=== PATIENT | male | born 1950 | race Caucasian/White ===

== ENCOUNTER 2020-05-10 06:31 | Outpatient (REF) | payer MEDICARE, SELFPAY ==
[2020-05-10 07:51] LABS: MANUAL DIFF FLAG NO
[2020-05-10 07:56] LABS: Basophils Percent Auto 0.6 % (0-2); Eosinophils Absolute Auto 0.1 X10*3/uL (0.0-0.4); Eosinophils Percent Auto 1.4 % (0-4); Hematocrit 43.8 % (42-52); Hemoglobin 15.4 g/dl (14.0-18.0); Imm Gran Abs Auto 0.02 X10*3/uL (0.00-0.03); Imm Gran Pct Auto 0.3 % (0.0-0.4); Lymphocytes Absolute Auto 1.8 X10*3/uL (1.2-4.9); Lymphocytes Percent Auto 24.9 % (20-40); Mean Corpuscular HGB Conc 35.2 g/dl (31.0-36.0); Mean Corpuscular Volume 90.9 fL (80-98); Mean Platelet Volume 10.4 fL (9.4-12.4); Monocytes Absolute Auto 0.6 X10*3/uL (0.1-1.2); Monocytes Percent Auto 8.1 % (2-11); Neutrophils Absolute Auto 4.6 X10*3/uL (2.0-8.3); Neutrophils Percent Auto 64.7 % (45-73); Platelet Count 228 X10*3/uL (160-400); Red Blood Count 4.82 X10*6/uL (4.60-5.80); Red Cell Distribution Width 12.1 % (11.0-16.0)
[2020-05-10 08:14] LABS: Alanine Aminotransferase 18 U/L (0-40); Albumin Level 4.9 g/dL (3.5-5.0); Alkaline Phosphatase 107 U/L (39-117); Anion Gap 14 (12-20); Aspartate Amino Transferase 23 U/L (5-37); Bilirubin Total 0.7 mg/dL (0.0-1.0); Blood Urea Nitrogen 16 mg/dL (9-16); Calcium 9.9 mg/dL (8.4-10.2); Carbon Dioxide 28 mmol/L (22-29); Chloride 101 mmol/L (96-108); Cholesterol 168 mg/dL; Estimated Glomerular Filt Rate > 60; Glucose Fasting 103 mg/dL (60-99); HDL Cholesterol 51 mg/dL; LDL Cholesterol Calculated 90 mg/dl; Potassium 4.8 mmol/l (3.3-5.1); Sodium 138 mmol/L (135-145); Total Protein 7.9 g/dL (6.5-8.0); Triglycerides 137 mg/dL
[2020-05-10 08:20] LABS: Glucose Urine UA NEG (NEG); Leukocyte Esterase Urine NEG (NEG); Nitrite Urine NEG (NEG); Urine Blood NEG (NEG); Urine Ketones NEG (NEG); Urine Protein NEG (NEG-TRACE)
[2020-05-10 08:29] LABS: Appearance Urine CLEAR; Color Urine YELLOW
[2020-05-10 08:36] LABS: Prostate Specific Antigen Scr 0.42 ng/mL (<0.05-4.0)
== END 2020-05-10 06:32 | disposition home or self-care (01) ==
LOC: HO.LAB 06:31
PROVIDERS: PCP Internal Medicine; Visit Provider Internal Medicine
DX: M19.90 Unspecified osteoarthritis, unspecified site (principal); R35.1 Nocturia; I10 Essential (primary) hypertension
CPT/HCPCS: 36415; 80053; 80061; 81003; 84153; 85025

== ENCOUNTER → 2020-08-08 13:32 | Outpatient (REF) | payer MEDICARE, OTHER, SELFPAY ==
--- NOTE | 2020-08-08 14:37 | ECG_ITS ---
Hook-up date: 2020-08-08 13:50:00 Duration: 25:36:00 Test Indications: heart block atrioventricular Medications: 78379 QRS complexes 2378 Ventricular ectopics which represent 2 % of total QRS comp. 16 Supraventricular ectopics which represent <1 % of total QRS comp. * Paced QRS complexs which represent % of total QRS comp. VENTRICULAR ECTOPY 2214 Isolated 331 Bigeminal Cycles 75 Couplets 4 Runs 14 Beats in Runs 5 Beats LONGEST at 88 BPM at 07:18:24 2020-08-09 5 Beats FASTEST at 88 BPM at 07:18:24 2020-08-09 SUPRAVENTRICULAR ECTOPY 16 Isolated 0 Couplets 0 Runs 0 Beats in Runs * Beats LONGEST at * BPM at :: -- * Beats FASTEST at * BPM at :: -- HEART RATES 33 MIN at 08:27:31 2020-08-09 58 AVG 103 MAX at 06:22:28 2020-08-09 LONGEST RR 2.4960 secs at 03:22:10 2020-08-09 S-T LEVELS Channel 1 - 128 mm at 13:50:00 2020-08-08 - 128 mm at 13:50:00 2020-08-08 Channel 2 - 128 mm at 13:50:00 2020-08-08 - 128 mm at 13:50:00 2020-08-08 Channel 3 - 128 mm at 03:30:91 -- - 128 mm at 03:30:91 Underlying rhythm is sinus; Average ventricular rate 58/min; 33-103/min; Mobitz 1 wenckebach heart block noted; No high grade AV blocks; PVCs noted (3%); mostly isolated; few couplets; no sustained runs; Patient did not report any symptoms in the diary Referred By: Pamela Taylor Overread By: PAMELA TAYLOR
== END ==
LOC: HO.CARD 13:32
PROVIDERS: PCP Internal Medicine; Visit Provider Internal Medicine
DX: I44.30 Unspecified atrioventricular block (principal); I44.1 Atrioventricular block, second degree; I10 Essential (primary) hypertension
CPT/HCPCS: 93226

== ENCOUNTER → 2020-08-23 12:28 | Outpatient (BNVA) | payer MEDICARE, OTHER, SELFPAY | PROVIDERS: PCP Internal Medicine; Visit Provider Internal Medicine | DX: I44.1 Atrioventricular block, second degree (principal); I49.3 Ventricular premature depolarization; I10 Essential (primary) hypertension | CPT/HCPCS: 99212 ==

== ENCOUNTER 2020-11-24 06:09 | Outpatient (REF) | payer MEDICARE, SELFPAY ==
--- NOTE | ~2020-11-24 | XR_ITS ---
EXAMINATION: XR FEMUR, RIGHT CLINICAL INFORMATION: Right thigh pain COMPARISON: Standing AP knees and right knee 05/10/2017 TECHNIQUE: The right femur is imaged in AP x2, lateral, and frog-lateral x2 projections for a total of 5 views. FINDINGS: There is no fracture or dislocation or destructive process. There are mild degenerative changes right hip with borderline narrowing superior medial hip joint. There is no erosive change or chondrocalcinosis. Soft tissue planes around the hips are unremarkable. There is a prior hinged prosthesis right knee again demonstrated. The hardware is intact. The AP view shows increased lucency adjacent to the medial side proximal stem of the prosthesis measuring 5.5 mm in thickness, since prior AP view 2017. There is also mild cortical thickening adjacent to proximal prosthesis stem on the lateral and anterior side. Finding may be associated with loosening. No other sites of increased periprosthetic lucency. XR/XR femur RT 2V IMPRESSION: 1. Prior hinged prosthesis right knee. Hardware intact. No fracture or dislocation. 2. Increased lucency between proximal prosthesis stem and bone, 5.5 mm in thickness, since prior imaging 2017. Also mild cortical thickening adjacent to anterior lateral aspect of the proximal prosthesis stem. Findings may suggest loosening.
[2020-11-24 07:17] LABS: MANUAL DIFF FLAG NO
[2020-11-24 07:30] LABS: Basophils Percent Auto 0.6 % (0-2); Eosinophils Absolute Auto 0.2 X10*3/uL (0.0-0.4); Eosinophils Percent Auto 2.1 % (0-4); Hematocrit 44.7 % (42-52); Hemoglobin 15.8 g/dl (14.0-18.0); Imm Gran Abs Auto 0.02 X10*3/uL (0.00-0.03); Imm Gran Pct Auto 0.3 % (0.0-0.4); Lymphocytes Absolute Auto 1.8 X10*3/uL (1.2-4.9); Mean Corpuscular HGB Conc 35.3 g/dl (31.0-36.0); Mean Corpuscular Hemoglobin 31.7 pg (27.0-33.0); Mean Corpuscular Volume 89.8 fL (80-98); Mean Platelet Volume 10.5 fL (9.4-12.4); Monocytes Absolute Auto 0.6 X10*3/uL (0.1-1.2); Monocytes Percent Auto 8.9 % (2-11); Neutrophils Absolute Auto 4.6 X10*3/uL (2.0-8.3); Neutrophils Percent Auto 63.1 % (45-73); Platelet Count 229 X10*3/uL (160-400); Red Blood Count 4.98 X10*6/uL (4.60-5.80); Red Cell Distribution Width 11.9 % (11.0-16.0); White Blood Count 7.2 X10*3/uL (4.8-10.8)
[2020-11-24 07:44] LABS: Alanine Aminotransferase 14 U/L (0-40); Albumin Level 4.7 g/dL (3.5-5.0); Alkaline Phosphatase 101 U/L (39-117); Anion Gap 15 (12-20); Aspartate Amino Transferase 18 U/L (5-37); Bilirubin Total 1.1 mg/dL (0.0-1.0); Blood Urea Nitrogen 19 mg/dL (9-16); Calcium 9.8 mg/dL (8.4-10.2); Carbon Dioxide 25 mmol/L (22-29); Chloride 102 mmol/L (96-108); Cholesterol 180 mg/dL; Estimated Glomerular Filt Rate > 60; Glucose Fasting 108 mg/dL (60-99); HDL Cholesterol 47 mg/dL; LDL Cholesterol Calculated 98 mg/dl; Potassium 4.4 mmol/L (3.3-5.1); Sodium 138 mmol/L (135-145); Total Protein 7.5 g/dL (6.5-8.0); Triglycerides 177 mg/dL
[2020-11-24 08:05] LABS: Prostate Specific Antigen 0.52 ng/mL (<0.05-4.0)
== END 2020-11-24 06:10 | disposition home or self-care (01) ==
LOC: HO.LAB 06:09
PROVIDERS: Visit Provider Internal Medicine
DX: I10 Essential (primary) hypertension (principal); M19.90 Unspecified osteoarthritis, unspecified site; G47.00 Insomnia, unspecified; M79.651 Pain in right thigh; Z12.5 Encounter for screening for malignant neoplasm of prostate
CPT/HCPCS: 36415; 73552; 80053; 80061; 84153; 85025

== ENCOUNTER 2020-12-01 08:03 | Outpatient (REF) | payer MEDICARE, SELFPAY ==
--- NOTE | ~2020-12-01 | XR_ITS ---
EXAMINATION: KNEE X-RAY CLINICAL INFORMATION: Knee replacement COMPARISON: Previous x-ray most recent May 2017 and right femur x-ray 11/24/2020 TECHNIQUE: Standing AP view of both knees and lateral and sunrise view of the right knee FINDINGS: There is a 3 component hinged right knee replacement. No fracture, dislocation or x-ray evidence of loosening is seen. There is a joint effusion. There is evidence of atherosclerotic disease. AP view of the left knee demonstrates mild medial degenerative meniscal calcification. XR/XR knee RT 2V IMPRESSION: Stable appearance of the right knee replacement. Joint effusion.
--- NOTE | ~2020-12-01 | XR_ITS ---
EXAMINATION: KNEE X-RAY CLINICAL INFORMATION: Knee replacement COMPARISON: Previous x-ray most recent May 2017 and right femur x-ray 11/24/2020 TECHNIQUE: Standing AP view of both knees and lateral and sunrise view of the right knee FINDINGS: There is a 3 component hinged right knee replacement. No fracture, dislocation or x-ray evidence of loosening is seen. There is a joint effusion. There is evidence of atherosclerotic disease. AP view of the left knee demonstrates mild medial degenerative meniscal calcification. XR/XR knee standing BI IMPRESSION: Stable appearance of the right knee replacement. Joint effusion.
== END 2020-12-01 08:04 | disposition home or self-care (01) ==
LOC: HO.HOSX 08:03
PROVIDERS: Visit Provider Orthopaedic Surgery
DX: T84.84XA Pain due to internal orthopedic prosthetic devices, implants and grafts, initial encounter (principal); Z96.651 Presence of right artificial knee joint
CPT/HCPCS: 73560; 73565; 99212

== ENCOUNTER → 2021-02-14 13:35 | Outpatient (BNVA) | payer MEDICARE, SELFPAY | PROVIDERS: PCP Internal Medicine; Referring Provider Internal Medicine; Visit Provider Internal Medicine | DX: I44.1 Atrioventricular block, second degree (principal); I49.3 Ventricular premature depolarization; I10 Essential (primary) hypertension; G47.33 Obstructive sleep apnea (adult) (pediatric); Z99.89 Dependence on other enabling machines and devices; Z79.899 Other long term (current) drug therapy | CPT/HCPCS: 93005; 99212 ==

== ENCOUNTER 2021-05-02 12:06 | Outpatient (REF) | payer MEDICARE, OTHER, SELFPAY ==
[2021-05-02 13:46] LABS: MANUAL DIFF FLAG NO
[2021-05-02 13:58] LABS: Basophils Percent Auto 0.5 % (0-2); Eosinophils Absolute Auto 0.1 X10*3/uL (0.0-0.4); Eosinophils Percent Auto 1.2 % (0-4); Hemoglobin 14.9 g/dl (14.0-18.0); Imm Gran Abs Auto 0.03 X10*3/uL (0.00-0.03); Imm Gran Pct Auto 0.4 % (0.0-0.4); Lymphocytes Absolute Auto 1.3 X10*3/uL (1.2-4.9); Lymphocytes Percent Auto 16.5 % (20-40); Mean Corpuscular HGB Conc 34.7 g/dl (31.0-36.0); Mean Corpuscular Hemoglobin 31.3 pg (27.0-33.0); Mean Corpuscular Volume 90.3 fL (80-98); Mean Platelet Volume 10.8 fL (9.4-12.4); Monocytes Absolute Auto 0.7 X10*3/uL (0.1-1.2); Monocytes Percent Auto 8.5 % (2-11); Neutrophils Absolute Auto 5.9 X10*3/uL (2.0-8.3); Neutrophils Percent Auto 72.9 % (45-73); Platelet Count 221 X10*3/uL (160-400); Red Blood Count 4.76 X10*6/uL (4.60-5.80); Red Cell Distribution Width 11.9 % (11.0-16.0); White Blood Count 8.1 X10*3/uL (4.8-10.8)
[2021-05-02 14:03] LABS: Alanine Aminotransferase 13 U/L (0-40); Albumin Level 4.6 g/dL (3.5-5.0); Alkaline Phosphatase 93 U/L (39-117); Anion Gap 15 (12-20); Aspartate Amino Transferase 20 U/L (5-37); Bilirubin Total 0.9 mg/dL (0.0-1.0); Blood Urea Nitrogen 18 mg/dL (9-16); Calcium 9.9 mg/dL (8.4-10.2); Carbon Dioxide 23 mmol/L (22-29); Chloride 101 mmol/L (96-108); Estimated Glomerular Filt Rate > 60; Glucose Random 103 mg/dL (60-115); Potassium 4.7 mmol/L (3.3-5.1); Sodium 134 mmol/L (135-145); Total Protein 7.5 g/dL (6.5-8.0)
== END 2021-05-02 12:07 | disposition home or self-care (01) ==
LOC: HO.10HDL 12:06
PROVIDERS: Visit Provider Internal Medicine
DX: I10 Essential (primary) hypertension (principal); K21.9 Gastro-esophageal reflux disease without esophagitis; G47.33 Obstructive sleep apnea (adult) (pediatric); M19.90 Unspecified osteoarthritis, unspecified site
CPT/HCPCS: 36415; 80053; 85025

== ENCOUNTER → 2021-08-08 08:59 | Outpatient (REF) | payer MEDICARE, SELFPAY ==
--- NOTE | 2021-08-08 10:31 | ECG_ITS ---
Hook-up date: 2021-08-08 10:11:00 Duration: 47:59:00 Test Indications: ATRIOVENTRIC. BLOCK, 2ND DEGREE Medications: 51991 QRS complexes 1443 Ventricular ectopics which represent 1 % of total QRS comp. 12 Supraventricular ectopics which represent <1 % of total QRS comp. * Paced QRS complexs which represent % of total QRS comp. VENTRICULAR ECTOPY 1382 Isolated 211 Bigeminal Cycles 29 Couplets 1 Runs 3 Beats in Runs 3 Beats LONGEST at 137 BPM at 22:38:11 2021-08-08 3 Beats FASTEST at 137 BPM at 22:38:11 2021-08-08 SUPRAVENTRICULAR ECTOPY 12 Isolated 0 Couplets 0 Runs 0 Beats in Runs * Beats LONGEST at * BPM at :: -- * Beats FASTEST at * BPM at :: -- HEART RATES 28 MIN at 06:13:44 2021-08-09 55 AVG 97 MAX at 07:03:54 2021-08-09 LONGEST RR 2.5040 secs at 05:00:38 2021-08-09 S-T LEVELS Channel 1 - 128 mm at 10:11:00 2021-08-08 - 128 mm at 10:11:00 2021-08-08 Channel 2 - 128 mm at 10:11:00 2021-08-08 - 128 mm at 10:11:00 2021-08-08 Channel 3 - 128 mm at 02:93:01 -- - 128 mm at 02:93:01 Underlying rhythm is sinus; Average rate 55/min; range 28-97/min; About 57% of the time, rate <60/min; Longest pause 2.5sec at 05:00; Mobitz 1 second degree heart block noted, including during awake hours; Patient did not report any symptoms in the diary Referred By: Pamela Taylor Overread By: PAMELA TAYLOR
== END ==
LOC: HO.CARD 08:59
PROVIDERS: PCP Internal Medicine; Referring Provider Internal Medicine; Visit Provider Internal Medicine
DX: I44.1 Atrioventricular block, second degree (principal)
CPT/HCPCS: 93226

== ENCOUNTER → 2021-09-05 12:30 | Outpatient (BNVA) | payer MEDICARE, SELFPAY | PROVIDERS: PCP Internal Medicine; Referring Provider Internal Medicine; Visit Provider Internal Medicine | DX: I44.1 Atrioventricular block, second degree (principal); I49.3 Ventricular premature depolarization; I10 Essential (primary) hypertension; G47.33 Obstructive sleep apnea (adult) (pediatric); Z99.89 Dependence on other enabling machines and devices | CPT/HCPCS: 99212 ==

== ENCOUNTER 2021-11-09 07:31 | Outpatient (REF) | payer MEDICARE, SELFPAY ==
[2021-11-09 07:53] LABS: MANUAL DIFF FLAG NO
[2021-11-09 08:11] LABS: Basophils Percent Auto 0.3 % (0-2); Eosinophils Absolute Auto 0.1 X10*3/uL (0.0-0.4); Hematocrit 43.4 % (42.0-52.0); Hemoglobin 15.2 g/dl (14.0-18.0); Imm Gran Abs Auto 0.06 X10*3/uL (0.00-0.03); Imm Gran Pct Auto 0.7 % (0.0-0.4); Lymphocytes Absolute Auto 1.5 X10*3/uL (1.2-4.9); Lymphocytes Percent Auto 15.8 % (20-40); Mean Corpuscular Hemoglobin 31.5 pg (27.0-33.0); Mean Corpuscular Volume 89.9 fL (80.0-98.0); Mean Platelet Volume 9.4 fL (9.4-12.4); Monocytes Absolute Auto 0.7 X10*3/uL (0.1-1.2); Monocytes Percent Auto 7.5 % (2-11); Neutrophils Absolute Auto 6.8 x10*3/uL (2.0-8.3); Neutrophils Percent Auto 74.7 % (45-73); Platelet Count 288 X10*3/uL (160-400); Red Blood Count 4.83 X10*6/uL (4.60-5.80); Red Cell Distribution Width 12.1 % (11.0-16.0); White Blood Count 9.2 X10*3/uL (4.8-10.8)
[2021-11-09 08:36] LABS: Alanine Aminotransferase 22 U/L (0-40); Albumin Level 4.6 g/dL (3.5-5.0); Alkaline Phosphatase 91 U/L (39-117); Anion Gap 15 (12-20); Aspartate Amino Transferase 23 U/L (5-37); Bilirubin Total 0.8 mg/dL (0.0-1.0); Blood Urea Nitrogen 16 mg/dL (9-16); Calcium 9.9 mg/dL (8.4-10.2); Carbon Dioxide 24 mmol/L (22-29); Chloride 103 mmol/L (96-108); Cholesterol 153 mg/dL; Estimated Glomerular Filt Rate > 60; Glucose Fasting 106 mg/dL (60-99); HDL Cholesterol 39 mg/dL; LDL Cholesterol Calculated 87 mg/dl; Potassium 4.7 mmol/L (3.3-5.1); Sodium 137 mmol/L (135-145); Total Protein 7.6 g/dL (6.5-8.0); Triglycerides 139 mg/dL
[2021-11-09 08:56] LABS: Prostate Specific Antigen 0.63 ng/mL (<0.05-4.0)
== END 2021-11-09 07:32 | disposition home or self-care (01) ==
LOC: HO.LAB 07:31
PROVIDERS: PCP Internal Medicine; Visit Provider Internal Medicine
DX: Z12.5 Encounter for screening for malignant neoplasm of prostate (principal); N40.0 Benign prostatic hyperplasia without lower urinary tract symptoms; G47.33 Obstructive sleep apnea (adult) (pediatric); K21.9 Gastro-esophageal reflux disease without esophagitis; I10 Essential (primary) hypertension; M19.90 Unspecified osteoarthritis, unspecified site; R35.1 Nocturia
CPT/HCPCS: 36415; 80053; 80061; 84153; 85025

== ENCOUNTER → 2022-03-08 15:11 | Outpatient (BNVA) | payer MEDICARE, OTHER, SELFPAY | PROVIDERS: PCP Internal Medicine; Referring Provider Internal Medicine; Visit Provider Internal Medicine | DX: I44.1 Atrioventricular block, second degree (principal); I49.3 Ventricular premature depolarization; I10 Essential (primary) hypertension; G47.33 Obstructive sleep apnea (adult) (pediatric); Z99.89 Dependence on other enabling machines and devices | CPT/HCPCS: 93005; 99212 ==

== ENCOUNTER 2022-03-22 08:02 | Outpatient (REF) | payer MEDICARE, OTHER, SELFPAY ==
[2022-03-22 11:18] LABS: Anion Gap 15 (12-20); Blood Urea Nitrogen 19 mg/dL (9-16); Calcium 9.6 mg/dL (8.4-10.2); Carbon Dioxide 27 mmol/L (22-29); Chloride 101 mmol/L (96-108); Estimated Glomerular Filt Rate 52; Glucose Random 116 mg/dL (60-115); Potassium 4.5 mmol/L (3.3-5.1); Sodium 138 mmol/L (135-145)
== END 2022-03-22 08:03 | disposition home or self-care (01) ==
LOC: HO.10HDL 08:02
PROVIDERS: Visit Provider Internal Medicine
DX: I10 Essential (primary) hypertension (principal); K21.9 Gastro-esophageal reflux disease without esophagitis
CPT/HCPCS: 36415; 80048

== ENCOUNTER → 2022-05-29 08:59 | Outpatient (REF) | payer MEDICARE, OTHER, SELFPAY | LOC: HO.SL 08:59 | PROVIDERS: PCP Internal Medicine; Visit Provider Internal Medicine | DX: G47.33 Obstructive sleep apnea (adult) (pediatric) (principal) | CPT/HCPCS: 95806 ==

== ENCOUNTER → 2022-07-05 10:56 | Outpatient (REF) | payer MEDICARE, OTHER, SELFPAY ==
--- NOTE | 2022-07-05 11:00 | HM_ITS ---
Conclusion: 1. Patient was monitored for total period of 3 days 2. Baseline was normal sinus rhythm with average heart rate of 53 beats per minute with lowest heart rate of 35 beats per minute 3. Frequent sinus bradycardia with 55% of time heart rate below 60 beats per minute 4. Frequent pauses greater than 2.5 seconds with longest pause of 3.02nd happening at 06:00 5. Occasional episodes of Mobitz type 1 second-degree AV block noted 6. Total of 4448 PVCs accounting for 1.9% total beats account for frequent PVCs 7. There were 6 episodes of nonsustained VT from 3-7 beats, fastest at 163 beats per minute 8. Patient use marker 1 time without reported symptom correlating with sinus rhythm MTDD
== END ==
LOC: HO.CARD 10:56
PROVIDERS: PCP Internal Medicine; Visit Provider Internal Medicine
DX: I44.1 Atrioventricular block, second degree (principal)
CPT/HCPCS: 93242

== ENCOUNTER 2022-07-24 12:26 | Outpatient (REF) | payer MEDICARE, OTHER, SELFPAY ==
[2022-07-24 13:55] LABS: MANUAL DIFF FLAG NO
[2022-07-24 13:58] LABS: Basophils Percent Auto 0.5 % (0-2); Eosinophils Absolute Auto 0.1 X10*3/uL (0.0-0.4); Eosinophils Percent Auto 0.9 % (0-4); Hemoglobin 15.4 g/dl (14.0-18.0); Imm Gran Abs Auto 0.03 X10*3/uL (0.00-0.03); Imm Gran Pct Auto 0.3 % (0.0-0.4); Lymphocytes Absolute Auto 1.6 X10*3/uL (1.2-4.9); Lymphocytes Percent Auto 18.4 % (20-40); Mean Corpuscular Hemoglobin 31.6 pg (27.0-33.0); Mean Corpuscular Volume 90.3 fL (80.0-98.0); Mean Platelet Volume 10.6 fL (9.4-12.4); Monocytes Absolute Auto 0.8 X10*3/uL (0.1-1.2); Monocytes Percent Auto 8.7 % (2-11); Neutrophils Absolute Auto 6.2 x10*3/uL (2.0-8.3); Neutrophils Percent Auto 71.2 % (45-73); Platelet Count 228 X10*3/uL (160-400); Red Blood Count 4.87 X10*6/uL (4.60-5.80); White Blood Count 8.8 X10*3/uL (4.8-10.8)
[2022-07-24 15:55] LABS: Alanine Aminotransferase 16 U/L (0-40); Albumin Level 4.7 g/dL (3.5-5.0); Alkaline Phosphatase 91 U/L (39-117); Anion Gap 12 (12-20); Aspartate Amino Transferase 21 U/L (5-37); Bilirubin Total 1.1 mg/dL (0.0-1.0); Blood Urea Nitrogen 21 mg/dL (9-16); Calcium 10.1 mg/dL (8.4-10.2); Carbon Dioxide 28 mmol/L (22-29); Chloride 101 mmol/L (96-108); Estimated Glomerular Filt Rate 56; Free T4 (Free Thyroxine) 0.92 ng/dL (0.71-1.85); Glucose Random 99 mg/dL (60-115); Magnesium 1.9 mg/dL (1.6-2.6); Potassium 5.2 mmol/L (3.3-5.1); Sodium 136 mmol/L (135-145); Total Protein 7.5 g/dL (6.5-8.0)
== END 2022-07-24 12:27 | disposition home or self-care (01) ==
LOC: HO.10HDL 12:26
PROVIDERS: Visit Provider Internal Medicine
DX: R00.2 Palpitations (principal); I12.9 Hypertensive chronic kidney disease with stage 1 through stage 4 chronic kidney disease, or unspecified chronic kidney disease; N18.9 Chronic kidney disease, unspecified; M19.90 Unspecified osteoarthritis, unspecified site
CPT/HCPCS: 36415; 80053; 83735; 84439; 85025

== ENCOUNTER → 2022-08-02 08:27 | Outpatient (REF) | payer MEDICARE, SELFPAY ==
--- NOTE | 2022-08-02 08:31 | CA_ITS ---
Transthoracic Echocardiogram Patient (Last, First, Middle): Mason Sethi R Gender: Male Date of : 1950 Age: 72 Procedure Date: 08/02/2022 Procedure Type: Transthoracic Echocardiogram Location: OP Height: 182.88 cm Weight: 92.99 kg BSA: 2.15 m2 Heart Rate: bpm BP: 140 / 70 mmHg Stable Hand: TO Referring MD: Antoine Kendrick MD Fur Machine Operator: David Mejia MD Symptoms: R00.2 PALPITATIONS 144.0 ATRIOVENTRICULAR BLOCK 1st degree htn Study Quality: Fair ECG Rhythm: Sinus with extra beats Conclusions: - 1. Normal LV systolic function 2. Mild mitral regurgitation 3. Mild biatrial enlargement 4. Normal RV systolic pressure 5. No pericardial effusion Findings Left Ventricle Normal left ventricular size, thickness, and systolic function. The visually estimated ejection fraction is between 55-60%. Spectral Doppler is indicative of a normal filling pattern. Right Ventricle Normal right ventricular cavity size and systolic function. Atria Mild biatrial enlargement. Interatrial shunt cannot be excluded. Aortic Valve Normal aortic valve structure and function. There is no aortic valve stenosis. There is no aortic valve regurgitation. Mitral Valve There is mild anterior and posterior mitral leaflet thickening. There is trace mitral valve regurgitation. There is no mitral valve stenosis. Pulmonic Valve The pulmonic valve was not well visualized. Tricuspid Valve Normal tricuspid valve structure. There is trace tricuspid valve regurgitation. The right ventricular systolic pressure is normal. The right ventricular systolic pressure is 30 mmHg. Normal right atrial pressure. There is no evidence of pulmonary hypertension. Great Vessels All visible segments of the aorta are normal in size. The pulmonary artery was not well visualized. Venous The inferior vena cava is normal in size and collapses greater than 50% with inspiration. Pericardium/Pleural There is no evidence of pericardial effusion. Prior Study Comparison No significant change compared to prior study dated: 07/13/2019. Measurements 2D Linear Measurements IVSd: 1.02 0.6-0.9/0.6-1.0 cm LVIDd: 4.91 3.9-5.3/4.2-5.9 cm LVIDd Index: 2.28 2.4-3.2/2.2-3.1 cm/m2 LVIDs: 3.84 2.0-3.6 cm LVPWd: 1.06 0.7-1.1 cm LA Diam: 4.00 2.7-3.8/3.0-4.0 cm LAIDs Index: 1.86 1.5-2.3 cm/m2 LV Mass: 232.09 67-162/88-224 g LV Mass Index: 107.95 43-95/49-115 g/m2 LVOT Diam: 2.20 3.0+(-)1.3 cm 2D Systolic Function EF 4C: 52.60 >55% EF 2C: 51.20 >55% Mitral Valve MV Pk E: 0.84 MV PK A: 0.50 MV Decel Time: 224.00 E/A: 1.70 E'Lateral: 8.59 E'Medial: 5.87 E/E' Med: 14.30 E/E' Lat: 9.80 PHT: 66.00 MVA PHT: 3.33 Decel [place]: 3.75 Aortic Valve AoV Pk Syed: 1.08 AoV Mn Syed: 0.77 AoV VTI: 0.27 AoV Pk Grad: 5.00 Aov Mn Grad: 3.00 JADIEL Cont.VTI: 2.25 LVOT LVOT Pk Syed: 0.67 LVOT Mn Syed: 0.50 LVOT VTI: 0.16 LVOT Pk Grad: 2.00 LVOT Mn Grad: 1.00 LVOT Diam: 2.20 LVOT Area: 3.80 Diastolic Function MV Pk E: 0.84 MV Pk A: 0.50 E/A: 1.70 E'Medial: 5.87 E/E' Med: 14.30 E' Laterial: 8.59 E/E' Lat: 9.80 Right Ventricle TAPSE (mm): 19.80 TVS' Syed: 11.00 Tricuspid Valve TR Pk Syed: 2.58 TR Pk Grad: 27.00 RA Press: 3.00 RVSP: 30.00 Great Vessels Aorta Sinus of Valsalva: 3.32 2.0-3.5 cm Ao Asc: 2.90 2.1-3.4 cm Updated in Other Vendor System with Status of Final David Mejia MD electronically signed on 08/03/2022 3:07:55 PM with status of Final
== END ==
LOC: HO.CARD 08:27
PROVIDERS: Visit Provider Internal Medicine
DX: R00.2 Palpitations (principal); I44.0 Atrioventricular block, first degree; I10 Essential (primary) hypertension
CPT/HCPCS: 93306

== ENCOUNTER 2022-08-20 16:06 | Outpatient (REF) | payer MEDICARE, SELFPAY ==
--- NOTE | ~2022-08-20 | XR_ITS ---
EXAMINATION: XR ribs RT min 3V w CXR1V CLINICAL INFORMATION: Reason for Exam s/p fall, right rib pain COMPARISON: Chest radiograph 10/23/2015 TECHNIQUE: 3 views of the right ribs and chest x-ray view FINDINGS: Clear lungs. No pneumothorax or pleural effusion. Unchanged cardiomediastinal silhouette. There are minimally displaced fractures, which appear chronic of the posterior right seventh eighth and ninth ribs. No definite acute displaced fracture. XR/XR ribs RT min 3V w CXR1V Impression: There are minimally displaced fractures, which appear chronic of the posterior right seventh eighth and ninth ribs. No definite acute displaced fracture.
== END 2022-08-20 16:07 | disposition home or self-care (01) ==
LOC: HO.XRAY 16:06
PROVIDERS: PCP Internal Medicine; Visit Provider Internal Medicine
DX: R07.81 Pleurodynia (principal); Z91.81 History of falling
CPT/HCPCS: 71101

== ENCOUNTER → 2022-09-13 09:59 | Outpatient (BNVA) | payer MEDICARE, SELFPAY | PROVIDERS: PCP Internal Medicine; Referring Provider Internal Medicine; Visit Provider Internal Medicine | DX: I44.1 Atrioventricular block, second degree (principal); I49.3 Ventricular premature depolarization; I10 Essential (primary) hypertension; G47.33 Obstructive sleep apnea (adult) (pediatric); Z99.89 Dependence on other enabling machines and devices | CPT/HCPCS: 93005; 99212 ==

== ENCOUNTER 2022-11-13 08:04 | Outpatient (REF) | payer MEDICARE, SELFPAY ==
[2022-11-13 11:19] LABS: Alanine Aminotransferase 14 U/L (0-40); Albumin Level 4.5 g/dL (3.5-5.0); Alkaline Phosphatase 104 U/L (39-117); Anion Gap 13 (12-20); Aspartate Amino Transferase 19 U/L (5-37); Bilirubin Total 0.5 mg/dL (0.0-1.0); Blood Urea Nitrogen 22 mg/dL (9-16); Calcium 9.7 mg/dL (8.4-10.2); Carbon Dioxide 27 mmol/L (22-29); Chloride 102 mmol/L (96-108); Estimated Glomerular Filt Rate 53; Glucose Random 108 mg/dL (60-115); Potassium 4.7 mmol/L (3.3-5.1); Sodium 137 mmol/L (135-145); Total Protein 7.1 g/dL (6.5-8.0)
== END 2022-11-13 08:05 | disposition home or self-care (01) ==
LOC: HO.10HDL 08:04
PROVIDERS: Visit Provider Internal Medicine
DX: Z13.89 Encounter for screening for other disorder (principal)
CPT/HCPCS: 36415; 80053

== ENCOUNTER → 2022-11-13 13:09 | Outpatient (REF) | payer MEDICARE, SELFPAY ==
--- NOTE | 2022-11-13 13:11 | HM_ITS ---
Conclusion: 1. Patient was monitored for total period of 3 days 2. Baseline was normal sinus rhythm with average heart of 53 beats per minute with lowest heart rate of 36 beats per minute 3. Frequent sinus bradycardia with 60% of time heart rate below 60 beats per minute. One pause of 2.5 seconds noted at 04:00 4. Frequent PVCs with total burden of 2.75%. Fourteen total episodes of nonsustained VT with longest lasting 5 beats and the fastest at 135 beats per minute 5. No patient reported events MTDD
== END ==
LOC: HO.CARD 13:09
PROVIDERS: PCP Internal Medicine; Visit Provider Internal Medicine
DX: I44.1 Atrioventricular block, second degree (principal)
CPT/HCPCS: 36415; 80053; 93242

== ENCOUNTER → 2023-01-22 13:55 | Outpatient (BNVA) | payer MEDICARE, SELFPAY | PROVIDERS: PCP Internal Medicine; Referring Provider Internal Medicine; Visit Provider Internal Medicine | DX: I44.1 Atrioventricular block, second degree (principal); I49.3 Ventricular premature depolarization; I10 Essential (primary) hypertension; G47.33 Obstructive sleep apnea (adult) (pediatric); Z99.89 Dependence on other enabling machines and devices | CPT/HCPCS: 99212 ==

== ENCOUNTER 2023-04-16 12:11 | Outpatient (REF) | payer MEDICARE, SELFPAY ==
[2023-04-16 13:19] LABS: MANUAL DIFF FLAG NO
[2023-04-16 13:31] LABS: Basophils Absolute Auto 0.1 X10*3/uL (0.0-0.2); Basophils Percent Auto 0.7 % (0-2); Eosinophils Absolute Auto 0.1 X10*3/uL (0.0-0.4); Eosinophils Percent Auto 0.9 % (0-4); Hematocrit 43.2 % (42.0-52.0); Hemoglobin 15.2 g/dl (14.0-18.0); Imm Gran Abs Auto 0.03 X10*3/uL (0.00-0.03); Imm Gran Pct Auto 0.3 % (0.0-0.4); Lymphocytes Absolute Auto 1.6 X10*3/uL (1.2-4.9); Lymphocytes Percent Auto 18.5 % (20-40); Mean Corpuscular HGB Conc 35.2 g/dl (31.0-36.0); Mean Corpuscular Hemoglobin 32.1 pg (27.0-33.0); Mean Corpuscular Volume 91.3 fL (80.0-98.0); Mean Platelet Volume 10.4 fL (9.4-12.4); Monocytes Absolute Auto 0.6 X10*3/uL (0.1-1.2); Monocytes Percent Auto 7.3 % (2-11); Neutrophils Absolute Auto 6.3 x10*3/uL (2.0-8.3); Neutrophils Percent Auto 72.3 % (45-73); Platelet Count 242 X10*3/uL (160-400); Red Blood Count 4.73 X10*6/uL (4.60-5.80); White Blood Count 8.7 X10*3/uL (4.8-10.8)
[2023-04-16 14:08] LABS: Alanine Aminotransferase 16 U/L (0-40); Albumin Level 4.8 g/dL (3.5-5.0); Alkaline Phosphatase 96 U/L (39-117); Anion Gap 14 (12-20); Aspartate Amino Transferase 22 U/L (5-37); Bilirubin Total 0.7 mg/dL (0.0-1.0); Blood Urea Nitrogen 18 mg/dL (9-16); C Reactive Protein 0.23 mg/dL (< or = 0.50); Calcium 10.6 mg/dL (8.4-10.2); Carbon Dioxide 27 mmol/L (22-29); Chloride 100 mmol/L (96-108); Estimated Glomerular Filt Rate > 60; Glucose Random 107 mg/dL (60-115); Potassium 4.6 mmol/L (3.3-5.1); Sodium 136 mmol/L (135-145); Total Protein 8.1 g/dL (6.5-8.0)
[2023-04-16 14:10] LABS: Erythrocyte Sedimentation Rate 7 MM/HR (0-15)
== END 2023-04-16 12:12 | disposition home or self-care (01) ==
LOC: HO.10HDL 12:11
PROVIDERS: Visit Provider Internal Medicine
DX: I12.9 Hypertensive chronic kidney disease with stage 1 through stage 4 chronic kidney disease, or unspecified chronic kidney disease (principal); R51.9 Headache, unspecified; K21.9 Gastro-esophageal reflux disease without esophagitis; G47.33 Obstructive sleep apnea (adult) (pediatric); N18.9 Chronic kidney disease, unspecified
CPT/HCPCS: 36415; 80053; 82550; 85025; 85652; 86140

== ENCOUNTER 2023-04-19 10:59 | Outpatient (REF) | payer MEDICARE, SELFPAY ==
--- NOTE | ~2023-04-19 | CT_ITS ---
EXAMINATION: CT HEAD WITHOUT CONTRAST CLINICAL INFORMATION: 72 year old with new onset right-sided headaches. COMPARISON: None available. TECHNIQUE: Contiguous axial imaging was performed from the skull base to vertex without intravenous administration of contrast. This CT examination was performed using dose optimization techniques as appropriate, variously including the following: *Automated exposure control *Adjustment of mA and/or kV according to patient size (this includes techniques or standardized protocols for targeted exams where dose is matched to indication/reason for exam; i.e. extremities or head) *Use of iterative reconstruction technique DLP: 740 mGy-cm. FINDINGS: Brain Volume: Within normal limits within the limitations of qualitative assessment. Structural: No malformations. Brain and Meninges: The brain is normal in morphology and attenuation. Ocampo-white matter differentiation is well maintained. No acute territorial infarct, hemorrhage, extra-axial fluid collection, space-occupying process or mass effect is identified. There are bilateral carotid siphon mural calcifications. Ventricles and Subarachnoid Spaces: The ventricular system and subarachnoid spaces are within normal range; there is no hydrocephalus. Orbital Structures: Bilateral lens replacements are noted. Otherwise, grossly unremarkable within the limitations of the study. Osseous Structures, Sinuses/Mastoids, Extracranial Soft Tissues: The calvarium and the bony skull base appear grossly intact and the visualized airspaces are unopacified. There is sinusoidal nasal septal deviation. There is a 4 mm nonspecific subcutaneous calcification along the right parietal scalp, likely a benign finding. CT/CT head/brain wo IV con IMPRESSION: No acute intracranial process. No evidence for acute territorial infarct, hemorrhage, extra-axial fluid collection, space-occupying process, mass effect or hydrocephalus.
== END 2023-04-19 11:00 | disposition home or self-care (01) ==
LOC: HO.CT 10:59
PROVIDERS: PCP Internal Medicine; Visit Provider Internal Medicine
DX: R51.9 Headache, unspecified (principal)
CPT/HCPCS: 70450

== ENCOUNTER 2023-07-20 08:06 | Outpatient (REF) | payer MEDICARE, SELFPAY ==
[2023-07-20 09:01] LABS: MANUAL DIFF FLAG NO
[2023-07-20 10:20] LABS: Basophils Absolute Auto 0.1 X10*3/uL (0.0-0.2); Basophils Percent Auto 0.6 % (0-2); Eosinophils Absolute Auto 0.4 X10*3/uL (0.0-0.4); Eosinophils Percent Auto 3.6 % (0-4); Hematocrit 40.4 % (42.0-52.0); Imm Gran Abs Auto 0.05 X10*3/uL (0.00-0.03); Imm Gran Pct Auto 0.4 % (0.0-0.4); Lymphocytes Absolute Auto 1.1 X10*3/uL (1.2-4.9); Lymphocytes Percent Auto 9.4 % (20-40); Mean Corpuscular HGB Conc 34.7 g/dl (31.0-36.0); Mean Corpuscular Hemoglobin 30.4 pg (27.0-33.0); Mean Corpuscular Volume 87.6 fL (80.0-98.0); Monocytes Absolute Auto 0.9 X10*3/uL (0.1-1.2); Monocytes Percent Auto 8.3 % (2-11); Neutrophils Absolute Auto 8.6 x10*3/uL (2.0-8.3); Neutrophils Percent Auto 77.7 % (45-73); Platelet Count 385 X10*3/uL (160-400); Red Blood Count 4.61 X10*6/uL (4.60-5.80); Red Cell Distribution Width 12.1 % (11.0-16.0); White Blood Count 11.1 X10*3/uL (4.8-10.8)
[2023-07-20 10:40] LABS: Parathyroid Hormone Intact 48.8 pg/mL (8.7-77.1)
[2023-07-20 10:44] LABS: Alanine Aminotransferase 12 U/L (0-40); Albumin Level 4.2 g/dL (3.5-5.0); Alkaline Phosphatase 94 U/L (39-117); Anion Gap 16 (12-20); Aspartate Amino Transferase 18 U/L (5-37); Bilirubin Total 0.5 mg/dL (0.0-1.0); Blood Urea Nitrogen 15 mg/dL (9-16); Calcium 10.2 mg/dL (8.4-10.2); Carbon Dioxide 25 mmol/L (22-29); Chloride 103 mmol/L (96-108); Cholesterol 136 mg/dL (<200); Estimated Glomerular Filt Rate > 60; Glucose Fasting 104 mg/dL (60-99); HDL Cholesterol 44 mg/dL (>40); LDL Cholesterol Calculated 78 mg/dL (<100); Potassium 4.3 mmol/L (3.3-5.1); Sodium 140 mmol/L (135-145); Total Protein 8.2 g/dL (6.5-8.0); Triglycerides 72 mg/dL (<150)
[2023-07-20 10:58] LABS: Prostate Specific Antigen 0.69 ng/mL (<0.05-4.0)
== END 2023-07-20 08:07 | disposition home or self-care (01) ==
LOC: HO.LAB 08:06
PROVIDERS: PCP Internal Medicine; Visit Provider Internal Medicine
DX: I12.9 Hypertensive chronic kidney disease with stage 1 through stage 4 chronic kidney disease, or unspecified chronic kidney disease (principal); N18.9 Chronic kidney disease, unspecified; N40.0 Benign prostatic hyperplasia without lower urinary tract symptoms; K21.9 Gastro-esophageal reflux disease without esophagitis; G47.33 Obstructive sleep apnea (adult) (pediatric); E83.52 Hypercalcemia; Z12.5 Encounter for screening for malignant neoplasm of prostate
CPT/HCPCS: 36415; 80053; 80061; 83970; 84153; 85025

== ENCOUNTER 2023-08-20 12:53 | Outpatient (AMB) | payer MEDICARE, OTHER, SELFPAY ==
--- NOTE | 2023-08-20 12:55 | A.OFFVIS_ITS ---
Intake Vital Signs 08/20/23 12:56 Height 6 ft Weight 208 lb 1.862 oz BMI 28.2 BP 152/60 H Blood Pressure Location Lt brachial Position Sitting Pulse 72 Intake Visit Reasons: 6 mth f/up Intake Note: 6 month follow up Dance Hall Hostess Required: No Accompanied by: Self / Same As Patient Allergies No Known Allergies [No Known Allergies*] Allergy (Verified 08/20/23 12:57) Medication List - Last Reconciled 08/20/23 by Ganga Womack MD ferrous sulfate (Feosol) 325 mg PO BID folic acid 1 mg PO DAILY losartan 50 mg PO DAILY multivitamin 1 tab PO DAILY nifedipine ER 60 mg PO DAILY omeprazole 20 mg PO DAILY potassium chloride ER 10 mEq PO DAILY zolpidem 5 mg PO BEDTIME PRN HPI HPI Comments History of Present Illness Details Mason returns for follow-up regarding bradycardia. In the past, he came for routine endoscopy and at that time, found to be bradycardic into his 30s and 40s. He has prolonged VA as well as evidence of Mobitz type 1 second- degree heart block. Overall, he is doing fine. No specific complaints like angina or shortness of breath or in fact anything cardiac sounding. It seems to be getting along fine. He states when he is walking up inclines, exercises, he feels okay without any cardiac symptoms. His heart rates go into the 140s/150s. [facility] Medical History (Updated 02/14/21 @ 14:10 by Gagna Womack MD) ILYA on CPAP PVCs (premature ventricular contractions) Essential hypertension Heart block AV second degree Surgical History History of inguinal hernia repair History of appendectomy Family History Father No problems noted. Mother No problems noted. 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 Review of Systems Const Denies weakness ENT Denies dizziness Card Denies chest pain, Denies chest pain with activity, Denies syncope, Denies rapid heart rate, Denies pedal edema, Denies edema, Denies leg edema, Denies lightheadedness, Denies palpitations, Denies dyspnea and Denies orthopnea Resp Denies cough and Denies dyspnea GI Denies hematochezia and Denies change in stool character Musc Denies abnormal gait, Denies muscle cramps, Denies muscle weakness, Denies numbness, Denies radiating pain into limb and Denies tingling Neuro Denies abnormal gait, Denies dizziness, Denies syncope, Denies numbness, Denies tingling and Denies weakness Endo Denies palpitations Physical Exam Vital Signs: Last Vital Signs Pulse 72 08/20/23 12:56 BP 152/60 H 08/20/23 12:56 BMI result Body Mass Index 28.2 Const General: comfortable and no acute distress Orientation/consciousness: patient oriented x3 HEENT Other: Unremarkable Head: Yes normal to inspection Neck Neck: Yes normal visual inspection Chest Chest palpation & inspection: normal inspection of the chest Resp Auscultation: clear to auscultation bilaterally Cardio Palpation: normal PMI Heart sounds: S1 normal heart sound present, S2 normal heart sound present, no gallops, no murmurs and no rubs GI Palpation (GI): Soft to palpation Back/Spine/Pelvis Other: unremarkable Skin General skin exam: no rashes or lesions noted Neuro General: patient oriented x3 Extrem General: Yes normal to inspection Psych Mental Status: mental status grossly normal Office Procedures EKG Details: EKG with underlying sinus rhythm with Mobitz type 1 second-degree heart block with a ventricular rate of 59/Min. 21953-[id number], Complete Assessment & Plan Assessment & Plan (1) Heart block AV second degree: Code(s): I44.1 - Atrioventricular block, second degree Plan: No evidence of any high-grade heart blocks on prior Holter monitoring. No limitation in activity either. No indication for pacemaker at this time. (2) PVCs (premature ventricular contractions): Code(s): I49.3 - Ventricular premature depolarization Plan: Nothing sustained. Monitoring only. Not suitable for beta-blockers or anything else due to bradycardia. (3) Essential hypertension: Code(s): I10 - Essential (primary) hypertension Plan: Blood pressure seems to be on the higher side. Even at home, evening blood pressures are apparently in similar range. Hence we can increase the losartan to 100 mg daily and we can recheck BMP in a few days after that. (4) ILYA on CPAP: Code(s): G47.33 - Obstructive sleep apnea (adult) (pediatric); Z99.89 - Dependence on other enabling machines and devices Plan: Continue CPAP. Orders: Orders Basic Metabolic Panel 1 Week I10 - Essential (primary) hypertension Medications: New losartan 100 mg PO DAILY 90 tabs 3RF losartan 100 mg PO DAILY 90 tabs 3RF Coding Level of Care Code Est Pt Level 4 (18511) Diagnoses Heart block AV second degree I44.1 PVCs (premature ventricular contractions) I49.3 Essential hypertension I10 ILYA on CPAP G47.33; Z99.89 CPT Codes EKG - CPT: 50621-Akqtswxhzyfkiwkze, Complete ([id number])
[2023-08-20 12:56] VITALS: BP 152/60; PULSE 72; BMI 28.2
== END 2023-08-20 13:39 | disposition home or self-care (01) ==
PROVIDERS: PCP Internal Medicine; Visit Provider Internal Medicine
DX: I44.1 Atrioventricular block, second degree (principal); I49.3 Ventricular premature depolarization; I10 Essential (primary) hypertension; G47.33 Obstructive sleep apnea (adult) (pediatric); Z99.89 Dependence on other enabling machines and devices
CPT/HCPCS: 93010; 99214

== ENCOUNTER → 2023-08-20 12:53 | Outpatient (BNVA) | payer MEDICARE, OTHER, SELFPAY | PROVIDERS: PCP Internal Medicine; Visit Provider Internal Medicine | DX: I44.1 Atrioventricular block, second degree (principal); I49.3 Ventricular premature depolarization; I10 Essential (primary) hypertension; G47.33 Obstructive sleep apnea (adult) (pediatric); Z99.89 Dependence on other enabling machines and devices | CPT/HCPCS: 93005; 99212 ==

== ENCOUNTER 2023-08-29 08:38 | Outpatient (REF) | payer MEDICARE, OTHER, SELFPAY ==
[2023-08-29 11:29] LABS: Anion Gap 15 (12-20); Blood Urea Nitrogen 19 mg/dL (9-16); Calcium 10.1 mg/dL (8.4-10.2); Carbon Dioxide 23 mmol/L (22-29); Chloride 101 mmol/L (96-108); Estimated Glomerular Filt Rate > 60; Glucose Random 114 mg/dL (60-115); Potassium 4.2 mmol/L (3.3-5.1); Sodium 135 mmol/L (135-145)
== END 2023-08-29 08:39 | disposition home or self-care (01) ==
LOC: HO.10HDL 08:38
PROVIDERS: Visit Provider Internal Medicine
DX: I10 Essential (primary) hypertension (principal)
CPT/HCPCS: 36415; 80048

== ENCOUNTER 2023-09-25 13:38 | Outpatient (REF) | payer MEDICARE, OTHER, SELFPAY ==
[2023-09-25 14:04] LABS: IDNOW Serial# 08D9AD1C; Strep A Nucleic Acid Negative (Negative)
[2023-09-25 14:46] LABS: Influenza A PCR NEGATIVE (Negative); Influenza B PCR NEGATIVE (Negative); Resp Syncy Virus RNA Qual PCR NEGATIVE (Negative); SARS COV2 PCR INHOUSE NEGATIVE (Negative)
== END 2023-09-25 13:39 | disposition home or self-care (01) ==
LOC: HO.LNP 13:38
PROVIDERS: Visit Provider Internal Medicine
DX: J02.9 Acute pharyngitis, unspecified (principal); Z11.52 Encounter for screening for COVID-19; Z20.828 Contact with and (suspected) exposure to other viral communicable diseases
CPT/HCPCS: 0241U; 87070; 87651

== ENCOUNTER 2024-02-04 13:03 | Outpatient (AMB) | payer MEDICARE, OTHER, SELFPAY ==
--- NOTE | 2024-02-04 13:06 | MHC.OFFVIS ---
Vital Signs 02/04/24 13:08 Height 6 ft Weight 207 lb 10.807 oz BMI 28.2 BP 140/60 H Blood Pressure Location Lt brachial Position Sitting Pulse 82 Pulse Source Pulse Oximeter Intake Visit Reasons: f/up Chemical Manager Required: No Accompanied by: Self / Same As Patient Allergies No Known Allergies [No Known Allergies*] Allergy (Verified 08/20/23 12:57) Medication List - Last Reconciled 02/04/24 by Ganga Womack MD doxazosin 2 mg PO BEDTIME ferrous sulfate (Feosol) 325 mg PO BID folic acid 1 mg PO DAILY losartan 100 mg PO DAILY multivitamin 1 tab PO DAILY nifedipine ER 60 mg PO DAILY omeprazole 20 mg PO DAILY potassium chloride ER 10 mEq PO DAILY zolpidem 5 mg PO BEDTIME PRN HPI Comments Details: Mason returns for follow-up regarding bradycardia. In the past, he came for routine endoscopy and at that time, found to be bradycardic into his 30s and 40s. He has prolonged IL as well as evidence of Mobitz type 1 second-degree heart block. Overall, he is doing good. No cardiac symptoms. He is walking almost 25-30 miles per week with no issues. Every day he is walking thousands of steps. Swims. Very active physically with no symptoms. [facility] Medical History (Updated 02/14/21 @ 14:10 by Ganga Womack MD) ILYA on CPAP PVCs (premature ventricular contractions) Essential hypertension Heart block AV second degree Surgical History History of inguinal hernia repair History of appendectomy Family History Father No problems noted. Mother No problems noted. 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 Review of Systems Const Denies chills, Denies fatigue, Denies fever(s), Denies frequent falls, Denies weakness, Denies weight gain and Denies weight loss ENT Denies dizziness Card Denies chest pain, Denies leg edema, Denies lightheadedness, Denies palpitations, Denies dyspnea and Denies dyspnea on exertion Resp Denies cough, Denies dyspnea and Denies dyspnea on exertion GI Denies hematochezia Musc Denies abnormal gait, Denies muscle weakness, Denies numbness, Denies radiating pain into limb and Denies tingling Neuro Denies abnormal gait, Denies dizziness, Denies frequent falls, Denies numbness, Denies tingling and Denies weakness Endo Denies fatigue and Denies palpitations Physical Exam Vital Signs: Last Vital Signs Pulse 82 02/04/24 13:08 BP 140/60 H 02/04/24 13:08 BMI result Body Mass Index 28.2 Const General: comfortable and no acute distress Orientation/consciousness: patient oriented x3 HEENT Other: Unremarkable Head: Yes normal to inspection Neck Neck: Yes normal visual inspection Chest Chest palpation & inspection: normal inspection of the chest Resp Auscultation: clear to auscultation bilaterally Cardio Palpation: normal PMI Heart sounds: S1 normal heart sound present, S2 normal heart sound present, no gallops, no murmurs and no rubs GI Palpation (GI): Soft to palpation Back/Spine/Pelvis Other: unremarkable Skin General skin exam: no rashes or lesions noted Neuro General: patient oriented x3 Extrem General: Yes normal to inspection Psych Mental Status: mental status grossly normal Assessment & Plan Assessment & Plan (1) Heart block AV second degree: Code(s): I44.1 - Atrioventricular block, second degree Category: Medical Plan: No evidence of any high-grade heart blocks on prior Holter monitoring. Normal physical activity. We will continue to monitor. No indication for pacemaker at this time. (2) PVCs (premature ventricular contractions): Code(s): I49.3 - Ventricular premature depolarization Category: Medical Plan: In the last Holter, PVCs with a burden of 2.75%. Very short runs of NSVT. Nothing sustained. Monitoring only. Not suitable for beta-blockers or anything else due to bradycardia. (3) Essential hypertension: Code(s): I10 - Essential (primary) hypertension Category: Medical Plan: In the past, losartan dose has been increased. He is also on nifedipine. Per patient, PCP just started him on Doxazosin, as he also has some urinary symptoms. (4) ILYA on CPAP: Code(s): G47.33 - Obstructive sleep apnea (adult) (pediatric); Z99.89 - Dependence on other enabling machines and devices Category: Medical Plan: Continue CPAP. Coding Level of Care Code Est Pt Level 4 (59416) Diagnoses Heart block AV second degree I44.1 PVCs (premature ventricular contractions) I49.3 Essential hypertension I10 ILYA on CPAP G47.33; Z99.89
[2024-02-04 13:08] VITALS: BP 140/60; PULSE 82; BMI 28.2
== END 2024-02-04 13:23 | disposition home or self-care (01) ==
PROVIDERS: PCP Internal Medicine; Visit Provider Internal Medicine
DX: I44.1 Atrioventricular block, second degree (principal); I49.3 Ventricular premature depolarization; I10 Essential (primary) hypertension; G47.33 Obstructive sleep apnea (adult) (pediatric); Z99.89 Dependence on other enabling machines and devices
CPT/HCPCS: 99214

== ENCOUNTER → 2024-02-04 13:03 | Outpatient (BNVA) | payer MEDICARE, SELFPAY | PROVIDERS: PCP Internal Medicine; Visit Provider Internal Medicine | DX: I44.1 Atrioventricular block, second degree (principal); I49.3 Ventricular premature depolarization; I10 Essential (primary) hypertension; G47.33 Obstructive sleep apnea (adult) (pediatric); Z99.89 Dependence on other enabling machines and devices | CPT/HCPCS: 99212 ==

== ENCOUNTER 2024-02-28 09:58 | Day surgery (SDC) | payer MEDICARE, SELFPAY ==
[2024-02-26 15:58] VITALS: BMI 28.1
--- NOTE | 2024-02-28 10:20 | P.CONAN_ITS ---
Documented by User: Emani Martinez NP 02/27/24 09:34 HPI - Anesthesia Eval Consult details Narrative: 73yo M for Upper Endoscopy and Colonoscopy Follows [facility] cardiology for prolonged MO as well as evidence of Mobitz type 1 second-degree heart block. Stable at 02/2024 office visit. Asymptomatic with high level of activity. [facility] Active Problems Active Problems: All Active Problems ILYA on CPAP (Acute) PVCs (premature ventricular contractions) (Acute) Essential hypertension (Acute) Heart block AV second degree (Acute) Past Medical History Medical History (Updated 02/26/24 @ 16:08 by Yecenia Barfield RN) History of Clay's esophagus Hiatal hernia GERD (gastroesophageal reflux disease) ILYA on CPAP PVCs (premature ventricular contractions) Essential hypertension Heart block AV second degree Family History Family History Father No problems noted. Mother No problems noted. Surgical History Surgical History (Updated 02/26/24 @ 16:09 by Yecenia Barfield RN) History of total right knee replacement (TKR) Hx of blepharoplasty Hx of cataract extraction History of surgery on arm History of esophagogastroduodenoscopy (EGD) Hx of colonoscopy History of inguinal hernia repair History of appendectomy Social History Social History Alcohol intake: current Alcohol intake frequency: a few times a week Alcohol type: beer Patient Tobacco Use Status: Former Tobacco user Years Smoked: 20 +/- Advance Directives: No Advance Directives Information Provided: Yes Current occupational status: 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 Meds Allergies Allergy/AdvReac Type Severity Reaction Status Date / Time No Known Allergies Allergy Verified 08/20/23 12:57 [No Known Allergies*] Home Medications ?Medication ?Instructions ?Recorded ?Confirmed ?Last Taken ?Type folic acid 1 mg tablet 1 mg PO DAILY 08/23/20 02/26/24 Unknown History multivitamin 1 tab PO DAILY 08/23/20 02/26/24 Unknown History potassium chloride 10 mEq 10 meq PO DAILY 08/23/20 02/26/24 Unknown History tablet,extended release zolpidem 5 mg tablet 5 mg PO BEDTIME PRN Insomnia 08/23/20 02/26/24 Unknown History ferrous sulfate 325 mg (65 mg 325 mg PO BID 03/08/22 02/26/24 Unknown History iron) tablet (Feosol) omeprazole 20 mg capsule,delayed 20 mg PO DAILY 03/08/22 02/26/24 Unknown History release doxazosin 2 mg tablet 2 mg PO BEDTIME 02/04/24 02/26/24 Unknown History Exam Height,Weight and Vital Signs: Height 6 ft Weight 94.064 kg Narrative Narrative: Holter 2022 1. Patient was monitored for total period of 3 days 2. Baseline was normal sinus rhythm with average heart of 53 beats per minute with lowest heart rate of 36 beats per minute 3. Frequent sinus bradycardia with 60% of time heart rate below 60 beats per minute. One pause of 2.5 seconds noted at 04:00 4. Frequent PVCs with total burden of 2.75%. Fourteen total episodes of nonsustained VT with longest lasting 5 beats and the fastest at 135 beats per minute 5. No patient reported events Assessment and Plan Assessment Anesthesia Assessment: Chart Reviewed Documented by User: Marie Shabazz DO 02/28/24 10:25 [facility] Past Medical History Medical History (Updated 02/26/24 @ 16:08 by Yecenia Barfield RN) History of Clay's esophagus Hiatal hernia GERD (gastroesophageal reflux disease) ILYA on CPAP PVCs (premature ventricular contractions) Essential hypertension Heart block AV second degree Family History Family History Father No problems noted. Mother No problems noted. Family history of problems with anesthesia: No Surgical History Surgical History (Updated 02/26/24 @ 16:09 by Yecenia Barfield RN) History of total right knee replacement (TKR) Hx of blepharoplasty Hx of cataract extraction History of surgery on arm History of esophagogastroduodenoscopy (EGD) Hx of colonoscopy History of inguinal hernia repair History of appendectomy History of Problems with Anesthesia: No Social History Social History Alcohol intake: current Alcohol intake frequency: a few times a week Alcohol type: beer Patient Tobacco Use Status: Former Tobacco user Years Smoked: 20 +/- Advance Directives: No Advance Directives Information Provided: Yes Current occupational status: 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 Meds Allergies Allergy/AdvReac Type Severity Reaction Status Date / Time No Known Allergies Allergy Verified 08/20/23 12:57 [No Known Allergies*] Home Medications ?Medication ?Instructions ?Recorded ?Confirmed ?Last Taken ?Type folic acid 1 mg tablet 1 mg PO DAILY 08/23/20 02/26/24 Unknown History multivitamin 1 tab PO DAILY 08/23/20 02/26/24 Unknown History potassium chloride 10 mEq 10 meq PO DAILY 08/23/20 02/26/24 Unknown History tablet,extended release zolpidem 5 mg tablet 5 mg PO BEDTIME PRN Insomnia 08/23/20 02/26/24 Unknown History ferrous sulfate 325 mg (65 mg 325 mg PO BID 03/08/22 02/26/24 Unknown History iron) tablet (Feosol) omeprazole 20 mg capsule,delayed 20 mg PO DAILY 03/08/22 02/26/24 Unknown History release doxazosin 2 mg tablet 2 mg PO BEDTIME 02/04/24 02/26/24 Unknown History Exam Exam Date and Time: February 28, 2024 1020 Airway Mallampati Class: II TM Dist: >3cm Neck ROM: Full Partial: Upper Loose/Missing/Broken Teeth: Yes (poor dentition) Heart: S1S2 Lungs: CTAB Assessment and Plan Assessment Anesthesia Assessment: Anesthesia Plan Discussed and Chart Reviewed Final Anesthetic Review Family History of Problems with Anesthesia: No History of Problems with Anesthesia: No NPO: Yes ASA Class: III Final Preanesthetic Review: No Changes in Pt Med Stat, Meds/Allgs Chart Reviewed, Consent Obtained/Reviewed and Anes Risks/Benef Reviewed Patient Risk: Intermediate Procedure Risk: Low Anesthetic Plan Anesthetic Plan: MAC: and Agree w/ Assess. and Plan Disposition: Standard PACU
[2024-02-28 10:23] VITALS: BMI 28.1
[2024-02-28] MEDS: Lactated Ringers 1,000 ML 100 ML IVCONT (10:29)
[2024-02-28 10:37] VITALS: BP 181/56; PULSE 54; RESP 18; TEMP 36.8; O2SAT 99
[2024-02-28 10:43] VITALS: BP 171/67
--- NOTE | 2024-02-28 10:43 | PC.NURSE ---
Dr. Shabazz updated and assessed patient regarding his low pulse and bp results. Patient states that his pulse at home at night can be as low as 30 but he is always asymptomatic. Patient is under care of cardiology and states he has been monitored x 5 years regarding this and second degree heart block. Okay to proceed.
--- NOTE | 2024-02-28 11:07 | PC.NURSE ---
24hr update documented on paper
[2024-02-28 11:57] VITALS: BP 124/47; PULSE 60; RESP 16; TEMP 36.1; O2SAT 97
--- NOTE | 2024-02-28 12:00 | P.BOP_ITS ---
Brief Operative Note Date of Service: 02/28/24 Pre-op diagnosis: Clay's, Screening Post-op diagnosis: other (Same, Hiatal hernia, Colon polyp) Procedure: EGD with biopsies, Colonoscopy to the anastomosis with hot snare polypectomy Surgeon: Lan Melvin MD Anesthesia: MAC Was an Customer Professional used for this Procedure?: No Estimated blood loss (mL): 2.0 Pathology: other (A. EG Junction at 40cm B. Polyp at 40cm) Condition: stable Disposition: PACU
[2024-02-28 12:12] VITALS: BP 130/47; PULSE 64; RESP 16; O2SAT 96
--- NOTE | 2024-02-28 12:44 | OP_ITS ---
DATE OF SERVICE: 02/28/2024 SURGEON: Lan Melvin MD INDICATIONS: The patient presents for evaluation of gastroesophageal reflux with associated Clay esophagus, personal history of tubular adenoma of the colon, and colorectal cancer screening. Full consent has been obtained from him for both procedures, including risks of bleeding and perforation. PREOPERATIVE DIAGNOSIS: POSTOPERATIVE DIAGNOSIS: Gastroesophageal reflux, Clay esophagus, history of tubular adenoma of the colon, colorectal cancer screening, hiatal hernia, colon polyp, diverticulosis, and internal hemorrhoids. PROCEDURE PERFORMED: Esophagogastroduodenoscopy with biopsies, and colonoscopy to the cecum with hot snare polypectomy. ESTIMATED BLOOD LOSS: COMPLICATIONS: ANESTHESIA: Monitored anesthesia care. ASSISTANTS: SPECIMENS: PREOPERATIVE DIAGNOSES: Gastroesophageal reflux, Clay esophagus, history of tubular adenoma of the colon, colorectal cancer screening. DESCRIPTION OF PROCEDURE: The Olympus videogastroscope was passed in the posterior oropharynx and upper esophagus under direct vision. The scope was passed slowly into the distal esophagus. The gastroesophageal junction appeared at 40 cm. There was some slight irregularity with probable small, less than 1 cm, areas of Clay mucosa. There was no esophagitis nor any lesions. The scope entered the stomach. There was a small hiatal hernia. The scope was advanced to the pylorus. The duodenum was cannulated to the descending portion. The duodenum including the bulb appeared normal without mass or ulceration. The scope withdrawn back in the stomach. The gastric antrum and body appeared normal with good peristalsis. The scope was retroflexed, visualizing the proximal stomach carefully, which appeared normal, without any sign of mass or ulceration. The scope was retroflexed, visualizing the proximal stomach carefully, which appeared normal, without any sign of mass or ulceration. The scope was straightened and withdrawn back into the esophagus. Multiple biopsies were obtained at the EG junction at 40 cm. Proximal to that the esophageal mucosa appeared normal. The scope was withdrawn from the patient. He was turned around for colonoscopy. The digital rectal exam revealed no abnormalities. The Olympus videopediatric colonoscope was entered into the rectum advanced easily to the level of the anastomosis. Once to the anastomosis, I did visualize both small bowel mucosa and normal colonic mucosa. The anastomosis appeared normal. The scope was then slowly withdrawn assessing all mucosal surfaces carefully. For the most part, preparation was very good, but did require some areas of irrigation and suctioning. At 40 cm, there was an approximately 10 mm polyp, which was removed by hot snare polypectomy and recovered by suction. The polypectomy site appeared clean, without any sign of residual polyp nor bleeding. There was a moderate amount of sigmoid diverticulosis. In the rectum, scope was retroflexed visualizing internal hemorrhoids, but no other pathology. The rectal mucosa appeared normal. Scope was straightened and withdrawn from the patient. He tolerated the procedures well and was returned to the recovery area in stable condition. IMPRESSION: 1. 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 2. Hiatal hernia. 3. Colon polyps. 4. Diverticulosis. 5. Internal hemorrhoids. PLAN: The results of the pathology will be checked. Assuming there is no dysplasia within the Clay esophagus. I would recommend a repeat upper endoscopy and colonoscopy in 5 years. He was advised not to use any aspirin and NSAIDs for 1 week. MD PONCE Joiner/LANA / [phone]
== END 2024-02-28 13:26 | disposition home or self-care (01) ==
PROVIDERS: PCP Internal Medicine; Visit Provider Internal Medicine
PROC: (CPT 45385; principal; 2024-02-28 11:20)
DX: Z12.11 Encounter for screening for malignant neoplasm of colon (principal); Z86.010 Personal history of colon polyps; D12.5 Benign neoplasm of sigmoid colon; K57.30 Diverticulosis of large intestine without perforation or abscess without bleeding; K64.8 Other hemorrhoids; Z98.0 Intestinal bypass and anastomosis status; K22.70 Barrett's esophagus without dysplasia; K21.9 Gastro-esophageal reflux disease without esophagitis; K44.9 Diaphragmatic hernia without obstruction or gangrene; I10 Essential (primary) hypertension; G47.33 Obstructive sleep apnea (adult) (pediatric); Z79.899 Other long term (current) drug therapy; Z99.89 Dependence on other enabling machines and devices; Z98.890 Other specified postprocedural states; Z87.891 Personal history of nicotine dependence
CPT/HCPCS: 45385; 43239; 88305; 88313; J1596; J2704

== ENCOUNTER 2024-05-14 12:45 | Outpatient (REF) | payer MEDICARE, OTHER, SELFPAY ==
[2024-05-14 13:08] LABS: MANUAL DIFF FLAG NO
[2024-05-14 13:13] LABS: Basophils Absolute Auto 0.1 X10*3/uL (0.0-0.2); Basophils Percent Auto 0.7 % (0-2); Eosinophils Absolute Auto 0.1 X10*3/uL (0.0-0.4); Eosinophils Percent Auto 0.9 % (0-4); Hematocrit 39.1 % (42.0-52.0); Hemoglobin 13.9 g/dl (14.0-18.0); Imm Gran Abs Auto 0.02 X10*3/uL (0.00-0.03); Imm Gran Pct Auto 0.3 % (0.0-0.4); Lymphocytes Absolute Auto 1.4 X10*3/uL (1.2-4.9); Lymphocytes Percent Auto 18.4 % (20-40); Mean Corpuscular HGB Conc 35.5 g/dl (31.0-36.0); Mean Corpuscular Hemoglobin 32.4 pg (27.0-33.0); Mean Corpuscular Volume 91.1 fL (80.0-98.0); Mean Platelet Volume 9.9 fL (9.4-12.4); Monocytes Absolute Auto 0.6 X10*3/uL (0.1-1.2); Monocytes Percent Auto 8.1 % (2-11); Neutrophils Absolute Auto 5.5 x10*3/uL (2.0-8.3); Neutrophils Percent Auto 71.6 % (45-73); Platelet Count 206 X10*3/uL (160-400); Red Blood Count 4.29 X10*6/uL (4.60-5.80); Red Cell Distribution Width 13.2 % (11.0-16.0); White Blood Count 7.6 X10*3/uL (4.8-10.8)
[2024-05-14 13:31] LABS: Alanine Aminotransferase 13 U/L (0-40); Albumin Level 4.6 g/dL (3.5-5.0); Alkaline Phosphatase 103 U/L (39-117); Anion Gap 13 (12-20); Aspartate Amino Transferase 20 U/L (5-37); Bilirubin Total 0.6 mg/dL (0.0-1.0); Blood Urea Nitrogen 21 mg/dL (9-16); Calcium 10.3 mg/dL (8.4-10.2); Carbon Dioxide 28 mmol/L (22-29); Chloride 100 mmol/L (96-108); Estimated Glomerular Filt Rate 52; Glucose Random 90 mg/dL (60-115); Magnesium 1.9 mg/dL (1.6-2.6); Potassium 4.8 mmol/L (3.3-5.1); Sodium 136 mmol/L (135-145); Total Protein 7.6 g/dL (6.5-8.0)
== END 2024-05-14 12:46 | disposition home or self-care (01) ==
LOC: HO.10HDL 12:45
PROVIDERS: Visit Provider Internal Medicine
DX: I10 Essential (primary) hypertension (principal); R00.1 Bradycardia, unspecified
CPT/HCPCS: 36415; 80053; 83735; 85025

== ENCOUNTER → 2024-05-15 12:56 | Outpatient (BNVA) | payer MEDICARE, SELFPAY | PROVIDERS: PCP Internal Medicine; Visit Provider Nurse Practitioner Family ==

== ENCOUNTER 2024-08-11 13:35 | Outpatient (AMB) | payer MEDICARE, SELFPAY ==
--- NOTE | 2024-08-11 13:38 | MHC.OFFVIS ---
Vital Signs 08/11/24 13:39 Height 6 ft Weight 202 lb 6.15 oz BMI 27.4 BP 154/52 H Blood Pressure Location Lt brachial Position Sitting Pulse 35 L Pulse Source Pulse Oximeter Intake Visit Reasons: 6 mth f/up Proc Tech Required: No Accompanied by: Self / Same As Patient Allergies No Known Allergies [No Known Allergies*] Allergy (Verified 02/28/24 10:38) Medication List - Last Reconciled 08/11/24 by Ganga Womack MD doxazosin 2 mg PO BEDTIME ferrous sulfate (Feosol) 325 mg PO BID folic acid 1 mg PO DAILY losartan 100 mg PO DAILY multivitamin 1 tab PO DAILY nifedipine ER 60 mg PO DAILY omeprazole 20 mg PO DAILY potassium chloride ER 10 mEq PO DAILY zolpidem 5 mg PO BEDTIME PRN HPI Comments Details: Mason returns for follow-up regarding bradycardia. In the past, he came for routine endoscopy and at that time, found to be bradycardic into his 30s and 40s. He has prolonged CA as well as evidence of Mobitz type 1 second-degree heart block. Overall, from cardiac he has got no symptoms whatsoever. He is walking 30 -40 miles regularly with no issues. No physical limitations whatsoever. [facility] Medical History History of Clay's esophagus Hiatal hernia GERD (gastroesophageal reflux disease) ILYA on CPAP PVCs (premature ventricular contractions) Essential hypertension Heart block AV second degree Surgical History History of total right knee replacement (TKR) Hx of blepharoplasty Hx of cataract extraction History of surgery on arm History of esophagogastroduodenoscopy (EGD) Hx of colonoscopy History of inguinal hernia repair History of appendectomy Family History Father No problems noted. Mother No problems noted. 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 Review of Systems Const Denies chills, Denies fatigue, Denies fever(s), Denies weight gain and Denies weight loss ENT Denies dizziness Card Denies chest pain, Denies leg edema, Denies lightheadedness, Denies palpitations, Denies dyspnea on exertion, Denies orthopnea and Denies other Resp Denies cough and Denies dyspnea on exertion GI Denies hematochezia and Denies change in stool character Musc Denies abnormal gait, Denies muscle weakness, Denies numbness, Denies radiating pain into limb and Denies tingling Neuro Denies abnormal gait, Denies dizziness, Denies numbness and Denies tingling Endo Denies fatigue and Denies palpitations Physical Exam Vital Signs: Last Vital Signs Pulse 35 L 08/11/24 13:39 BP 154/52 H 08/11/24 13:39 BMI result Body Mass Index 27.4 Const General: comfortable and no acute distress Orientation/consciousness: patient oriented x3 HEENT Other: Unremarkable Head: Yes normal to inspection Neck Neck: Yes normal visual inspection Chest Chest palpation & inspection: normal inspection of the chest Resp Auscultation: clear to auscultation bilaterally Cardio Palpation: normal PMI Heart sounds: S1 normal heart sound present, S2 normal heart sound present, no gallops, no murmurs and no rubs GI Palpation (GI): Soft to palpation Back/Spine/Pelvis Other: unremarkable Skin General skin exam: no rashes or lesions noted Neuro General: patient oriented x3 Extrem General: Yes normal to inspection Psych Mental Status: mental status grossly normal Office Procedures EKG Details: EKG with underlying sinus rhythm, 48/min, with Mobitz type 1 second-degree AV block. [id number], Complete Assessment & Plan Assessment & Plan (1) Heart block AV second degree: Code(s): I44.1 - Atrioventricular block, second degree Category: Medical Plan: We can recheck his Holter for any high-grade heart blocks. Obtain stress test to assess for chronotropic competence. With his physical activity being quite good, most likely should come out well. (2) PVCs (premature ventricular contractions): Code(s): I49.3 - Ventricular premature depolarization Category: Medical Plan: In the last Holter, PVCs with a burden of 2.75%. Very short runs of NSVT. Nothing sustained. Monitoring only. Not suitable for beta-blockers or anything else due to bradycardia. (3) Essential hypertension: Code(s): I10 - Essential (primary) hypertension Category: Medical Plan: He is currently on a combination of losartan, nifedipine ER. Possibly diuretics/spironolactone in the future. Blood pressures have been up and down. (4) ILYA on CPAP: Code(s): G47.33 - Obstructive sleep apnea (adult) (pediatric); Z99.89 - Dependence on other enabling machines and devices Category: Medical Plan: Continue CPAP. Orders: Orders ECG 3 day holter monitor Today I44.1 - Atrioventricular block, second degree CA stress test Today I44.1 - Atrioventricular block, second degree Coding Level of Care Code Est Pt Level 4 (04189) Diagnoses Heart block AV second degree I44.1 PVCs (premature ventricular contractions) I49.3 Essential hypertension I10 ILYA on CPAP G47.33; Z99.89 CPT Codes EKG - CPT: 37228-[id number], Complete ([id number])
[2024-08-11 13:39] VITALS: BP 154/52; PULSE 35; BMI 27.4
--- OUTSIDE RECORDS SUMMARY | 2024-08-11 16:17 | XMS_ITS ---
[facility] Address [address] [place] [address] Care Team Providers Care [employer] Technician Name Role Phone Antoine Kendrick MD Primary Care Provider Shahla Blake Unavailable [phone] Allergies No Known Allergies REASON FOR VISIT Painful nail(s) aggrevated by shoes causing difficulty standing/walking Medications Medication SIG (Take, Route, Frequency, Duration) Notes Start Date End Date Status Ciclopirox Olamine 0.77 % 1 application to affected area Externally to feet Twice a day for 30 days Active Ammonium Lactate 12 % 1 application to affected area Externally to feet Twice a day for 30 days Active Ciclopirox Olamine 0.77 % 1 application to affected area Externally to feet Twice a day for 30 days Not-Taki ng Multivitamin Active Zolpidem Tartrate 5 MG Orally prn Active Iron bid Active Potassium 10 meq Active Folic Acid 1 MG Orally Acti ve Omeprazole 20 MG Orally Act christian NIFEdipine ER 30 MG Orally Active Losartan Potassium 100 MG as directed Orally Active Social History Tobacco Use: Social History Observation Description Date Details (start date - stop date) Former Smoker NA - NA Tobacco Use/Smoking Question Answer Notes Are you a: former smoker Additional Findings: Tobacco User Heavy cigarett e smoker (20-39 cigs/day) Additional Findings: Tobacco Non-User Cu rrent non-smoker,Ex-heavy cigarette smoker (20-30/day) Alcohol Screen Question Answer Notes Did you have a drink contain ing alcohol in the past year? Yes How often did you have a dri nk containing alcohol in the past year? 4 or more times a week (4 points) How often did you have 6 or more drinks on one occasion in the past year? Daily or almost daily (4 points) Points 8 Interpretation Positive Tobacco use other than smoking: Question Answer Notes Are you an other tobacco user? No Vital Signs Height 6ft in 01/14/2024 Weight 200 lbs 01/14/2024 BMI 27.12 kg/m2 01/14/2024 Blood pressure systolic 120 mm Hg 01/14/20 24 Blood pressure diastolic 50 mm Hg 024 Encounters Encounter Location Date Provider Diagnosis [facility] [address] [address] 01/14/2024 Shahla Rosas Pain in right toe(s) M79.674 ; Tinea unguium B35.1 and Pain in left toe(s) M79.675 Assessments Encounter Date Diagnosis (ICD Code) Assessment Notes Treatment Notes Treatment Clinical Notes Section Notes 01/14/2024 Pain in right toe(s) (ICD-10 - M79.674) 01/14/2024 Tinea unguium (ICD-10 - B35.1) 01/14/2024 Pain in left toe(s) (ICD-10 - M79.675) Plan Of Treatment Next Appt Details Follow Up: 2 Months, Reason: Provider Name:Shahla persaud, 10/27/2024 10:00:00 AM, [address] [place] [address], [id number], Procedure Notes * Category Sub-Category Detail Notes Debride Nail 6-10 Nail debridement Nail debridem ent performed extensively to reduce/remove overall nail length and girth, subungual debris, and necrotic tissue, by manual and electrical means with use of a nail nipper and/or dremel, to more viable healthy nail plate or bed tissue 6-10. Silver nitrate used for any petechial bleeding as necessary. Patient chooses, no pharmaceutical tx ([id number]) Progress Notes * Mason SETHIDOB:[birth year] (73 yo M)Acc No.[id number]:01/14/2024 Progress Note Patient:?Edmond Sethi Provider:?Shahla Rosas DPM :1950???Age:73 Y???Sex:Male Sam e:01/14/2024 [facility] [id number] Pcp:Antoine Kendrick MD Subjective: * Chief Complaints: * ???Painful nail(s) aggrevate d by shoes causing difficulty standing/walking * HPI: ???Painful Nails:?Pt States Last PCP Visit:?Date:?01/14/2024 * ROS:?General/Constitutional:?Nausea?denies, denies, denies, denies, denies, denies, denies, denies, denies, denies.?Vomiting?denies, denies, denies, denies, denies, denies, denies, denies, denies, denies.?Hunger Thirst?denies, denies, denies, denies, denies, denies, denies, denies, denies, denies.?Loss appetite?denies, denies, denies, denies, denies, denies, denies, denies, denies, denies.?Chills?denies, denies, denies, denies, denies, denies, denies, denies, denies, denies.?Fatigue?denies, denies, denies, denies, denies, denies, denies, denies, denies, denies.?Fever?denies, denies, denies, denies, denies, denies, denies, denies, denies, denies.?Night Sweats?denies, denies, denies, denies, denies, denies, denies, denies, denies, denies.?Unexplained weight loss?denies, denies, denies, denies, denies, denies, denies, denies, denies, denies.?Unexplained weight gain?denies, denies, denies, denies, denies, denies, denies, denies, denies, denies.?HEENTM:?Dentures?admits, admits, admits, admits, denies, admits, denies, denies, admits, admits.?Dizziness?denies, denies, denies, denies, denies, denies, denies, denies, denies, denies.?Glasses/contacts?admits, admits, admits, admits, denies, admits, denies, denies, admits, admits.?Retinopathy?denies, denies, denies, denies, denies, denies, denies, denies, denies, denies.?Blurred/double vision?denies, denies, denies, denies, denies, denies, denies, denies, denies, denies.?TMJ?denies, denies, denies, denies, denies, denies, denies, denies, denies, denies.?Discharge/drainage?denies, denies, denies, denies, denies, denies, denies, denies, denies, denies.?Implants?denies, denies, denies, denies, denies, denies, denies, denies, denies, denies.?Sore throat?denies, denies, denies, denies, denies, denies, denies, denies, denies, denies.?Dental implants?denies, denies, denies, denies, denies, denies, denies, denies, denies, denies.?Hard of hearing ?denies, denies, denies, denies, denies, denies, denies, denies, denies, denies.?Difficulty chewing/swallowing/speaking?denies, denies, denies, denies, denies, denies, denies, denies, denies, denies. Nose bleeds?denies, denies, denies, denies, denies, denies, denies, denies, denies, denies.?Sore mouth?denies, denies, denies, denies, denies, denies, denies, denies, denies, denies.?Respiratory:?On Oxygen?denies, denies, denies, denies, denies, denies, denies, denies, denies, denies.?Pneumonia/pleurisy?denies, denies, denies, denies, denies, denies, denies, denies, denies, denies.?Bronchitis?denies, denies, denies, denies, denies, denies, denies, denies, denies, denies.?Emphysema?denies, denies, denies, denies, denies, denies, denies, denies, denies, denies.?Coughing?denies, denies, denies, denies, denies, denies, denies, denies, denies, denies.?Cough blood?denies, denies, denies, denies, denies, denies, denies, denies, denies, denies.?Shortness of breath?denies, denies, denies, denies, denies, denies, denies, denies, denies, denies.?Wheezing?denies, denies, denies, denies, denies, denies, denies, denies, denies, denies.?Cardiovascular:?Pacemaker?denies, denies, denies, denies, denies, denies, denies, denies, denies, denies.?MVP?denies, denies, denies, denies, denies, denies, denies, denies, denies, denies.?WPW?denies, denies, denies, denies, denies, denies, denies, denies, denies, denies.?CHF?denies, denies, denies, denies, denies, denies, denies, denies, denies, denies.?Heart attack?denies, denies, denies, denies, denies, denies, denies, denies, denies, denies.?Septal defect?denies, denies, denies, denies, denies, denies, denies, denies, denies, denies.?Rapid beat?denies, denies, denies, denies, denies, denies, denies, denies, denies, denies.?Chest pain ?denies, denies, denies, denies, denies, denies, denies, denies, denies, denies.?Atrial Fib.?denies, denies, denies, denies, denies, denies, denies, denies, denies, denies.?Murmur/Palpitations?denies, denies, denies, denies, denies, denies, denies, denies, denies, denies.?Gastrointestinal:?Hemorrhoids?denies, denies, denies, denies, denies, denies, denies, denies, denies, denies.?Stomach/Abdominal pain?denies, denies, denies, denies, denies, denies, denies, denies, denies, denies.?Dark blood stool?denies, denies, denies, denies, denies, denies, denies, denies, denies, denies.?Irritable bowel ?denies, denies, denies, denies, denies, denies, denies, denies, denies, denies.?Constipation?denies, denies, denies, denies, denies, denies, denies, denies, denies, denies.?Diarrhea?denies, denies, denies, denies, denies, denies, denies, denies, denies, denies.?Hematology:?Swelling?denies, denies, denies, denies, denies, denies, denies, denies, denies, denies.?Clots?denies, denies, denies, denies, denies, denies, denies, denies, denies, denies.?Varicose Veins?denies, denies, denies, denies, denies, denies, denies, denies, denies, denies.?Bruising?denies, denies, denies, denies, denies, denies, denies, denies, denies, denies.?Bleeding problem?denies, denies, denies, denies, denies, denies, denies, denies, denies, denies.?Genitourinary:?Blood urine?denies, denies, denies, denies, denies, denies, denies, denies, denies, denies.?Frequent/Painfu/urination/bladder control?denies, denies, denies, denies, denies, denies, denies, denies, denies, denies.?Kidney stones?denies, denies, denies, denies, denies, denies, denies, denies, denies, denies.?Infection (UTI)?denies, denies, denies, denies, denies, denies, denies, denies, denies, denies.?Nephropathy?denies, denies, denies, denies, denies, denies, denies, denies, denies, denies.?sex trans dis (STD)?denies, denies, denies, denies, denies, denies, denies, denies, denies, denies.?Prostate?denies, denies, denies, denies, denies, denies, denies, denies, denies, denies.?Musculoskeletal:?Hammertoes?admits, admits, admits, admits, denies, admits, denies, denies, admits, admits.?Bunions?admits, admits, admits, admits, denies, admits, denies, denies, admits, admits.?Back Pain?denies, denies, denies, denies, denies, denies, denies, denies, denies, denies.?Muscle Cramps/ Resting?denies, denies, denies, denies, denies, denies, denies, denies, denies, denies.?Muscle cramps / walking?denies, denies, denies, denies, denies, denies, denies, denies, denies, denies.?Generalized aches and pains?denies, denies, denies, denies, denies, denies, denies, denies, denies, denies.?Weakness?denies, denies, denies, denies, denies, denies, denies, denies, denies, denies.?Integ.:?Cesar?denies, denies, denies, denies, denies, denies, denies, denies, denies, denies.?Scars?denies, denies, denies, denies, denies, denies, denies, denies, denies, denies.?Corns/calluses?admits, admits, admits, admits, denies, admits, denies, denies, admits, admits.?Ingrown nails?denies, denies, denies, denies, denies, denies, denies, denies, denies, denies.?Painful nails?denies, denies, denies, denies, denies, denies, denies, denies, denies, denies.?Open Sores?denies, denies, denies, denies, denies, denies, denies, denies, denies, denies.?Rashes?denies, denies, denies, denies, denies, denies, denies, denies, denies, denies.?Neurologic:?Difficulty sleeping?denies, denies, denies, denies, denies, denies, denies, denies, denies, denies.?Brain disorder?denies, denies, denies, denies, denies, denies, denies, denies, denies, denies.?Numbness?denies, denies, denies, denies, denies, denies, denies, denies, denies, denies.?Balance trouble?denies, denies, denies, denies, denies, denies, denies, denies, denies, denies.?Confusion?denies, denies, denies, denies, denies, denies, denies, denies, denies, denies.?Fainting/blackouts?denies, denies, denies, denies, denies, denies, denies, denies, denies, denies.?Tingling?denies, denies, denies, denies, denies, denies, denies, denies, denies, denies.?Tremors?denies, denies, denies, denies, denies, denies, denies, denies, denies, denies.? * Medical History:? * Surgical History:?knee repla cement 10/2013, 2016hernia 01/2018appendix 10/2014colonoscopy/endoscopy 07/2020 * Hospitalization/Major Diagno stic Procedure:?Denies Past Hospitalization * Family History:?Mother: dece ased, diagnosed with Unspecified essential hypertension.?Father: , diagnosed with Unspecified essential hypertension.?Spouse: alive, Type 2, diagnosed with Diabetic - NIDDM.? * Social History:?Tobacco Use:?Tobacco Use/Smoking?Are you a:?former smoker ?Additional Findings: Tobacco User?Heavy cigarette smoker (20-39 cigs/day) ?Additional Findings: Tobacco Non-User?Current non-smoker,Ex-heavy cigarette smoker (20-30/day) ?Tobacco use other than smoking?Are you an other tobacco user??No ???Drugs/Alcohol:?Drugs?Have you used drugs other than those for medical reasons in the past 12 months??No ?Alcohol Screen?Did you have a drink containing alcohol in the past year??Yes ?How often did you have a drink containing alcohol in the past year??4 or more times a week (4 points) ?How often did you have 6 or more drinks on one occasion in the past year??Daily or almost daily (4 points) ?Points?8 ?Interpretation?Positive ???Miscellaneous:?no Caffeine, frequency:, 2-3 cups decaff coffee per day. ?Children: yes. ?Exercise: yes, walking, stationary bike. ?Marital status: . 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 * Medications:?TakingLosartan Potassium 100 MG Tablet as directed Orally Potassium 10 meq Folic Acid 1 MG Tablet Orally Omeprazole 20 MG Capsule Delayed Release Orally NIFEdipine ER 30 MG Tablet Extended Release 24 Hour Orally Iron bidMultivitamin Zolpidem Tartrate 5 MG Tablet Orally prnCiclopirox Olamine 0.77 % Cream 1 application to affected area Externally to feet Twice a dayAmmonium Lactate 12 % Cream 1 application to affected area Externally to feet Twice a dayTaking Losartan Potassium 100 MG Tablet as directed Orally Taking Potassium 10 meq Taking Folic Acid 1 MG Tablet Orally Taking Omeprazole 20 MG Capsule Delayed Release Orally Taking NIFEdipine ER 30 MG Tablet Extended Release 24 Hour Orally Taking Iron bidTaking Multivitamin Taking Zolpidem Tartrate 5 MG Tablet Orally prnTaking Ciclopirox Olamine 0.77 % Cream 1 application to affected area Externally to feet Twice a dayTaking Ammonium Lactate 12 % Cream 1 application to affected area Externally to feet Twice a dayNot-Taking/PRNCiclopirox Olamine 0.77 % Cream 1 application to affected area Externally to feet Twice a dayMedication List reviewed and reconciled with the patientNot-Taking/PRN Ciclopirox Olamine 0.77 % Cream 1 application to affected area Externally to feet Twice a dayMedication List reviewed and reconciled with the patient * Allergies:?N.K.D.A.yes[Aller gies Verified] Objective: * Vitals:?Ht: 6ft, Wt:200, BMI :27.12, Shoe size: 11, BP:120/50 mm Hg, Ht-cm: 182.88 cm, Wt-k.72 kg. * Examination: ???Nails: ?NAILS are:?Elongated, overgrown, dystrophic, lytic, greater than 3mm thick, discolored and friable with crumbly malodorous subungual debris, with pain on palpation, 1-5 B/L.?General Examination: ?GENERAL APPEARANCE:?Reveals a pleasant, alert, well nourished, well- developed, well hydrated individual, who demonstrates proper attention to hygiene/body habitus, and is in no acute distress, Pt serves as own historian for office visit today.?ORIENTED:?person, place, and time.?Vascular: ?DP PULSES:?3/4, B/L.?PT PULSES:?3/4, B/L.?CAPILLARY FILL TIME:?immediate, all digits, B/L.?SKIN TEMPERTURE GRADIENT OF THE LOWER EXTERMITIES:?normal, warm to cool, proximal to distal, B/L, B/L.?HAIR GROWTH/TEXTURE/ELASTICITY/TURGOR:?normal, B/L.?Neurological: ?SENSORY:?Neurological exam reveals intact sensorium, pain sensation normal, vibration sensation intact, pinprick sensation is normal in the lower extremities, Pt denies, anesthesia, burning, paresthesia, tingling, B/L.? Assessment: * Assessment: 1.?Tinea unguium - B35.1 (Pr imary)?2.?Pain in right toe(s) - M79.674?3.?Pain in left toe(s) - M79.675? Plan: * Treatment: * Procedures:?Debride Nail 6-10:?Nail debridement?Nail debridement performed extensively to reduce/remove overall nail length and girth, subungual debris, and necrotic tissue, by manual and electrical means with use of a nail nipper and/or dremel, to more viable healthy nail plate or bed tissue 6-10. Silver nitrate used for any petechial bleeding as necessary. Patient chooses, no pharmaceutical tx ([id number]).? * Procedure Codes:?84140 GILMA DE JAIMIE, 6 OR MORE * Follow Up:?2 Months * Images: * Sign off status: Completed true * Provider:Kori Rosas DPM Date:?06/2024 Generated for Heidi haley/Avery/Ken on:?08/11/2024 04:17 PM EST History and Physical Notes * HPI (History of Present Illness) Category Sub-Category Detail Notes Category Not es Painful Nails Pt States Last PCP Visit: Date:: 01/14/2024 Examination Category Sub-Category Detail Notes Category Not es Neurological SENSORY: Neurological exa m reveals intact sensorium, pain sensation normal, vibration sensation intact, pinprick sensation is normal in the lower extremities, Pt denies, anesthesia, burning, paresthesia, tingling, B/L General Examination GENERAL APPEARANCE: Reveals a pleasant, alert, well nourished, well-developed, well hydrated individual, who demonstrates proper attention to hygiene/body habitus, and is in no acute distress, Pt serves as own historian for office visit today ORIENTED: person, place, and t carlos Vascular DP PULSES (B): 3/4, B/L PT PULSES (B): 3/4, B/L CAPILLARY FILL TIME: immediate, all digi ts, B/L TEMPERTURE GRADIENT (C): normal, warm to cool, proximal to distal, B/L, B/L TROPHIC CONDITION-TEXTURE/ELASTICITY/TURGOR/HAIR GROWTH (B): normal, B/L Nails NAILS are: Elongated, overg rown, dystrophic, lytic, greater than 3mm thick, discolored and friable with crumbly malodorous subungual debris, with pain on palpation, 1-5 B/L
--- OUTSIDE RECORDS SUMMARY | 2024-08-11 16:17 | XMS_ITS ---
Author Organization [facility] Address [address] [place] [address] Care Team Providers Care Manager Creative Name Role Phone Antoine Kendrick MD Primary Care Provider Shahla Blake Unavailable [phone] Allergies No Known Allergies REASON FOR VISIT Painful nail(s) aggrevated by shoes causing difficulty standing/walking, Skin problem(s) Medications Medication SIG (Take, Route, Frequency, Duration) Notes Start Date End Date Status Iron bid Active Multivitamin Active Ammonium Lactate 12 % APPLY TO AFFECTED AREA(S) OF FEET TWO TIMES A DAY for 70 Active Ciclopirox Olamine 0.77 % 1 application to affected area Externally to feet Twice a day for 30 days Not-Taki ng Zolpidem Tartrate 5 MG Orally prn Active Losartan Potassium 100 MG as directed Orally Active Potassium 10 meq Active Folic Acid 1 MG Orally Acti ve Omeprazole 20 MG Orally Act christian NIFEdipine ER 30 MG Orally Active Ciclopirox Olamine 0.77 % 1 application to affected area Externally to feet Twice a day for 30 days Active Social History Tobacco Use: Social History [...] user? No Vital Signs Height 6ft in 05/05/2024 Weight 200 lbs 05/05/2024 BMI 27.12 kg/m2 05/05/2024 Blood pressure systolic 140 mm Hg 05/05/20 24 Blood pressure diastolic 78 mm Hg 024 Encounters Encounter Location Date Provider Diagnosis [facility] [address] [place] [address] 05/05/2024 Shahla Rosas Tinea pedis B35.3 ; Pain in right toe(s) M79.674 ; Pain in left toe(s) M79.675 and Tinea unguium B35.1 Assessments Encounter Date Diagnosis (ICD Code) Assessment Notes Treatment Notes Treatment Clinical Notes Section Notes 05/05/2024 Tinea pedis (ICD-10 - B35.3) 05/05/2024 Pain in right toe(s) (ICD-10 - M79.674) 05/05/2024 Pain in left toe(s) (ICD-10 - M79.675) 05/05/2024 Tinea unguium (ICD-10 - B35.1) Plan Of Treatment Medication Medication Name Sig Start Date Stop Date Notes Ciclopirox Olamine 0.77 % 1 application to affected area Externally to feet Twice a day for 30 days Next Appt Details Follow Up: 2 Months, Reason: Provider Name:Shahla persaud, 10/27/2024 10:00:00 AM, [address] [place], [address], Procedure Notes * Category Sub-Category Detail Notes [...] as necessary. Patient chooses, no pharmaceutical tx (39305) Progress Notes * Tristian SETHI:[birth year] (73 yo M)Acc No.[id number]:05/05/2024 Progress Note Patient:?Edmond Sethi Provider:?Shahla Rosas DPM :1950???Age:73 Y???Sex:Male Sam e:05/05/2024 Phone: Address: [facility] [id number] Pcp:Antoine Kendrick MD Subjective: * Chief Complaints: * ???Painful nail(s) aggrevate d by shoes causing difficulty standing/walkingSkin problem(s) * HPI: ???Painful Nails:?Pt States Last PCP Visit:?Date:?01/14/2024 ???Skin problems:?Location:?B/L .?Course:?improved.?Treatments:?Medication (Ciclopirox Olamine 0.77 Cream)?.? * ROS:?General/Constitutional:?Nausea?denies.?Vomiting?denies.?Hunger Thirst?denies.?Loss appetite?denies.?Chills?denies.?Fatigue?denies.?Fever?denies.?Night Sweats?denies.?Unexplained weight loss?denies.?Unexplained weight gain?denies.?HEENTM:?Dentures?admits.?Dizziness?denies.?Glasses/contacts?admits.?Retinopathy?de nies.?Blurred/double vision?denies.?TMJ?denies.?Discharge/drainage?denies.?Implants?denies.?Sore throat?denies.?Dental implants?denies.?Hard of hearing ?denies.?Difficulty chewing/swallowing/speaking?denies.?Nose bleeds?denies.?Sore mouth?denies.?Respiratory:?On Oxygen?denies.?Pneumonia/pleurisy?denies.?Bronchitis?denies.?Emphysema?denies.?C oughing?denies.?Cough blood?denies.?Shortness of breath?denies.?Wheezing?denies.?Cardiovascular:?Pacemaker?denies.?MVP?denies.?WPW?denies.?CHF?denies.?Heart attack?denies.?Septal defect?denies.?Rapid beat?denies.?Chest pain ?denies.?Atrial Fib.?denies.?Murmur/Palpitations?denies.?Gastrointestinal:?Hemorrhoids?denies.?Stomach/Abdominal pain?denies.?Dark blood stool?denies.?Irritable bowel ?denies.?Constipation?denies.?Diarrhea?denies.?Hematology:?Swelling?denies.?Clots?denies.?Varicose Veins?denies.?Bruising?denies.?Bleeding problem?denies.?Genitourinary:?Blood urine?denies.?Frequent/Painfu/urination/bladder control?denies.?Kidney stones?denies.?Infection (UTI)?denies.?Nephropathy?denies.?sex trans dis (STD)?denies.?Prostate?denies.?Musculoskeletal:?Hammertoes?admits.?Bunions?admits.?Back Pain?denies.?Muscle Cramps/ Resting?denies.?Muscle cramps / walking?denies.?Generalized aches and pains?denies.?Weakness?denies.?Integ.:?Cesar?denies.?Scars?denies.?Corns/calluses?admits.?Ingrown nails?denies.?Painful nails?admits.?Open Sores?denies.?Rashes?denies.?Neurologic:?Difficulty sleeping?denies.?Brain disorder?denies.?Numbness?admits.?Balance trouble?denies.?Confusion?denies.?Fainting/blackouts?denies.?Tingling?denies.?Tr emors?denies.? * Medical History:? * Surgical History:?knee repla cement 10/2013, 2016hernia 01/2018appendix 10/2014colonoscopy/endoscopy 07/2020colonoscopy 02/2024 * Hospitalization/Major Diagno stic Procedure:?Denies Past Hospitalization [...] or almost daily (4 points) ?Points?8 ?Interpretation?Positive ???Miscellaneous:?Caffeine: yes, frequency:, 1-2 cups per day decafe coffe or tea. ?Children: yes, 2. ?Exercise: yes, walking, bike riding. ?Marital status: . ?Occupation: Retired- college. * Medications:?TakingLosartan Potassium 100 MG Tablet as directed Orally Potassium 10 meq Folic Acid 1 MG Tablet Orally Omeprazole 20 MG Capsule Delayed Release Orally NIFEdipine ER 30 MG Tablet Extended Release 24 Hour Orally Iron bidMultivitamin Zolpidem Tartrate 5 MG Tablet Orally prnCiclopirox Olamine 0.77 % Cream 1 application to affected area Externally to feet Twice a dayAmmonium Lactate 12 % Cream APPLY TO AFFECTED AREA(S) OF FEET TWO TIMES A DAY Taking Losartan Potassium 100 MG Tablet as directed [...] a dayTaking Ammonium Lactate 12 % Cream APPLY TO AFFECTED AREA(S) OF FEET TWO TIMES A DAY Not-Taking/PRNCiclopirox Olamine 0.77 % Cream 1 application to affected area Externally to feet Twice a dayMedication List reviewed and reconciled with the patientNot-Taking/PRN Ciclopirox Olamine 0.77 % Cream 1 application to affected area Externally to feet Twice a dayMedication List reviewed and reconciled with the patient * Allergies:?N.K.D.A.yes[Aller gies Verified] Objective: * Vitals:?Ht: 6ft, Wt:200, BMI :27.12, Shoe size: 11, BP:140/78 mm Hg, Ht-cm: 182.88 cm, Wt-k.72 kg. * Examination: ???Nails: ?NAILS are:?Elongated, overgrown, dystrophic, lytic, greater than 3mm thick, discolored and friable with crumbly malodorous subungual debris, with pain on palpation, 1-5 B/L.?Dermatologic: ?SKIN FINDINGS:?Skin shows approximately 60% LESS sign(s) of, erythema, scaling, in a moccasin fashion, no fissure(s) present, B/L.?General Examination: ?GENERAL APPEARANCE:?Reveals a pleasant, alert, well nourished, well- developed, well hydrated individual, who demonstrates proper attention to hygiene/body habitus, and is in no acute distress, Pt serves as own historian for office visit today.?ORIENTED:?person, place, and time.?Vascular: ?DP PULSES(B):?3/4, B/L.?PT PULSES(B):?3/4, B/L.?CAPILLARY FILL TIME:?immediate, all digits, B/L.?TROPHIC CONDITION-TEXTURE/ELASTICITY/TURGOR/HAIR GROWTH(B):?normal, B/L.?TEMPERTURE GRADIENT(C):?normal, warm to cool, proximal to distal, B/L, B/L.?Neurological: ?SENSORY:?Neurological exam reveals intact sensorium, pain sensation normal, vibration sensation intact, pinprick sensation is normal in the lower extremities, Pt denies, anesthesia, burning, paresthesia, tingling, B/L.? Assessment: * Assessment: 1.?Tinea pedis - B35.3, Acut e problem, Stable (1=3)?2.?Pain in right toe(s) - M79.674?3.?Pain in left toe(s) - M79.675?4.?Tinea unguium - B35.1? Plan: * Treatment: * Procedures:?Debride Nail 6-10:?Nail debridement?Nail debridement performed extensively to reduce/remove overall nail length and girth, subungual debris, and necrotic tissue, by manual and electrical means with use of a nail nipper and/or dremel, to more viable healthy nail plate or bed tissue 6-10. Silver nitrate used for any petechial bleeding as necessary. Patient chooses, no pharmaceutical tx (09953).? * Procedure Codes:?01080 DEBRI DE NAIL, 6 OR MORE * Preventive Medicine:? ??Counseling:?Discussion:?-13: Office or other outpatient visit for the evaluation and management of an established patient, which required a medically appropriate history and/or examination and LOW level of DECISION MAKING for: 1 STABLE ACUTE UNCOMPLICATED PROBLEM, 2 OR MORE MINOR PROBLEMS, OR 1 STABLE CHRONIC PROBLEM, THAT POSE(S) A LOW RISK FOR MORBIDITY/MORTALITY. When using time for code selection, 20-29 min of total time was spent on the day of the encounter interpreting the data and educating the patient as to the nature of their condition, treatment options available according to their individual PMH, meds, allergies, and overall health/living conditions, as well as any potential risks or complications that may occur from a failure to adhere to, and participate in, the recommended course of therapy. The discussion included a complete verbal, and/or written explanation of the examination results, any x- rays taken, the proposed diagnosis, and outline of the treatment plan. A schedule for future care needs was also explained. The patient verbalized an understanding of the instructions at this time and agreed to be an active participant in their treatment. If the patient should think of any questions or concerns after the visit, I have encouraged the patient to call the office.?Tinea Pedis:?FU-The patient was again counseled on the diagnosis, potential etiologies, and treatment options for their skin condition. We again discussed the risks and benefits of each option from performing no treatment, to utilizing OTC topical skin creams, prescription topical creams, customized compounded topical medications, and, if necessary, to utilize oral antifungal therapy. We reviewed the advantages and disadvantages of each possible treatment and importance for adherence to all the recommended therapies for optimum success and avoid potential complications such as open sore/infection/possible hospitalization. We again discussed the potential effectiveness of each topical preparation as well as each ones possible side effects and/or patient medication interactions if oral therapy is selected. Patient questions re: the advantages and disadvantages of each treatment choice, medication use/dosage, successful outcomes, and application consistency were again reviewed and the patient verbalized that all answers were clearly understood. The patient was again told they can help alleviate symptoms by utilizing moisture absorbant innersoles with activated charcoal and baking soda, applying antifungal sprays daily, aerating toe web spaces at night by putting cotton or lambs wool between the toes, alternating shoes daily if possible so shoes can dry out, changing socks at least once during the day, wearing well-ventilated shoes or sandals. The patient has decided to continue to apply Rx skin creams to their feet as directed.? * Follow Up:?2 Months * Images: * Sign off status: Completed true * Provider:?Shahla Rosas DPM Date:?08/2023 Generated for Heidi haley/Avery/Ken on:?08/11/2024 04:17 PM EST History and Physical Notes * HPI (History of Present Illness) Category Sub-Category Detail Notes Category Not es Painful Nails Pt States Last PCP Visit: Date:: 01/14/2024 Skin problems Location: B/L Course: improved Treatments: Medication (Ciclopir ox Olamine 0.77 Cream) Examination Category Sub-Category Detail Notes Category Not es Neurological SENSORY: Neurological exa m reveals intact sensorium, pain sensation normal, vibration sensation intact, pinprick sensation is normal in the lower extremities, Pt denies, anesthesia, burning, paresthesia, tingling, B/L Dermatologic SKIN FINDINGS: Skin shows appro ximately 60% LESS sign(s) of, erythema, scaling, in a moccasin fashion, no fissure(s) present, B/L General Examination GENERAL APPEARANCE: Reveals a [...]
--- OUTSIDE RECORDS SUMMARY | 2024-08-11 16:18 | XMS_ITS | Patient Health Record ---
Author Organization [facility] Address [address] [place] [address] Care Team Providers Care Linen Room Custodian Name Role Phone Antoine Kendrick MD Primary Care Provider Lan Adkins [phone] ALLERGIES No Known Allergies RESULTS Component Value Reference Range Notes Pathology (Not yet reviewed by provider) Interpretation: Performing Lab:[facility], [address] [place] [id number] Notes/Report: REASON FOR REFERRAL No Information MEDICATIONS Medication SIG (Take, Route, Frequency, Duration) Notes Start Date End Date Status Losartan Potassium 25 MG 1 tablet Orally Once a day Active Zolpidem Tartrate 5 MG 1 tablet at bedti me as needed Orally at HS NEEDED Active Folic Acid 1 MG 1 tablet Orally Once a day Active Iron 325 (65 Fe) MG 1 tablet Orally twice a day Active potassium 10 mg 1 tablet Oral once a day Active Vitamin D 2000 UNIT 1 capsule Orally Onc e a day for 30 day(s) Active Multi Vitamin/Minerals - as directed Ora lly once a day Active NIFEdipine ER 30 MG 1 tablet Orally Once a day Active Omeprazole 20 MG 1 capsule Orally Once a day Active IMMUNIZATIONS Vaccine Route Administration Date Status Comme nts Influenza Unknown 05/05/2017 Administered Influenza Unknown 05/13/2018 Administered Influenza Unknown 05/28/2023 Administered SOCIAL HISTORY Tobacco Use: Social History Observation Description Date Details (start date - stop date) Former Smoker NA - NA Sex Assigned At : Social History Observation Description Sex Assigned At Unknown Tobacco Use/Smoking Question Answer Notes Patient is a former smoker How long has it been since you last smoked? > 10 years Alcohol Screen Question Answer Notes Did you have a drink contain ing alcohol in the past year? Yes How often did you have a dri nk containing alcohol in the past year? 2 to 3 times a week (3 points) How many drinks did you have on a typical day when you were drinking in the past year? 1 or 2 drinks (0 point) How often did you have 6 or more drinks on one occasion in the past year? Never (0 point) Points 3 Interpretation Negative PROBLEMS Problem Type ICD Code Onset Dates Problem Status W/U Status Risk SNOMED Code Notes Problem Encounter for screening for malignant neoplasm of colon (Z12.11) Active confirmed 990445423 Problem History of adenomatous polyp of colon (Z86.010) Active confirmed 659550179 Problem Diverticulosis of large intestine without perforation or abscess without bleeding (K57.30) Active confirmed Diverticul ar disease of colon (724546657) Problem Gastroesophageal reflux disease without esophagitis (K21.9) Active confirmed 609731772 Problem Barretts esophagus without dysplasia (K22.70) Active confirmed 104417030 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 (054260307) Problem Hypertension, unspecified type (I10) Active confirmed 08802073 VITAL SIGNS Temperature 97.7 degrees Fahrenheit 12/04/2023 Blood pressure diastolic 00 mm Hg 12/04/2023 Height 72 in 12/04/2023 Blood pressure systolic 000 mm Hg 12/04/2023 Weight 207 lb 6 oz lbs 12/04/2023 BMI 28.12 kg/m2 12/04/2023 Encounters Encounter Location Date Provider Diagnosis [facility] [address] [place], [place] [id number] 01/17/2024 Lan Melvin [facility] [address] [place], [place] [id number] 02/28/2024 Lan Melvin Colon cancer screeni ng Z12.11 ; Colon polyps K63.5 ; Diverticulosis of large intestine without perforation or abscess without bleeding K57.30 ; Other hemorrhoids K64.8 ; Gastroesophageal reflux disease without esophagitis K21.9 ; Clay esophagus K22.70 and Hiatal hernia K44.9 [facility] [address] [place] [address] 12/04/2023 Lan Melvin Barretts esophagus without dysplasia K22.70 ; History of adenomatous polyp of colon Z86.010 ; Gastroesophageal reflux disease without esophagitis K21.9 and Encounter for screening for malignant neoplasm of colon Z12.11 [facility] [address] [place] [address] 11/06/2023 Lan Melvin [facility] [address] [place] [address] 12/04/2023 Lan Melvin [facility] [address] [place] [address] 12/13/2023 Lan Melvin ASSESSMENTS Encounter Date Diagnosis Assessment Notes Treatment Notes Treatment Clinical Notes 02/28/2024 Colon cancer screeni ng (ICD-10 - Z12.11) 02/28/2024 Colon polyps (ICD-10 - K63.5) 12/04/2023 History of adenomato us polyp of colon (ICD-10 - Z86.010) 12/04/2023 Barretts esophagus without dysplasia (ICD-10 - K22.70) 02/28/2024 Diverticulosis of la rge intestine without perforation or abscess without bleeding (ICD-10 - K57.30) 12/04/2023 Gastroesophageal ref lux disease without esophagitis (ICD-10 - K21.9) 02/28/2024 Other hemorrhoids (ICD-10 - K64.8) 12/04/2023 Encounter for screen ing for malignant neoplasm of colon (ICD-10 - Z12.11) Stop Iron for 1 week before the procedures 02/28/2024 Gastroesophageal ref lux disease without esophagitis (ICD-10 - K21.9) 02/28/2024 Clay esophagus (ICD-10 - K22.70) 02/28/2024 Hiatal hernia (ICD-1 0 - K44.9) PLAN OF TREATMENT Pending Test Test Name Order Date Pathology 02/28/2024 Future Test Test Name Order Date UPPER GI ENDOSCOPY 12/17/2013 COLONOSCOPY 12/17/2013 UPPER GI ENDOSCOPY 04/17/2019 COLONOSCOPY 04/17/2019 UPPER GI ENDOSCOPY 12/04/2023 COLONOSCOPY 12/04/2023 Insurance Providers Payer Name Payer Address Payer Phone Subscriber Number Group Number Insured Name Patient Relationship to Insured Coverage Start Date Coverage End Date MEDICARE OF [place] [address] [id number] [phone] [id number] DEMI CORRALES Self - patient is the insured Disability Care Givers ATTN CLAIMS [address] [place] [address] [phone] [id number] DEMI CORRALES Self - patient is the insured MEDICAL (GENERAL) HISTORY Medical History History ICD Code HTN Screening colonoscopy 08/2004 neg except for hyperplastic polyps GERD--small to moderate-sized HH Clay's esophagus--EGD's i n 2004, 2007, 2010, 02/2014--no dysplasia, small area of Clay's, small hiatal hernia Denies MT,DM,CVA,Lung disease,renal dise ase Sleep apnea--uses CPAP Hx of pneumonia due to complications aft er an appy Colonoscopy in February of 2014- -hyperplastic polyps and one tubular adenoma, diverticulosis and internal hemorrhoids Negative screening colonoscopy in [facility] er 2019 Upper endoscopy in July 2019 with his known small area of Clay's esophagus with biopsies negative for dysplasia; small hiatal hernia noted; there was no esophagitis Surgical History Surgery Date(Month/Year) Hernia repair-bilateral inguinal Left arm surgery--broken arm Cataract-lens implants Eyes lift Right Knee replacement-- com plications- Staph---had multiple surgeries with the final new knee placed in the Fall of 2015---Dr. Colunga Appendectomy---rupture/gangr enous appendix complicated with pneumonia--had an ileocolectomy with Dr. Krishnamurthy in 10/2015 hernia repair 02/2018
--- OUTSIDE RECORDS SUMMARY | 2024-08-11 16:18 | XMS_ITS ---
Author Organization [facility] Address [address] [place] [address] Care Team Providers Care Donor Processor Name Role Phone Antoine Kendrick MD Primary Care Provider Lan Adkins Unavailable [phone] REASON FOR VISIT screening,hx polyps,gerd,oakes's PROBLEMS Problem Type ICD Code Onset Dates Problem Status W/U Status Risk SNOMED Code Notes Problem Diverticulosis of large intestine without perforation or abscess without bleeding (K57.30) Active confirmed Diverticul ar disease of colon (150633751) Problem 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 Oakes esophagus (349427884) Encounters Encounter Location Date Provider Diagnosis [facility] [address] [place] [phone] 02/28/2024 Lan Melvin Colon cancer screeni ng Z12.11 ; Colon polyps K63.5 ; Diverticulosis of large intestine without perforation or abscess without bleeding K57.30 ; Other hemorrhoids K64.8 ; Gastroesophageal reflux disease without esophagitis K21.9 ; Oakes esophagus K22.70 and Hiatal hernia K44.9 ASSESSMENTS Encounter Date Diagnosis Assessment Notes Treatment Notes Treatment Clinical Notes 02/28/2024 Colon cancer screeni ng (ICD-10 - Z12.11) 02/28/2024 Colon polyps (ICD-10 - K63.5) 02/28/2024 Diverticulosis of la rge intestine without perforation or abscess without bleeding (ICD-10 - K57.30) 02/28/2024 Other hemorrhoids (ICD-10 - K64.8) 02/28/2024 Gastroesophageal ref lux disease without esophagitis (ICD-10 - K21.9) 02/28/2024 Oakes esophagus (ICD-10 - K22.70) 02/28/2024 Hiatal hernia (ICD-1 0 - K44.9) PLAN OF TREATMENT No Information
--- OUTSIDE RECORDS SUMMARY | 2024-08-11 16:18 | XMS_ITS | Patient Health Record ---
Author Organization [facility] Address [address] [place] [address] Care Team Providers Care Brush Clearer Surveying Name Role Phone Antoine Kendrick MD Primary Care Provider Shahla Blake Unavailable [phone] Allergies No Known Allergies Reason For Referral No Information Medications Medication SIG (Take, Route, Frequency, Duration) Notes Start Date End Date Status Zolpidem Tartrate 5 MG Orally prn Active Multivitamin Active Iron bid Active Ciclopirox Olamine 0.77 % 1 application to affected area Externally to feet Twice a day for 30 days Active NIFEdipine ER 30 MG Orally Active Omeprazole 20 MG Orally Act christian Folic Acid 1 MG Orally Acti ve Potassium 10 meq Active Losartan Potassium 100 MG as directed Orally Active Ciclopirox Olamine 0.77 % 1 application to affected area Externally to feet Twice a day for 30 days Not-Taki ng Ammonium Lactate 12 % APPLY TO AFFECTED AREA(S) OF FEET TWO TIMES A DAY for 70 Active Immunizations Vaccine Route Administration Date Status Comme nts COVID-19 Pfizer BioNTech Vaccine Unknown 07/26/2020 Administered Second DOse:06/25 COVID-19 Pfizer BioNTech Vaccine Unknown 05/01/2021 Administered Firs Dose: 07/26/2020 Second Dose: 08/15/20 Social History Tobacco Use: Social History Observation [...] Are you an other tobacco user? 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) Active confirmed Problem 970107371 Hammer toe of right foot (M20.41) Active confirmed Problem 942187994 Hammer toe of left foot (M20.42) Active confirmed Vital Signs Blood pressure diastolic 50 mm Hg 07/21/2024 Height 6ft in 07/21/2024 Blood pressure systolic 128 mm Hg 07/21/2024 Weight 190 lbs 07/21/2024 BMI 25.77 kg/m2 07/21/2024 Encounters Encounter Location Date Provider Diagnosis [address] [address] 09/17/2023 Shahla Perica Tinea pedis B35.3 ; Pain in right toe(s) M79.674 ; Pain in left toe(s) M79.675 and Tinea unguium B35.[address] [address] 01/14/2024 Shahla Perica Pain in right toe(s) M79.674 ; Tinea unguium B35.1 and Pain in left toe(s) M79.[address] [address] 05/05/2024 Shahla Perica Tinea pedis B35.3 ; Pain in right toe(s) M79.674 ; Pain in left toe(s) M79.675 and Tinea unguium B35.[address] [address] 07/21/2024 Shahla Perica Tinea pedis B35.3 ; Pain in right toe(s) M79.674 ; Pain in left toe(s) M79.675 ; Tinea unguium B35.1 and Xerosis cutis L85.[address] [address] 10/10/2023 Shahla Rosas Xerosis cutis L85.[address] [address] 12/03/2023 Shahla Rosas Assessments Encounter Date Diagnosis (ICD Code) Assessment Notes Treatment Notes Treatment Clinical Notes Section Notes 09/17/2023 Pain in right toe(s) (ICD-10 - M79.674) 09/17/2023 Tinea pedis (ICD-10 - B35.3) 10/10/2023 Xerosis cutis (ICD-10 - L85.3) 01/14/2024 Tinea unguium (ICD-10 - B35.1) 01/14/2024 Pain in right toe(s) (ICD-10 - M79.674) 05/05/2024 Tinea pedis (ICD-10 - B35.3) 07/21/2024 Pain in right toe(s) (ICD-10 - M79.674) 07/21/2024 Tinea pedis (ICD-10 - B35.3) 07/21/2024 Pain in left toe(s) (ICD-10 - M79.675) 05/05/2024 Pain in right toe(s) (ICD-10 - M79.674) 01/14/2024 Pain in left toe(s) (ICD-10 - M79.675) 09/17/2023 Pain in left toe(s) (ICD-10 - M79.675) 09/17/2023 Tinea unguium (ICD-10 - B35.1) 05/05/2024 Pain in left toe(s) (ICD-10 - M79.675) 07/21/2024 Tinea unguium (ICD-10 - B35.1) 07/21/2024 Xerosis cutis (ICD-10 - L85.3) 05/05/2024 Tinea unguium (ICD-10 - B35.1) Plan Of Treatment Pending Test Test Name Order Date X ray : Foot, left 3V 12/06/2020 Next Appt Details Provider Name:Shahla persaud, 10/27/2024 10:00:00 AM, [address] [place], [address], Insurance Providers Payer Name Payer Address Payer Phone Subscriber Number Group Number Insured Name Patient Relationship to Insured Coverage Start Date Coverage End Date Medicare National [facility] [address] [place] [address] [id number] Mason Blum Self - patient is the insured [employer] [address] [place] [address] [phone] [id number] Mason Blum Self - patient is the insured Medical (General) History Medical History History ICD Code Knee Pain Hypertension Surgical History Surgery Date(Month/Year) knee replacement 10/2013, 2016 hernia 01/2018 appendix 10/2014 colonoscopy/endoscopy 07/2020 colonoscopy 02/2024
--- OUTSIDE RECORDS SUMMARY | 2024-08-11 16:18 | XMS_ITS ---
Author Organization [facility] Address [address] [place] [address] Care Team Providers Care Hooker Up Name Role Phone Antoine Kendrick MD Primary Care Provider UnavailLan Haines [phone] REASON FOR VISIT R/S PROCEDURES Encounters Encounter Location Date Provider Diagnosis [facility] [address] [place] [address] 12/13/2023 Lan Melvin PLAN OF TREATMENT No Information
--- OUTSIDE RECORDS SUMMARY | 2024-08-11 16:18 | XMS_ITS ---
Author Organization [facility] Address [address] [place] [address] Care Team Providers Care Inventory Control Manager Name Role Phone Aroldo SOARES, Antoine Primary Care Provider UnavailLan Haines [phone] REASON FOR VISIT screening,hx polyps,gerd,oakes's Encounters Encounter Location Date Provider Diagnosis [facility] [address] [place], [place] [address] [id number] 01/17/2024 Lan Melvin PLAN OF TREATMENT No Information
== END 2024-08-11 14:06 | disposition home or self-care (01) ==
PROVIDERS: PCP Internal Medicine; Visit Provider Internal Medicine
DX: I44.1 Atrioventricular block, second degree (principal); I49.3 Ventricular premature depolarization; I10 Essential (primary) hypertension; G47.33 Obstructive sleep apnea (adult) (pediatric); Z99.89 Dependence on other enabling machines and devices
CPT/HCPCS: 93010; 99214

== ENCOUNTER → 2024-08-11 13:35 | Outpatient (BNVA) | payer MEDICARE, SELFPAY | PROVIDERS: PCP Internal Medicine; Visit Provider Internal Medicine | DX: I44.1 Atrioventricular block, second degree (principal); I49.3 Ventricular premature depolarization; I10 Essential (primary) hypertension; G47.33 Obstructive sleep apnea (adult) (pediatric); Z99.89 Dependence on other enabling machines and devices | CPT/HCPCS: 93005; 99212 ==

== ENCOUNTER → 2024-08-17 08:20 | Outpatient (REF) | payer MEDICARE, SELFPAY ==
--- NOTE | 2024-08-17 08:24 | CA_ITS ---
Acquisition Time: 2024-08-17 08:50:59 Total Exercise Time: 00:07:02 Test Indications: BRADYCARDIA, MOBITZ2, AV BLOCK Medications: SEE H&P Protocol: ANY Max HR: 127 BPM 85% of Pred: 148 BPM Max BP: 190/40 mmHG Max Work Load: 8.6 METS Exercise Stress Test with exercise 7 mins 2 sec of Any Protocol, achieving 85% MPHR, without any anginal symptoms, with frequent isolated PVCs, ventricular couplets and one triplet, then ventricular bigeminy, at times cannot exclude ectopy beats. With baseline hypertension- normal response with exercise. With borderline ST segment changesnoted in recovery. Test reviewed with Dr. Bryant. Referred By: Ganga Womack Electronically Signed By: Chance Sun
--- OUTSIDE RECORDS SUMMARY | 2024-08-17 08:27 | XMS_ITS ---
Author Organization [facility] Address [address] [facility] [place] [address] Care Team Providers Care Platinum And Palladium Kettle Tender Name Role Phone Antoine Kendrick MD Primary Care Provider Shahla Blake Unavailable [phone] Allergies No Known Allergies REASON FOR VISIT Painful nail(s) aggrevated by shoes causing difficulty standing/walking, Skin problem(s) Medications Medication SIG (Take, Route, Frequency, Duration) Notes Start Date End Date Status Zolpidem Tartrate 5 MG Orally prn Active Ciclopirox Olamine 0.77 % 1 application to affected area Externally to feet Twice a day for 30 days Active Losartan Potassium 100 MG as directed Orally Active Ciclopirox Olamine 0.77 % 1 application to affected area Externally to feet Twice a day for 30 days Not-Taki ng Ammonium Lactate 12 % APPLY TO AFFECTED AREA(S) OF FEET TWO TIMES A DAY for 70 Active Multivitamin Active Iron bid Active NIFEdipine ER 30 MG Orally Active Omeprazole 20 MG Orally Act christian Folic Acid 1 MG Orally Acti ve Potassium 10 meq Active Social History Tobacco Use: Social History Observation Description Date Details (start date - stop date) Former Smoker NA - NA Tobacco Use/Smoking Question Answer Notes Are you a: former smoker Additional Findings: Tobacco User Heavy cigarett e smoker (20-39 cigs/day) Additional Findings: Tobacco Non-User Cu rrent non-smoker,Ex-heavy cigarette smoker (20-30/day) Tobacco use other than smoking: Question Answer Notes Are you an other tobacco user? No Vital Signs Height 6ft in 07/21/2024 Weight 190 lbs 07/21/2024 BMI 25.77 kg/m2 07/21/2024 Blood pressure systolic 128 mm Hg 07/21/20 24 Blood pressure diastolic 50 mm Hg 024 Encounters Encounter Location Date Provider Diagnosis [facility] [address] [address] 07/21/2024 Shahla Rosas Tinea pedis B35.3 ; Pain in right toe(s) M79.674 ; Pain in left toe(s) M79.675 ; Tinea unguium B35.1 and Xerosis cutis L85.3 Assessments Encounter Date Diagnosis (ICD Code) Assessment Notes Treatment Notes Treatment Clinical Notes Section Notes 07/21/2024 Tinea pedis (ICD-10 - B35.3) 07/21/2024 Pain in right toe(s) (ICD-10 - M79.674) 07/21/2024 Pain in left toe(s) (ICD-10 - M79.675) 07/21/2024 Tinea unguium (ICD-10 - B35.1) 07/21/2024 Xerosis cutis (ICD-10 - L85.3) Plan Of Treatment Medication Medication Name Sig Start Date Stop Date Notes Ciclopirox Olamine 0.77 % 1 application to affected area Externally to feet Twice a day for 30 days Next Appt Details Follow Up: 2 Months, Reason: Provider Name:Shahla Villareal Tonya hung, 10/27/2024 10:00:00 AM, [address] [place] [address], [address], Procedure Notes * Category Sub-Category Detail Notes Debride Nail 6-10 Nail debridement Due to the cl inical pathology outlined in the exam findings, performance of this nail treatment is medically necessary as its management by an unskilled/untrained nonprofessional would put this patients foot and overall health at risk. Therefore, debridement to affected nail(s), as described in exam ( TA, T1, T2, T3, T4, T5, T6, T7, T8, T9), was performed exclusively by the physician of record to reduce/remove overall nail length, girth, thickness, subungual debris, and necrotic tissue, by manual and/or electrical means through the use of a nail nipper and/or dremel-type bearing grinder, to a more viable healthy nail plate or bed tissue 6-10 nails in total. Silver nitrate was used for any petechial bleeding as necessary. Definitive antifungal treatment options, both pharmaceutical and surgical, have been reviewed and discussed with the patient. The patient solely prefers the use of intermittent/as needed professional debridement services for their nail condition and understands the need for additional periodic treatments to maintain effectiveness in symptomatic relief - 36132 Progress Notes * AMANDO, MichaelDOB:[birth year] (74 yo M)Acc No.[id number]:07/21/2024 Progress Note Patient:?Edmond SETHI Provider:?Shahla Rosas DPM :1950???Age:73 Y???Sex:Male Sam e:07/21/2024 Address:[address] [place], [place] [id number] Pcp:Antoine Kendrick MD Subjective: * Chief Complaints: * ???Painful nail(s) aggrevate d by shoes causing difficulty standing/walkingSkin problem(s) * HPI: ???Painful Nails:?Pt States Last PCP Visit:?Date:?05/05/2024 ???Skin problems:?Location:?B/L .?Course:?improved.?Treatments:?Medication (Ciclopirox Olamine 0.77 Cream) , medication ( AM Lactin ).? * ROS:?General/Constitutional:?Nausea?denies.?Vomiting?denies.?Hunger Thirst?denies.?Loss appetite?denies.?Chills?denies.?Fatigue?denies.?Fever?denies.?Night Sweats?denies.?Unexplained weight loss?denies.?Unexplained weight gain?denies.?HEENTM:?Dentures?admits.?Dizziness?denies.?Glasses/contacts?admits.?Retinopathy?den ies.?Blurred/double vision?denies.?TMJ?denies.?Discharge/drainage?denies.?Implants?denies.?Sore throat?denies.?Dental implants?denies.?Hard of hearing ?denies.?Difficulty chewing/swallowing/speaking?denies.?Nose bleeds?denies.?Sore mouth?denies.?Respiratory:?On O xygen?denies.?Pneumonia/pleurisy?denies.?Bronchitis?denies.?Emphysema?denies.?Co ughing?denies.?Cough blood?denies.?Shortness of breath?denies.?Wheezing?denies.?Cardiovascular:?Pacemaker?denies.?MVP?denies.?WPW?denies.?CHF?denies.?Heart attack?denies.?Septal defect?denies.?Rapid beat?denies.?Chest pain ?denies.?Atrial Fib.?denies.?Murmur/Palpitations?denies.?Gastrointestinal:?Hemorrhoids?denies.?Stomach/Abdominal pain?denies.?Dark blood stool?denies.?Irritable bowel ?denies.?Constipation?denies.?Diarrhea?denies.?Hematology:?Swelling?denies.?Clots?denies.?Varicose Veins?denies.?Bruising?denies.?Bleeding problem?denies.?Genitourinary:?Blood urine?denies.?Frequent/Painfu/urination/bladder control?denies.?Kidney stones?denies.?Infection (UTI)?denies.?Nephropathy?denies.?sex trans dis (STD)?denies.?Prostate?denies.?Musculoskeletal:?Hammertoes?admits.?Bunions?admits.?Back Pain?denies.?Muscle Cramps/ Resting?denies.?Muscle cramps / walking?denies.?Generalized aches and pains?denies.?Weakness?denies.?Integ.:?Cesar?denies.?Scars?denies.?Corns/calluses?admits.?Ingrown nails?denies.?Painful nails?admits.?Open Sores?denies.?Rashes?denies.?Neurologic:?Difficulty sleeping?denies.?Brain disorder?denies.?Numbness?admits.?Balance t rouble?denies.?Confusion?denies.?Fainting/blackouts?denies.?Tingling?denies.?Zbigniew mors?denies.? * Medical History:? * Surgical History:?knee repla [...] than smoking?Are you an other tobacco user??No * Medications:?TakingLosartan Potassium 100 MG Tablet as directed Orally Potassium 10 meq Folic Acid 1 MG Tablet Orally Omeprazole 20 MG Capsule Delayed Release Orally NIFEdipine ER 30 MG Tablet Extended Release 24 Hour Orally Iron bid Multivitamin Zolpidem Tartrate 5 MG Tablet Orally prn Ammonium Lactate 12 % Cream APPLY TO AFFECTED AREA(S) OF FEET TWO TIMES A DAY Ciclopirox Olamine 0.77 % Cream 1 application to affected area Externally to feet Twice a day Taking Losartan Potassium 100 MG Tablet as directed Orally Taking Potassium 10 meq Taking Folic Acid 1 MG Tablet Orally Taking Omeprazole 20 MG Capsule Delayed Release Orally Taking NIFEdipine ER 30 MG Tablet Extended Release 24 Hour Orally Taking Iron bid Taking Multivitamin Taking Zolpidem Tartrate 5 MG Tablet Orally prn Taking Ammonium Lactate 12 % Cream APPLY TO AFFECTED AREA(S) OF FEET TWO TIMES A DAY Taking Ciclopirox Olamine 0.77 % Cream 1 application to affected area Externally to feet Twice a day Not-Taking/PRNCiclopirox Olamine 0.77 % Cream 1 application to affected area Externally to feet Twice a day Medication List reviewed and reconciled with the patientNot-Taking/PRN Ciclopirox Olamine 0.77 % Cream 1 application to affected area Externally to feet Twice a day Medication List reviewed and reconciled with the patient * Allergies:?N.K.D.A.yes[Aller gies Verified] Objective: * Vitals:?Ht: 6ft, Wt:190, BMI :25.77, Shoe size: 11, BP:128/50mm Hg, Ht-cm: 182.88 cm, Wt-k.18 kg. * Examination: ???Nails: ?NAILS are:?Elongated, overgrown, dystrophic, lytic, greater than 3mm thick, discolored and friable with crumbly malodorous subungual debris, with pain on palpation, TA, T1, T2, T3, T4, T5, T6, T7, T8, T9.?Dermatologic: ?SKIN FINDINGS:?Skin shows approximately 75% LESS sign(s) of, erythema, scaling, in a moccasin fashion, no fissure(s) present, B/L.?General Examination: ?GENERAL APPEARANCE:?Reveals a pleasant, alert, well nourished, well- developed, well hydrated individual, who demonstrates proper attention to hygiene/body habitus, and is in no acute distress, Pt serves as own historian for office visit today.?ORIENTED:?person, place, and time.?FOOT EXAM:?Vascular: ?DP PULSES (B):?3/4, B/L.?PT PULSES (B):?3/4, B/L.?CAPILLARY FILL TIME:?immediate, all digits, B/L.?TROPHIC CONDITION-TEXTURE/ELASTICITY/TURGOR/HAIR GROWTH (B):?normal, B/L.?TEMPERTURE GRADIENT (C):?normal, warm to cool, proximal to distal, B/L, B/L.?Neurological: ?SENSORY:?Neurological exam reveals intact sensorium, pain sensation normal, vibration sensation intact, pinprick sensation is normal in the lower extremities, Pt denies, anesthesia, burning, paresthesia, tingling, B/L.?Ophthalmology Referral: ?DIABETES EYE EXAM? Assessment: * Assessment: 1.?Pain in right toe(s) - M7 9.674???2.?Tinea pedis - B35.3 (Primary)???Specify :Acute problem, Stable (1=3)???3.?Pain in left toe(s) - M79.675???4.?Tinea unguium - B35.1???5.?Xerosis cutis - L85.3???Specify :Minor problem, Self-limited (1=2,2=3)??? Plan: * Treatment: * Procedures:?Debride Nail 6-10:?Nail debridement?Due to the clinical pathology outlined in the exam findings, performance of this nail treatment is medically necessary as its management by an unskilled/untrained nonprofessional would put this patients foot and overall health at risk. Therefore, debridement to affected nail(s), as described in exam (?TA, T1, T2, T3, T4, T5, T6, T7, T8, T9), was performed exclusively by the physician of record to reduce/remove overall nail length, girth, thickness, subungual debris, and necrotic tissue, by manual and/or electrical means through the use of a nail nipper and/or dremel-type bearing grinder, to a more viable healthy nail plate or bed tissue 6- 10 nails in total. Silver nitrate was used for any petechial bleeding as necessary. Definitive antifungal treatment options, both pharmaceutical and surgical, have been reviewed and discussed with the patient. The patient solely prefers the use of intermittent/as needed professional debridement services for their nail condition and understands the need for additional periodic treatments to maintain effectiveness in symptomatic relief - 62868.? * Procedure Codes:?76383 DEBRI DE NAIL, 6 OR MORE * Preventive Medicine:? ??Counseling:?Tobacco use:?Type of Tobacco Use Cessation Counseling provided?Smoking effects education ?Patient counseled on the dangers of smoking and urged to quit:?07/21/2024 ?Discussion:?-12: Office or other outpatient visit for the evaluation and management of an established patient, which required a medically appropriate history and/or examination and STRAIGHTFORWARD level of MEDICAL DECISION MAKING, 1 SELF-LIMITED OR MINOR PROBLEM, MINIMAL- NO AMOUNT/COMPLEXITY OF DATA TO BE REVIEWED/ANALYZED, AND MINIMAL RISK OF COMPLICATION/MORBIDITY. The visit on the day of the encounter encompassed interpreting the data and educating the patient [...] written explanation of the examination results, any x-rays taken, the proposed diagnosis, and outline of [...] Rx skin creams to their feet as directed.?Xerosis:?Given recent successful results to treatment, The patient is to cont the rx cream as directed.? ??Screening/Special Tests:?Fall Risk?Assessment:?Performed ?Screening:?No falls in the past year ?FALLS: Screening for Future Fall Risk?Have you had two or more falls in the past year??No * Follow Up:?2 Months * Images: * Sign off status: Completed true * Provider:?Shahla Rosas DPM Date:? Generated for Heidi haley/Avery/Ken on:?08/17/2024 08:27 AM EST History and Physical Notes * HPI (History of Present Illness) Category Sub-Category Detail Notes Category Not es Painful Nails Pt States Last PCP Visit: Date:: 05/05/2024 Skin problems Location: B/L Course: improved Treatments: Medication (Ciclopir ox Olamine 0.77 Cream) , medication ( AM Lactin ) Examination Category Sub-Category Detail Notes Category Not es Neurological SENSORY: Neurological exa m reveals intact sensorium, pain sensation normal, vibration sensation intact, pinprick sensation is normal in the lower extremities, Pt denies, anesthesia, burning, paresthesia, tingling, B/L Dermatologic SKIN FINDINGS: Skin shows appro ximately 75% LESS sign(s) of, erythema, scaling, in a moccasin fashion, no fissure(s) present, B/L General Examination GENERAL APPEARANCE: Reveals a pleasant, alert, well nourished, well-developed, well hydrated individual, who demonstrates proper attention to hygiene/body habitus, and is in no acute distress, Pt serves as own historian for office visit today FOOT EXAM: Lower Extremity Neurological Exa m performed:: Yes Visual exam of foot performed:: Yes Date: 07/21/2024 ORIENTED: person, place, and t carlos Ophthalmology Referral DIABETES EYE EXAM Procedure Perform ed:: Yes ?Date of Exam Performed: 01/21/2024 Findings of Diabetic Eye Exam:: no retin opathy Vascular DP PULSES (B): 3/4, B/L PT PULSES (B): 3/4, B/L CAPILLARY FILL TIME: immediate, all digi ts, B/L TEMPERTURE GRADIENT (C): normal, warm to cool, proximal to distal, B/L, B/L TROPHIC CONDITION-TEXTURE/ELASTICITY/TURGOR/HAIR GROWTH (B): normal, B/L Nails NAILS are: Elongated, overg rown, dystrophic, lytic, greater than 3mm thick, discolored and friable with crumbly malodorous subungual debris, with pain on palpation, TA, T1, T2, T3, T4, T5, T6, T7, T8, T9
--- OUTSIDE RECORDS SUMMARY | 2024-08-17 08:27 | XMS_ITS ---
Author Organization [facility] Address [address] [place] [address] Care Team Providers Care Photovoltaic Power Systems Engineer Name Role Phone Antoine Kendrick MD Primary Care Provider Shahla Blake Unavailable [phone] Allergies No Known Allergies REASON FOR VISIT [...] 024 Encounters Encounter Location Date Provider Diagnosis [facility] [address] [place] [address] 05/05/2024 Shahla Rosas Tinea pedis B35.3 ; [...] Provider Name:Shahla persaud, 10/27/2024 10:00:00 AM, [address] [place], [address], Procedure Notes * Category Sub-Category Detail Notes [...] as necessary. Patient chooses, no pharmaceutical tx (48591) Progress Notes * Tristian SETHI:[birth year] (73 yo M)Acc No.[id number]:05/05/2024 Progress Note Patient:?Edmond Sethi Provider:?Shahla Rosas DPM :1950???Age:73 Y???Sex:Male Sam e:05/05/2024 Phone: Address: [facility] [id number] Pcp:Antoine Kendrick MD Subjective: * Chief Complaints: [...] as necessary. Patient chooses, no pharmaceutical tx (10255).? * Procedure Codes:?95674 DEBRI DE NAIL, 6 OR MORE * [...] Rosas DPM Date:?08/2023 Generated for Heidi haley/Avery/Ken on:?08/17/2024 08:27 AM [...]
--- OUTSIDE RECORDS SUMMARY | 2024-08-17 08:28 | XMS_ITS ---
Author Organization [facility] Address [address] [place] [address] Care Team Providers Care Player Manager Name Role Phone Aroldo SOARES, Antoine Primary Care Provider UnavailLan Haines [phone] REASON FOR VISIT screening,hx polyps,gerd,oakes's Encounters Encounter Location Date Provider Diagnosis [facility] [address] [place], [place] [address] [id number] 01/17/2024 Lan Melvin PLAN OF TREATMENT No Information
--- OUTSIDE RECORDS SUMMARY | 2024-08-17 08:28 | XMS_ITS ---
Author Organization [facility] Address [address] [place] [address] Care Team Providers Care Food Management Aide Name Role Phone Antoine Kendrick MD Primary Care Provider Shahla Blake Unavailable [phone] Allergies No Known Allergies REASON FOR VISIT [...] 024 Encounters Encounter Location Date Provider Diagnosis [facility] [address] [address] 01/14/2024 Shahla Rosas Pain in right toe(s) [...] Reason: Provider Name:Shahla persaud, 10/27/2024 10:00:00 AM, [address] [place] [address], [address], Procedure Notes * Category Sub-Category Detail Notes [...] as necessary. Patient chooses, no pharmaceutical tx (50929) Progress Notes * Mason SETHIDOB:[birth year] (73 yo M)Acc No.[id number]:01/14/2024 Progress Note Patient:?Edmond Sethi Provider:?Shahla Rosas DPM :1950???Age:73 Y???Sex:Male Sam e:01/14/2024 Address:[place] [facility] Pcp:Antoine Kendrick MD Subjective: * Chief Complaints: [...] as necessary. Patient chooses, no pharmaceutical tx (09167).? * Procedure Codes:?81000 GILMA DE JAIMIE, 6 OR MORE * Follow Up:?2 Months * Images: * Sign off status: Completed true * Provider:Kori Rosas DPM Date:?06/2024 Generated for Heidi haley/Avery/Grahamitting on:?08/17/2024 08:27 AM EST History and Physical [...]
--- OUTSIDE RECORDS SUMMARY | 2024-08-17 08:28 | XMS_ITS ---
Author Organization [facility] Address [address] [place] [address] Care Team Providers Care Dry House Wheeler Name Role Phone Antoine Kendrick MD Primary Care Provider UnavailLan Haines [phone] REASON FOR VISIT R/S PROCEDURES Encounters Encounter Location Date Provider Diagnosis [facility] [address] [place] [address] 12/13/2023 Lan Melvin PLAN OF TREATMENT No Information
--- OUTSIDE RECORDS SUMMARY | 2024-08-17 08:28 | XMS_ITS | Patient Health Record ---
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) Active confirmed Problem 667091688 Hammer toe of right foot (M20.41) Active confirmed Problem 989696171 Hammer toe of left foot (M20.42) Active confirmed Vital Signs Blood pressure diastolic 50 mm Hg 07/21/2024 Height 6ft in 07/21/2024 Blood pressure systolic 128 mm Hg 07/21/2024 Weight 190 lbs 07/21/2024 BMI 25.77 kg/m2 07/21/2024 Encounters Encounter Location Date Provider Diagnosis [address] [address] 09/17/2023 Shahla Perica Tinea pedis B35.3 ; Pain in right toe(s) M79.674 ; Pain in left toe(s) M79.675 and Tinea unguium B35.[address] [address] 01/14/2024 Shahla Perica Pain in right toe(s) M79.674 ; Tinea unguium B35.1 and Pain in left toe(s) M79.[address] [address] 05/05/2024 Shahla Perica Tinea pedis B35.3 ; Pain in right toe(s) M79.674 ; Pain in left toe(s) M79.675 and Tinea unguium B35.[address] [address] 07/21/2024 Shahla Perica Tinea pedis B35.3 ; Pain in right toe(s) M79.674 ; Pain in left toe(s) M79.675 ; Tinea unguium B35.1 and Xerosis cutis L85.[address] [address] 10/10/2023 Shahla Rosas Xerosis cutis L85.[address] [address] 12/03/2023 Shahla Rosas Assessments Encounter Date Diagnosis [...] Provider Name:Shahla persaud, 10/27/2024 10:00:00 AM, [address] [place], [address], Insurance Providers Payer Name Payer Address Payer Phone Subscriber Number Group Number Insured Name Patient Relationship to Insured Coverage Start Date Coverage End Date Medicare National [facility] [address] [place] [address] [id number] Mason Blum Self - patient is the insured [employer] [address] [place] [address] [id number] Mason Blum Self - patient is the insured Medical (General) History Medical History History ICD Code Knee Pain Hypertension Surgical History Surgery Date(Month/Year) knee replacement 10/2013, 2016 hernia 01/2018 appendix 10/2014 colonoscopy/endoscopy 07/2020 colonoscopy 02/2024
--- OUTSIDE RECORDS SUMMARY | 2024-08-17 08:28 | XMS_ITS ---
Author Organization [facility] Address [address] [place] [address] Care Team Providers Care Color Printer Operator Name Role Phone Antoine Kendrick MD Primary Care Provider Lan Adkins Unavailable [phone] REASON FOR VISIT screening,hx polyps,gerd,oakes's PROBLEMS Problem Type ICD Code Onset Dates Problem Status W/U Status Risk SNOMED Code Notes Problem Diverticulosis of large intestine without perforation or abscess without bleeding (K57.30) Active confirmed Diverticul ar disease of colon (310551828) Problem 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 Oakes esophagus (063761608) Encounters Encounter Location Date Provider Diagnosis [facility] Outpatient [address] [place] [phone] 02/28/2024 Lan Melvin Colon cancer screeni ng [...]
--- OUTSIDE RECORDS SUMMARY | 2024-08-17 08:29 | XMS_ITS | Patient Health Record ---
Author Organization [facility] Address [address] [place] [address] Care Team Providers Care Indoor Plant Technician Name Role Phone Antoine Kendrick MD Primary Care Provider Lan Adkins [phone] ALLERGIES No Known Allergies RESULTS Component Value Reference Range Notes Pathology (Not yet reviewed by provider) Interpretation: Performing Lab:[facility], [address] [place] [phone] Notes/Report: REASON FOR REFERRAL No Information MEDICATIONS [...] malignant neoplasm of colon (Z12.11) Active confirmed 943262763 Problem History of adenomatous polyp of colon (Z86.010) Active confirmed 908332168 Problem Diverticulosis of large intestine without perforation or abscess without bleeding (K57.30) Active confirmed Diverticul ar disease of colon (858898272) Problem Gastroesophageal reflux disease without esophagitis (K21.9) Active confirmed 175106433 Problem Barretts esophagus without dysplasia (K22.70) Active confirmed 807615513 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 (968892525) Problem Hypertension, unspecified type (I10) Active confirmed 00537847 VITAL SIGNS Temperature 97.7 degrees Fahrenheit 12/04/2023 Blood pressure diastolic 00 mm Hg 12/04/2023 Height 72 in 12/04/2023 Blood pressure systolic 000 mm Hg 12/04/2023 Weight 207 lb 6 oz lbs 12/04/2023 BMI 28.12 kg/m2 12/04/2023 Encounters Encounter Location Date Provider Diagnosis [facility] [place] [address] [place], [place] [phone] 01/17/2024 Lan Melvin [facility] [place] [address] [place], [place] [phone] 02/28/2024 Lan Melvin Colon cancer screeni ng Z12.11 ; Colon polyps K63.5 ; Diverticulosis of large intestine without perforation or abscess without bleeding K57.30 ; Other hemorrhoids K64.8 ; Gastroesophageal reflux disease without esophagitis K21.9 ; Clay esophagus K22.70 and Hiatal hernia K44.9 [facility] [address] [place] [address] 12/04/2023 Lan Melvin Barretts esophagus without dysplasia K22.70 ; History of adenomatous polyp of colon Z86.010 ; Gastroesophageal reflux disease without esophagitis K21.9 and Encounter for screening for malignant neoplasm of colon Z12.11 [facility] [address] [place] [address] 11/06/2023 Lan Melvin [facility] [address] [place] [address] 12/04/2023 Lan Melvin [facility] [address] [place] [address] 12/13/2023 Lan Melvin ASSESSMENTS Encounter Date Diagnosis [...] OF [place] [address] [id number] [phone] [id number] DEMI CORRALES Self - patient is the insured [employer] ATT[employer] CLAIMS [address] [place] [address] [phone] [id number] DEMI CORRALES Self - patient is the insured MEDICAL (GENERAL) HISTORY Medical History History ICD Code HTN Screening colonoscopy 08/2004 neg except for hyperplastic polyps GERD--small to moderate-sized HH Clay's esophagus--EGD's i n 2004, 2007, 2010, 02/2014--no dysplasia, small area of Clay's, small hiatal hernia Denies DE,DM,CVA,Lung disease,renal dise ase Sleep apnea--uses CPAP Hx of pneumonia due to complications aft er an appy Colonoscopy in February of 2014- -hyperplastic polyps and one tubular adenoma, diverticulosis and internal hemorrhoids Negative screening colonoscopy in [facility] er 2019 Upper endoscopy in July 2019 [...]
== END ==
LOC: HO.CARD 08:20
PROVIDERS: PCP Internal Medicine; Visit Provider Internal Medicine
DX: I44.1 Atrioventricular block, second degree (principal)
CPT/HCPCS: 93017; 93242

== ENCOUNTER → 2024-08-17 08:24 | Outpatient (BNV) | payer MEDICARE, SELFPAY | PROVIDERS: PCP Internal Medicine | DX: I49.3 Ventricular premature depolarization (principal) | CPT/HCPCS: 93016; 93018 ==

== ENCOUNTER 2024-09-01 07:56 | Outpatient (REF) | payer MEDICARE, SELFPAY ==
--- OUTSIDE RECORDS SUMMARY | 2024-09-01 08:00 | XMS_ITS | Clinical Summary ---
Author Organization [address] [facility] Address [address] [place] [address] Phone Care Team Providers Care Air Traffic Controller Name Role Phone Antoine Kendrick MD Primary Care Provider [phone] Allergies No known active allergies Medications Medication Sig Dispensed Refills Start Date End Date Status losartan (COZAAR) 100 mg tablet Take 1 tablet (100 mg total) by mouth 1 (one) time each day. 05/31/2024 Active zolpidem (AMBIEN) 5 mg tablet Take 1 tablet (5 mg total) by mouth. at bedtime 07/01/2024 Active NIFEdipine XL (PROCARDIA XL) 60 mg 24 hr tablet 03/20/2024 Active omeprazole (PriLOSEC) [address] capsule Take 1 capsule (20 mg total) by mouth 1 (one) time each day. 05/31/2024 Active doxazosin (CARDURA) 2 mg tablet Take 1 tablet (2 mg total) by mouth. at bedtime 04/14/2024 Active folic acid (FOLVITE) 1 mg tablet Take by mouth 1 (one) time each day. Active potassium chloride (KLOR-CON M10) 10 mEq CR tablet Take 1 tablet (10 mEq total) by mouth 1 (one) time each day. Tablet may be swallowed whole (do not crush/chew/suck on) OR broken in half and each half swallowed separately OR dissolved (whole tablet) in ~4 ounces of water (allow ~2 minutes to dissolve, stir well and administer immediately). Active ferrous sulfate 325 mg (65 mg elemental iron) tablet Take 1 tablet (325 mg total) by mouth 2 (two) times a day. Active Encounters Date Type Department Care Team Description 07/09/2024 10:30 AM EST Consult Orthopedic Surgery [facility] [address] [facility] [address] [place] [address] Trever Dorado MD Pain of right thumb (Primary Dx) from Last 3 Months Surgical History Surgery Date Site/Laterality Comments FINGER SURGERY Right thumb FRACTURE SURGERY Left arm; assuming radial and ulnar fractures Social History Tobacco Use Types Packs/Day Years Used Date Smoking Tobacco: Never Assessed Sex and Gender Information Value Date Recorded Sex Assigned at Not on file Gender Identity Not on file Sexual Orientation Not on file Job Start Date Occupation Industry Not on file Not on file Not on file Obstetrics History Last Filed Vital Signs Vital Sign Reading Time Taken Comments Blood Pressure - - Pulse - - Temperature - - Respiratory Rate - - Oxygen Saturation - - Inhaled Oxygen Concentration - - Weight 88.5 kg (195 lb) 07/09/2024 10:31 AM EST Height 182.9 cm (6') 07/09/2024 10:31 AM EST Body Mass Index 26.45 07/09/2024 10:31 AM EST Plan of Treatment Health Maintenance Due Date Last Done Comments DTaP,Tdap,and Td Vaccines (1 - Tdap) 1969 Pneumococcal Vaccine: 65+ Years (2 of 2 - PPSV23 or PCV20) 2017 05/29/2016 Influenza Vaccine (#1) 2024 Cholesterol Screening (Lipid Panel) 06/19/2024 Colorectal Cancer Screening: Colonoscopy 06/19/2024 Depression Screening 06/19/2024 Falls Risk Assessment 06/19/2024 Hepatitis C Screening 06/19/2024 Medicare Annual Wellness Visit 06/19/2024 Social Influencers of Health Screening 06/19/2024 Hypertension/CHF/CAD Annual BMP Blood Test 07/09/2024 Zoster Vaccines Completed 02/18/2019, 11/06/2018 RSV Immunization Patients 60+ Years Old Completed 05/23/2023 COVID-19 Vaccine Completed 04/30/2024, , 04/30/2023, Additional history exists HIB Vaccines Aged Out No longer eligi ble based on patient's age to complete this topic HPV Vaccines Aged Out No longer eligi ble based on patient's age to complete this topic Hepatitis A Vaccines Aged Out No long er eligible based on patient's age to complete this topic Hepatitis B Vaccines Aged Out No long er eligible based on patient's age to complete this topic IPV Vaccines Aged Out No longer eligi ble based on patient's age to complete this topic MMR Vaccines Aged Out No longer eligi ble based on patient's age to complete this topic Meningococcal ACWY Vaccine Aged Out N o longer eligible based on patient's age to complete this topic RSV Immunization Patients Under 20 months Aged Out No longer eligible based on patient's age to complete this topic Varicella Vaccines Aged Out No longer eligible based on patient's age to complete this topic Procedures Procedure Name Priority Date/Time Associated Diagnosis Comments XR FINGERS 2+ VIEWS RIGHT Routine 07/09/2024 10:48 AM EST Pain of right thumb from Last 3 Months Results * XR Fingers 2+ Views Right (07/09/2024 10:48 AM EST) Anatomical Region Laterality Modality Upper Extremities, Fingers Right Compu eloisa Radiography Narrative 07/09/2024 11:10 AM EST 3 view x-rays of the right thumb show no fracture or dislocation, there are significant degenerative changes at the thumb MP joint with subchondral sclerosis and loss of the joint space, on the ulnar aspect of the thumb MP joint is a large radiopaque ??density consistent with a likely posttraumatic heterotopic ossification or calcification of the ulnar collateral ligament versus an osteophyte. 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
--- OUTSIDE RECORDS SUMMARY | 2024-09-01 08:00 | XMS_ITS ---
Author Organization [facility] Address [address] [place] [address] Care Team Providers Care Locator Name Role Phone Antoine Kendrick MD Primary Care Provider UnavailLan Haines [phone] REASON FOR VISIT R/S PROCEDURES Encounters Encounter Location Date Provider Diagnosis [facility] [address] [place] [address] 12/13/2023 Lan Melvin PLAN OF TREATMENT No Information
--- OUTSIDE RECORDS SUMMARY | 2024-09-01 08:00 | XMS_ITS | Patient Health Record ---
Author Organization [facility] Address [address] [place] [address] Care Team Providers Care Senior Sas Programmer Name Role Phone Antoine Kendrick MD Primary Care Provider Lan Adkins [phone] ALLERGIES No Known Allergies RESULTS Component Value Reference Range Notes Pathology (Not yet reviewed by provider) Interpretation: Performing Lab:[facility], [address] [place] [phone] Notes/Report: REASON FOR REFERRAL No Information MEDICATIONS [...] malignant neoplasm of colon (Z12.11) Active confirmed 686459340 Problem History of adenomatous polyp of colon (Z86.010) Active confirmed 306396657 Problem Diverticulosis of large intestine without perforation or abscess without bleeding (K57.30) Active confirmed Diverticul ar disease of colon (184224045) Problem Gastroesophageal reflux disease without esophagitis (K21.9) Active confirmed 666756098 Problem Barretts esophagus without dysplasia (K22.70) Active confirmed 172640209 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 (434838307) Problem Hypertension, unspecified type (I10) Active confirmed 69093258 VITAL SIGNS Temperature 97.7 degrees Fahrenheit 12/04/2023 Blood pressure diastolic 00 mm Hg 12/04/2023 Height 72 in 12/04/2023 Blood pressure systolic 000 mm Hg 12/04/2023 Weight 207 lb 6 oz lbs 12/04/2023 BMI 28.12 kg/m2 12/04/2023 Encounters Encounter Location Date Provider Diagnosis [facility] [place] [address], [place] [id number] 01/17/2024 Lan Melvin [facility] [place] [address], [place] [id number] 02/28/2024 Lan Melvin Colon cancer screeni ng Z12.11 ; Colon polyps K63.5 ; Diverticulosis of large intestine without perforation or abscess without bleeding K57.30 ; Other hemorrhoids K64.8 ; Gastroesophageal reflux disease without esophagitis K21.9 ; Clay esophagus K22.70 and Hiatal hernia K44.9 [facility] [address] [place] [address] 12/04/2023 Lan Melvin Barretts esophagus without dysplasia K22.70 ; History of adenomatous polyp of colon Z86.010 ; Gastroesophageal reflux disease without esophagitis K21.9 and Encounter for screening for malignant neoplasm of colon Z12.11 [facility] [address] [place] [address] 11/06/2023 Lan Melvin [facility] [address] [place] [address] 12/04/2023 Lan Melvin [facility] [address] [place] [address] 12/13/2023 Lan Melvin ASSESSMENTS Encounter Date Diagnosis [...] OF [place] [address] [id number] DEMI CORRALES Self - patient is the insured [employer] ATT[employer] CLAIMS [address] [place] [address] [phone] [id number] DEMI CORRALES Self - patient is the insured MEDICAL (GENERAL) HISTORY Medical History History ICD Code HTN Screening colonoscopy 08/2004 neg except for hyperplastic polyps GERD--small to moderate-sized HH Clay's esophagus--EGD's i n 2004, 2007, 2010, 02/2014--no dysplasia, small area of Clay's, small hiatal hernia Denies [place],DM,CVA,Lung disease,renal dise ase Sleep apnea--uses CPAP Hx of pneumonia due to complications aft er an appy Colonoscopy in February of 2014- -hyperplastic polyps and one tubular adenoma, diverticulosis and internal hemorrhoids Negative screening colonoscopy in [facility] er 2019 Upper endoscopy in July 2019 [...]
--- OUTSIDE RECORDS SUMMARY | 2024-09-01 08:00 | XMS_ITS ---
Author Organization [facility] Address [address] [facility] [place] [address] Care Team Providers Care Flight Attendant/Inflight Supervisor Name Role Phone Antoine Kendrick MD Primary Care Provider Shahla Blake Unavailable [phone] Allergies No Known Allergies REASON FOR VISIT [...] an other tobacco user? No Vital Signs Blood pressure systolic 140 mm Hg 05/05/20 24 Blood pressure diastolic 78 mm Hg 024 Height 6ft in 05/05/2024 Weight 200 lbs 05/05/2024 BMI 27.12 kg/m2 05/05/2024 Encounters Encounter Location Date Provider Diagnosis [facility] [place] [address] [place] [address] 05/05/2024 Shahla Rosas Tinea pedis B35.3 ; [...] Provider Name:Shahla persaud, 10/27/2024 10:00:00 AM, [address] [place], [address], Procedure Notes * Category Sub-Category Detail Notes [...] as necessary. Patient chooses, no pharmaceutical tx (69628) Progress Notes * Tristian SETHI:[birth year] (73 yo M)Acc No.[id number]:05/05/2024 Progress Note Patient:?Edmond Sethi Provider:?Shahla Rosas DPM :1950???Age:73 Y???Sex:Male Sam e:05/05/2024 Phone: Address: [address] [id number] Pcp:Antoine Kendrick MD Subjective: * Chief Complaints: [...] as necessary. Patient chooses, no pharmaceutical tx (46216).? * Procedure Codes:?73870 DEBRI DE NAIL, 6 OR MORE * [...] Rosas DPM Date:?08/2023 Generated for Heidi haley/Avery/Ken on:?09/01/2024 08:00 AM EST History and Physical Notes * [...]
--- OUTSIDE RECORDS SUMMARY | 2024-09-01 08:00 | XMS_ITS | Patient Health Record ---
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) Active confirmed Problem 348901255 Hammer toe of right foot (M20.41) Active confirmed Problem 421534300 Hammer toe of left foot (M20.42) Active confirmed Vital Signs Blood pressure diastolic 50 mm Hg 07/21/2024 Height 6ft in 07/21/2024 Blood pressure systolic 128 mm Hg 07/21/2024 Weight 190 lbs 07/21/2024 BMI 25.77 kg/m2 07/21/2024 Encounters Encounter Location Date Provider Diagnosis [address] [address] 09/17/2023 Shahla Perica Tinea pedis B35.3 ; Pain in right toe(s) M79.674 ; Pain in left toe(s) M79.675 and Tinea unguium B35.[address] [address] 01/14/2024 Shahla Perica Pain in right toe(s) M79.674 ; Tinea unguium B35.1 and Pain in left toe(s) M79.[address] [address] 05/05/2024 Shahla Perica Tinea pedis B35.3 ; Pain in right toe(s) M79.674 ; Pain in left toe(s) M79.675 and Tinea unguium B35.[address] [address] 07/21/2024 Shahla Perica Tinea pedis B35.3 ; Pain in right toe(s) M79.674 ; Pain in left toe(s) M79.675 ; Tinea unguium B35.1 and Xerosis cutis L85.[address] [address] 10/10/2023 Shahla Rosas Xerosis cutis L85.[address] [address] 12/03/2023 Shahla Rosas Assessments Encounter Date Diagnosis [...] Provider Name:Shahla persaud, 10/27/2024 10:00:00 AM, [address] [place], [address], Insurance Providers Payer Name Payer Address Payer Phone Subscriber Number Group Number Insured Name Patient Relationship to Insured Coverage Start Date Coverage End Date Medicare National [facility] [address] [place] [address] [id number] Mason Blum Self - patient is the insured [employer] [address] [place] [address] [phone] [id number] Mason Blum Self - patient is the insured Medical (General) History Medical History History ICD Code Knee Pain Hypertension Surgical History Surgery Date(Month/Year) knee replacement 10/2013, 2016 hernia 01/2018 appendix 10/2014 colonoscopy/endoscopy 07/2020 colonoscopy 02/2024
--- OUTSIDE RECORDS SUMMARY | 2024-09-01 08:00 | XMS_ITS ---
Author Organization [facility] Address [address] [place] [address] Care Team Providers Care Auto Radiator Specialist Name Role Phone Antoine Kendrick MD Primary Care Provider Lan Adkins Unavailable [phone] REASON FOR VISIT screening,hx polyps,gerd,oakes's PROBLEMS Problem Type ICD Code Onset Dates Problem Status W/U Status Risk SNOMED Code Notes Problem Diverticulosis of large intestine without perforation or abscess without bleeding (K57.30) Active confirmed Diverticul ar disease of colon (214547551) Problem 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 Oakes esophagus (257624215) Encounters Encounter Location Date Provider Diagnosis [facility] Out[place] [address] [place] [phone] 02/28/2024 Lan Melvin Colon cancer screeni ng [...]
--- OUTSIDE RECORDS SUMMARY | 2024-09-01 08:01 | XMS_ITS ---
Author Organization [facility] Address [address] [facility] [place] [address] Care Team Providers Care District Court Bailiff Name Role Phone Antoine Kendrick MD Primary Care Provider Shahla Blake Unavailable [phone] Allergies No Known Allergies REASON FOR VISIT [...] user? No Vital Signs Blood pressure systolic 128 mm Hg 07/21/20 24 Blood pressure diastolic 50 mm Hg 024 Height 6ft in 07/21/2024 Weight 190 lbs 07/21/2024 BMI 25.77 kg/m2 07/21/2024 Encounters Encounter Location Date Provider Diagnosis [facility] [address] [address] 07/21/2024 Shahla Rosas Tinea pedis B35.3 ; [...] Name:Shahla Villareal Tonya hung, 10/27/2024 10:00:00 AM, [address] [place] [address], [address], Procedure Notes * Category Sub-Category Detail Notes [...] use of a nail nipper and/or dremel-type lens grinder and polisher, to a more viable healthy nail plate [...] to maintain effectiveness in symptomatic relief - 464[address] Progress Notes * AMANDO, MichaelDOB:[birth year] (74 yo M)Acc No.[id number]:07/21/2024 Progress Note Patient:?Edmond SETHI Provider:?Shahla Rosas DPM :1950???Age:73 Y???Sex:Male Sam e:07/21/2024 Address:[address] [place], [place] [address] Pcp:Antoine Kendrick MD Subjective: * Chief Complaints: [...] use of a nail nipper and/or dremel-type lens grinder and polisher, to a more viable healthy nail plate [...] to maintain effectiveness in symptomatic relief - [address].? * Procedure Codes:?22119 DEBRI DE NAIL, 6 OR MORE * [...] Provider:?Shahla Rosas DPM Date:? Generated for Heidi haley/Avery/Grahamitting on:?09/01/2024 08:00 AM EST History and Physical [...]
--- OUTSIDE RECORDS SUMMARY | 2024-09-01 08:01 | XMS_ITS ---
Author Organization [facility] Address [address] [place] [address] Care Team Providers Care Professor Of Environmental Studies Name Role Phone Aroldo SOARES, Antoine Primary Care Provider UnavailLan Haines [phone] REASON FOR VISIT screening,hx polyps,gerd,oakes's Encounters Encounter Location Date Provider Diagnosis [facility] Out[place] [address] [place], [place] [address] [place] [phone] 01/17/2024 Lan Melvin PLAN OF TREATMENT No Information
--- OUTSIDE RECORDS SUMMARY | 2024-09-01 08:01 | XMS_ITS ---
Author Organization [facility] Address [address] [place] [address] Care Team Providers Care Inside Channel Account Manager Name Role Phone Antoine Kendrick MD Primary Care Provider Shahla Blake Unavailable [phone] Allergies No Known Allergies REASON FOR VISIT [...] user? No Vital Signs Blood pressure systolic 120 mm Hg 01/14/20 24 Blood pressure diastolic 50 mm Hg 024 Height 6ft in 01/14/2024 Weight 200 lbs 01/14/2024 BMI 27.12 kg/m2 01/14/2024 Encounters Encounter Location Date Provider Diagnosis [facility] [address] [address] 01/14/2024 Shahla Rosas Pain in right toe(s) [...] Reason: Provider Name:Shahla persaud, 10/27/2024 10:00:00 AM, [address] [place] [address], [address], Procedure Notes * Category Sub-Category Detail Notes [...] as necessary. Patient chooses, no pharmaceutical tx (13763) Progress Notes * Mason SETHIDOB:07[birth year]06 (73 yo M)Acc No.[id number]:01/14/2024 Progress Note Patient:?Edmond Sethi Provider:?Shahla Rosas DPM :1950???Age:73 Y???Sex:Male Sam e:01/14/2024 Address:[place] [facility] Pcp:Antoine Kendrick MD Subjective: * Chief Complaints: [...] as necessary. Patient chooses, no pharmaceutical tx ([id number]).? * Procedure Codes:?38524 GILMA DE JAIMIE, 6 OR MORE * Follow Up:?2 Months * Images: * Sign off status: Completed true * Provider:Kori Rosas DPM Date:?06/2024 Generated for Heidi haley/Avery/eTdavonteitting on:?09/01/2024 08:01 AM EST History and Physical Notes * [...]
[2024-09-01 10:31] LABS: MANUAL DIFF FLAG NO
[2024-09-01 10:33] LABS: Basophils Percent Auto 0.6 % (0-2); Eosinophils Absolute Auto 0.1 X10*3/uL (0.0-0.4); Eosinophils Percent Auto 1.4 % (0-4); Hematocrit 38.1 % (42.0-52.0); Hemoglobin 13.4 g/dl (14.0-18.0); Imm Gran Abs Auto 0.02 X10*3/uL (0.00-0.03); Imm Gran Pct Auto 0.3 % (0.0-0.4); Lymphocytes Absolute Auto 1.2 X10*3/uL (1.2-4.9); Lymphocytes Percent Auto 16.8 % (20-40); Mean Corpuscular HGB Conc 35.2 g/dl (31.0-36.0); Mean Corpuscular Volume 90.9 fL (80.0-98.0); Mean Platelet Volume 10.6 fL (9.4-12.4); Monocytes Absolute Auto 0.5 X10*3/uL (0.1-1.2); Monocytes Percent Auto 7.1 % (2-11); Neutrophils Absolute Auto 5.3 x10*3/uL (2.0-8.3); Neutrophils Percent Auto 73.8 % (45-73); Platelet Count 178 X10*3/uL (160-400); Red Blood Count 4.19 X10*6/uL (4.60-5.80); Red Cell Distribution Width 12.7 % (11.0-16.0); White Blood Count 7.2 X10*3/uL (4.8-10.8)
[2024-09-01 10:36] LABS: Appearance Urine Clear; Color Urine Yellow; Glucose Urine UA Negative (Negative); Leukocyte Esterase Urine Negative (Negative); Nitrite Urine Negative (Negative); PH 7.5 (5.0-9.0); Specific Gravity - Urine <= 1.005 (1.005-1.025); Urine Blood Negative (Negative); Urine Ketones Negative (Negative); Urine Protein Negative (Neg-Trace)
[2024-09-01 10:52] LABS: Alanine Aminotransferase 19 U/L (0-40); Albumin Level 4.6 g/dL (3.5-5.0); Alkaline Phosphatase 109 U/L (39-117); Anion Gap 12 (12-20); Aspartate Amino Transferase 27 U/L (5-37); Bilirubin Total 0.7 mg/dL (0.0-1.0); Blood Urea Nitrogen 19 mg/dL (9-16); Calcium 9.2 mg/dL (8.4-10.2); Carbon Dioxide 25 mmol/L (22-29); Chloride 103 mmol/L (96-108); Cholesterol 123 mg/dL (<200); Estimated Glomerular Filt Rate > 60; Glucose Fasting 89 mg/dL (60-99); HDL Cholesterol 55 mg/dL (>40); LDL Cholesterol Calculated 61 mg/dL (<100); Sodium 136 mmol/L (135-145); Total Protein 7.8 g/dL (6.5-8.0); Triglycerides 39 mg/dL (<150)
[2024-09-01 11:01] LABS: Prostate Specific Antigen Scr 0.48 ng/mL (<0.05-4.0)
== END 2024-09-01 07:57 | disposition home or self-care (01) ==
LOC: HO.10HDL 07:56
PROVIDERS: Visit Provider Internal Medicine
DX: I10 Essential (primary) hypertension (principal); Z12.5 Encounter for screening for malignant neoplasm of prostate; E78.00 Pure hypercholesterolemia, unspecified
CPT/HCPCS: 36415; 80053; 80061; 81003; 84153; 85025

== ENCOUNTER 2024-11-10 09:37 | Outpatient (AMB) | payer MEDICARE, SELFPAY ==
[2024-11-10 09:51] VITALS: BP 138/52; PULSE 36; BMI 26.9
--- NOTE | 2024-11-10 09:51 | MHC.OFFVIS ---
Vital Signs 11/10/24 09:51 Height 6 ft Weight 198 lb 6.656 oz BMI 26.9 BP 138/52 L Blood Pressure Location Lt brachial Position Sitting Pulse 36 L Pulse Source Monitor Intake Visit Reasons: 3m follow up after tetsting Curriculum Development Specialist Required: No Allergies No Known Allergies [No Known Allergies*] Allergy (Verified 11/10/24 09:53) Medication List - Last Reconciled 11/10/24 by Camila Kingsley, BRANCH ADMINISTRATOR-C doxazosin 2 mg PO BEDTIME ferrous sulfate (Feosol) 325 mg PO BID folic acid 1 mg PO DAILY losartan 100 mg PO DAILY multivitamin 1 tab PO DAILY nifedipine ER 60 mg PO DAILY omeprazole 20 mg PO DAILY potassium chloride ER 10 mEq PO DAILY zolpidem 5 mg PO BEDTIME PRN HPI HPI 3m follow up after tetsting: Details: Mason is a 74 yo male with PMH of ILYA with CPAP use, hiatal hernia, GERD, PVCs, Sinus bradycardia, second degree heart block type 1 who presents for follow up after recent exercise stress test and holter monitor. Today he reports that he has been noticing fatigue during the daytime. He is sleeping well at night and uses CPAP. He is very concerned about is low heart rate and is afraid that his heart will stop. He has been physically activity and does exercise routinely. He uses a stationary bike and uses machines for arm and leg exercises. He does not walk routinely like he had in the past, due to knee pains. No chest discomfort at rest or activity. No shortness of breath, PND, orthopnea. He is noticing some new ankle edema. No heart palpitations, presyncope, syncope, falls. Takes meds as directed. FORMERLY [facility], 1928–1983 Medical History History of Clay's esophagus Hiatal hernia GERD (gastroesophageal reflux disease) ILYA on CPAP PVCs (premature ventricular contractions) Essential hypertension Heart block AV second degree Surgical History History of total right knee replacement (TKR) Hx of blepharoplasty Hx of cataract extraction History of surgery on arm History of esophagogastroduodenoscopy (EGD) Hx of colonoscopy History of inguinal hernia repair History of appendectomy Family History Father No problems noted. Mother No problems noted. 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 Review of Systems Const All systems reviewed & are unremarkable except as noted in HPI and below Reports fatigue ENT Denies dizziness Card Denies chest pain, Denies chest pain at rest, Denies chest pain with activity, Denies rapid heart rate, Denies pedal edema, Denies edema, Denies leg edema, Denies lightheadedness, Denies palpitations, Denies dyspnea, Denies dyspnea on exertion and Denies orthopnea Resp Denies cough, Denies dyspnea and Denies dyspnea on exertion GI Denies hematochezia and Denies change in stool character Musc Denies abnormal gait, Denies limited range of motion, Denies muscle cramps, Denies muscle weakness, Denies numbness, Denies radiating pain into limb, Denies stiffness and Denies tingling Neuro Denies abnormal gait, Denies dizziness, Denies numbness and Denies tingling Endo Reports fatigue and Denies palpitations Physical Exam Vital Signs: Last Vital Signs Pulse 36 L 11/10/24 09:51 BP 138/52 L 11/10/24 09:51 BMI result Body Mass Index 26.9 Const General: cooperative, healthy appearing, comfortable and no acute distress Orientation/consciousness: patient oriented x3 Neck Neck: Yes normal visual inspection Chest Chest palpation & inspection: normal inspection of the chest Resp Effort & Inspection: normal respiratory effort Auscultation: clear to auscultation bilaterally, no crackles, no rales, no rhonchi and no wheezes Cardio Rate: bradycardic Rhythm: regular rhythm Heart sounds: S1 normal heart sound present, S2 normal heart sound present, no gallops, no murmurs and no rubs Neuro General: patient oriented x3 Extrem General: Yes normal to inspection and No no pedal edema Psych Appearance: grossly normal Mental Status: mental status grossly normal Speech and movement: Normal speech and movement present Office Procedures EKG Details: Today Read by me, Second degree heart block type 2, one PVC, cant exclude prior anterior infarct, rate 36 95426-Avxrbgymnjkkpqvmw, Complete Assessment & Plan Assessment & Plan (1) Heart block AV second degree: Code(s): I44.1 - Atrioventricular block, second degree Category: Medical Plan: History of asymptomatic bradycardia over the last few years. He has had evidence of Mobitz 1 heart block seen on holter monitor in past. He has treated sleep apnea. Last echo twelfth in the 08/02/22 shows EF 55-60%, mild MR, mild biatrial enlargement. Exercise stress test done 08/17/2024 with exercise 7 minutes achieving 85% MPHR, frequent PVCs, borderline ST changes, presence of Mobitz 1. Holter monitor done 08/17/2024 for 3 days shows sinus bradycardia with average heart rate 48 beats per minute, PVCs 9.7% of time, Mobitz 1 and 2-1 heart block noted during night hours. EKG done today showing Mobitz 2 heart rhythm, rate 36. He is reporting some newer fatigue. Discussed need for dual chamber pacemaker placement, actual procedure and risks. He is fully agreeable. Will arrange for stat echocardiogram and labs. Case reviewed with Dr. Hinson and he will plan for pacemaker placement tomorrow at [facility]. senior master scheduler will call patient with all details. He is currently not on any rate slowing medications or anticoagulation. Anticipate that wound check will be done by . Cardiology follow-up will be 6 weeks from now. (2) PVCs (premature ventricular contractions): Code(s): I49.3 - Ventricular premature depolarization Category: Medical Plan: History of frequent PVCs, asymptomatic. Last echo showed normal EF. Most recent Holter showed PVC burden 9.7%. He is not on heart rate slowing agents due to history of bradycardia. Updating echocardiogram. Beta-ronaldo can be reconsidered once pacemaker is placed. (3) ILYA on CPAP: Code(s): G47.33 - Obstructive sleep apnea (adult) (pediatric); Z99.89 - Dependence on other enabling machines and devices Category: Medical Plan: Compliant with CPAP (4) Essential hypertension: Code(s): I10 - Essential (primary) hypertension Category: Medical Plan: Well controlled at present. No med changes made. Plan Time spent on chart review, documentation, interview and assessment. Orders: Orders CA echo transthoracic complete Today I44.1 - Atrioventricular block, second degree Complete Blood Count Auto Diff Today I44.1 - Atrioventricular block, second degree Basic Metabolic Panel Today I44.1 - Atrioventricular block, second degree Type and Screen Today I44.1 - Atrioventricular block, second degree Coding Level of Care Code Est Pt Level 4 (29592) Complex EM visit Add On G2211 Diagnoses Heart block AV second degree I44.1 PVCs (premature ventricular contractions) I49.3 ILYA on CPAP G47.33; Z99.89 Essential hypertension I10 CPT Codes EKG - CPT: 92502-Bxazljvwemssnhsaa, Complete ([id number]) Time Spent (min) 36
--- OUTSIDE RECORDS SUMMARY | 2024-11-10 10:50 | XMS_ITS ---
Author Organization [facility] Address [address] [place] [address] Care Team Providers Care Dog Show Judge Name Role Phone Antoine Kendrick MD Primary Care Provider Lan Adkins Unavailable [phone] REASON FOR VISIT screening,hx polyps,gerd,oakes's Problems Problem Type SNOMED Code ICD Code Onset Dates Problem Status W/U Status Risk Notes Problem Diverticular disease of colon (733033147) Diverticulosis of large intestine without perforation or abscess without bleeding (K57.30) Active confirmed Problem Oakes esophagus (525926313) 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 Encounters Encounter Location Date Provider Diagnosis [facility] [address] [place], [place] [id number] 02/28/2024 Lan Melvin Colon cancer screeni ng [...] * DEMI GOEL RDOB: (74 yo M)Acc No.[id number]:02/28/2024 EGD and COL/MAC Patient:?VALDO GOEL Provider:?Lan Melvin MD :1950???Age:73 Y???Sex:Male Sam e:02/28/2024 Address:[address] [place], [place] [address] Pcp:Antoine Kendrick MD Subjective: * Chief Complaints: * ???1. Screening,hx polyps,ge rd,oakes's. * Medical History:? Objective: * Vitals:? Assessment: * Assessment: 1.?Colon cancer screening - Z12.11 (Primary)???2.?Colon polyps - K63.5???3.?Diverticulosis of large intestine without perforation or abscess without bleeding - K57.30???4.?Other hemorrhoids - K64.8???5.?Gastroesophageal reflux disease without esophagitis - K21.9???6.?Oakes esophagus - K22.70???7.?Hiatal hernia - K44.9??? Plan: * Treatment: * Procedure Codes:?20320 LESIO N REMOVAL COLONOSCOPY, Modifiers: PT , 0529F INTRVL 3+YRS PTS CLNSCP DOCD, 0528F RCMND FLW-UP 10 YRS DOCD, Modifiers: 1P , 52850 UPPER GI ENDOSCOPY, BIOPSY * * The named appointment provid er may or may not be the originator of this progress note, and it is not deemed complete until electronically signed by the appointment provider. Sign off status: Pending * Provider:?Lan Melvin MD Date:? 024 Generated for Colleeni ng/Stang/eTransmitting on:?11/10/2024 10:50 AM EDT
--- OUTSIDE RECORDS SUMMARY | 2024-11-10 10:51 | XMS_ITS ---
Author Organization [facility] Address [address] [place] [address] Care Team Providers Care Compliance Investigator Name Role Phone Breanne Amezcua MD Primary Care Provider Shahla Chris Unavailable [phone] Allergies No Known Allergies REASON FOR VISIT Painful nail(s) aggrevated by shoes causing difficulty standing/walking Medications Medication SIG (Take, Route, Frequency, Duration) Notes Start Date End Date Status Losartan Potassium 100 MG as directed Orally Active Multivitamin Active Ammonium Lactate 12 % APPLY TO AFFECTED AREA(S) OF FEET TWO TIMES A DAY for 70 Active Zolpidem Tartrate 5 MG Orally prn Active Ciclopirox Olamine 0.77 % 1 application to affected area Externally to feet Twice a day for 30 days Not-Taki ng Folic Acid 1 MG Orally Acti ve Ciclopirox Olamine 0.77 % 1 application to affected area Externally to feet Twice a day for 30 days Active NIFEdipine ER 60 MG 1 tablet on an empty stomach Orally Once a day Active Omeprazole 20 MG Orally Act christian Iron bid Active Potassium 10 meq Active Social History Tobacco Use: Social History Observation Description Date Details (start date - stop date) Never Smoker NA - NA Tobacco use other than smoking: Question Answer Notes Are you an other tobacco user? No Tobacco Control (Standard) Question Answer Notes Tobacco use: Nonsmoker Vital Signs Blood pressure systolic 127 mm Hg 10/28/19 25 Blood pressure diastolic 50 mm Hg 025 Height 6ft in 10/27/2024 Weight 190 lbs 10/27/2024 BMI 25.77 kg/m2 10/27/2024 Encounters Encounter Location Date Provider Diagnosis [facility] [place] [address] [place] [address] 10/27/2024 Shahla Rosas Pain in right toe(s) M79.674 ; Tinea unguium B35.1 and Pain in left toe(s) M79.675 Assessments Encounter Date Diagnosis (ICD Code) Assessment Notes Treatment Notes Treatment Clinical Notes Section Notes 10/27/2024 Pain in right toe(s) (ICD-10 - M79.674) 10/27/2024 Tinea unguium (ICD-10 - B35.1) 10/27/2024 Pain in left toe(s) (ICD-10 - M79.675) Plan Of Treatment Medication Medication Name Sig Start Date Stop Date Notes Ciclopirox Olamine 0.77 % 1 application to affected area Externally to feet Twice a day for 30 days Next Appt Details Follow Up: 3 Months, Reason: Provider Name:Shahla persaud, 01/26/2025 11:00:00 AM, [address] [place] [address], [address], Procedure Notes * Category Sub-Category Detail Notes [...] use of a nail nipper and/or dremel-type beef grinder, to a more viable healthy nail [...] to maintain effectiveness in symptomatic relief - 78441 Progress Notes * Tristian SETHI:[birth year]06 (74 yo M)Acc No.[id number]:10/27/2024 Progress Note Patient:?Edmond SETHI Provider:?Shahla Rosas DPM :1950???Age:74 Y???Sex:Male Sam e:10/27/2024 Address:[address] [place], [place] [phone] Pcp:Breanne Amezcua MD Subjective: * Chief Complaints: * ???Painful nail(s) aggrevate d by shoes causing difficulty standing/walking * HPI: ???Painful Nails:?Pt States Last PCP Visit:?Date:?08/05/2024 ???Skin problems:?Location:?B/L .?Course:?improved.?Treatments:?Medication (Ciclopirox Olamine 0.77 Cream) [...] Diabetic - NIDDM.? * Social History:?Tobacco Use:?Tobacco use other than smoking?Are you an other tobacco user??No ?Tobacco Control (Standard)?Tobacco use:?Nonsmoker ???Miscellaneous:?Caffeine: yes, frequency:, 1-2 cups per day decafe coffe or tea. ?Children: yes, 2. ?Exercise: yes, walking, bike riding. ?Marital status: . ?Occupation: Retired- college. * Medications:?TakingLosartan Potassium 100 MG Tablet as directed Orally Potassium 10 meq Folic Acid 1 MG Tablet Orally Omeprazole 20 MG Capsule Delayed Release Orally NIFEdipine ER 60 MG Tablet Extended Release 24 Hour 1 tablet on an empty stomach Orally Once a day Iron bid Multivitamin Zolpidem Tartrate 5 MG [...] Capsule Delayed Release Orally Taking NIFEdipine ER 60 MG Tablet Extended Release 24 Hour 1 tablet on an empty stomach Orally Once a day Taking Iron bid Taking Multivitamin Taking Zolpidem [...] 6ft, Wt:190, BMI :25.77, Shoe size: 11, BP:127/50mm Hg, Ht-cm: 182.88 cm, Wt-k.18 kg. * [...] for office visit today.?ORIENTED:?person, place, and time.?FOOT EXAM:?Lower Extremity Neurological Exam performed:?Yes ?Visual exam of foot performed:?Yes ?Date?07/21/2024?Vascular: ?DP PULSES (B):?3/4, B/L.?PT PULSES (B):?3/4, B/L.?CAPILLARY FILL TIME:?immediate, all digits, B/L.?TROPHIC CONDITION-TEXTURE/ELASTICITY/TURGOR/HAIR GROWTH (B):?normal, B/L.?TEMPERTURE GRADIENT (C):?normal, warm to cool, proximal to distal, B/L, B/L.?Neurological: ?SENSORY:?Neurological exam reveals intact sensorium, pain sensation normal, vibration sensation intact, pinprick sensation is normal in the lower extremities, Pt denies, anesthesia, burning, paresthesia, tingling, B/L.?Ophthalmology Referral: ?DIABETES EYE EXAM?Procedure Performed:?Yes ?Date of Exam Performed?01/21/2024 ?Findings of Diabetic Eye Exam:?no retinopathy??? Assessment: * Assessment: 1.?Tinea unguium - B35.1 (Pr imary)???2.?Pain in right toe(s) - M79.674???3.?Pain in left toe(s) - M79.675??? Plan: * Treatment: * Procedures:?Debride Nail 6-10:?Nail [...] use of a nail nipper and/or dremel-type beef grinder, to a more viable healthy nail [...] to maintain effectiveness in symptomatic relief - 89303.? * Procedure Codes:?39734 GILMA RIGGS NAIL, 6 OR MORE * Preventive Medicine:? ??Screening/Special Tests:?Fall Risk?Assessment:?Performed ?Screening:?No falls in the past year ?FALLS: Screening for Future Fall Risk?Have you had two or more falls in the past year??No * Follow Up:?3 Months * Images: * Sign off status: Completed true * Provider:?Shahla Rosas DPM Date:? Generated for Heidi haley/Avery/Jenniffersmitting on:?11/10/2024 10:51 AM EDT History and Physical Notes * HPI (History of Present Illness) Category Sub-Category Detail Notes Category Not es Painful Nails Pt States Last PCP Visit: Date:: 08/05/2024 Skin problems Location: B/L Course: improved Treatments: [...]
--- OUTSIDE RECORDS SUMMARY | 2024-11-10 10:51 | XMS_ITS | Patient Health Record ---
Author Organization [facility] Address [address] [facility] [place] [address] Care Team Providers Care Adult Crossing Guard Name Role Phone Breanne Amezcua MD Primary Care Provider Shahla Chris Unavailable [phone] Allergies No Known Allergies Reason For Referral No Information Medications Medication SIG (Take, Route, Frequency, Duration) Notes Start Date End Date Status Potassium 10 meq Active Losartan Potassium 100 MG as directed Orally Active Folic Acid 1 MG Orally Acti ve Ciclopirox Olamine 0.77 % 1 application to affected area Externally to feet Twice a day for 30 days Active NIFEdipine ER 60 MG 1 tablet on an empty stomach Orally Once a day Active Omeprazole 20 MG Orally Act christian Multivitamin Active Iron bid Active Ammonium Lactate 12 % APPLY TO AFFECTED AREA(S) OF FEET TWO TIMES A DAY for 70 Active Zolpidem Tartrate 5 MG Orally prn Active Ciclopirox Olamine 0.77 % 1 application to affected area Externally to feet Twice a day for 30 days Not-Taki ng Immunizations Vaccine Route Administration Date Status Comme nts COVID-19 Pfizer BioNTech Vaccine Unknown 07/26/2020 Administered Second DOse:06/25 COVID-19 Pfizer BioNTech Vaccine Unknown 05/01/2021 Administered Firs Dose: 07/26/2020 Second Dose: 08/15/20 Social History Tobacco Use: Social History Observation Description Date Details (start date - stop date) Never Smoker NA - NA Alcohol Screen Question Answer Notes Did you [...] (Standard) Question Answer Notes Tobacco use: Nonsmoker Problems Problem Type SNOMED Code ICD Code Onset Dates Problem Status W/U Status Risk Notes Problem 67689986 Non-pressure ulcer of left lower extremity, limited to breakdown of skin (L97.921) Active confirmed Problem 538613038 Hammer toe of right foot (M20.41) Active confirmed Problem 547024551 Hammer toe of left foot (M20.42) Active confirmed Vital Signs Blood pressure diastolic 50 mm Hg 10/27/2024 Height 6ft in 10/27/2024 Blood pressure systolic 127 mm Hg 10/27/2024 Weight 190 lbs 10/27/2024 BMI 25.77 kg/m2 10/27/2024 Encounters Encounter Location Date Provider Diagnosis [address] [address] 01/14/2024 Shahla Perica Pain in right toe(s) M79.674 ; Tinea unguium B35.1 and Pain in left toe(s) M79.[address] [address] 05/05/2024 Shahla Perica Tinea pedis B35.3 ; Pain in right toe(s) M79.674 ; Pain in left toe(s) M79.675 and Tinea unguium B35.[address] [address] 07/21/2024 Shahla Perica Tinea pedis B35.3 ; Pain in right toe(s) M79.674 ; Pain in left toe(s) M79.675 ; Tinea unguium B35.1 and Xerosis cutis L85.[address] [address] 10/27/2024 Shahla Perica Pain in right toe(s) M79.674 ; Tinea unguium B35.1 and Pain in left toe(s) M79.675 [facility] [employer] [address] [place] [address] 12/03/2023 Shahla Rosas Assessments Encounter Date Diagnosis (ICD Code) Assessment Notes Treatment Notes Treatment Clinical Notes Section Notes 01/14/2024 Tinea unguium (ICD-10 - B35.1) 01/14/2024 Pain in right toe(s) (ICD-10 - M79.674) 05/05/2024 Tinea pedis (ICD-10 - B35.3) 07/21/2024 Tinea pedis (ICD-10 - B35.3) 10/27/2024 Tinea unguium (ICD-10 - B35.1) 10/27/2024 Pain in right toe(s) (ICD-10 - M79.674) 07/21/2024 Pain in right toe(s) (ICD-10 - M79.674) 07/21/2024 Pain in left toe(s) (ICD-10 - M79.675) 10/27/2024 Pain in left toe(s) (ICD-10 - M79.675) 05/05/2024 Pain in right toe(s) (ICD-10 - M79.674) 01/14/2024 Pain in left toe(s) (ICD-10 - M79.675) 05/05/2024 Pain in left toe(s) (ICD-10 - M79.675) 07/21/2024 Tinea unguium (ICD-10 - B35.1) 07/21/2024 Xerosis cutis (ICD-10 - L85.3) 05/05/2024 Tinea unguium (ICD-10 - B35.1) Plan Of Treatment Pending Test Test Name Order Date X ray : Foot, left 3V 12/06/2020 Next Appt Details Provider Name:Shahla persaud, 01/26/2025 11:00:00 AM, [address] [place], [address], Insurance Providers Payer Name Payer Address Payer Phone Subscriber Number Group Number Insured Name Patient Relationship to Insured Coverage Start Date Coverage End Date Medicare National [employer] [address] [place] [address] [id number] Mason Blum Self - patient is the insured [employer] [facility] [address] [place] [address] [id number] Trevor arandaMason Self - patient is the insured Medical (General) History Medical History History ICD Code Knee Pain Hypertension Surgical History Surgery Date(Month/Year) knee replacement 10/2013, 2015 hernia 01/2018 appendix 10/2014 colonoscopy/endoscopy 07/2020 colonoscopy 02/2024
--- OUTSIDE RECORDS SUMMARY | 2024-11-10 10:51 | XMS_ITS ---
Author Organization [facility] Address [address] [facility] [place] [address] Care Team Providers Care Oil Field Caser Name Role Phone Breanne Amezcua MD Primary Care Provider Shahla Chris Unavailable [phone] Allergies No Known Allergies REASON FOR VISIT [...] 05/05/2024 Encounters Encounter Location Date Provider Diagnosis [facility] [address] [place] [address] 05/05/2024 Shahla Rosas Tinea pedis B35.3 ; [...] Follow Up: 2 Months, Reason: Provider Name:Shahla presaud, 01/26/2025 11:00:00 AM, [address] [place], [address], Procedure Notes * Category Sub-Category Detail Notes [...] as necessary. Patient chooses, no pharmaceutical tx (65439) Progress Notes * Tristian SETHI:[birth year]06 (73 yo M)Acc No.[id number]:05/05/2024 Progress Note Patient:?Edmond Sethi Provider:?Shahla Rosas DPM :1950???Age:73 Y???Sex:Male Sam e:05/05/2024 Phone: [facility] [id number] Pcp:Antoine Kendrick MD Subjective: * Chief Complaints: [...] as necessary. Patient chooses, no pharmaceutical tx (36955).? * Procedure Codes:?27116 DEBRI DE NAIL, 6 OR MORE * [...] * Sign off status: Completed true * Provider:?MADIHA RandhawaM Date:?08/2023 Generated for Heidi haley/Avery/Ken on:?11/10/2024 10:51 AM EDT History and Physical [...]
--- OUTSIDE RECORDS SUMMARY | 2024-11-10 10:51 | XMS_ITS | Clinical Summary ---
Author Organization [address] [facility] Address [address] [place] [address] Phone Care Team Providers Care Sign Language Translator Name Role Phone Antoine Kendrick MD Primary Care Provider [phone] Allergies No known active allergies Medications losartan (COZAAR) 100 mg tablet Take 1 tablet (100 mg total) by mouth 1 (one) time each day. 4 Active zolpidem (AMBIEN) 5 mg tablet Take 1 tablet (5 mg total) by mouth. at bedtime 4 Active NIFEdipine XL (PROCARDIA XL) 60 mg 24 hr tablet 4 Active omeprazole (PriLOSEC) [address] capsule Take 1 capsule (20 mg total) by mouth 1 (one) time each day. 4 Active doxazosin (CARDURA) 2 mg tablet Take 1 tablet (2 mg total) by mouth. at bedtime 4 Active folic acid (FOLVITE) 1 mg tablet [...] mouth 2 (two) times a day. Active Surgical History Surgery Date Site/Laterality Comments FINGER SURGERY Right thumb FRACTURE SURGERY Left arm; assuming radial and ulnar fractures Social History Tobacco Use Types Packs/Day Years Used Date Smoking Tobacco: Never Assessed Sex and Gender Information Value Date Recorded Sex Assigned at Not on file Legal Sex Male 7:07 AM EST Gender Identity Not on file Sexual Orientation Not on file Obstetrics History Last Filed [...] Vaccines (1 - Tdap) 1971 Pneumococcal Vaccine: 50+ Years (2 of 2 - PPSV23) 05/29/2017 05/29/2016 Influenza Vaccine (#1) 2024 Cholesterol Screening (Lipid Panel) 06/19/2024 Colorectal Cancer Screening: Colonoscopy 06/19/2024 Depression Screening 06/19/2024 Falls Risk Assessment 06/19/2024 Hepatitis C Screening 06/19/2024 Medicare Annual Wellness Visit 06/19/2024 Social Influencers of Health Screening 06/19/2024 Hypertension/CHF/CAD Annual BMP Blood Test 07/09/2024 Zoster Vaccines Completed 02/18/2019, 11/06/2018 RSV Immunization Adult Patients Completed 05/23/2023 COVID-19 Vaccine Completed 04/30/2024, , [...] patient's age to complete this topic Meningococcal B Vaccine Aged Out No l onger eligible based on patient's age to complete this topic RSV Immunization Patients Under 20 months Aged Out No longer eligible based on patient's age to complete this topic Varicella Vaccines Aged Out No longer eligible based on patient's age to complete this topic Insurance MEDICARE Care Teams Sign Language Translator Relationship Specialty Start Date End Date Antoine Kendrick MD [address] [place] [address] Dr Rebecca MA PCP - General Internal Medicine 07/09/24
--- OUTSIDE RECORDS SUMMARY | 2024-11-10 10:51 | XMS_ITS ---
Author Organization [facility] Address [address] [place] [address] Care Team Providers Care Concession Manager Name Role Phone Antoine Kendrick MD Primary Care Provider Lan Adkins [phone] REASON FOR VISIT R/S PROCEDURES Encounters Encounter Location Date Provider Diagnosis [facility] [address] [place] [phone] 12/13/2023 Lan Melvin Plan Of Treatment No Information Progress Notes * DEMI GOEL RDOB: (73 yo M)Acc No.[id number]:12/13/2023 Patient:?VALDO GOEL Simeon Xavi :1950???Age:73 Y???Sex:Male Address:[address] [place] [address] * true * Date:? Generated for Heidi haley/Avery/eTransmitting on:?11/10/2024 10:50 AM EDT
--- OUTSIDE RECORDS SUMMARY | 2024-11-10 10:51 | XMS_ITS | Patient Health Record ---
Author Organization [facility] Address [address] [place] [address] Care Team Providers Care Spool Carrier Name Role Phone Antoine Kendrick MD Primary Care Provider Lan Adkins Unavailable [phone] Allergies No Known Allergies Results Component Value Reference Range Notes Pathology (Not yet reviewed by provider) Interpretation: Performing Lab:[facility], [address] [place] [phone] Notes/Report: Name: Ledy Sethi Age/Sex: 73/M : 1950 Unit#: [id number] Attend Dr: Lan Melvin MD Re02/28/24 Status : [facility] [place] Location: [facility] Disch: SPEC : [id number] RECD : 02/28/24-2 STATUS: RENETTA MARSHALL NUM: [id number] NISREEN: 02/28/24-1101 [facility] DR: aLn Melvin MD ENTERED: 02/28/24-13 41 SP TYPE: Surgical OTHR DR: Antoine Kendrick MD ORDERED: HE Stain/6, Gross Micro L4/2, Special st. 2, AB/PAS Diagnosis A. EG junction, 40 cm, biopsy: - Cardiac-type mucos a with mild chronic inactive inflammation; no intestinal metaplasia seen. - Squamous mucosa wi thin normal limits. B. Colon, 40 cm, connor ypectomy: Fragments of tubular adenoma; negative for high-grade dysplasia or carcinoma. Clinical History Pre-Op Dx: Clay's esophagus, screening Post-Op Dx: Hiatal h ernia, reflux, Clay's esophagus, colon polyp, diverticulosis, hemorrhoids Microscopic Description A, B. Microscopic se ctions examined. No metaplastic changes are seen, supported by AB/PAS stains (A) Material Received A. EG junction at 40 cm, h/o Clay's esophagus B. Polyp at 40 cm Gross Description Received in two parts. Part A: Received in formalin labeled ?EG junction at 40 cm? are 4 vigil-white and de la o-pink irregular tissue fra gments ranging from 0.1 to 0.25 cm, submitted in toto in a cassette labeled A. Part B: Received in formalin labeled ?polyp at 40 cm? along with scant debris is a 0.3 cm de la o-pink papular tis jude fragment, submitted in toto in a cassette labeled B. The debris is retained in formalin. CEDS Special studies orde red and performed: AB/PAS stains on A CONTINUED ON NEXT PAGE Name: Ledy Sethi Age/Sex: 73/M : 1950 Unit#: [id number] Attend Dr: Lan Melvin MD Re02/28/24 Status : [facility] [place] Location: [facility] Disch: SPEC : [id number] RECD : 02/28/24-1322 STATUS: RENETTA ROMOJesse NUM: [id number] NISREEN: 02/28/24-1100 [facility] DR: Lan Melvin MD ENTERED: 02/28/24- 41 SP TYPE: Surgical OTHR DR: Antoine Kendrick MD ORDERED: AMERICO Stain/6, Gross Micro L4/2, Special st. 2, AB/PAS Copies To: Antoine Kendrick MD [facility] [address] [place] [address] Lan Melvin MD [facility] [address] [place] [address] Signed (si gnature on file) Giovanni Lacey MD 03/03/24 1212 END OF REPORT Reason For Referral No Information Medications Medication [...] 1 capsule Orally Once a day Active Immunizations Vaccine Route Administration Date Status Comme nts Influenza Unknown 05/05/2017 Administered Influenza Unknown 05/13/2018 Administered Influenza Unknown 05/28/2023 Administered Social History Tobacco Use: Social History Observation Description Date Details (start date - stop date) Former Smoker NA - NA Tobacco Use/Smoking Question Answer Notes Patient is [...] Never (0 point) Points 3 Interpretation Negative Section Notes: Nonsmoker > 10 yrs ago; no s ig alcohol Nonsmoker > 25yrs ago; no si g alcohol Nonsmoker > 25yrs ago; no si g alcohol Nonsmoker > 25yrs ago; no si g alcohol Problems Problem Type SNOMED Code ICD Code Onset Dates Problem Status W/U Status Risk Notes Problem 511930594 Encounter for screening for malignant neoplasm of colon (Z12.11) Active confirmed Problem 273452455 History of adenomatous polyp of colon (Z86.010) Active confirmed Problem Diverticular disease of colon (983664729) Diverticulosis of large intestine without perforation or abscess without bleeding (K57.30) Active confirmed Problem 613925803 Gastroesophageal reflux disease without esophagitis (K21.9) Active confirmed Problem 787096963 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) Active confirmed Problem Clay esophagus (316734745) 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 Problem 14892266 Hypertension, unspecified type (I10) Active confirmed Vital Signs Temperature 97.7 degrees Fahrenheit 12/04/2023 Blood pressure diastolic 00 mm Hg 12/04/2023 Height 72 in 12/04/2023 Blood pressure systolic 000 mm Hg 12/04/2023 Weight 207 lb 6 oz lbs 12/04/2023 BMI 28.12 kg/m2 12/04/2023 Encounters Encounter Location Date Provider Diagnosis [facility] [place] [address] [place] [id number] 02/28/2024 Lan Melvin Colon cancer screeni ng Z12.11 ; Colon polyps K63.5 ; Diverticulosis of large intestine without perforation or abscess without bleeding K57.30 ; Other hemorrhoids K64.8 ; Gastroesophageal reflux disease without esophagitis K21.9 ; Clay esophagus K22.70 and Hiatal hernia K44.9 [facility] [address] [place] [phone] 12/04/2023 Lan Melvin Barretts esophagus without dysplasia K22.70 ; History of adenomatous polyp of colon Z86.010 ; Gastroesophageal reflux disease without esophagitis K21.9 and Encounter for screening for malignant neoplasm of colon Z12.11 [facility] [address] [place] [phone] 12/04/2023 Lan Melvin [facility] [address] [place] [phone] 12/13/2023 Lan Melvin Assessments Encounter Date Diagnosis (ICD Code) Assessment Notes Treatment Notes Treatment Clinical Notes Section Notes 02/28/2024 Colon cancer screening (ICD-10 - Z12.11) 02/28/2024 Colon polyps (ICD-10 - K63.5) 12/04/2023 History of adenomatous polyp of colon (ICD-10 - Z86.010) Overall, Vinh appears quite well. I did recommend a followup upper endoscopy for further surveillance in regard to his history of Clay's esophagus and chronic reflux given that his last exam was done over 3 years ago. Also recommended a followup colonoscopy for further screening given his history of a previous tubular adenoma and his last colonoscopy approaching 5 years ago. We did review the rationale for this regard to colon cancer prevention. Full consent was obtained from him for both procedures, including risks of bleeding and perforation. The procedures will be done monitored anesthesia care. He was advised to stop his iron for one week before the procedure. Vinh was comfortable with this plan. Thank you again for allowing me to participate in Vinh's care. I shall continue to keep you advised of his progress. 12/04/2023 Barretts esophagus without dysplasia (ICD-10 - K22.70) Overall, Vinh appears quite well. I did recommend a followup upper endoscopy for further surveillance in regard to his history of Clay's esophagus and chronic reflux given that his last exam was done over 3 years ago. Also recommended a followup colonoscopy for further screening given his history of a previous tubular adenoma and his last colonoscopy approaching 5 years ago. We did review the rationale for this regard to colon cancer prevention. Full consent was obtained from him for both procedures, including risks of bleeding and perforation. The procedures will be done monitored anesthesia care. He was advised to stop his iron for one week before the procedure. Vinh was comfortable with this plan. Thank you again for allowing me to participate in Vinh's care. I shall continue to keep you advised of his progress. 02/28/2024 Diverticulosis of large intestine without perforation or abscess without bleeding (ICD-10 - K57.30) 12/04/2023 Gastroesophageal reflux disease without esophagitis (ICD-10 - K21.9) Overall, Vinh appears quite well. I did recommend a followup upper endoscopy for further surveillance in regard to his history of Clay's esophagus and chronic reflux given that his last exam was done over 3 years ago. Also recommended a followup colonoscopy for further screening given his history of a previous tubular adenoma and his last colonoscopy approaching 5 years ago. We did review the rationale for this regard to colon cancer prevention. Full consent was obtained from him for both procedures, including risks of bleeding and perforation. The procedures will be done monitored anesthesia care. He was advised to stop his iron for one week before the procedure. Vinh was comfortable with this plan. Thank you again for allowing me to participate in Vinh's care. I shall continue to keep you advised of his progress. 02/28/2024 Other hemorrhoids (ICD-10 - K64.8) 12/04/2023 Encounter for screening for malignant neoplasm of colon (ICD-10 - Z12.11) Stop Iron for 1 week before the procedures Overall, Vinh appears quite well. I did recommend a followup upper endoscopy for further surveillance in regard to his history of Clay's esophagus and chronic reflux given that his last exam was done over 3 years ago. Also recommended a followup colonoscopy for further screening given his history of a previous tubular adenoma and his last colonoscopy approaching 5 years ago. We did review the rationale for this regard to colon cancer prevention. Full consent was obtained from him for both procedures, including risks of bleeding and perforation. The procedures will be done monitored anesthesia care. He was advised to stop his iron for one week before the procedure. Vinh was comfortable with this plan. Thank you again for allowing me to participate in Vinh's care. I shall continue to keep you advised of his progress. 02/28/2024 Gastroesophageal reflux disease without esophagitis (ICD-10 - K21.9) 02/28/2024 Clay esophagus (ICD-10 - K22.70) 02/28/2024 Hiatal hernia (ICD-10 - K44.9) Plan Of Treatment Pending Test Test Name Order Date Pathology 02/28/2024 Future Test Test Name Order Date UPPER GI ENDOSCOPY 12/17/2013 COLONOSCOPY 12/17/2013 UPPER GI ENDOSCOPY 04/17/2019 COLONOSCOPY 04/17/2019 UPPER GI ENDOSCOPY 12/04/2023 COLONOSCOPY 12/04/2023 Insurance Providers Payer Name Payer Address Payer Phone Subscriber Number Group Number Insured Name Patient Relationship to Insured Coverage Start Date Coverage End Date MEDICARE OF [place] [address] [facility] [place] [address] [id number] DEMI CORRALES Self - patient is the insured [employer] ATT[employer] CLAIMS [address] [place] [phone] [id number] DEMI CORRALES Self - patient is the insured Medical (General) History Medical History History ICD Code HTN Screening colonoscopy 08/2004 neg except for hyperplastic polyps GERD--small to moderate-sized HH Clay's esophagus--EGD's i n 2004, 2007, 2010, 02/2014--no dysplasia, small area of Clay's, small hiatal hernia Denies [place],DM,CVA,Lung disease,renal dise ase Sleep apnea--uses CPAP Hx of pneumonia due to complications aft er an appy Colonoscopy in February of 2014- -hyperplastic polyps and one tubular adenoma, diverticulosis and internal hemorrhoids Negative screening colonoscopy in [facility] er 2019 Upper endoscopy in July 2019 [...]
--- OUTSIDE RECORDS SUMMARY | 2024-11-10 10:52 | XMS_ITS ---
Author Organization [facility] Address [address] [place] [address] Care Team Providers Care Track Broom Operator Name Role Phone Aroldo SOARES, Antoine Primary Care Provider Lan Adkins [phone] REASON FOR VISIT screening,hx polyps,gerd,oakes's Encounters Encounter Location Date Provider Diagnosis [facility] [place] [address] [place] [address] [place] [phone] 01/17/2024 Lan Melvin Plan Of Treatment No Information Progress Notes * DEMI GOEL RDOB: (74 yo M)Acc No.[id number]:01/17/2024 EGD and COL/MAC Patient:?VALDO GOEL Provider:?Lan Melvin MD :1950???Age:73 Y???Sex:Male Sam e:01/17/2024 Address: [address] [id number] Pcp:Antoine Kendrick MD Subjective: * Chief Complaints: * ???1. Screening,hx polyps,ge rd,oakes's. * Medical History:? Objective: * Vitals:? Assessment: Plan: * Treatment: * * The named appointment provid er may or may not be the originator of this progress note, and it is not deemed complete until electronically signed by the appointment provider. Sign off status: Pending * Provider:?Lan Melvin MD Date:?06/14/2 024 Generated for Heidi haley/Avery/Ken on:?11/10/2024 10:51 AM EDT
--- OUTSIDE RECORDS SUMMARY | 2024-11-10 10:52 | XMS_ITS ---
Author Organization [facility] Address [address] [place] [address] Care Team Providers Care Digital Cartographic Technician Name Role Phone Breanne Amezcua MD Primary Care Provider Shahla Chris Unavailable [phone] Allergies No Known Allergies REASON FOR VISIT [...] 07/21/2024 Encounters Encounter Location Date Provider Diagnosis [facility] [address] [address] 07/21/2024 Shahla Rosas Tinea pedis B35.3 ; [...] Up: 2 Months, Reason: Provider Name:Shahla persaud, 01/26/2025 11:00:00 AM, [address] [place] [address], [phone], Procedure Notes * Category Sub-Category Detail Notes [...] use of a nail nipper and/or dremel-type snuff grinder, to a more viable healthy nail [...] to maintain effectiveness in symptomatic relief - [address] Progress Notes * AMANDO, MichaelDOB:[birth year] (74 yo M)Acc No.[id number]:07/21/2024 Progress Note Patient:?Edmond SETHI Provider:?Shahla Rosas DPM :1950???Age:73 Y???Sex:Male Sam e:07/21/2024 Address:[address] [place], [place] [id number] Pcp:Antoine Kendrick MD Subjective: * Chief Complaints: [...] Diabetic Eye Exam:?no retinopathy??? Assessment: * Assessment: 1.?Pain in right toe(s) [...] use of a nail nipper and/or dremel-type snuff grinder, to a more viable healthy nail [...] to maintain effectiveness in symptomatic relief - 71568.? * Procedure Codes:?61319 DEBRI DE NAIL, 6 OR MORE * [...] Provider:?Shahla Rosas DPM Date:? Generated for Heidi haley/Avery/eTransmitting on:?11/10/2024 10:51 AM EDT History and Physical [...]
== END 2024-11-10 11:35 | disposition home or self-care (01) ==
PROVIDERS: PCP Internal Medicine; Visit Provider Nurse Practitioner Family
DX: I44.1 Atrioventricular block, second degree (principal); I49.3 Ventricular premature depolarization; G47.33 Obstructive sleep apnea (adult) (pediatric); Z99.89 Dependence on other enabling machines and devices; I10 Essential (primary) hypertension
CPT/HCPCS: 93010; 99214; G2211

== ENCOUNTER → 2024-11-10 09:37 | Outpatient (BNVA) | payer MEDICARE, SELFPAY | PROVIDERS: PCP Internal Medicine; Visit Provider Nurse Practitioner Family | DX: Z13.89 Encounter for screening for other disorder (principal) | CPT/HCPCS: 93005; 99212 ==

== ENCOUNTER → 2024-11-10 13:00 | Outpatient (REF) | payer MEDICARE, SELFPAY ==
--- NOTE | 2024-11-10 13:02 | CA_ITS ---
Transthoracic Echocardiogram Patient (Last, First, Middle): Mason Sethi R Gender: Male Date of : 1950 Age: 74 Procedure Date: 11/10/2024 Procedure Type: Transthoracic Echocardiogram Location: OP Height: 182.88 cm Weight: 88.45 kg BSA: 2.11 m2 Heart Rate: bpm BP: 138 / 60 mmHg Wire Winding Machine Operator: CP/DARRELL Referring MD: Camila Kingsley COMBINE INSPECTORBeronicaC Symptoms: I44.1 - Atrioventricular block, second degree Study Quality: Adequate ECG Rhythm: Heart block Conclusions: - The left ventricular systolic function is normal. The calculated ejection fraction is 59% by biplane method. - The left atrium is moderately dilated. The right atrium is severely dilated. - No obvious valvular pathology seen on this study. - The right ventricular systolic pressure is 63 mmHg. Moderate pulmonary hypertension is present. Findings Left Ventricle Normal left ventricular cavity size. There is normal left ventricular wall thickness. The left ventricular systolic function is normal. The calculated ejection fraction is 59% by biplane method. There is no evidence of regional wall motion abnormalities. Diastolic function is indeterminate on the basis of available data. Right Ventricle Mildly increased right ventricular cavity size. There is low normal right ventricular systolic function. Atria The left atrium is moderately dilated. The right atrium is severely dilated. Aortic Valve There is a normal trileaflet aortic valve. There is no aortic valve stenosis. There is no aortic valve regurgitation. Mitral Valve The mitral valve appears normal. There is mild mitral valve regurgitation. There is no mitral valve stenosis. Pulmonic Valve The pulmonic valve is likely normal. Tricuspid Valve There is mild tricuspid valve regurgitation. The right ventricular systolic pressure is 63 mmHg. Moderate pulmonary hypertension is present. Great Vessels The asc aorta is normal in size. Small plaque is seen in the sino tubular ridge. Venous The inferior vena cava is dilated and collapses less than 50% with inspiration. Pericardium/Pleural There is no evidence of pericardial effusion. Prior Study Comparison Changes noted compared to prior study dated: 08/02/2022. Increase in size of RA/RV. Pulmonary hypertension noted. Recommendations, Care & Conclusions No obvious valvular pathology seen on this study. Measurements 2D Linear Measurements IVSd: 0.95 0.6-0.9/0.6-1.0 cm LVIDd: 5.31 3.9-5.3/4.2-5.9 cm LVIDd Index: 2.52 2.4-3.2/2.2-3.1 cm/m2 LVIDs: 4.09 2.0-3.6 cm LVPWd: 0.74 0.7-1.1 cm LA Diam: 4.80 2.7-3.8/3.0-4.0 cm LAIDs Index: 2.27 1.5-2.3 cm/m2 LV Mass: 202.08 67-162/88-224 g LV Mass Index: 95.77 43-95/49-115 g/m2 LVOT Diam: 2.20 3.0+(-)1.3 cm 2D Systolic Function EF 4C: 52.60 >55% EF 2C: 62.60 >55% EF BiP: 58.60 >55% Mitral Valve MV Pk E: 1.06 MV PK A: 0.48 MV Decel Time: 233.00 E/A: 2.20 E'Lateral: 9.03 E'Medial: 6.79 E/E' Med: 15.60 E/E' Lat: 11.70 PHT: 68.00 MVA PHT: 3.24 Decel Bergen: 4.64 Aortic Valve AoV Pk Syed: 1.39 AoV Mn Syed: 0.98 AoV VTI: 0.32 AoV Pk Grad: 8.00 Aov Mn Grad: 4.00 JADIEL Cont.VTI: 3.20 LVOT LVOT Pk Syed: 1.13 LVOT Mn Syed: 0.71 LVOT VTI: 0.27 LVOT Pk Grad: 5.00 LVOT Mn Grad: 2.00 LVOT Diam: 2.20 LVOT Area: 3.80 Diastolic Function MV Pk E: 1.06 MV Pk A: 0.48 E/A: 2.20 E'Medial: 6.79 E/E' Med: 15.60 E' Laterial: 9.03 E/E' Lat: 11.70 Right Ventricle TAPSE (mm): 18.50 TVS' Syed: 10.80 Tricuspid Valve TR Pk Syed: 3.47 TR Pk Grad: 48.00 RA Press: 15.00 RVSP: 63.00 Great Vessels Aorta Sinus of Valsalva: 3.20 2.0-3.5 cm Ao Asc: 3.20 2.1-3.4 cm Updated in Other Vendor System with Status of Final Ganga Womack MD electronically signed on 11/11/2024 8:25:27 AM with status of Final
--- OUTSIDE RECORDS SUMMARY | 2024-11-10 15:47 | XMS_ITS | Clinical Summary ---
Author Organization [facility] Address [address] [place] [address] Phone Care Team Providers Care Relay Shop Tester Name Role Phone Antoine Kendrick MD Primary Care Provider [phone] Allergies No known active allergies Medications losartan [...] complete this topic Insurance MEDICARE Care Teams Relay Shop Tester Relationship Specialty Start Date End Date Antoine Kendrick MD [address] [place] [address] Dr Rebecca MA PCP - General Internal Medicine 07/09/24
== END ==
LOC: HO.CARD 13:00
PROVIDERS: Visit Provider Nurse Practitioner Family
DX: I44.1 Atrioventricular block, second degree (principal)
CPT/HCPCS: 93005; 93306; 99212

== ENCOUNTER 2024-11-11 11:53 | Day surgery (SDC) | payer MEDICARE, SELFPAY ==
--- NOTE | 2024-11-10 12:31 | HO.ANESPROP2 ---
Documented by User: Emani Martinez NP 11/10/24 12:39 HPI - Anesthesia Eval Consult details Narrative: 74yo M for Pacemaker Insertion, Dual Follows [facility] [place] cardi[place] for prolonged NC as well as evidence of Mobitz type 1 second-degree heart block. Seen 11/10/24 with increased fatigue. STAT Echo scheduled for 11/10/24 at 1300. PMFSH Active Problems Active Problems: All Active Problems ILYA on CPAP (Acute) PVCs (premature ventricular contractions) (Acute) Essential hypertension (Acute) Heart block AV second degree (Acute) Past Medical History Medical History History of Clay's esophagus Hiatal hernia GERD (gastroesophageal reflux disease) ILYA on CPAP PVCs (premature ventricular contractions) Essential hypertension Heart block AV second degree Family History Family History Father No problems noted. Mother No problems noted. Family history of problems with anesthesia: No Surgical History Surgical History (Updated 11/11/24 @ 12:38 by Jocelyne Davis RN) H/O thumb surgery History of total right knee replacement (TKR) Hx of blepharoplasty Hx of cataract extraction History of surgery on arm History of esophagogastroduodenoscopy (EGD) Hx of colonoscopy History of inguinal hernia repair History of appendectomy History of Problems with Anesthesia: No Social History Social History Alcohol intake: current Alcohol intake frequency: a few times a week Alcohol type: beer Patient Tobacco Use Status: Former Tobacco user Years Smoked: 20 +/- Advance Directives: No Advance Directives Information Provided: Yes Current occupational status: 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 Meds Allergies Allergy/AdvReac Type Severity Reaction Status Date / Time No Known Allergies Allergy Verified 11/11/24 12:38 [No Known Allergies*] Home Medications ?Medication ?Instructions ?Recorded ?Confirmed ?Last Taken ?Type folic acid 1 mg tablet 1 mg PO DAILY 08/23/20 11/11/24 11/10/24 History multivitamin 1 tab PO DAILY 08/23/20 11/11/24 11/10/24 History potassium chloride 10 mEq 10 meq PO DAILY 08/23/20 11/11/24 11/11/24 History tablet,extended release zolpidem 5 mg tablet 5 mg PO BEDTIME PRN Insomnia 08/23/20 11/11/24 11/10/24 History ferrous sulfate 325 mg (65 mg 325 mg PO BID 03/08/22 11/11/24 11/10/24 History iron) tablet (Feosol) omeprazole 20 mg capsule,delayed 20 mg PO DAILY 03/08/22 11/11/24 11/11/24 History release doxazosin 2 mg tablet 2 mg PO BEDTIME 02/04/24 11/11/24 11/10/24 History Exam Pertinent Lab Results Pertinent Lab Results: Laboratory Tests 09/01/24 08:01 WBC 7.2 Hgb 13.4 L Hct 38.1 L Plt Count 178 Sodium 136 Potassium 4.0 Chloride 103 Carbon Dioxide 25 BUN 19 H Creatinine 1.19 Narrative Narrative: EKG 11/10/24 Second degree heart block type 2, one PVC, cant exclude prior anterior infarct, rate 36 Exercise stress test done 08/17/2024 with exercise 7 minutes achieving 85% MPHR, frequent PVCs, borderline ST changes, presence of Mobitz 1. Holter monitor done 08/17/2024 for 3 days shows sinus bradycardia with average heart rate 48 beats per minute, PVCs 9.7% of time, Mobitz 1 and 2-1 heart block noted during night hours. Assessment and Plan Assessment Anesthesia Assessment: Chart Reviewed Final Anesthetic Review Family History of Problems with Anesthesia: No History of Problems with Anesthesia: No Documented by User: Vani Silva MD 11/11/24 12:54 PMF Past Medical History Medical History History of Clay's esophagus Hiatal hernia GERD (gastroesophageal reflux disease) ILYA on CPAP PVCs (premature ventricular contractions) Essential hypertension Heart block AV second degree Family History Family History Father No problems noted. Mother No problems noted. Surgical History Surgical History (Updated 11/11/24 @ 12:38 by Jocelyne Davis RN) H/O thumb surgery History of total right knee replacement (TKR) Hx of blepharoplasty Hx of cataract extraction History of surgery on arm History of esophagogastroduodenoscopy (EGD) Hx of colonoscopy History of inguinal hernia repair History of appendectomy Social History Social History Alcohol intake: current Alcohol intake frequency: a few times a week Alcohol type: beer Patient Tobacco Use Status: Former Tobacco user Years Smoked: 20 +/- Advance Directives: No Advance Directives Information Provided: Yes Current occupational status: 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 Meds Allergies Allergy/AdvReac Type Severity Reaction Status Date / Time No Known Allergies Allergy Verified 11/11/24 12:38 [No Known Allergies*] Home Medications ?Medication ?Instructions ?Recorded ?Confirmed ?Last Taken ?Type folic acid 1 mg tablet 1 mg PO DAILY 08/23/20 11/11/24 11/10/24 History multivitamin 1 tab PO DAILY 08/23/20 11/11/24 11/10/24 History potassium chloride 10 mEq 10 meq PO DAILY 08/23/20 11/11/24 11/11/24 History tablet,extended release zolpidem 5 mg tablet 5 mg PO BEDTIME PRN Insomnia 08/23/20 11/11/24 11/10/24 History ferrous sulfate 325 mg (65 mg 325 mg PO BID 03/08/22 11/11/24 11/10/24 History iron) tablet (Feosol) omeprazole 20 mg capsule,delayed 20 mg PO DAILY 03/08/22 11/11/24 11/11/24 History release doxazosin 2 mg tablet 2 mg PO BEDTIME 02/04/24 11/11/24 11/10/24 History Exam Airway Mallampati Class: II (poor dentition bottom) TM Dist: >3cm Neck ROM: Full Denture: Upper Heart: irreg Lungs: cta Assessment and Plan Assessment Anesthesia Assessment: Anesthesia Plan Discussed Final Anesthetic Review NPO: Yes ASA Class: III Final Preanesthetic Review: No Changes in Pt Med Stat, Meds/Allgs Chart Reviewed and Consent Obtained/Reviewed Patient Risk: Intermediate Procedure Risk: Intermediate Anesthetic Plan Anesthetic Plan: GA Disposition: Standard PACU
[2024-11-10 14:39] LABS: MANUAL DIFF FLAG NO
--- OUTSIDE RECORDS SUMMARY | 2024-11-10 14:47 | XMS_ITS | Clinical Summary ---
Author Organization [facility] Address [address] [place] [address] Phone Care Team Providers Care Corporate Travel Expert Name Role Phone Antoine Kendrick MD Primary Care Provider Allergies No known active allergies Medications losartan [...] complete this topic Insurance MEDICARE Care Teams Corporate Travel Expert Relationship Specialty Start Date End Date Antoine Kendrick MD [address] [place] [address] Dr Rebecca MA PCP - General Internal Medicine 07/09/24
[2024-11-10 15:32] LABS: Basophils Absolute Auto 0.1 X10*3/uL (0.0-0.2); Basophils Percent Auto 0.6 % (0-2); Eosinophils Absolute Auto 0.1 X10*3/uL (0.0-0.4); Hematocrit 38.8 % (42.0-52.0); Hemoglobin 13.6 g/dl (14.0-18.0); Imm Gran Abs Auto 0.03 X10*3/uL (0.00-0.03); Imm Gran Pct Auto 0.4 % (0.0-0.4); Lymphocytes Absolute Auto 1.3 X10*3/uL (1.2-4.9); Lymphocytes Percent Auto 16.1 % (20-40); Mean Corpuscular HGB Conc 35.1 g/dl (31.0-36.0); Mean Corpuscular Hemoglobin 31.5 pg (27.0-33.0); Mean Corpuscular Volume 89.8 fL (80.0-98.0); Mean Platelet Volume 10.5 fL (9.4-12.4); Monocytes Absolute Auto 0.5 X10*3/uL (0.1-1.2); Monocytes Percent Auto 6.6 % (2-11); Neutrophils Absolute Auto 6.2 x10*3/uL (2.0-8.3); Neutrophils Percent Auto 75.3 % (45-73); Platelet Count 178 X10*3/uL (160-400); Red Blood Count 4.32 X10*6/uL (4.60-5.80); White Blood Count 8.2 X10*3/uL (4.8-10.8)
[2024-11-10 15:56] LABS: Anion Gap 14 (12-20); Blood Urea Nitrogen 19 mg/dL (9-16); Calcium 10.1 mg/dL (8.4-10.2); Carbon Dioxide 26 mmol/L (22-29); Chloride 102 mmol/L (96-108); Estimated Glomerular Filt Rate > 60; Glucose Random 92 mg/dL (60-115); Potassium 4.7 mmol/L (3.3-5.1); Sodium 137 mmol/L (135-145)
[2024-11-11] VITALS (8 sets, daily range): BP systolic 133–148; BP diastolic 51–71; PULSE 56–68; RESP 16; TEMP 36.3–36.9; O2SAT 95–98; BMI 26.4
--- NOTE | ~2024-11-11 | XR_ITS ---
EXAMINATION: XR CHEST CLINICAL INFORMATION: r/o pneumothorax s/p pacemaker COMPARISON: August 20, 2022. TECHNIQUE: Frontal view of the chest was obtained. FINDINGS: 2 electrode intact placed in the right heart chambers and metallic reservoir in the upper left hemithorax. No pneumothorax. Opacity in the periphery of the right hemithorax. Pulmonary reticular nodular pattern. Cardiomediastinal silhouette is enlarged. Multilevel thoracic spondylosis with a shaped curvature. XR/XR chest 1V IMPRESSION: Left-sided pacemaker placement with 2 intact electrode leads in the right heart chambers. No pneumothorax. Mild interstitial lung edema and questionable right-sided pleural effusion. Cardiomegaly versus pericardial effusion. Electronically signed by: Garry Christopher MD 11/12/2024 07:19 AM EDT
[2024-11-11] MEDS: Lactated Ringers 1,000 ML 100 ML IVCONT (13:43)
--- NOTE | 2024-11-11 16:17 | W.PM.OPN ---
Operative Note Operative Note Date of Service: 11/11/24 Narrative: Indication: complete heart block Summary: 1. Dual chamber Medtronic pacemaker implantation (CPT 53153) 2. Dual chamber pacemaker programming (CPT 11564) Narrative: Patient presented to the EP lab in a fasting, nonsedated state after written informed consent was verified. A timeout was called prior to beginning of the case. The procedure was performed under sedation provided by anesthesia. The left chest was prepped and draped in the usual sterile manner. After infiltrating the left deltopectoral groove with lidocaine a 1-inch straight incision was made in the left deltopectoral groove. The left subclavian vein was accessed using a micropuncture needle. The access was double wired. The RV lead was advanced through the sheath into the septal RV apex. Pacing parameters, including current of injury, capture threshold, and impedance values were excellent. The sheath was slit in the usual manner and the lead was sutured to the underlying pectoralis muscle with 0-Ethibond sutures. The RA lead was advanced through the sheath into the RAA. RA lead required repositioning 3 times due to lead dislodgment when the curved stylet was removed. The lead was ultimately secured in the lateral side of the EVON was desirable pacing parameters. The pocket was flushed with an antibiotic irrigant. The generator was attached to the leads. The pocket was closed in 3 layers: 2-0 Vicryl running followed by 4-0 V-Loc. Exofin was applied over the incision site. A sterile gauze and tegaderm were then applied over the incision site. Patient was then transported to recovery in a stable condition. Recommendations: 1. Keep chest incision site dry for 7 days. 2. No lifting more than 10 lbs with left arm for 4 weeks. 3. No driving for 2 weeks. 4. Wear left arm sling continuously for 24 hours. Then wear sling only when sleeping for 4 weeks. 5. Follow up in EP clinic in 7-10 days for incision site check 6. Continue home meds as before.
== END 2024-11-11 17:48 | disposition home or self-care (01) ==
PROVIDERS: Nurse Practitioner Family; PCP Internal Medicine; Visit Provider Student in an Organized Health Care Education/Training Program
PROC: (CPT 33208; principal; 2024-11-11 13:30)
DX: I44.1 Atrioventricular block, second degree (principal); I49.3 Ventricular premature depolarization; R00.1 Bradycardia, unspecified; I10 Essential (primary) hypertension; R53.83 Other fatigue; R60.9 Edema, unspecified; K44.9 Diaphragmatic hernia without obstruction or gangrene; K21.9 Gastro-esophageal reflux disease without esophagitis; Z87.19 Personal history of other diseases of the digestive system; G47.33 Obstructive sleep apnea (adult) (pediatric); Z79.899 Other long term (current) drug therapy; Z99.89 Dependence on other enabling machines and devices; Z98.890 Other specified postprocedural states; Z87.891 Personal history of nicotine dependence
CPT/HCPCS: 33208; 36415; 71045; 76000; 80048; 85025; 86850; 86900; 86901; C1769; C1785; C1898; J0690; J2003; J2704; J3010; J3370; Q9967

== ENCOUNTER → 2024-11-11 17:25 | Outpatient (BNV) | payer MEDICARE, SELFPAY | PROVIDERS: PCP Internal Medicine; Visit Provider Radiology Diagnostic Radiology | DX: I51.7 Cardiomegaly (principal); Z95.0 Presence of cardiac pacemaker | CPT/HCPCS: 71045 ==

== ENCOUNTER → 2024-11-29 23:59 | Outpatient (BNV) | payer MEDICARE, SELFPAY ==
--- NOTE | 2024-12-01 20:31 | MHC.OFFVIS ---
Intake Visit Reasons: Remote device check- Medtronic Allergies No Known Allergies [No Known Allergies*] Allergy (Verified 11/11/24 12:38) PFS Medical History (Updated 12/01/24 @ 20:33 by Ganga Womack MD) History of Clay's esophagus Hiatal hernia GERD (gastroesophageal reflux disease) ILYA on CPAP PVCs (premature ventricular contractions) Essential hypertension Heart block AV second degree Surgical History (Updated 11/11/24 @ 12:38 by Jocelyne Davis RN) H/O thumb surgery History of total right knee replacement (TKR) Hx of blepharoplasty Hx of cataract extraction History of surgery on arm History of esophagogastroduodenoscopy (EGD) Hx of colonoscopy History of inguinal hernia repair History of appendectomy Family History Father No problems noted. Mother No problems noted. 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 Overall normal device function. [id number] Cardiac Device Interrogation, pacemaker Procedure code (CPT) selection complete Assessment & Plan Assessment & Plan (1) Pacemaker: Code(s): Z95.0 - Presence of cardiac pacemaker Category: Medical (2) Heart block AV second degree: Code(s): I44.1 - Atrioventricular block, second degree Category: Medical Plan x Coding Level of Care Code Procedure Only Diagnoses Pacemaker Z95.0 Heart block AV second degree I44.1 CPT Codes Cardiac Device Check - Cardiac Device 12: [id number] Cardiac Device Interrogation, pacemaker ([id number])
== END ==
PROVIDERS: PCP Internal Medicine; Visit Provider Internal Medicine
DX: I44.1 Atrioventricular block, second degree (principal); Z95.0 Presence of cardiac pacemaker
CPT/HCPCS: 93294

== ENCOUNTER 2024-12-10 13:17 | Outpatient (AMB) | payer MEDICARE, OTHER, SELFPAY ==
--- NOTE | 2024-12-10 13:19 | MHC.PC.OV ---
Vital Signs 12/10/24 13:22 Height 5 ft 11 in Weight 188 lb BMI 26.2 BP 122/70 Blood Pressure Location Lt brachial Position Sitting Pulse 76 Pulse Source Pulse Oximeter Temp 97.4 F Temp Source Axillary Pulse Oximetry (%) 98 Oxygen Delivery Method Room Air Intake Visit Reasons: Routine Automobile Tire Builder Required: No Accompanied by: Self / Same As Patient Allergies No Known Allergies [No Known Allergies*] Allergy (Verified 12/10/24 13:19) Tobacco use date assessed: 12/10/24 Fall risk assessment: No Falls in past year Last assessed Fall Risk: 12/10/24 Dental Screening Dental Screen Date: 12/10/24 Did you have a dental visit in the last 12 months?: Yes Did you have a dental problem in the last 6 months where you did not have access to dental care?: No HPI HPI Comments History of Present Illness Details 74 year old with past medical history of htn, bradycardia, GERD, barrets, ILYA, CKD OA presenting for follow up. Saw pcp in August for annual Insomnia: stable on ambien CV: s/p PPM 11/11/24. for bradycardia. Perhaps some improvement in energy. Had double endoscopy in 2023-repeat recommend in 5 years [facility] GI ROS see HPI PHYSICAL EXAM: GENERAL: Alert and oriented x 3. NAD EYES: EOMI. Anicteric. HENT: Moist mucous membranes. No scleral icterus. No cervical lymphadenopathy. LUNGS: Clear to auscultation bilaterally. CARDIOVASCULAR: Regular rate and rhythm. No murmur. No JVD. ABDOMEN: Soft, non-tender +bs EXTREMITIES: No edema. Non-tender. SKIN: No rashes or lesions. Warm. NEUROLOGIC: No focal neurological deficits. CN II-XII grossly intact PSYCHIATRIC: Cooperative. Appropriate mood and affect [facility] Medical History History of Clay's esophagus Hiatal hernia GERD (gastroesophageal reflux disease) ILYA on CPAP PVCs (premature ventricular contractions) Essential hypertension Heart block AV second degree Surgical History H/O thumb surgery History of total right knee replacement (TKR) Hx of blepharoplasty Hx of cataract extraction History of surgery on arm History of esophagogastroduodenoscopy (EGD) Hx of colonoscopy (~02/28/24) History of inguinal hernia repair History of appendectomy Family History Father No problems noted. Mother No problems noted. 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 1. Little interest or pleasure in doing things: not at all 2. Feeling down, depressed, or hopeless: not at all 3. Trouble falling or staying asleep, or sleeping too much: not at all 4. Feeling tired or having little energy: not at all 5. Poor appetite or overeating: not at all 6. Feeling bad about yourself - or that you are a failure or have let yourself or your family down: not at all 7. Trouble concentrating on things, such as reading the newspaper or watching television: not at all 8. Moving or speaking so slowly that other people could have noticed. Or the opposite - being so fidgety or restless that you have been moving around a lot more than usual: not at all 9. Thoughts that you would be better off or of hurting yourself in some way: not at all Total score: 0 Depression Screening Interpretation: Negative Depression Screening Done: Yes 19509 - PHQ-9 Billing: Yes Source: Developed by Drs. Lan Bradford, Chata Martinez, Wilfredo Perez and colleagues, with an educational yifan from [employer]. Thrive Questionnaire Date Thrive assessed: 12/10/24 I am a: Patient Within the past 12 months, did the food you bought not last and you didn't have the money to get more?: Never true Within the past 12 months, did you worry whether your food would run out before you got money to buy more?: Never true Do you have trouble paying for medicines?: No Do you have trouble getting transportation to medical appointments?: No Do you have trouble paying your heating and electricity bill?: No Do you have trouble taking care of your child, family member or friend?: No Do you have trouble with day-to-day activities such as bathing, preparing meals, shopping, managing finances, etc.?: No Are you currently unemployed and looking for a job?: No Are you interested in more education?: No THRIVE Score: 0 AUDIT C Alcohol Use Questionnaire (AUDIT-C) 1. How often do you have a drink containing alcohol?: Monthly or less 2. How many drinks containing alcohol do you have on a typical day when you are drinking?: 1 or 2 3. How often do you have six or more drinks on one occasion?: Less than monthly Total Score: 2 STACY-7 AMB Questionnaire STACY-7 Date STACY - 7 assessed: 12/10/24 Feeling nervous, anxious, or on edge: 0 = Not at all Not being able to stop or control worryin = Not at all Worrying too much about different things: 0 = Not at all Trouble relaxin = Not at all Being so restless that it is hard to sit still: 0 = Not at all Becoming easily annoyed or irritable: 0 = Not at all Feeling afraid as if something awful might happen: 0 = Not at all Total STACY-7 score (0-4 normal; 5-9 mild; 10-14 moderate; 15-21 severe): 0 Source: Developed by Drs. Lan Bradford, Chata Martinez, Wilfredo Perez and colleagues, with an educational yifan from [employer]. Physical exam (Primary Care) Vital Signs: Last Vital Signs Temp 97.4 F 12/10/24 13:22 Pulse 76 12/10/24 13:22 BP 122/70 12/10/24 13:22 Pulse Ox 98 12/10/24 13:22 Oxygen Delivery Method Room Air 12/10/24 13:22 BMI result Body Mass Index 26.2 Tobacco/Smoking Status: Tobacco use Status Tobacco use date assessed 12/10/24 12/10/24 13:20 Patient Tobacco Use Status Former Tobacco user 12/10/24 13:20 Tobacco use type Cigarette 12/10/24 13:20 e-Cigarette/Vaping Use Former Use 12/10/24 13:27 PHQ-9: PHQ-9 Score PHQ-9: Total score 0 12/13/24 15:49 Depression Screening Interpretation: Negative Thrive Assessment: Date of Thrive Assessment Date Thrive assessed 12/10/24 12/10/24 13:20 Coding Level of Care Code New Pt Level 4 (27709) Complex EM visit Add On G2211 Diagnoses Primary insomnia F51.01 Insomnia type: primary Essential hypertension I10 Pacemaker Z95.0 ILYA on CPAP G47.33; Z99.89 Additional Codes PHQ-9 - 75100 - PHQ-9 Billing: Yes ([id number]) Assessment & Plan Assessment & Plan (1) Insomnia: Code(s): G47.00 - Insomnia, unspecified Category: Medical Qualifiers: Insomnia type: primary Qualified Code(s): F51.01 - Primary insomnia (2) Essential hypertension: Code(s): I10 - Essential (primary) hypertension Category: Medical (3) Pacemaker: Code(s): Z95.0 - Presence of cardiac pacemaker Category: Medical (4) ILYA on CPAP: Code(s): G47.33 - Obstructive sleep apnea (adult) (pediatric); Z99.89 - Dependence on other enabling machines and devices Category: Medical Plan 74 yo establish care past medical, surgical, social reviewed BP controlled GERD/barretts stable on PPI Inomnia-stable on zolpidem Orders: Orders Comprehensive Met. Panel 12/10/24 G47.33 - Obstructive sleep apnea (adult) (pediatric), I10 - Essential (primary) hypertension, I49.3 - Ventricular premature depolarization, Z95.0 - Presence of cardiac pacemaker, Z99.89 - Dependence on other enabling machines and devices Lipid Panel 12/10/24 G47.33 - Obstructive sleep apnea (adult) (pediatric), I10 - Essential (primary) hypertension, I49.3 - Ventricular premature depolarization, Z95.0 - Presence of cardiac pacemaker, Z99.89 - Dependence on other enabling machines and devices TSH reflex Free T4 12/10/24 G47.33 - Obstructive sleep apnea (adult) (pediatric), I10 - Essential (primary) hypertension, I49.3 - Ventricular premature depolarization, Z95.0 - Presence of cardiac pacemaker, Z99.89 - Dependence on other enabling machines and devices Lyme IgG/IgM w/reflex to WB 12/10/24 G47.33 - Obstructive sleep apnea (adult) (pediatric), I10 - Essential (primary) hypertension, I49.3 - Ventricular premature depolarization, Z95.0 - Presence of cardiac pacemaker, Z99.89 - Dependence on other enabling machines and devices Complete Blood Count Auto Diff 12/10/24 G47.33 - Obstructive sleep apnea (adult) (pediatric), I10 - Essential (primary) hypertension, I49.3 - Ventricular premature depolarization, Z95.0 - Presence of cardiac pacemaker, Z99.89 - Dependence on other enabling machines and devices Referrals Pulmonology Referral G47.33 - Obstructive sleep apnea (adult) (pediatric), Z99.89 - Dependence on other enabling machines and devices Medications: New zolpidem 5 mg PO BEDTIME PRN 60 tabs 3RF Insomnia G47.00 - Insomnia, unspecified
[2024-12-10 13:22] VITALS: BP 122/70; PULSE 76; TEMP 36.3; O2SAT 98; BMI 26.2
--- OUTSIDE RECORDS SUMMARY | 2024-12-10 14:23 | XMS_ITS ---
[facility] Address [address] [address] Care Team Providers Care Sociology Instructor Name Role Phone Breanne Amezcua MD Primary Care Provider Shahla Chris Unavailable [phone] Allergies No Known Allergies REASON FOR VISIT [...] 024 Encounters Encounter Location Date Provider Diagnosis [facility] [place] [address] [place] [address] 05/05/2024 Shahla Rosas Tinea pedis B35.3 ; [...] 2 Months, Reason: Provider Name:Shahla persaud, 01/26/2025 03:00:00 PM, [address] [place], [address], Procedure Notes * Category Sub-Category Detail Notes [...] as necessary. Patient chooses, no pharmaceutical tx (11794) Progress Notes * Tristian SETHI:[birth year]06 (73 yo M)Acc No.[id number]:05/05/2024 Progress Note Patient:?Edmond Sethi Provider:?Shahla Rosas DPM :1950???Age:73 Y???Sex:Male Sam e:05/05/2024 Phone: [facility] [address] Pcp:Antoine Kendrick MD Subjective: * Chief Complaints: [...] as necessary. Patient chooses, no pharmaceutical tx (27691).? * Procedure Codes:?73151 DEBRI DE NAIL, 6 OR MORE * [...] Provider:?MADIHA RandhawaM Date:?08/2023 Generated for Heidi haley/Avery/Ken on:?12/10/2024 02:23 PM EDT History and Physical Notes * HPI [...]
--- OUTSIDE RECORDS SUMMARY | 2024-12-10 14:23 | XMS_ITS ---
Author Organization [facility] Address [address] [place] [address] Care Team Providers Care Corporate Security Officer Name Role Phone Breanne Amezcua MD Primary Care Provider Shahla Chris Unavailable [phone] Allergies No Known Allergies REASON FOR VISIT [...] Answer Notes Tobacco use: Nonsmoker Vital Signs Height 6ft in 10/27/2024 Weight 190 lbs 10/27/2024 BMI 25.77 kg/m2 10/27/2024 Blood pressure systolic 127 mm Hg 10/28/19 25 Blood pressure diastolic 50 mm Hg 025 Encounters Encounter Location Date Provider Diagnosis [facility] [place] [address] [place] [address] 10/27/2024 Shahla Rosas Pain in right toe(s) [...] 3 Months, Reason: Provider Name:Shahla persaud, 01/26/2025 03:00:00 PM, [address] [place] [address], [phone], Procedure Notes * Category Sub-Category Detail Notes [...] use of a nail nipper and/or dremel-type salvage grinder, to a more viable healthy nail [...] to maintain effectiveness in symptomatic relief - 04978 Progress Notes * Tristian SETHI:[birth year] (74 yo M)Acc No.[id number]:10/27/2024 Progress Note Patient:?Edmond SETHI Provider:?Shahla Rosas DPM :1950???Age:74 Y???Sex:Male Sam e:10/27/2024 Address:[address] [place], [place] [id number] Pcp:Breanne Amezcua MD Subjective: * Chief Complaints: [...] use of a nail nipper and/or dremel-type salvage grinder, to a more viable healthy nail [...] to maintain effectiveness in symptomatic relief - 91462.? * Procedure Codes:?50342 GILMA RIGGS NAIL, 6 OR MORE * Preventive Medicine:? ??Screening/Special Tests:?Fall Risk?Assessment:?Performed ?Screening:?No falls in the past year ?FALLS: Screening for Future Fall Risk?Have you had two or more falls in the past year??No * Follow Up:?3 Months * Images: * Sign off status: Completed true * Provider:?Shahla Rosas DPM Date:? Generated for Heidi haley/Avery/Jenniffersmitting on:?12/10/2024 02:23 PM EDT History and Physical [...]
--- OUTSIDE RECORDS SUMMARY | 2024-12-10 14:23 | XMS_ITS ---
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 Screening,hx polyps,ge rd,oakes's. * Medical History:? Objective: * Vitals:? Assessment: * Assessment: 1.?Colon cancer screening - Z12.11 (Primary)???2.?Colon polyps - K63.5???3.?Diverticulosis of large intestine without perforation or abscess without bleeding - K57.30???4.?Other hemorrhoids - K64.8???5.?Gastroesophageal reflux disease without esophagitis - K21.9???6.?Oakes esophagus - K22.70???7.?Hiatal hernia - K44.9??? Plan: * Treatment: * Procedure Codes:?72433 LESIO N REMOVAL COLONOSCOPY, Modifiers: PT , 0529F INTRVL 3+YRS PTS CLNSCP DOCD, 0528F RCMND FLW-UP 10 YRS DOCD, Modifiers: 1P , 46894 UPPER GI ENDOSCOPY, BIOPSY * * The named appointment provid er may or may not be the originator of this progress note, and it is not deemed complete until electronically signed by the appointment provider. Sign off status: Pending * Provider:?Lan Melvin MD Date:? 024 Generated for Colleeni ng/Facadeng/eTransmitting on:?12/10/2024 02:23 PM EDT
--- OUTSIDE RECORDS SUMMARY | 2024-12-10 14:24 | XMS_ITS ---
Author Organization [facility] Address [address] [place] [address] Care Team Providers Care Air Valve Mechanic Name Role Phone Antoine Kendrick MD Primary Care Provider Lan Adkins [phone] REASON FOR VISIT R/S PROCEDURES Encounters Encounter Location Date Provider Diagnosis [facility] [address] [place] [address] 12/13/2023 Lan Melvin Plan Of Treatment No Information Progress Notes * DEMI GOEL RDOB: (73 yo M)Acc No.[id number]:12/13/2023 Patient:?VALDO GOEL Simeon Xavi :1950???Age:73 Y???Sex:Male Address:[address] [place] [address] * true * Date:? Generated for Heidi haley/Avery/eTransmitting on:?12/10/2024 02:23 PM EDT
--- OUTSIDE RECORDS SUMMARY | 2024-12-10 14:24 | XMS_ITS | Patient Health Record ---
Author Organization [facility] Address [address] [facility] [place] [address] Care Team Providers Care Radio News Anchor Name Role Phone Breanne Amezcua MD Primary Care Provider Shahla Chris Unavailable [phone] Allergies No Known Allergies Reason For Referral [...] Problem Status W/U Status Risk Notes Problem 88919059 Non-pressure ulcer of left lower extremity, limited to breakdown of skin (L97.921) Active confirmed Problem 276186471 Hammer toe of right foot (M20.41) Active confirmed Problem 254142502 Hammer toe of left foot (M20.42) Active confirmed Vital Signs Blood pressure diastolic 50 mm Hg 10/27/2024 Height 6ft in 10/27/2024 Blood pressure systolic 127 mm Hg 10/27/2024 Weight 190 lbs 10/27/2024 BMI 25.77 kg/m2 10/27/2024 Encounters Encounter Location Date Provider Diagnosis [address] [address] 01/14/2024 Shahla Perica Pain in right toe(s) M79.674 ; Tinea unguium B35.1 and Pain in left toe(s) M79.[address] [address] 05/05/2024 Shahla Perica Tinea pedis B35.3 ; Pain in right toe(s) M79.674 ; Pain in left toe(s) M79.675 and Tinea unguium B35.[address] [address] 07/21/2024 Shahla Perica Tinea pedis B35.3 ; Pain in right toe(s) M79.674 ; Pain in left toe(s) M79.675 ; Tinea unguium B35.1 and Xerosis cutis L85.[address] [address] 10/27/2024 Shahla Perica Pain in right toe(s) [...] Next Appt Details Provider Name:Shahla persaud, 01/26/2025 03:00:00 PM, [address] [facility], [place], [address], Insurance Providers Payer Name Payer Address Payer Phone Subscriber Number Group Number Insured Name Patient Relationship to Insured Coverage Start Date Coverage End Date Medicare National [employer]t [employer] [address] [place] [address] [id number] Mason Blum Self - patient is the insured [facility] [place] [address] [place] [address] [id number] Mason Blum Self - patient is the insured Medical (General) History Medical History History ICD Code Knee Pain Hypertension Surgical History Surgery Date(Month/Year) knee replacement 10/2013, 2016 hernia 01/2018 appendix 10/2014 colonoscopy/endoscopy 07/2020 colonoscopy 02/2024
--- OUTSIDE RECORDS SUMMARY | 2024-12-10 14:24 | XMS_ITS ---
Author Organization [facility] Address [address] [place] [address] Care Team Providers Care Applications Manager Name Role Phone Aroldo SOARES, Antoine Primary Care Provider Lan Adkins [phone] REASON FOR VISIT screening,hx polyps,gerd,oakes's Encounters Encounter Location Date Provider Diagnosis [facility] [place] [address] [place] [address] [place] [phone] 01/17/2024 Lan Melvin Plan Of Treatment No Information Progress Notes * DEMI GOEL RDOB: (74 yo M)Acc No.[id number]:01/17/2024 EGD and COL/MAC Patient:?VALDO GOEL Provider:?Lan Melvin MD :1950???Age:73 Y???Sex:Male Sam e:01/17/2024 Address: [address] [id number] Pcp:Antoine Kendrick MD Subjective: * Chief Complaints: [...] MD Date:?06/14/2 024 Generated for Heidi haley/Avery/Ken on:?12/10/2024 02:23 PM EDT
--- OUTSIDE RECORDS SUMMARY | 2024-12-10 14:24 | XMS_ITS ---
Author Organization [facility] Address [address] [place] [address] Care Team Providers Care Clinical Pathologist Name Role Phone Breanne Amezcua MD Primary Care Provider Shahla Chris Unavailable [phone] Allergies No Known Allergies REASON FOR VISIT [...] 024 Encounters Encounter Location Date Provider Diagnosis [facility] [address] [address] 07/21/2024 Shahla Rosas Tinea pedis B35.3 ; [...] Reason: Provider Name:Shahla persaud, 01/26/2025 03:00:00 PM, [address] [place] [address], [address], Procedure Notes * Category Sub-Category Detail Notes [...] use of a nail nipper and/or dremel-type sand mill grinder, to a more viable healthy nail [...] to maintain effectiveness in symptomatic relief - 06310 Progress Notes * AMANDO, MichaelDOB:[birth year] (74 yo M)Acc No.[id number]:07/21/2024 Progress Note Patient:?Edmond SETHI Provider:?Shahla Rosas DPM :1950???Age:73 Y???Sex:Male Sam e:07/21/2024 Address:[address] [place], [place] [phone] Pcp:Antoine Kendrick MD Subjective: * Chief Complaints: [...] use of a nail nipper and/or dremel-type sand mill grinder, to a more viable healthy nail [...] to maintain effectiveness in symptomatic relief - 26825.? * Procedure Codes:?33700 DEBRI DE NAIL, 6 OR MORE * [...] Rosas DPM Date:? Generated for Heidi haley/Avery/eTransmitting on:?12/10/2024 02:23 PM EDT History and Physical [...]
--- OUTSIDE RECORDS SUMMARY | 2024-12-10 14:24 | XMS_ITS | Patient Health Record ---
Author Organization [facility] Address [address] [place] [address] Care Team Providers Care Sock And Stocking Ironer Name Role Phone Antoine Kendrick MD Primary Care Provider Lan Adkins Unavailable [phone] Allergies No Known Allergies Results Component Value Reference Range Notes Pathology (Not yet reviewed by provider) Interpretation: Performing Lab:[facility], [address] [place] [address] Notes/Report: Name: Ledy Sethi Age/Sex: 73/M : 1950 Unit#: [id number] Attend Dr: Lan Melvin MD Re02/28/24 Status : [facility] Location: [facility] Disch: SPEC : [id number] RECD : 02/28/24-2 STATUS: RENETTA [place]SHALL NUM: [id number] NISREEN: 02/28/24-[address] [facility] [address]: Lan Melvin MD ENTERED: 02/28/24-13 41 SP TYPE: [...] Ledy Sethi Age/Sex: 73/M : 1950 Unit#: [id number] Attend Dr: Lan Melvin MD Re02/28/24 Status : [facility] Location: [place] Disch: SPEC : [id number] RECD : 02/28/24-1322 STATUS: RENETTA ROMOJesse NUM: [id number] NISREEN: 02/28/24-[address] [facility] [address]: Lan Melvin MD ENTERED: 02/28/24- 41 SP TYPE: Surgical OTHR DR: Antoine Kendrick MD ORDERED: AMERICO Stain/6, Gross Micro L4/2, Special st. 2, AB/PAS Copies To: Antoine Kendrick MD [facility] [address] [place] [address] Lan Melvin MD [facility] [address] [place] [address] Signed (si gnature on file) Giovanni Lacey [...] Problem Status W/U Status Risk Notes Problem 767689702 Encounter for screening for malignant neoplasm of colon (Z12.11) Active confirmed Problem 624858384 History of adenomatous polyp of colon (Z86.010) Active confirmed Problem Diverticular disease of colon (656684605) Diverticulosis of large intestine without perforation or abscess without bleeding (K57.30) Active confirmed Problem 442407159 Gastroesophageal reflux disease without esophagitis (K21.9) Active confirmed Problem 022920742 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) Active confirmed Problem 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 Problem 93018233 Hypertension, unspecified type (I10) Active confirmed Encounters Encounter Location Date Provider Diagnosis [facility] Outpatient [address] [place], [place] [phone] 02/28/2024 Lan Melvin Colon cancer screeni ng Z12.11 ; Colon polyps K63.5 ; Diverticulosis of large intestine without perforation or abscess without bleeding K57.30 ; Other hemorrhoids K64.8 ; Gastroesophageal reflux disease without esophagitis K21.9 ; Clay esophagus K22.70 and Hiatal hernia K44.9 [facility] [address] [place] [address] 12/13/2023 Lan Melvin Assessments Encounter Date Diagnosis [...] Start Date Coverage End Date MEDICARE OF [place] [address] [place] [address] [id number] DEMI CORRALES Self - patient is the insured MED[employer] ATTN CLAIMS [address] [place] [address] [id number] DEMI CORRALES Self - patient is the insured Medical (General) History Medical History History ICD Code HTN Screening colonoscopy 08/2004 neg except for hyperplastic polyps GERD--small to moderate-sized HH Clay's esophagus--EGD's i n 2004, 2007, 2010, 02/2014--no dysplasia, small area of Clay's, small hiatal hernia Denies [place],DM,CVA,Lung disease,renal dise ase Sleep apnea--uses CPAP Hx of pneumonia due to complications aft er an appy Colonoscopy in February of 2014- -hyperplastic polyps and one tubular adenoma, diverticulosis and internal hemorrhoids Negative screening colonoscopy in [facility] er 2019 Upper endoscopy in [...]
== END 2024-12-10 13:59 | disposition home or self-care (01) ==
LOC: HO.HMCHD 13:18
PROVIDERS: PCP Internal Medicine; Visit Provider Internal Medicine
DX: F51.01 Primary insomnia (principal); I10 Essential (primary) hypertension; Z95.0 Presence of cardiac pacemaker; G47.33 Obstructive sleep apnea (adult) (pediatric); Z99.89 Dependence on other enabling machines and devices

== ENCOUNTER → 2024-12-10 13:17 | Outpatient (BNVA) | payer MEDICARE, SELFPAY | PROVIDERS: PCP Internal Medicine; Visit Provider Internal Medicine | DX: F51.01 Primary insomnia (principal); I10 Essential (primary) hypertension; G47.33 Obstructive sleep apnea (adult) (pediatric); Z79.899 Other long term (current) drug therapy; Z95.0 Presence of cardiac pacemaker; Z99.89 Dependence on other enabling machines and devices | CPT/HCPCS: 96127; 99202 ==

== ENCOUNTER 2024-12-14 14:18 | Outpatient (AMB) | payer MEDICARE, SELFPAY ==
--- OUTSIDE RECORDS SUMMARY | 2024-12-14 14:32 | XMS_ITS ---
Author Organization [facility] Address [address] [facility] [place] [address] Care Team Providers Care Die Grinder Name Role Phone Breanne Amezcua MD Primary Care Provider Shahla Chris Unavailable [phone] Allergies No Known Allergies REASON FOR VISIT [...] 024 Encounters Encounter Location Date Provider Diagnosis [facility] [place] [address] [place] [address] 05/05/2024 Shahla Rosas Tinea pedis B35.3 ; [...] Provider Name:Shahla persaud, 01/26/2025 03:00:00 PM, [address] [place], [address], Procedure Notes * Category Sub-Category Detail Notes [...] as necessary. Patient chooses, no pharmaceutical tx (76785) Progress Notes * Tristian SETHI:[birth year] (73 yo M)Acc No.[id number]:05/05/2024 Progress Note Patient:?Edmond Sethi Provider:?Shahla Rosas DPM :1950???Age:73 Y???Sex:Male Sam e:05/05/2024 Phone: [facility]: [facility] [id number] Pcp:Antoine Kendrick MD Subjective: * Chief Complaints: [...] as necessary. Patient chooses, no pharmaceutical tx (81016).? * Procedure Codes:?67319 DEBRI DE NAIL, 6 OR MORE * [...] Provider:?MADIHA RandhawaM Date:?08/2023 Generated for Heidi haley/Avery/Ken on:?12/14/2024 02:32 PM EDT History and Physical Notes * [...]
--- OUTSIDE RECORDS SUMMARY | 2024-12-14 14:32 | XMS_ITS ---
Author Organization [facility] Address [address] [place] [address] Care Team Providers Care Wool Shearing Supervisor Name Role Phone Breanne Amezcua MD Primary Care Provider Shahla Chris Unavailable [phone] Allergies No Known Allergies REASON FOR VISIT [...] 025 Encounters Encounter Location Date Provider Diagnosis [facility] [place] [address] [place] [address] 10/27/2024 Shahla Rosas Pain in right toe(s) [...] Reason: Provider Name:Shahla persaud, 01/26/2025 03:00:00 PM, [address] [place] [address], [address], Procedure Notes * Category Sub-Category Detail Notes [...] to maintain effectiveness in symptomatic relief - 71400 Progress Notes * Tristian SETHI:[birth year] (74 yo M)Acc No.[id number]:10/27/2024 Progress Note Patient:?Edmond SETHI Provider:?Shahla Rosas DPM :1950???Age:74 Y???Sex:Male Sam e:10/27/2024 Address:[address] [place], [place] [phone] Pcp:rBeanne Amezcua MD Subjective: * Chief Complaints: * [...] to maintain effectiveness in symptomatic relief - 30425.? * Procedure Codes:?98362 GILMA RIGGS NAIL, 6 OR MORE * Preventive Medicine:? ??Screening/Special Tests:?Fall Risk?Assessment:?Performed ?Screening:?No falls in the past year ?FALLS: Screening for Future Fall Risk?Have you had two or more falls in the past year??No * Follow Up:?3 Months * Images: * Sign off status: Completed true * Provider:?Shahla Rosas DPM Date:? Generated for Heidi haley/Avery/Jenniffersmitting on:?12/14/2024 02:32 PM EDT History and Physical [...]
--- OUTSIDE RECORDS SUMMARY | 2024-12-14 14:32 | XMS_ITS ---
Author Organization [facility] Address [address] [place] [address] Care Team Providers Care Hi Teacher Name Role Phone Aroldo SOARES, Antoine Primary Care Provider Lan Adkins [phone] REASON FOR VISIT screening,hx polyps,gerd,oakes's Encounters Encounter Location Date Provider Diagnosis [facility] [place] [address] [place] [address] [place] [phone] 01/17/2024 Lan Melvin Plan Of Treatment No Information Progress Notes * DEMI GOEL RDOB: (74 yo M)Acc No.[id number]:01/17/2024 EGD and COL/MAC Patient:?VALDO GOEL Provider:?Lan Melvin MD :1950???Age:73 Y???Sex:Male Sam e:01/17/2024 Address: [address] [id number] Pcp:Antoine Kendrick MD Subjective: * Chief Complaints: [...] MD Date:?06/14/2 024 Generated for Heidi haley/Avery/Ken on:?12/14/2024 02:32 PM EDT
--- OUTSIDE RECORDS SUMMARY | 2024-12-14 14:32 | XMS_ITS | Clinical Summary ---
Author Organization [address] [facility] Address [address] [place] [address] Phone Care Team Providers Care Drapery Cutter Machine Name Role Phone Antoine Kendrick MD Primary Care Provider [phone] Allergies No known active allergies Medications losartan [...] (2 of 2 - PPSV23) 05/29/2017 05/29/2016 Cholesterol Screening (Lipid Panel) 06/19/2024 Colorectal Cancer Screening: Colonoscopy 06/19/2024 Depression Screening 06/19/2024 Falls Risk Assessment 06/19/2024 Hepatitis C Screening 06/19/2024 Medicare Annual Wellness Visit 06/19/2024 Social Influencers of Health Screening 06/19/2024 Hypertension/CHF/CAD Annual BMP Blood Test 07/09/2024 COVID-19 Vaccine ( season) 2024 04/30/2024, 11/19/2023, 04/30/2023, Additional history exists Influenza Vaccine (Season Ended) 2025 Zoster Vaccines Completed 02/18/2019, 11/06/2018 RSV Immunization Adult Patients Completed 05/23/2023 HIB Vaccines Aged Out No longer eligi [...] complete this topic Insurance MEDICARE Care Teams Drapery Cutter Machine Relationship Specialty Start Date End Date Antoine Kendrick MD [address] [place] [address] Dr Rebecca MA PCP - General Internal Medicine 07/09/24
--- OUTSIDE RECORDS SUMMARY | 2024-12-14 14:32 | XMS_ITS | Patient Health Record ---
Author Organization [facility] Address [address] [place] [address] Care Team Providers Care Oven Stripper Name Role Phone Antoine Kendrick MD Primary Care Provider Lan Adkins Unavailable [phone] Allergies No Known Allergies Results Component Value Reference Range Notes Pathology (Not yet reviewed by provider) Interpretation: Performing Lab:[facility], [address] [place] [phone] Notes/Report: Name: Ledy Sethi Age/Sex: 73/M : 1950 Unit#: [id number] Attend Dr: Lan Melvin MD Re02/28/24 Status : [facility]: [facility] Disch: SPEC : [id number] RECD : 02/28/24-2 STATUS: RENETTA MARSHALL NUM: [id number] NISREEN: 02/28/24-[address] [facility] [address]: Lan Melvin MD ENTERED: 02/28/24-13 [...] Ledy Sethi Age/Sex: 73/M : 1950 Unit#: [id number] Attend Dr: Lan Melvin MD Re02/28/24 [place] [facility] [place] Disch: SPEC : [id number] RECD : 02/28/24-1322 STATUS: RENETTA ROMOJesse NUM: [id number] NISREEN: 02/28/24-[address] [facility] [address]: Lan Melvin MD ENTERED: 02/28/24- 41 SP TYPE: Surgical OTHR DR: Antoine Kendrick MD ORDERED: AMERICO Stain/6, Gross Micro L4/2, Special st. 2, AB/PAS Copies To: Antoine Kendrick MD [facility] [address] [place] [address] Lan Melvin MD [facility] [address] [place] [address] Signed (si gnature on file) Giovanni Lacey [...] Problem Status W/U Status Risk Notes Problem 327643386 Encounter for screening for malignant neoplasm of colon (Z12.11) Active confirmed Problem 707046413 History of adenomatous polyp of colon (Z86.010) Active confirmed Problem Diverticular disease of colon (377621892) Diverticulosis of large intestine without perforation or abscess without bleeding (K57.30) Active confirmed Problem 013293101 Gastroesophageal reflux disease without esophagitis (K21.9) Active confirmed Problem 249837875 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) Active confirmed Problem Clay esophagus (269426783) 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 Problem 89888218 Hypertension, unspecified type (I10) Active confirmed Encounters Encounter Location Date Provider Diagnosis [facility] Out[place] [address] [place] [phone] 02/28/2024 Lan Melvin Colon cancer screeni ng Z12.11 ; Colon polyps K63.5 ; Diverticulosis of large intestine without perforation or abscess without bleeding K57.30 ; Other hemorrhoids K64.8 ; Gastroesophageal reflux disease without esophagitis K21.9 ; Clay esophagus K22.70 and Hiatal hernia K44.9 Assessments [...] Date MEDICARE OF [place] [address] [place] [address] [id number] DEMI CORRALES Self - patient is the insured MED[employer] ATTN CLAIMS [address] [place] [address] [id number] DEMI CORRALES Self - patient is the insured Medical (General) History Medical History History ICD Code HTN Screening colonoscopy 08/2004 neg except for hyperplastic polyps GERD--small to moderate-sized HH Clay's esophagus--EGD's i n 2004, 2007, 2010, 02/2014--no dysplasia, small area of Clay's, small hiatal hernia Denies [place],DM,CVA,Lung disease,renal dise ase Sleep apnea--uses CPAP Hx of pneumonia due to complications aft er an appy Colonoscopy in February of 2014- -hyperplastic polyps and one tubular adenoma, diverticulosis and internal hemorrhoids Negative screening colonoscopy in [facility] er 2019 Upper endoscopy in July [...]
--- OUTSIDE RECORDS SUMMARY | 2024-12-14 14:32 | XMS_ITS ---
Author Organization [facility] Address [address] [place] [address] Care Team Providers Care Plant Specialist Name Role Phone Antoine Kendrick MD Primary Care Provider Lan Adkins Unavailable [phone] REASON FOR VISIT screening,hx polyps,gerd,oakes's Problems Problem Type SNOMED Code ICD Code Onset Dates Problem Status W/U Status Risk Notes Problem Diverticular disease of colon (505583370) Diverticulosis of large intestine without perforation or abscess without bleeding (K57.30) Active confirmed Problem Oakes esophagus (964793892) 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 Encounters Encounter Location Date Provider Diagnosis [facility] Outpatient [address] [place], [place] [phone] 02/28/2024 Lan Melvin Colon cancer screeni ng [...] * DEMI GOEL RDOB: (74 yo M)Acc No.[id number]:02/28/2024 EGD and COL/MAC Patient:?VALDO GOEL Provider:?Lan Melvin MD :1950???Age:73 Y???Sex:Male Sam e:02/28/2024 Address:[address] [place], [place] [address] Pcp:Antoine Kendrick MD Subjective: * Chief Complaints: * ???1. Screening,hx polyps,ge rd,oakes's. * Medical History:? Objective: * Vitals:? Assessment: * Assessment: 1.?Colon cancer screening - Z12.11 (Primary)???2.?Colon polyps - K63.5???3.?Diverticulosis of large intestine without perforation or abscess without bleeding - K57.30???4.?Other hemorrhoids - K64.8???5.?Gastroesophageal reflux disease without esophagitis - K21.9???6.?Oakes esophagus - K22.70???7.?Hiatal hernia - K44.9??? Plan: * Treatment: * Procedure Codes:?49513 LESIO N REMOVAL COLONOSCOPY, Modifiers: PT , 0529F INTRVL 3+YRS PTS CLNSCP DOCD, 0528F RCMND FLW-UP 10 YRS DOCD, Modifiers: 1P , 08892 UPPER GI ENDOSCOPY, BIOPSY * * The named appointment provid er may or may not be the originator of this progress note, and it is not deemed complete until electronically signed by the appointment provider. Sign off status: Pending * Provider:?Lan Melvin MD Date:? 024 Generated for Colleeni ng/Facadeng/eTransmitting on:?12/14/2024 02:31 PM EDT
--- OUTSIDE RECORDS SUMMARY | 2024-12-14 14:32 | XMS_ITS | Patient Health Record ---
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) Active confirmed Problem 031530091 Hammer toe of right foot (M20.41) Active confirmed Problem 774838672 Hammer toe of left foot (M20.42) Active confirmed Vital Signs Blood pressure diastolic 50 mm Hg 10/27/2024 Height 6ft in 10/27/2024 Blood pressure systolic 127 mm Hg 10/27/2024 Weight 190 lbs 10/27/2024 BMI 25.77 kg/m2 10/27/2024 Encounters Encounter Location Date Provider Diagnosis [address] [address] 01/14/2024 Shahla Perica Pain in right toe(s) M79.674 ; Tinea unguium B35.1 and Pain in left toe(s) M79.[address] [address] 05/05/2024 Shahla Perica Tinea pedis B35.3 ; Pain in right toe(s) M79.674 ; Pain in left toe(s) M79.675 and Tinea unguium B35.[address] [address] 07/21/2024 Shahla Perica Tinea pedis B35.3 ; Pain in right toe(s) M79.674 ; Pain in left toe(s) M79.675 ; Tinea unguium B35.1 and Xerosis cutis L85.[address] [address] 10/27/2024 Shahla Perica Pain in right toe(s) [...] Provider Name:Shahla persaud, 01/26/2025 03:00:00 PM, [address] [facility], [place], [address], Insurance Providers Payer Name Payer Address Payer Phone Subscriber Number Group Number Insured Name Patient Relationship to Insured Coverage Start Date Coverage End Date Medicare National [employer] [address] [place] [address] [id number] Mason Blum Self - [facility] is the insured [facility] [address] [place] [address] [id number] Mason Blum Self - patient is the insured Medical (General) History Medical History History ICD Code Knee Pain Hypertension Surgical History Surgery Date(Month/Year) knee replacement 10/2013, 2016 hernia 01/2018 appendix 10/2014 colonoscopy/endoscopy 07/2020 colonoscopy 02/2024
--- OUTSIDE RECORDS SUMMARY | 2024-12-14 14:32 | XMS_ITS ---
Author Organization [facility] Address [address] [place] [address] Care Team Providers Care Computer Terminal Operator Name Role Phone Antoine Kendrick MD Primary Care Provider Lan Adkins [phone] REASON FOR VISIT R/S PROCEDURES Encounters Encounter Location Date Provider Diagnosis [facility] [address] [place] [address] 12/13/2023 Lan Melvin Plan Of Treatment No Information Progress Notes * DEMI GOEL RDOB: (73 yo M)Acc No.[id number]:12/13/2023 Patient:?VALDO GOEL Simeon Xavi :1950???Age:73 Y???Sex:Male Address:[address] [place] [address] * true * Date:? Generated for Heidi haley/Avery/eTransmitting on:?12/14/2024 02:31 PM EDT
--- OUTSIDE RECORDS SUMMARY | 2024-12-14 14:32 | XMS_ITS ---
[facility] Address [address] [facility] [place] [address] Care Team Providers Care Ski Instructor Name Role Phone Breanne Amezcua MD Primary Care Provider Shahla Chris Unavailable [phone] Allergies No Known Allergies REASON FOR VISIT [...] 024 Encounters Encounter Location Date Provider Diagnosis [facility] [address] [address] 07/21/2024 Shahla Rosas Tinea pedis B35.3 ; [...] Reason: Provider Name:Shahla persaud, 01/26/2025 03:00:00 PM, [address] [place] [address], [phone], Procedure Notes * Category Sub-Category Detail Notes [...] use of a nail nipper and/or dremel-type flat grinder operator, to a more viable healthy nail plate [...] to maintain effectiveness in symptomatic relief - 19385 Progress Notes * AMANDO, MichaelDOB:[birth year] (74 yo M)Acc No.[id number]:07/21/2024 Progress Note Patient:?Edmond SETHI Provider:?Shahla Rosas DPM :1950???Age:73 Y???Sex:Male Sam e:07/21/2024 Address:[address] [place], [place] [id number] Pcp:Antoine Kendrick MD Subjective: * Chief Complaints: [...] use of a nail nipper and/or dremel-type flat grinder operator, to a more viable healthy nail plate [...] to maintain effectiveness in symptomatic relief - 41566.? * Procedure Codes:?00588 DEBRI DE NAIL, 6 OR MORE * [...] Rosas DPM Date:? Generated for Heidi haley/Avery/eTransmitting on:?12/14/2024 02:32 PM EDT History and Physical [...]
[2024-12-14 14:47] VITALS: BP 130/68; PULSE 78; BMI 26.2
--- NOTE | 2024-12-14 14:47 | A.OFFVIS_ITS ---
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 He has had Mobitz type one second-degree heart block for a long time but completely asymptomatic but when he came for a recent visit he was having some tiredness and was having more advanced heart block and that led to urgent pacemaker placement. He states he is mostly feeling okay but does not notice a huge difference as even during the time of heart block he was not too symptomatic. No other complaints like angina or shortness of breath, extra. He is exercising caution with physical activities post-surgery but anticipates resuming full activity, including sports and swimming, after three months. 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 He requested documentation to delay his [id number] clearance, anticipating a return post-05 of February by approximately the ninth week. Exercise The patient focuses on leg exercises and cardio training at the gym. He has not yet resumed swimming but anticipates doing so by February. There is no current exercise-caused exacerbation of symptoms, though he refrains from strenuous upper body motions. An aim to return to full routine and sports, including pool activities, is set for approximately three months post-surgery. [facility] Medical History History of Clay's esophagus Hiatal hernia GERD (gastroesophageal reflux disease) ILYA on CPAP PVCs (premature ventricular contractions) Essential hypertension Heart block AV second degree Surgical History H/O thumb surgery History of total right knee replacement (TKR) Hx of blepharoplasty Hx of cataract extraction History of surgery on arm History of esophagogastroduodenoscopy (EGD) Hx of colonoscopy (~02/28/24) History of inguinal hernia repair History of appendectomy Family History Father No problems noted. Mother No problems noted. 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 Cognitive needs: No Hearing needs: No Vision needs: Yes (reading glasses) Review of Systems Const Denies weakness ENT Denies dizziness Card Denies chest pain, Denies chest pain with activity, Denies syncope, Denies rapid heart rate, Denies pedal edema, Denies edema, Denies leg edema, Denies lightheadedness, Denies palpitations, Denies dyspnea, Denies dyspnea on exertion and Denies orthopnea Resp Denies cough, Denies dyspnea and Denies dyspnea on exertion GI Denies hematochezia and Denies change in stool character Musc Denies abnormal gait, Denies muscle cramps, Denies muscle weakness, Denies numbness, Denies radiating pain into limb and Denies tingling Neuro Denies abnormal gait, Denies dizziness, Denies syncope, Denies numbness, Denies tingling and Denies weakness Endo Denies palpitations Physical Exam Vital Signs: Last Vital Signs Pulse 78 12/14/24 14:47 BP 130/68 12/14/24 14:47 BMI result Body Mass Index 26.2 Const General: comfortable and no acute distress Orientation/consciousness: patient oriented x3 HEENT Other: Unremarkable Head: Yes normal to inspection Neck Neck: Yes normal visual inspection Chest Chest palpation & inspection: normal inspection of the chest Resp Auscultation: clear to auscultation bilaterally Cardio Palpation: normal PMI Heart sounds: S1 normal heart sound present, S2 normal heart sound present, no gallops, no murmurs and no rubs GI Palpation (GI): Soft to palpation Back/Spine/Pelvis Other: unremarkable Skin General skin exam: no rashes or lesions noted Neuro General: patient oriented x3 Extrem General: Yes normal to inspection Psych Mental Status: mental status grossly normal Office Procedures Cardiac Device Check Cardiac Device Check Details: Pacemaker interrogated today. Dual-chamber device, programmed DDDR. Battery status 10.9 years. Normal lead parameters. Atrial pacing 65%. Ventricular pacing 97%. 2 NSVT episodes-but one 2nd duration. Overall, normal device function. [id number] Cardiac Device Check, pacemaker dual lead Procedure code (CPT) selection complete Assessment & Plan Assessment & Plan (1) Heart block AV second degree: Code(s): I44.1 - Atrioventricular block, second degree Category: Medical Plan: Status post pacemaker implantation. (2) PVCs (premature ventricular contractions): Code(s): I49.3 - Ventricular premature depolarization Category: Medical Plan: In the last Holter, PVCs with a burden of 2.75%. Very short runs of NSVT. We will monitor his own pacemaker. If any significant burden, we will reassess. In a prior stress test, he was able to exercise for 8.6 METS on Andrew protocol. No angina. PVCs noted during the study. (3) Essential hypertension: Code(s): I10 - Essential (primary) hypertension Category: Medical Plan: On losartan, nifedipine. Stable. (4) ILYA on CPAP: Code(s): G47.33 - Obstructive sleep apnea (adult) (pediatric); Z99.89 - Dependence on other enabling machines and devices Category: Medical Plan: Continue CPAP. Orders: Orders CA echo transthoracic complete 6 Months I27.20 - Pulmonary hypertension, unspecified, I44.1 - Atrioventricular block, second degree, Z95.0 - Presence of cardiac pacemaker Coding Level of Care Code Est Pt Level 4 (34155) Complex EM visit Add On G2211 Diagnoses Heart block AV second degree I44.1 PVCs (premature ventricular contractions) I49.3 Essential hypertension I10 ILYA on CPAP G47.33; Z99.89 CPT Codes Cardiac Device Check - Cardiac Device 2: [id number] Cardiac Device Check, pacemaker dual lead ([id number])
== END 2024-12-14 15:04 | disposition home or self-care (01) ==
LOC: HO.HCS 14:18
PROVIDERS: PCP Internal Medicine; Visit Provider Internal Medicine
DX: I44.1 Atrioventricular block, second degree (principal); I49.3 Ventricular premature depolarization; I10 Essential (primary) hypertension; G47.33 Obstructive sleep apnea (adult) (pediatric); Z99.89 Dependence on other enabling machines and devices
CPT/HCPCS: 93280; 99214; G2211

== ENCOUNTER → 2024-12-14 14:18 | Outpatient (BNVA) | payer MEDICARE, SELFPAY | PROVIDERS: PCP Internal Medicine; Visit Provider Internal Medicine | DX: I44.1 Atrioventricular block, second degree (principal); I49.3 Ventricular premature depolarization; I10 Essential (primary) hypertension; I27.20 Pulmonary hypertension, unspecified; G47.33 Obstructive sleep apnea (adult) (pediatric); Z95.0 Presence of cardiac pacemaker; Z99.89 Dependence on other enabling machines and devices; Z87.891 Personal history of nicotine dependence | CPT/HCPCS: 93280; 99212 ==

== ENCOUNTER 2025-01-28 09:25 | Outpatient (AMB) | payer MEDICARE, SELFPAY ==
--- OUTSIDE RECORDS SUMMARY | 2024-02-28 07:20 | XMS_ITS ---
Author Organization [facility] Address [address] [place] [address] Care Team Providers Care Sewer Pipe Layer Helper Name Role Phone Antoine Kendrick MD Primary Care Provider Lan Adkins Unavailable [phone] REASON FOR VISIT screening,hx polyps,gerd,oakes's Problems Problem Type SNOMED Code ICD Code Onset Dates Problem Status W/U Status Risk Notes Problem Diverticular disease of colon (754292266) Diverticulosis of large intestine without perforation or abscess without bleeding (K57.30) Active confirmed Problem Oakes esophagus (917680855) Aokes esophagus (K22.70) Active confirmed Encounters Encounter Location Date Provider Diagnosis [facility] [place] [address] [place], [place] [phone] 02/28/2024 Lan Melvin Colon cancer screeni ng [...] * DEMI GOEL RDOB: (74 yo M)Acc No.[id number]:02/28/2024 EGD and COL/MAC Patient: DEMI DICKINSON Provider: Xavi Melvin MD :1950 A ge:73 Y S ex:Male Date:02/28/2024 Address:[address] [place], [place] [phone] Pcp:Antoine Kendrick MD Subjective: * Chief Complaints: * 1 . [...] FLW-UP 10 YRS DOCD, Modifiers: 1P , 41450 UPPER GI ENDOSCOPY, BIOPSY * * The named appointment provid er may or may not be the originator of this progress note, and it is not deemed complete until electronically signed by the appointment provider. Sign off status: Pending * Provider: Xavi Melvin MD Date: 0 02/28/2024 Generated for Heidi haley/Avery/eTransmitting on: 0 01/28/2025 10:25 AM EDT
[2025-01-28 09:33] VITALS: BP 132/70; PULSE 75; O2SAT 97; BMI 25.5
--- NOTE | 2025-01-28 09:33 | MHC.OFFVIS ---
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: No Allergies No Known Allergies (No Known Allergies*) Allergy (Verified 01/28/25 09:58) Medication List - Last Reconciled 01/28/25 by Grupo Rosado MD doxazosin 2 mg PO BEDTIME doxazosin (Cardura) 1 mg PO BEDTIME ferrous sulfate (Feosol) 325 mg PO BID folic acid 1 mg PO DAILY losartan 100 mg PO DAILY multivitamin 1 tab PO DAILY nifedipine ER 60 mg PO DAILY omeprazole 20 mg PO DAILY potassium chloride ER 10 mEq PO DAILY zolpidem 5 mg PO BEDTIME PRN Do you need a note to return to daycare/school/sports/work: No HPI HPI Obstructive sleep apnea: Details: 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 THIS GENTLEMAN HAD SYMPTOMS OF DAYTIME SLEEPINESS, SNORING AND POOR SLEEP AT NIGHT BACK IN 2011, A HOME-BASED SLEEP STUDY AT THAT TIME WAS NOT SUCCESSFUL BECAUSE HE COULD NOT SLEEP. HE HAD A HOME-BASED SLEEP STUDY IN 2014, WHICH WAS STRONGLY POSITIVE FOR SLEEP APNEA. HE WAS STARTED ON CPAP THERAPY, AND SINCE THEN HAS BEEN USING CPAP REGULARLY. HIS BMI WAS 29 AT THAT TIME. I NOTICED THAT HE HAD A HOME-BASED SLEEP STUDY ON 05/29/2022, AND HE HAD TOTAL SLEEP TIME AHI 3.8, ONLY IN SUPINE POSITION AHI WAS 18 . ANYWAY HE KEPT ON USING THE CPAP UP UNTIL NOW. TODAY HE STATES THAT THE MASK IS SOMEWHAT ON COMFORTABLE TO USE AT NIGHT, HE ALSO GETS DISTURBED BY THE STRAPS, AND HE IS NOT SLEEPING THAT WELL. HE DENIES ANY DAYTIME SLEEPINESS AND REMAINS ACTIVE DURING THE DAYTIME. THIS GENTLEMAN HAS HAD HISTORY OF BRADYCARDIA, DURING SPRING OF THIS YEAR WAS DIAGNOSED TO HAVE SECOND-DEGREE AV BLOCK AND HAS HAD A DEMAND PACEMAKER INSTALLED. SINCE THEN HE IS DOING WELL, HE WAS TOLD NOT TO DRIVE UP UNTIL FEBRUARY 10 , . WHICH IS NOW AROUND THE CORNER AN ECHOCARDIOGRAM PERFORMED IN DECEMBER OF THIS YEAR, SHOWED PULMONARY HYPERTENSION WITH RVSP 63. THIS THE 1ST TIME THE INCREASED PRESSURE WAS NOTED. HE IS GOING TO HAVE A REPEAT ECHOCARDIOGRAM IN THE NEXT FEW MONTHS, AND IT WILL BE INTERESTING TO NOTE IF THE HIS PRESSURE HAS IMPROVED. HE DOES NOT HAVE ANY CHRONIC LUNG DISEASE , AND DENIES ANY DYSPNEA ON EXERTION COUGH OR WHEEZING. HAS HISTORY OF SMOKING FOR 10-15 YEARS BUT QUIT 30 YEARS AGO. [facility] Medical History (Updated 01/28/25 @ 10:16 by Grupo Rosado MD) Pulmonary hypertension History of Clay's esophagus Hiatal hernia GERD (gastroesophageal reflux disease) ILYA on CPAP PVCs (premature ventricular contractions) Essential hypertension Heart block AV second degree Surgical History H/O thumb surgery History of total right knee replacement (TKR) Hx of blepharoplasty Hx of cataract extraction History of surgery on arm History of esophagogastroduodenoscopy (EGD) Hx of colonoscopy (~02/28/24) History of inguinal hernia repair History of appendectomy Family History Father No problems noted. Mother No problems noted. 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 Cognitive needs: No Hearing needs: No Vision needs: Yes (reading glasses) Review of Systems Const All systems reviewed & are unremarkable except as noted in HPI and below Eyes Reports no additional complaints ENT Reports no additional complaints Card Denies chest pain, Denies syncope, Denies irregular heart rhythm, Denies leg edema and Reports other (HAS A DEMAND PACEMAKER IN PLACE) Resp Reports as per HPI GI Reports no additional complaints Reports no additional complaints Musc Reports no additional complaints Skin/Breast Reports breast skin changes Neuro Reports no additional complaints and Denies syncope Physical Exam Vital Signs: Last Vital Signs Pulse 75 01/28/25 09:33 BP 132/70 01/28/25 09:33 Pulse Ox 97 01/28/25 09:33 Oxygen Delivery Method Room Air 01/28/25 09:33 BMI result Body Mass Index 25.5 Const General: healthy appearing, comfortable, no acute distress, alert and awake Orientation/consciousness: patient oriented x3 HEENT Head: Yes normal to inspection General nose exam: No nasal polyps present and No nasal discharge present Face and sinus: Yes sinuses nontender Mouth: oropharynx normal Throat: Yes posterior oropharynx normal Eyes General: appearance normal, both eyes and all related structures Neck Neck: Yes normal visual inspection, Yes no lymphadenopathy, Yes trachea midline and Yes no JVD Thyroid: Thyroid normal Chest Chest palpation & inspection: normal inspection of the chest, normal palpation of entire chest wall and no tenderness Resp Effort & Inspection: normal respiratory effort Auscultation: clear to auscultation bilaterally, no crackles, no rhonchi and no wheezes Cardio Palpation: normal PMI Rate: regular rate Rhythm: regular rhythm Heart sounds: no gallops and no murmurs Peripheral pulses: Peripheral pulses 2+ throughout GI Palpation (GI): Soft to palpation, nontender, No hepatosplenomegaly present and no masses Auscultation: normal bowel sounds Back/Spine/Pelvis Thoracic/Lumbar Spine: thoracic and lumbar spine normal to inspection Skin General skin exam: no rashes or lesions noted Neuro General: patient oriented x3 and no focal motor deficits Cranial nerves: Yes CN's II-XII intact bilaterally Extrem General: Yes normal to inspection, Yes no clubbing, cyanosis or edema and Yes no calf tenderness Psych Appearance: grossly normal and well kempt Speech and movement: Normal speech and movement present Results Reviewed Results Reviewed: THE RESULTS OF POLYSOMNOGRAM STUDY IN 2014 WERE REVIEWED, C/W SEVERE ILYA, RESPONDED WELL TO CPAP. RESULTS OF HOME-BASED SLEEP STUDY ON 05/29/2022 REVIEWED ; TOTAL SLEEP TIME AHI 3.8 SUPINE POSITION AHI 18 LATERAL POSITION AHI 0.4 ( NEGATIVE FOR SLEEP APNEA EXCEPT IN SUPINE POSITION) Assessment & Plan Assessment & Plan (1) ILYA on CPAP: Comment: HISTORY OF ILYA IS SINCE HER LEAST 2014. HAS BEEN USING CPAP VERY REGULARLY. HAD A NEW REPLACEMENT MACHINE IN 2021. HOME-BASED SLEEP STUDY IN 2021 WAS ACTUALLY NEGATIVE FOR SLEEP APNEA EXCEPT IN SUPINE POSITION. Code(s): G47.33 - Obstructive sleep apnea (adult) (pediatric); Z99.89 - Dependence on other enabling machines and devices Category: Medical Plan: DISCUSSED WITH HIM THE RESULTS OF PREVIOUS SLEEP STUDIES AND ESPECIALLY THE STUDY IN 2021 HE HAS GRADUALLY LOST WEIGHT, CURRENTLY HIS WEIGHT/BMI ARE NORMAL I THINK HE MAY NOT HAVE ANY SIGNIFICANT RESIDUAL SLEEP APNEA AT THIS TIME.. THUS I WOULD LIKE TO GET A HOME-BASED SLEEP STUDY ONCE AGAIN AND THEN DECIDE IF HE SHOULD KEEP ON USING THE CPAP OR NOT. (2) Pulmonary hypertension: Comment: PULMONARY HYPERTENSION WITH RVSP 63 MMHG WAS NOTED IN HIS RECENT ECHOCARDIOGRAM. HE DOES NOT HAVE ANY SPECIFIC SYMPTOMS RELATED TO THAT. HE IS GOING TO HAVE A REPEAT ECHOCARDIOGRAM AFTER HE HAS HAD PACEMAKER, AND IT WILL BE INTERESTING TO SEE IF HE STILL HAS PULMONARY HYPERTENSION. Code(s): I27.20 - Pulmonary hypertension, unspecified Category: Medical Plan: COMPLETE PULMONARY FUNCTION TEST IS ORDERED TO RULE OUT ANY ELEMENT OF OBSTRUCTIVE OR RESTRICTIVE PULMONARY DISORDER. Orders: Orders RT home sleep study Today G47.33 - Obstructive sleep apnea (adult) (pediatric), I27.20 - Pulmonary hypertension, unspecified, Z99.89 - Dependence on other enabling machines and devices Coding Level of Care Code New Pt Level 3 (22384) Diagnoses ILYA on CPAP G47.33; Z99.89 Pulmonary hypertension I27.20
== END 2025-01-28 09:58 | disposition home or self-care (01) ==
LOC: HO.HPS 09:25
PROVIDERS: PCP Internal Medicine; Visit Provider Internal Medicine
DX: G47.33 Obstructive sleep apnea (adult) (pediatric) (principal); Z99.89 Dependence on other enabling machines and devices; I27.20 Pulmonary hypertension, unspecified
CPT/HCPCS: 99203

== ENCOUNTER → 2025-01-28 09:25 | Outpatient (BNVA) | payer MEDICARE, SELFPAY | PROVIDERS: PCP Internal Medicine; Visit Provider Internal Medicine | DX: G47.33 Obstructive sleep apnea (adult) (pediatric) (principal); I27.20 Pulmonary hypertension, unspecified; Z99.89 Dependence on other enabling machines and devices | CPT/HCPCS: 99202 ==

== ENCOUNTER → 2025-02-27 23:59 | Outpatient (BNV) | payer MEDICARE, SELFPAY ==
--- NOTE | 2025-03-07 10:01 | MHC.OFFVIS ---
Intake Visit Reasons: remote device check- [employer] Allergies No Known Allergies (No Known Allergies*) Allergy (Verified 03/04/25 10:09) [facility] Medical History Pulmonary hypertension History of Clay's esophagus Hiatal hernia GERD (gastroesophageal reflux disease) ILYA on CPAP PVCs (premature ventricular contractions) Essential hypertension Heart block AV second degree Surgical History H/O thumb surgery History of total right knee replacement (TKR) Hx of blepharoplasty Hx of cataract extraction History of surgery on arm History of esophagogastroduodenoscopy (EGD) Hx of colonoscopy (~02/28/24) History of inguinal hernia repair History of appendectomy Family History Father No problems noted. Mother No problems noted. 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 Overall normal device function. [id number] Cardiac Device Interrogation, pacemaker Procedure code (CPT) selection complete Assessment & Plan Assessment & Plan (1) Pacemaker: Code(s): Z95.0 - Presence of cardiac pacemaker Category: Medical (2) Heart block AV second degree: Code(s): I44.1 - Atrioventricular block, second degree Category: Medical Plan x Coding Level of Care Code Procedure Only Diagnoses Pacemaker Z95.0 Heart block AV second degree I44.1 CPT Codes Cardiac Device Check - Cardiac Device 12: [id number] Cardiac Device Interrogation, pacemaker ([id number])
== END ==
PROVIDERS: PCP Internal Medicine; Visit Provider Internal Medicine
DX: I44.1 Atrioventricular block, second degree (principal); Z95.0 Presence of cardiac pacemaker
CPT/HCPCS: 93294

== ENCOUNTER 2025-03-03 07:39 | Outpatient (REF) | payer MEDICARE, SELFPAY ==
[2025-03-03 07:33] VITALS: PULSE 59; O2SAT 97
--- NOTE | 2025-03-03 14:32 | PFT_ITS ---
Indication: Dyspnea Spirometry FEV1 to FVC 74%; FEV1 2.96 L; FVC 4.01 L. No significant response to bronchodilators noted. Lung Volumes Total lung capacity 79% predicted Diffusion Capacity DLCO 51% predicted; DLCO corrected for alveolar volume 58% predicted Comparisons None Interpretation No obstructive ventilatory defects. No significant response to bronchodilators noted. The patient does have a very mild restrictive ventilatory defects suggesting restrictive lung disease. In addition to that does have a moderate diffusion impairment. Need to consider underlying interstitial lung conditions and/or pulmonary vascular disease. Should corrected for hemoglobin. Clinical correlation warranted. MTDD
== END 2025-03-03 07:40 | disposition home or self-care (01) ==
LOC: HO.RESP 07:39
PROVIDERS: PCP Internal Medicine; Visit Provider Internal Medicine
DX: I27.20 Pulmonary hypertension, unspecified (principal)
CPT/HCPCS: 94010; 94640; 94727; 94729

== ENCOUNTER → 2025-03-03 14:32 | Outpatient (BNV) | payer MEDICARE, SELFPAY | PROVIDERS: PCP Internal Medicine; Visit Provider Hospitalist | DX: R06.00 Dyspnea, unspecified (principal) | CPT/HCPCS: 94060; 94727; 94729 ==

== ENCOUNTER 2025-03-04 09:40 | Outpatient (AMB) | payer MEDICARE, SELFPAY ==
--- OUTSIDE RECORDS SUMMARY | 2024-02-28 07:20 | XMS_ITS ---
Author Organization [facility] Address [address] [place] [address] Care Team Providers Care International Trade Teacher Name Role Phone Aroldo (RETIRED) Antoine SOARES Primary Care Provide r Unavailable Lan Melvin Unavailable [phone] REASON FOR VISIT screening,hx polyps,gerd,oakes's Problems Problem Type SNOMED Code ICD Code Onset Dates Problem Status W/U Status Risk Notes Problem Diverticular disease of colon (311342222) Diverticulosis of large intestine without perforation or abscess without bleeding (K57.30) Active confirmed Problem Oakes esophagu s (K22.70) Active confirmed Encounters Encounter Location Date Provider Diagnosis [facility] [place] [address] [place] [phone] 02/28/2024 Lan Melvin Colon cancer screeni ng [...] * DEMI GOEL RDOB: (74 yo M)Acc No.[id number]:02/28/2024 EGD and COL/MAC Patient: DEMI DICKINSON Provider: Xavi Melvin MD :1950 A ge:73 Y S ex:Male Date:02/28/2024 Address:[address] [place], [place] [phone] Pcp:Antoine Kendrick (RETIRED )MD Subjective: * Chief [...] FLW-UP 10 YRS DOCD, Modifiers: 1P , 57994 UPPER GI ENDOSCOPY, BIOPSY * * The named appointment provid er may or may not be the originator of this progress note, and it is not deemed complete until electronically signed by the appointment provider. Sign off status: Pending * Provider: Xavi Melvin MD Date: 0 02/28/2024 Generated for Heidi haley/Avery/Jenniffersmitting on: 0 03/04/2025 10:07 AM EDT
--- NOTE | 2025-03-04 09:46 | A.OFFVIS_ITS ---
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: No Allergies No Known Allergies (No Known Allergies*) Allergy (Verified 03/04/25 10:09) Medication List - Last Reconciled 03/04/25 by Grupo Rosado MD doxazosin 2 mg PO BEDTIME doxazosin (Cardura) 1 mg PO BEDTIME ferrous sulfate (Feosol) 325 mg PO BID folic acid 1 mg PO DAILY losartan 100 mg PO DAILY multivitamin 1 tab PO DAILY nifedipine ER 60 mg PO DAILY omeprazole 20 mg PO DAILY potassium chloride ER 10 mEq PO DAILY zolpidem 5 mg PO BEDTIME PRN Do you need a note to return to daycare/school/sports/work: No HPI HPI Obstructive sleep apnea: Details: 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 HE DENIES COUGH SHORTNESS OF BREATH OR WHEEZING. HE HAS HAD A CARDIAC PACEMAKER BECAUSE OF HEART BLOCK. HE DOES NOT HAVE ANY CONGESTIVE HEART FAILURE, HIS ECHOCARDIOGRAM DID SHOW MILD TO MODERATE DEGREE OF PULMONARY HYPERTENSION. HE IS SCHEDULED TO HAVE A REPEAT ECHOCARDIOGRAM IN THE NEXT FEW MONTHS. HE HAS PAST HISTORY OF OBSTRUCTIVE SLEEP APNEA, HAS LOST CONSIDERABLE WEIGHT AND HIS LAST SLEEP STUDY IN 2021 SHOWED THAT HE DOES NOT HAVE ANY RESIDUAL SLEEP APNEA. HOWEVER HE HAS CONTINUE TO USE THE CPAP BECAUSE HE FINDS , THAT HE SLEEPS BETTER WITH THE CPAP. TO DETERMINE WHETHER HE STILL HAS SLEEP APNEA NOT HE IS GOING TO HAVE ANOTHER REPEAT STUDY IN THE NEXT 2 MONTHS. FORMERLY [facility] Medical History Pulmonary hypertension History of Clay's esophagus Hiatal hernia GERD (gastroesophageal reflux disease) ILYA on CPAP PVCs (premature ventricular contractions) Essential hypertension Heart block AV second degree Surgical History H/O thumb surgery History of total right knee replacement (TKR) Hx of blepharoplasty Hx of cataract extraction History of surgery on arm History of esophagogastroduodenoscopy (EGD) Hx of colonoscopy (~02/28/24) History of inguinal hernia repair History of appendectomy Family History Father No problems noted. Mother No problems noted. 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 Cognitive needs: No Hearing needs: No Vision needs: Yes (reading glasses) Review of Systems Const All systems reviewed & are unremarkable except as noted in HPI and below Eyes Reports no additional complaints ENT Reports no additional complaints Card Denies chest pain, Denies syncope, Denies irregular heart rhythm, Denies leg edema and Reports other (HAS A DEMAND PACEMAKER IN PLACE) Resp Reports as per HPI GI Reports no additional complaints Reports no additional complaints Musc Reports no additional complaints Skin/Breast Reports breast skin changes Neuro Reports no additional complaints and Denies syncope Physical Exam Vital Signs: Last Vital Signs Pulse 83 03/04/25 09:47 BP 140/68 H 03/04/25 09:47 Pulse Ox 97 03/04/25 09:47 Oxygen Delivery Method Room Air 03/04/25 09:47 BMI result Body Mass Index 25.5 Const General: healthy appearing, comfortable, no acute distress, alert and awake Orientation/consciousness: patient oriented x3 HEENT Head: Yes normal to inspection General nose exam: No nasal polyps present and No nasal discharge present Face and sinus: Yes sinuses nontender Mouth: oropharynx normal Throat: Yes posterior oropharynx normal Eyes General: appearance normal, both eyes and all related structures Neck Neck: Yes normal visual inspection, Yes no lymphadenopathy, Yes trachea midline and Yes no JVD Thyroid: Thyroid normal Chest Chest palpation & inspection: normal inspection of the chest, normal palpation of entire chest wall and no tenderness Resp Effort & Inspection: normal respiratory effort Auscultation: clear to auscultation bilaterally, no crackles, no rhonchi and no wheezes Cardio Palpation: normal PMI Rate: regular rate Rhythm: regular rhythm Heart sounds: no gallops and no murmurs Peripheral pulses: Peripheral pulses 2+ throughout GI Palpation (GI): Soft to palpation, nontender, No hepatosplenomegaly present and no masses Auscultation: normal bowel sounds Back/Spine/Pelvis Thoracic/Lumbar Spine: thoracic and lumbar spine normal to inspection Skin General skin exam: no rashes or lesions noted Neuro General: patient oriented x3 and no focal motor deficits Cranial nerves: Yes CN's II-XII intact bilaterally Extrem General: Yes normal to inspection, Yes no clubbing, cyanosis or edema and Yes no calf tenderness Psych Appearance: grossly normal and well kempt Speech and movement: Normal speech and movement present Results Reviewed Results Reviewed: PULMONARY FUNCTION TEST ON 03/03, THE FLOW VOLUMES ARE ALL NORMAL SO THERE IS NO OBSTRUCTIVE AIRWAY DISORDER. TOTAL LUNG CAPACITY 79% AND RV 68%, INDICATING MILD RESTRICTIVE PULMONARY DISORDER. DLCO 51% DL/VA 58% CHEST X-RAY ON 11/11 IMPRESSION: Left-sided pacemaker placement with 2 intact electrode leads in the right heart chambers. No pneumothorax. Mild interstitial lung edema and questionable right-sided pleural effusion. Cardiomegaly versus pericardial effusion. Assessment & Plan Assessment & Plan (1) ILYA on CPAP: Comment: HISTORY OF ILYA IS SINCE HER LEAST 2014. HAS BEEN USING CPAP VERY REGULARLY. HAD A NEW REPLACEMENT MACHINE IN 2021. HOME-BASED SLEEP STUDY IN 2021 WAS ACTUALLY NEGATIVE FOR SLEEP APNEA EXCEPT IN SUPINE POSITION. PATIENT SCHEDULED TO HAVE ANOTHER SLEEP STUDY AT THE END OF . Code(s): G47.33 - Obstructive sleep apnea (adult) (pediatric); Z99.89 - Dependence on other enabling machines and devices Category: Medical Plan: ADVISED TO CONTINUE USING CPAP AT THIS TIME, BUT WILL DECIDE AFTER THE NECK SLEEP STUDY IF HE STILL NEEDS TO CONTINUE USING IT. (2) Pulmonary hypertension: Comment: PULMONARY HYPERTENSION WITH RVSP 63 MMHG WAS NOTED IN HIS RECENT ECHOCARDIOGRAM. HE DOES NOT HAVE ANY RESPIRATORY SYMPTOMS, CHEST X-RAY DOES SUGGEST CARDIOMEGALY AND MINIMAL INTERSTITIAL DISEASE IN THE LOWER LOBE . Code(s): I27.20 - Pulmonary hypertension, unspecified Category: Medical Plan: I THINK AT PRESENT USE OF CPAP AT NIGHT IS HELPFUL. WILL CHECK THE RESULTS OF REPEAT ECHOCARDIOGRAM . Coding Level of Care Code Est Pt Level 3 (99733) Diagnoses ILYA on CPAP G47.33; Z99.89 Pulmonary hypertension I27.20
[2025-03-04 09:47] VITALS: BP 140/68; PULSE 83; O2SAT 97; BMI 25.5
--- OUTSIDE RECORDS SUMMARY | 2025-03-04 10:07 | XMS_ITS | Patient Health Record ---
[facility] Address [address] [place] [place] [address] Care Team Providers Care Supervisor [employer] Name Role Phone Breanne Amezcua MD Primary Care Provider Shahla Chris Unavailable [phone] Allergies No Known Allergies Reason For Referral No Information Medications Medication SIG (Take, Route, Frequency, Duration) Notes Start Date End Date Status Omeprazole 20 MG Orally Act christian NIFEdipine ER 60 MG 1 tablet on an empty stomach Orally Once a day Active Iron bid Active Multivitamin Active Zolpidem Tartrate 5 MG Orally prn Active Ammonium Lactate 12 % APPLY TO AFFECTED AREA(S) OF FEET TWO TIMES A DAY; Duration: 70 Active Doxazosin Mesylate 2 MG Oral; Duration: 90 Days Active Ciclopirox Olamine 0.77 % 1 application to affected area Externally to feet Twice a day; Duration: 30 days Not-Taking Losartan Potassium 100 MG as directed Orally Active Ciclopirox Olamine 0.77 % 1 application to affected area Externally to feet Twice a day; Duration: 30 days Active Potassium 10 meq Active Folic Acid 1 MG Orally Acti ve Immunizations Vaccine Route Administration Date Status Comme nts Influenza Unknown 04/05/2024 Administered COVID-19 Pfizer BioNTech Vaccine Unknown 07/26/2020 Administered [...] Problem Status W/U Status Risk Notes Problem Non-pressure ulcer of left lower extremity, limited to breakdown of skin (L97.921) Active confirmed Problem Acquired hammer toe of right foot (2328310514338 105) Hammer toe of right foot (M20.41) Active confirmed Problem Acquired hammer toe of left foot (6714073711266 103) Hammer toe of left foot (M20.42) Active confirmed Vital Signs Blood pressure diastolic 50 mm Hg 01/26/2025 Height 6ft in 01/26/2025 Blood pressure systolic 125 mm Hg 01/26/2025 Weight 185 lbs 01/26/2025 BMI 25.09 kg/m2 01/26/2025 Encounters Encounter Location Date Provider Diagnosis [address] [address] 05/05/2024 Shahla Perica Tinea pedis B35.3 ; Pain in right toe(s) M79.674 ; Pain in left toe(s) M79.675 and Tinea unguium B35.[address] [address] 07/21/2024 Shahla Perica Tinea pedis B35.3 ; Pain in right toe(s) M79.674 ; Pain in left toe(s) M79.675 ; Tinea unguium B35.1 and Xerosis cutis L85.[address] [address] 10/27/2024 Shahla Perica Pain in right toe(s) M79.674 ; Tinea unguium B35.1 and Pain in left toe(s) M79.[address] [address] 01/26/2025 Shahla Rosas Onychomycosis B35.1 ; Tinea pedis of both feet B35.3 ; Pain in right toe(s) M79.674 and Pain in left toe(s) M79.675 Assessments Encounter Date Diagnosis (ICD Code) Assessment Notes Treatment Notes Treatment Clinical Notes Section Notes 05/05/2024 Tinea pedis (ICD-10 - B35.3) 07/21/2024 Tinea pedis (ICD-10 - B35.3) 10/27/2024 Tinea unguium (ICD-10 - B35.1) 10/27/2024 Pain in right toe(s) (ICD-10 - M79.674) 07/21/2024 Pain in right toe(s) (ICD-10 - M79.674) 01/26/2025 Onychomycosis (ICD-10 - B35.1) 01/26/2025 Tinea pedis of both feet (ICD-10 - B35.3) 07/21/2024 Pain in left toe(s) (ICD-10 - M79.675) 01/26/2025 Pain in right toe(s) (ICD-10 - M79.674) 10/27/2024 Pain in left toe(s) (ICD-10 - M79.675) 05/05/2024 Pain in right toe(s) (ICD-10 - M79.674) 05/05/2024 Pain in left toe(s) (ICD-10 - M79.675) 07/21/2024 Tinea unguium (ICD-10 - B35.1) 01/26/2025 Pain in left toe(s) (ICD-10 - M79.675) 07/21/2024 Xerosis cutis (ICD-10 - L85.3) 05/05/2024 Tinea unguium (ICD-10 - B35.1) Plan Of Treatment Pending Test Test Name Order Date X ray : Foot, left 3V 12/06/2020 Next Appt Details Provider Name:Shahla persaud, 04/20/2025 03:30:00 PM, [address] [place], [address], Insurance Providers Payer Name Payer Address Payer Phone Subscriber Number Group Number Insured Name Patient Relationship to Insured Coverage Start Date Coverage End Date Medicare National Govt Svcs Inc [address] [place] [address] [id number] Masno Blum Self - patient is the insured [employer] [address] [place] [address] [id number] Trevor arandaMason Self - patient is the insured Medical (General) History Medical History History ICD Code Knee Pain Hypertension Surgical History Surgery Date(Month/Year) knee replacement 10/2013, 2016 hernia 01/2018 appendix 10/2014 colonoscopy/endoscopy 07/2020 colonoscopy 02/2024 pacemaker 11/11/24
--- OUTSIDE RECORDS SUMMARY | 2025-03-04 10:08 | XMS_ITS | Clinical Summary ---
Author Organization [address] [facility] Address [address] [place] [address] Phone Care Team Providers Care Cytotechnologist/Cytology Supervisor Name Role Phone Antoine Kendrick MD Primary Care Provider [phone] Allergies No known active allergies Medications losartan [...] Panel) 06/19/2024 Colorectal Cancer Screening: Colonoscopy 06/19/2024 Falls Risk Assessment 06/19/2024 Hepatitis C Screening 06/19/2024 Medicare Annual Wellness Visit 06/19/2024 Social Influencers of Health Screening 06/19/2024 Hypertension/CHF/CAD Annual BMP Blood Test 07/09/2024 Depression Screening 08/05/2024 COVID-19 Vaccine ( season) 2024 04/30/2024, 11/19/2023, 04/30/2023, Additional history exists Influenza Vaccine (#1) 2025 Zoster Vaccines Completed 02/18/2019, 11/06/2018 RSV [...] complete this topic Insurance MEDICARE Care Teams Cytotechnologist/Cytology Supervisor Relationship Specialty Start Date End Date Antoine Kendrick MD [address] [place] [address] Dr Rebecca [place] PCP - General Internal Medicine 07/09/24
== END 2025-03-04 10:09 | disposition home or self-care (01) ==
LOC: HO.HPS 09:41
PROVIDERS: PCP Internal Medicine; Visit Provider Internal Medicine
DX: G47.33 Obstructive sleep apnea (adult) (pediatric) (principal); Z99.89 Dependence on other enabling machines and devices; I27.20 Pulmonary hypertension, unspecified
CPT/HCPCS: 99213

== ENCOUNTER → 2025-03-04 09:40 | Outpatient (BNVA) | payer MEDICARE, SELFPAY | PROVIDERS: PCP Internal Medicine; Visit Provider Internal Medicine | DX: G47.33 Obstructive sleep apnea (adult) (pediatric) (principal); Z99.89 Dependence on other enabling machines and devices; I27.20 Pulmonary hypertension, unspecified; Z87.891 Personal history of nicotine dependence | CPT/HCPCS: 99212 ==

== ENCOUNTER 2025-04-01 07:48 | Outpatient (REF) | payer MEDICARE, SELFPAY ==
--- OUTSIDE RECORDS SUMMARY | 2024-01-17 07:30 | XMS_ITS ---
Author Organization [facility] Address [address] [place] [address] Care Team Providers Care Promotional Representative Name Role Phone Aroldo (RETIRED) Antoine SOARES Primary Care Provide Lan Mays [phone] REASON FOR VISIT screening,hx polyps,gerd,oakes's Encounters Encounter Location Date Provider Diagnosis [facility] [place] [address] [place] [address] [place] [phone] 01/17/2024 Lan Melvin Plan Of Treatment No Information Progress Notes * DEMI GOEL RDOB: (74 yo M)Acc No.[id number]:01/17/2024 EGD and COL/MAC Patient: Galen DEMI TELLEZ Provider: Xavi Melvin MD :1950 A ge:73 Y S ex:Male Date:01/17/2024 Address: [address] [id number] Pcp:Antoine Kendrick (RETIRED )MD Subjective: * Chief [...] 01/17/2024 Generated for Heidi haley/Avery/eTransmitting on: 0 04/01/2025 07:52 AM EDT
--- OUTSIDE RECORDS SUMMARY | 2024-02-28 07:20 | XMS_ITS ---
Author Organization [facility] Address [address] [place] [address] Care Team Providers Care Appraiser [employer] Name Role Phone Aroldo (RETIRED) Antoine SOARES Primary Care Provide r Unavailable Lan Melvin Unavailable [phone] REASON FOR VISIT screening,hx polyps,gerd,oakes's Problems Problem Type SNOMED Code ICD Code Onset Dates Problem Status W/U Status Risk Notes Problem Diverticular disease of colon (423390185) Diverticulosis of large intestine without perforation or abscess without bleeding (K57.30) Active confirmed Problem Oakes esophagus (855467835) 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 Encounters Encounter Location Date Provider [place] [facility] [place] [address] [place] [phone] 02/28/2024 Lan Melvin Colon cancer screeni ng [...] * DEMI GOEL RDOB: (74 yo M)Acc No.[id number]:02/28/2024 EGD and COL/MAC Patient: DEMI DICKINSON Provider: Xavi Melvin MD :1950 A ge:73 Y S ex:Male Date:02/28/2024 Address:[address] [place], [place] [phone] Pcp:Antoine Kendrick (RETIRED )MD Subjective: * Chief [...] FLW-UP 10 YRS DOCD, Modifiers: 1P , 91541 UPPER GI ENDOSCOPY, BIOPSY * * The named appointment provid er may or may not be the originator of this progress note, and it is not deemed complete until electronically signed by the appointment provider. Sign off status: Pending * Provider: Xavi Melvin MD Date: 0 02/28/2024 Generated for Heidi haley/Avery/eTransmitting on: 0 04/01/2025 07:51 AM EDT
--- OUTSIDE RECORDS SUMMARY | 2025-04-01 07:52 | XMS_ITS | Clinical Summary ---
Author Organization [facility] Address [address] [place] [address] Phone Care Team Providers Care Subsorter Name Role Phone Antoine Kendrick MD Primary Care Provider [phone] Allergies No known active allergies Medications losartan [...] complete this topic Insurance MEDICARE Care Teams Subsorter Relationship Specialty Start Date End Date Antoine Kendrick MD [address] [place] [address] Dr Rebecca [place] PCP - General Internal Medicine 07/09/24
--- OUTSIDE RECORDS SUMMARY | 2025-04-01 07:52 | XMS_ITS | Patient Health Record ---
[facility] Address [address] [place] [address] Care Team Providers Care Visual Merchandising Specialist Name Role Phone Breanne Amezcua MD Primary Care Provider Shahla Chris Unavailable [phone] Allergies No Known Allergies Reason For Referral [...] Problem Acquired hammer toe of right foot (2445027309590 105) Hammer toe of right foot (M20.41) Active confirmed Problem Acquired hammer toe of left foot (2276976740707 103) Hammer toe of left foot (M20.42) Active confirmed Vital Signs Blood pressure diastolic 50 mm Hg 01/26/2025 Height 6ft in 01/26/2025 Blood pressure systolic 125 mm Hg 01/26/2025 Weight 185 lbs 01/26/2025 BMI 25.09 kg/m2 01/26/2025 Encounters Encounter Location Date Provider Diagnosis [address] [address] 05/05/2024 Shahla Perica Tinea pedis B35.3 ; Pain in right toe(s) M79.674 ; Pain in left toe(s) M79.675 and Tinea unguium B35.[address] [address] 07/21/2024 Shahla Perica Tinea pedis B35.3 ; Pain in right toe(s) M79.674 ; Pain in left toe(s) M79.675 ; Tinea unguium B35.1 and Xerosis cutis L85.[address] [address] 10/27/2024 Shahla Perica Pain in right toe(s) M79.674 ; Tinea unguium B35.1 and Pain in left toe(s) M79.[address] [address] 01/26/2025 Shahla Rosas Onychomycosis B35.1 ; Tinea [...] Provider Name:Shahla persaud, 04/20/2025 03:30:00 PM, [address] [place], [address], Insurance Providers Payer Name Payer Address Payer Phone Subscriber Number Group Number Insured Name Patient Relationship to Insured Coverage Start Date Coverage End Date Medicare National Govt Svcs Inc [address] [place] [address] [id number] Mason Blum Self - patient is the insured [employer] [address] [place] [address] [id number] Trevor arandaMason Self - patient is the insured Medical (General) History Medical History History ICD Code Knee Pain Hypertension Surgical History Surgery Date(Month/Year) knee replacement 10/2013, 2016 hernia 01/2018 appendix 10/2014 colonoscopy/endoscopy 07/2020 colonoscopy 02/2024 pacemaker 11/11/24
--- OUTSIDE RECORDS SUMMARY | 2025-04-01 07:52 | XMS_ITS | Patient Health Record ---
Author Organization [facility] Address [address] [place] [address] Care Team Providers Care Catalyst Recovery Operator Name Role Phone Aroldo (RETIRED) Antoine SOARES Primary Care Provide r Unavailable Lan Melvin Unavailable [phone] Allergies No Known Allergies Reason For Referral [...] Problem Status W/U Status Risk Notes Problem 308829511 Encounter for screening for malignant neoplasm of colon (Z12.11) Active confirmed Problem 532910447 History of adenomatous polyp of colon (Z86.010) Active confirmed Problem Diverticular disease of colon (343054016) Diverticulosis of large intestine without perforation or abscess without bleeding (K57.30) Active confirmed Problem 974162534 Gastroesophageal reflux disease without esophagitis (K21.9) Active confirmed Problem 377055244 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) Active confirmed Problem Clay esophagus (571268304) 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 Problem 59749433 Hypertension, unspecified type (I10) Active confirmed Plan Of Treatment Pending Test Test Name [...] Date MEDICARE OF [place] [address] [place] [address] [phone] [id number] DEMI CORRALES Self - patient is the insured [employer] CLAIMS [address] [place] [address] [id number] DEMI CORRALES Self - patient is the insured Medical (General) History Medical History History ICD Code HTN Screening colonoscopy 08/2004 neg except for hyperplastic polyps GERD--small to moderate-sized HH Clay's esophagus--EGD's i n 2004, 2007, 2010, 02/2014--no dysplasia, small area of Clay's, small hiatal hernia Denies UT,DM,CVA,Lung disease,renal dise ase Sleep apnea--uses CPAP Hx of pneumonia due to complications aft er an appy Colonoscopy in February of 2014- -hyperplastic polyps and one tubular adenoma, diverticulosis and internal hemorrhoids Negative screening colonoscopy in [facility] er 2019 Upper endoscopy in July 2019 with his known small area of Clay's esophagus with biopsies negative for dysplasia; small hiatal hernia noted; there was no esophagitis Surgical History Surgery Date(Month/Year) Hernia repair-bilateral inguinal Left arm surgery--broken arm Cataract-lens implants Eyes lift Right Knee replacement-- com plications- Staph---had multiple surgeries with the final new knee placed in the fall---Dr. Colunga Appendectomy---rupture/gangr enous appendix complicated with pneumonia--had an ileocolectomy with Dr. Krishnamurthy in 10/2015 hernia repair 02/2018
[2025-04-01 08:10] LABS: MANUAL DIFF FLAG NO
[2025-04-01 09:03] LABS: Hematocrit 40.3 % (42.0-52.0); Hemoglobin 14.7 g/dl (14.0-18.0); Imm Gran Abs Auto 0.02 X10*3/uL (0.00-0.03); Imm Gran Pct Auto 0.3 % (0.0-0.4); Lymphocytes Absolute Auto 1.2 X10*3/uL (1.2-4.9); Mean Corpuscular HGB Conc 36.5 g/dl (31.0-36.0); Mean Corpuscular Hemoglobin 33.3 pg (27.0-33.0); Mean Corpuscular Volume 91.4 fL (80.0-98.0); NRBC Abs Auto 0.000 X10*3/uL (0.0-0.012); NRBC Pct Auto 0.0 /100WBC (0.0-0.2); Platelet Count 214 X10*3/uL (160-400); Red Blood Count 4.41 X10*6/uL (4.60-5.80); White Blood Count 6.4 X10*3/uL (4.8-10.8)
[2025-04-01 09:34] LABS: Alanine Aminotransferase 21 U/L (0-40); Albumin Level 5.0 g/dL (3.5-5.0); Alkaline Phosphatase 116 U/L (39-117); Anion Gap 12 (12-20); Aspartate Amino Transferase 30 U/L (5-37); Blood Urea Nitrogen 18 mg/dL (9-16); Calcium 9.9 mg/dL (8.4-10.2); Carbon Dioxide 29 mmol/L (22-29); Chloride 100 mmol/L (96-108); Cholesterol 165 mg/dL (<200); Estimated Glomerular Filt Rate 56; HDL Cholesterol 66 mg/dL (>40); Potassium 4.2 mmol/L (3.3-5.1); Sodium 137 mmol/L (135-145); Total Protein 8.0 g/dL (6.5-8.0); Triglycerides 92 mg/dL (<150)
[2025-04-02 06:35] LABS: Lyme Abs Screen <0.90 index
== END 2025-04-01 07:49 | disposition home or self-care (01) ==
LOC: HO.LAB 07:48
PROVIDERS: PCP Internal Medicine; Visit Provider Internal Medicine
DX: G47.33 Obstructive sleep apnea (adult) (pediatric) (principal); I49.3 Ventricular premature depolarization; I10 Essential (primary) hypertension; Z95.0 Presence of cardiac pacemaker; Z99.89 Dependence on other enabling machines and devices
CPT/HCPCS: 36415; 80053; 80061; 84443; 85025; 86617; 86618

== ENCOUNTER 2025-04-09 08:51 | Outpatient (AMB) | payer MEDICARE, SELFPAY ==
--- OUTSIDE RECORDS SUMMARY | 2024-01-17 07:30 | XMS_ITS ---
Author Organization [facility] Address [address] [place] [address] Care Team Providers Care Wood Machine Carver Name Role Phone Aroldo (RETIRED) Antoine SOARES Primary Care Provide Lna Mays [phone] REASON FOR VISIT screening,hx polyps,gerd,oakes's Encounters Encounter Location Date Provider Diagnosis [facility] [place] [address] [place] [address] [place] [phone] 01/17/2024 Lan Melvin Plan Of Treatment No Information Progress Notes * DEMI GOEL RDOB: (74 yo M)Acc No.[id number]:01/17/2024 EGD and COL/MAC Patient: Galen DEMI TELLEZ Provider: Xavi Melvin MD :1950 A ge:73 Y S ex:Male Date:01/17/2024 Address: [address] [id number] Pcp:Antoine Kendrick (RETIRED )MD Subjective: * Chief [...] 01/17/2024 Generated for Heidi haley/Avery/eTransmitting on: 0 04/09/2025 09:22 AM EDT
--- OUTSIDE RECORDS SUMMARY | 2024-02-28 07:20 | XMS_ITS ---
Author Organization [facility] Address [address] [place] [address] Care Team Providers Care Data Communications Software Consultant Name Role Phone Aroldo (RETIRED) Antoine SOARES Primary Care Provide r Unavailable Lan Melvin Unavailable [phone] REASON FOR VISIT screening,hx polyps,gerd,oakes's Problems Problem Type SNOMED Code ICD Code Onset Dates Problem Status W/U Status Risk Notes Problem Diverticular disease of colon (306728877) Diverticulosis of large intestine without perforation or abscess without bleeding (K57.30) Active confirmed Problem Oakes esophagus (114679322) 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 Encounters Encounter Location Date Provider Diagnosis [facility] [place] [address] [place] [phone] 02/28/2024 Lan Melvin Colon cancer screeni ng [...] * DEMI GOEL RDOB: (74 yo M)Acc No.[id number]:02/28/2024 EGD and COL/MAC Patient: DEMI DICKINSON Provider: Xavi Melvin MD :1950 A ge:73 Y S ex:Male Date:02/28/2024 Address:[address] [place], [place] [phone] Pcp:Antoine Kendrick (RETIRED )MD Subjective: * Chief [...] FLW-UP 10 YRS DOCD, Modifiers: 1P , 17142 UPPER GI ENDOSCOPY, BIOPSY * * The named appointment provid er may or may not be the originator of this progress note, and it is not deemed complete until electronically signed by the appointment provider. Sign off status: Pending * Provider: Xavi Melvin MD Date: 0 02/28/2024 Generated for Heidi haley/Avery/eTransmitting on: 0 04/09/2025 09:21 AM EDT
--- NOTE | 2025-04-09 08:58 | MHC.PC.OV ---
Vital Signs 04/09/25 08:59 Height 5 ft 11 in Weight 185 lb 8 oz BMI 25.9 BP 126/72 Blood Pressure Location Rt brachial Position Sitting Respiration 14 Pulse 68 Pulse Source Pulse Oximeter Pulse Oximetry (%) 99 Oxygen Delivery Method Room Air Intake Visit Reasons: DAMIAN from [address] Intake Note: New patient visit Tufter Operator Required: No Allergies No Known Allergies (No Known Allergies*) Allergy (Verified 04/09/25 08:59) Tobacco use date assessed: 04/09/25 Fall risk assessment: No Falls in past year Last assessed Fall Risk: 04/09/25 Dental Screening Dental Screen Date: 12/10/24 HPI HPI Comments History of Present Illness Details 74 year old with past medical history of htn, bradycardia, GERD, barrets, ILYA, CKD OA presenting for follow up Insomnia: Stable on ambien CV: s/p PPM 11/11/24 for bradycardia. On losartan, nifedipine. Blood pressure is well controlled. Denies chest pain Had double endoscopy in 2023-repeat recommend in 5 years [facility] GI. On omeprazole ROS see HPI PHYSICAL EXAM: GENERAL: Alert and oriented x 3. NAD EYES: EOMI. Anicteric. HENT: Moist mucous membranes. No scleral icterus. No cervical lymphadenopathy. LUNGS: Clear to auscultation bilaterally. CARDIOVASCULAR: Regular rate and rhythm. No murmur. No JVD. ABDOMEN: Soft, non-tender +bs EXTREMITIES: No edema. Non-tender. SKIN: No rashes or lesions. Warm. NEUROLOGIC: No focal neurological deficits. CN II-XII grossly intact PSYCHIATRIC: Cooperative. Appropriate mood and affect [facility] Medical History Pulmonary hypertension History of Clay's esophagus Hiatal hernia GERD (gastroesophageal reflux disease) ILYA on CPAP PVCs (premature ventricular contractions) Essential hypertension Heart block AV second degree Surgical History H/O thumb surgery History of total right knee replacement (TKR) Hx of blepharoplasty Hx of cataract extraction History of surgery on arm History of esophagogastroduodenoscopy (EGD) Hx of colonoscopy (~02/28/24) History of inguinal hernia repair History of appendectomy Family History Father No problems noted. Mother No problems noted. 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 1. Little interest or pleasure in doing things: not at all 2. Feeling down, depressed, or hopeless: not at all 3. Trouble falling or staying asleep, or sleeping too much: not at all 4. Feeling tired or having little energy: not at all 5. Poor appetite or overeating: not at all 6. Feeling bad about yourself - or that you are a failure or have let yourself or your family down: not at all 7. Trouble concentrating on things, such as reading the newspaper or watching television: not at all 8. Moving or speaking so slowly that other people could have noticed. Or the opposite - being so fidgety or restless that you have been moving around a lot more than usual: not at all 9. Thoughts that you would be better off or of hurting yourself in some way: not at all Total score: 0 Depression Screening Interpretation: Negative Depression Screening Done: Yes 96101 - PHQ-9 Billing: Yes Source: Developed by Drs. Lan Bradford, Chata Martinez, Wilfredo Perez and colleagues, with an educational yifan from [employer]. Thrive Questionnaire Date Thrive assessed: 04/02/25 I am a: Patient What is your living situation today?: I have a steady place to live Within the past 12 months, did the food you bought not last and you didn't have the money to get more?: Never true Within the past 12 months, did you worry whether your food would run out before you got money to buy more?: Never true Do you have trouble paying for medicines?: No Do you have trouble getting transportation to medical appointments?: No Do you have trouble paying your heating and electricity bill?: No Do you have trouble taking care of your child, family member or friend?: No Do you have trouble with day-to-day activities such as bathing, preparing meals, shopping, managing finances, etc.?: No Are you currently unemployed and looking for a job?: No Are you interested in more education?: No Please select the resources that you would like help with: None Currently or been in a relationship where the following occur: No concerns reported THRIVE Score: 0 AUDIT C Alcohol Use Questionnaire (AUDIT-C) 1. How often do you have a drink containing alcohol?: 2-3 times a week 2. How many drinks containing alcohol do you have on a typical day when you are drinking?: 1 or 2 3. How often do you have six or more drinks on one occasion?: Less than monthly Total Score: 4 STACY-7 AMB Questionnaire STACY-7 Date STACY - 7 assessed: 12/10/24 Feeling nervous, anxious, or on edge: 0 = Not at all Not being able to stop or control worryin = Not at all Worrying too much about different things: 0 = Not at all Trouble relaxin = Not at all Being so restless that it is hard to sit still: 0 = Not at all Becoming easily annoyed or irritable: 0 = Not at all Feeling afraid as if something awful might happen: 0 = Not at all Total STACY-7 score (0-4 normal; 5-9 mild; 10-14 moderate; 15-21 severe): 0 Source: Developed by Drs. Lan Bradford, Chata Martinez, Wilfredo Perez and colleagues, with an educational yifan from [employer]. Physical exam (Primary Care) Vital Signs: Last Vital Signs Pulse 68 04/09/25 08:59 Resp 14 04/09/25 08:59 BP 126/72 04/09/25 08:59 Pulse Ox 99 04/09/25 08:59 Oxygen Delivery Method Room Air 04/09/25 08:59 BMI result Body Mass Index 25.9 Tobacco/Smoking Status: Tobacco use Status Tobacco use date assessed 04/09/25 04/09/25 09:05 Patient Tobacco Use Status Former Tobacco user 04/09/25 09:05 Tobacco use type Cigarette 04/09/25 09:05 e-Cigarette/Vaping Use Former Use 04/09/25 09:05 PHQ-9: PHQ-9 Score PHQ-9: Total score 0 04/09/25 09:12 Depression Screening Interpretation: Negative Thrive Assessment: Date of Thrive Assessment Date Thrive assessed 04/02/25 04/09/25 09:05 Currently or been in a relationship where the following occur: No concerns reported Coding Level of Care Code Est Pt Level 4 (76362) Diagnoses Essential hypertension I10 Heart block AV second degree I44.1 ILYA on CPAP G47.33; Z99.89 Primary insomnia F51.01 Insomnia type: primary Additional Codes PHQ-9 - 74403 - PHQ-9 Billing: Yes ([id number]) Assessment & Plan Assessment & Plan (1) Essential hypertension: Code(s): I10 - Essential (primary) hypertension Category: Medical (2) Heart block AV second degree: Code(s): I44.1 - Atrioventricular block, second degree Category: Medical (3) ILYA on CPAP: Comment: HISTORY OF ILYA IS SINCE HER LEAST 2014. HAS BEEN USING CPAP VERY REGULARLY. HAD A NEW REPLACEMENT MACHINE IN 2021. HOME-BASED SLEEP STUDY IN 2021 WAS ACTUALLY NEGATIVE FOR SLEEP APNEA EXCEPT IN SUPINE POSITION. PATIENT SCHEDULED TO HAVE ANOTHER SLEEP STUDY AT THE END OF . Code(s): G47.33 - Obstructive sleep apnea (adult) (pediatric); Z99.89 - Dependence on other enabling machines and devices Category: Medical (4) Insomnia: Code(s): G47.00 - Insomnia, unspecified Category: Medical Qualifiers: Insomnia type: primary Qualified Code(s): F51.01 - Primary insomnia Plan 74 year old presenting for follow up HTN-stable on current medications GERD-stable on omeprazole Orders: Orders Comprehensive Met. Panel 4 Months G47.33 - Obstructive sleep apnea (adult) (pediatric), I10 - Essential (primary) hypertension, Z99.89 - Dependence on other enabling machines and devices Complete Blood Count Auto Diff 4 Months G47.33 - Obstructive sleep apnea (adult) (pediatric), I10 - Essential (primary) hypertension, Z99.89 - Dependence on other enabling machines and devices Prostate Specific Antigen 4 Months G47.33 - Obstructive sleep apnea (adult) (pediatric), I10 - Essential (primary) hypertension, Z99.89 - Dependence on other enabling machines and devices
[2025-04-09 08:59] VITALS: BP 126/72; PULSE 68; RESP 14; O2SAT 99; BMI 25.9
--- OUTSIDE RECORDS SUMMARY | 2025-04-09 09:22 | XMS_ITS | Patient Health Record ---
[facility] Address [address] [facility] [place] [address] Care Team Providers Care Tap Out Operator Name Role Phone Breanne Amezcua MD Primary Care Provider Shahla Chris Unavailable [phone] Allergies No Known Allergies Reason For Referral [...] Problem Acquired hammer toe of right foot (8491364215525 105) Hammer toe of right foot (M20.41) Active confirmed Problem Acquired hammer toe of left foot (3360120669363 103) Hammer toe of left foot (M20.42) Active confirmed Vital Signs Blood pressure diastolic 50 mm Hg 01/26/2025 Height 6ft in 01/26/2025 Blood pressure systolic 125 mm Hg 01/26/2025 Weight 185 lbs 01/26/2025 BMI 25.09 kg/m2 01/26/2025 Encounters Encounter Location Date Provider Diagnosis [address] [address] 05/05/2024 Shahla Perica Tinea pedis B35.3 ; Pain in right toe(s) M79.674 ; Pain in left toe(s) M79.675 and Tinea unguium B35.[address] [address] 07/21/2024 Shahla Perica Tinea pedis B35.3 ; Pain in right toe(s) M79.674 ; Pain in left toe(s) M79.675 ; Tinea unguium B35.1 and Xerosis cutis L85.[address] [address] 10/27/2024 Shahla Perica Pain in right toe(s) M79.674 ; Tinea unguium B35.1 and Pain in left toe(s) M79.[address] [address] 01/26/2025 Shahla Rosas Onychomycosis B35.1 ; Tinea [...] Provider Name:Shahla persaud, 04/20/2025 03:30:00 PM, [address] [place], [address], Insurance Providers Payer Name Payer Address Payer Phone Subscriber Number Group Number Insured Name Patient Relationship to Insured Coverage Start Date Coverage End Date Medicare National [employer] [address] [place] [address] [id number] Mason Blum Self - patient is the insured [email or web address] [address] [place] [address] [phone] [id number] Trevor arandaMason Self - patient is the insured Medical (General) History Medical History History ICD Code Knee Pain Hypertension Surgical History Surgery Date(Month/Year) knee replacement 10/2013, 2016 hernia 01/2018 appendix 10/2014 colonoscopy/endoscopy 07/2020 colonoscopy 02/2024 pacemaker 11/11/24
--- OUTSIDE RECORDS SUMMARY | 2025-04-09 09:22 | XMS_ITS | Clinical Summary ---
Author Organization [address] [facility] Address [address] [place] [address] Phone Care Team Providers Care Stucco Laborer Name Role Phone Antoine Kendrick MD Primary Care Provider [phone] Allergies No known active allergies Medications losartan [...] Depression Screening 08/05/2024 COVID-19 Vaccine ( season) 2025 04/30/2024, 11/19/2023, 04/30/2023, Additional history exists Influenza [...] complete this topic Insurance MEDICARE Care Teams Stucco Laborer Relationship Specialty Start Date End Date Antoine Kendrick MD [address] [place] [address] Dr Rebecca [place] PCP - General Internal Medicine 07/09/24
--- OUTSIDE RECORDS SUMMARY | 2025-04-09 09:22 | XMS_ITS | Patient Health Record ---
Author Organization [facility] Address [address] [place] [address] Care Team Providers Care Field Account Director Name Role Phone Aroldo (RETIRED) Antoine SOARES Primary Care Provide r Unavailable Lan Melvin Unavailable [phone] Allergies No Known Allergies Reason For Referral [...] Problem Status W/U Status Risk Notes Problem [id number] Encounter for screening for malignant neoplasm of colon (Z12.11) Active confirmed Problem 894451832 History of adenomatous polyp of colon (Z86.010) Active confirmed Problem Diverticular disease of colon (934403394) Diverticulosis of large intestine without perforation or abscess without bleeding (K57.30) Active confirmed Problem 903168577 Gastroesophageal reflux disease without esophagitis (K21.9) Active confirmed Problem 390405595 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) Active confirmed Problem Clay esophagus (152594790) 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 Problem 62550906 Hypertension, unspecified type (I10) Active confirmed Plan [...] Date MEDICARE OF [place] [address] [place] [address] [phone] [id number] DEMI CORRALES Self - patient is the insured [employer] ATT[employer] CLAIMS [address] [place] [address] [id number] DEMI CORRALES Self - patient is the insured Medical (General) History Medical History History ICD Code HTN Screening colonoscopy 08/2004 neg except for hyperplastic polyps GERD--small to moderate-sized HH Clay's esophagus--EGD's i n 2004, 2007, 2010, 02/2014--no dysplasia, small area of Clay's, small hiatal hernia Denies AR,DM,CVA,Lung disease,renal dise ase Sleep apnea--uses CPAP Hx of pneumonia due to complications aft er an appy Colonoscopy in February of 2014- -hyperplastic polyps and one tubular adenoma, diverticulosis and internal hemorrhoids Negative screening colonoscopy in [facility] er 2019 Upper endoscopy in July [...]
== END 2025-04-09 09:21 | disposition home or self-care (01) ==
LOC: HO.HMCFM 08:52
PROVIDERS: PCP Internal Medicine; Visit Provider Internal Medicine
DX: I10 Essential (primary) hypertension (principal); I44.1 Atrioventricular block, second degree; G47.33 Obstructive sleep apnea (adult) (pediatric); Z99.89 Dependence on other enabling machines and devices; F51.01 Primary insomnia

== ENCOUNTER → 2025-04-09 08:51 | Outpatient (BNVA) | payer MEDICARE, SELFPAY | PROVIDERS: PCP Internal Medicine; Visit Provider Internal Medicine | DX: I10 Essential (primary) hypertension (principal); I44.1 Atrioventricular block, second degree; F51.01 Primary insomnia; G47.33 Obstructive sleep apnea (adult) (pediatric); Z99.89 Dependence on other enabling machines and devices | CPT/HCPCS: 96127; 99212 ==

== ENCOUNTER → 2025-04-21 07:38 | Outpatient (REF) | payer MEDICARE, SELFPAY ==
--- OUTSIDE RECORDS SUMMARY | 2024-01-17 07:30 | XMS_ITS ---
Author Organization [facility] Address [address] [place] [address] Care Team Providers Care Business Functional Analyst Name Role Phone Aroldo (RETIRED) Antoine SOARES Primary Care Provide Lan Mays [phone] REASON FOR VISIT screening,hx polyps,gerd,oakes's Encounters Encounter Location Date Provider Diagnosis [facility] [place] [address] [place] [address] [place] [phone] 01/17/2024 Lan Melvin Plan Of Treatment No Information Progress Notes * DEMI GOEL RDOB: (74 yo M)Acc No.[id number]:01/17/2024 EGD and COL/MAC Patient: Galen DEMI TELLEZ Provider: Xavi Melvin MD :1950 A ge:73 Y S ex:Male Date:01/17/2024 Address: [address] [id number] Pcp:Antoine Kendrick (RETIRED )MD Subjective: * Chief [...] 0 01/17/2024 Generated for Heidi haley/Avery/eTransmitting on: 0 04/21/2025 07:40 AM EDT
--- OUTSIDE RECORDS SUMMARY | 2024-02-28 07:20 | XMS_ITS ---
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 Encounters Encounter Location Date Provider Diagnosis [facility] [place] [address] [place] [phone] 02/28/2024 Lan Melvin Colon cancer screeni ng [...] * DEMI GOEL RDOB: (74 yo M)Acc No.[id number]:02/28/2024 EGD and COL/MAC Patient: DEMI DICKINSON Provider: Xavi Melvin MD :1950 A ge:73 Y S ex:Male Date:02/28/2024 Address:[address] [place], [place] [phone] Pcp:Antoine Kendrick (RETIRED )MD Subjective: * Chief [...] FLW-UP 10 YRS DOCD, Modifiers: 1P , 12377 UPPER GI ENDOSCOPY, BIOPSY * * The named appointment provid er may or may not be the originator of this progress note, and it is not deemed complete until electronically signed by the appointment provider. Sign off status: Pending * Provider: Xavi Melvin MD Date: 0 02/28/2024 Generated for Heidi haley/Avery/eTransmitting on: 0 04/21/2025 07:39 AM EDT
--- OUTSIDE RECORDS SUMMARY | 2025-04-20 11:30 | XMS_ITS ---
Author Organization [facility] Address [address] [place] [address] Care Team Providers Care Parts Technician Name Role Phone Breanne Amezcua MD Primary Care Provider Shahla Chris Unavailable [phone] Allergies No Known Allergies REASON FOR VISIT Painful nail(s) aggravated by shoes causing difficulty standing/walking Medications Medication [...] Twice a day; Duration: 30 days Active Ciclopirox Olamine 0.77 % 1 application to affected area Externally to feet Twice a day; Duration: 30 days Not-Taking Iron bid Active Multivitamin Active Omeprazole 20 MG Orally Act christian NIFEdipine ER 60 MG 1 tablet on an empty stomach Orally Once a day Active Folic Acid 1 MG Orally Acti ve Losartan Potassium 100 MG as directed Orally Active Potassium 10 meq Active Social History Tobacco Use: Social History Observation Description Date Details (start date - stop date) Never Smoker NA - NA Tobacco use other than smoking: Question Answer Notes Are you an other tobacco user? No Tobacco Control (Standard) Question Answer Notes Tobacco use: Nonsmoker Additional Findings: Tobacco non-user Current no nsmoker AUDIT-C (Standard) Question Answer Notes Did you have a drink contain ing alcohol in the past year? Yes How often did you have a dri nk containing alcohol in the past year? 2 to 4 times a month (2 points) How many drinks did you have on a typical day when you were drinking in the past year? 1 or 2 drinks (0 point) How often did you have six o r more drinks on one occasion in the past year? Never (0 point) Points 2 Interpretation Negative Vital Signs Height 6ft in 04/20/2025 Weight 185 lbs 04/20/2025 BMI 25.09 kg/m2 04/20/2025 Blood pressure systolic 120 mm Hg 04/20/20 25 Blood pressure diastolic 68 mm Hg 025 Encounters Encounter Location Date Provider Diagnosis [facility] [address] [address] 04/20/2025 Shahla Rosas Onychomycosis B35.1 ; Pain in right toe(s) M79.674 and Pain in left toe(s) M79.675 Assessments Encounter Date Diagnosis (ICD Code) Assessment Notes Treatment Notes Treatment Clinical Notes Section Notes 04/20/2025 Onychomycosis (ICD-10 - B35.1) 04/20/2025 Pain in right toe(s) (ICD-10 - M79.674) 04/20/2025 Pain in left toe(s) (ICD-10 - M79.675) Plan Of Treatment Next Appt Details Follow Up: 2 Months, Reason: Provider Name:Shahla persaud, 07/13/2025 03:30:00 PM, [address] [place] [address], [address], Procedure Notes * Category Sub-Category Detail Notes Debride Nail 6-10 Nail debridement Due to the cl inical pathology outlined in the exam findings, performance of this nail treatment is medically necessary as its management by an unskilled/untrained nonprofessional would put this patients foot and overall health at risk. Therefore, debridement to affected nail(s), as described in exam ( ___ ), was performed exclusively by the physician of record to reduce/remove overall nail length, girth, thickness, subungual debris, and necrotic tissue, by manual and/or electrical means through the use of a nail nipper and/or dremel-type surface grinder tender, to a more viable healthy nail plate [...] to maintain effectiveness in symptomatic relief - 72336 Progress Notes * Mason SETHIDOB:[birth year] (74 yo M)Acc No.[id number]:04/20/2025 Progress Note Patient: Mason DICKINSON Provider: Simeon Rosas DPM :1950 A ge:74 Y S ex:Male Date:04/20/2025 Address: [place] Pcp:Breanne Amezcua MD Subjective: * Chief Complaints: * P ainful nail(s) aggravated by shoes causing difficulty standing/walking * HPI: P ainful Nails: Pt States Last PCP Visit: D ate: 0 04/16/2025 * ROS: G eneral/Constitutional: Nausea d enies. V omiting d enies. H bj Thirst d enies. L oss appetite d enies. C hills d enies. F atigue d enies.?Fever d enies. N ight Sweats d enies. U nexplained weight loss d enies. U nexplained weight gain d enies. H EENTM: Dentures a dmits. D izziness d enies. G lasses/contacts a dmits. R etinopathy d enies. B lurred/double vision d enies. T MJ?denies. D ischarge/drainage d enies. I mplants d enies. S ore throat d enies. D ental implants d enies. H desiree of hearing d enies. D ifficulty chewing/swallowing/speaking d enies. N ose bleeds d enies. S ore mouth d enies. ? R espiratory: On Oxygen d enies. P neumonia/pleurisy d enies.?Bronchitis d enies. E mphysema d enies. C oughing d enies. C ough blood?denies. S hortness of breath d enies. W heezing d enies. C ardiovascular: Pacemaker d enies. M PLATFORM STAPLER d enies. W PW d enies. C HF d enies. H eart attack d enies. S eptal defect d enies. R apid beat d enies. C hest pain d enies. A trial Fib. d enies. M urmur/Palpitations d enies. G astrointestinal: Hemorrhoids d enies. S tomach/Abdominal pain d enies. D ark blood stool d enies. I rritable bowel d enies. C onstipation d enies. D iarrhea d enies. H ematology: Swelling d enies. C lots d enies. V aricose Veins d enies. B ruising d enies. B leeding problem d enies. G enitourinary: Blood urine d enies. F requent/Painfu/urination/bladder control d enies. K idney stones d enies. I nfection (UTI) d enies. N ephropathy d enies. s ex trans dis (STD) d enies. P rostate d enies. M usculoskeletal: Hammertoes a dmits. B unions a dmits. B ack Pain d enies. M uscle Cramps/ Resting d enies. M uscle cramps / walking d enies.?Generalized aches and pains d enies. W eakness d enies. I nteg.: Cesar d enies. S cars d enies. C orns/calluses?admits. I ngrown nails d enies. P ainful nails a dmits. O pen Sores d enies. R ashes d enies. N eurologic: Difficulty sleeping d enies. B rain disorder d enies. N umbness a dmits. B alance trouble d enies. C onfusion d enies. F ainting/blackouts d enies. T ingling d enies. T remors d enies. * Medical History: * Surgical History: k nee replacement 10/2013, 2016hernia 6/2018appendix 10/2014colonoscopy/endoscopy 07/2020colonoscopy 4pacemaker 11/11/24 * Hospitalization/Major Diagno stic Procedure: D enies Past Hospitalization * Family History: M other: , diagnosed with Unspecified essential hypertension. F ather: , diagnosed with Unspecified essential hypertension. S pouse: alive, Type 2, diagnosed with Diabetic - NIDDM. * Social History: T obacco Use: T obacco use other than smoking A re you an other tobacco user? N o Tobacco Control (Standard) T obacco use: N onsmoker A dditional Findings: Tobacco non-user C urrent nonsmoker M iscellaneous: C affeine: yes, frequency:, 1-2 cups per day decafe coffe or tea. Children: yes, 2. Exercise: yes, walking, bike riding. Marital status: . Occupation: Retired- college. D rug/Alcohol: A OSCAR-C (Standard) D id you have a drink containing alcohol in the past year? Y es H ow often did you have a drink containing alcohol in the past year? 2 to 4 times a month (2 points) H ow many drinks did you have on a typical day when you were drinking in the past year? 1 or 2 drinks (0 point) H ow often did you have six or more drinks on one occasion in the past year? N ever (0 point) P oints 2 I nterpretation N egative * Medications: T akingLosartan Potassium 100 MG Tablet as directed Orally [...] AREA(S) OF FEET TWO TIMES A DAY Doxazosin Mesylate 2 MG Tablet Oral Ciclopirox Olamine 0.77 % Cream 1 application [...] OF FEET TWO TIMES A DAY Taking Doxazosin Mesylate 2 MG Tablet Oral Taking Ciclopirox Olamine 0.77 % Cream 1 [...] reviewed and reconciled with the patient * Allergies: N .K.D.A.yes[Allergies Verified] Objective: * Vitals: H t: 6ft, Wt:185, BMI:25.09, Shoe size: 11, BP:120/68mm Hg, Ht-cm: 182.88 cm, Wt- k.92 kg. * Examination: N ails: NAILS are: E longated, overgrown, dystrophic, lytic, greater than 3mm thick, discolored and friable with crumbly malodorous subungual debris, with pain on palpation, TA, T1, T2, T3, T4, T5, T6, T7, T8, T9. G eneral Examination: GENERAL APPEARANCE: R vamshieals a pleasant, alert, well nourished, well-developed, well hydrated individual, who demonstrates proper attention to hygiene/body habitus, and is in no acute distress, Pt serves as own historian for office visit today. ORIENTED: p erson, place, and time. V ascular: DP PULSES (B): 3 /4, B/L. PT PULSES (B): 3 /4, B/L. CAPILLARY FILL TIME: i mmediate, all digits, B/L. TROPHIC CONDITION-TEXTURE/ELASTICITY/TURGOR/HAIR GROWTH (B):?normal, B/L. TEMPERTURE GRADIENT (C): n ormal, warm to cool, proximal to distal, B/L, B/L. N eurological: SENSORY: N eurological exam reveals intact sensorium, pain sensation normal, vibration sensation intact, pinprick sensation is normal in the lower extremities, Pt denies, anesthesia, burning, paresthesia, tingling, B/L. Assessment: * Assessment: 1. P ain in right toe(s) - M79.674 2 . O nychomycosis - B35.1 (Primary)? 3. P ain in left toe(s) - M79.675 Plan: * Treatment: * Procedures: D ebride Nail 6-10: Nail debridement D ue to the clinical pathology outlined in the exam findings, performance of this nail treatment is medically necessary as its management by an unskilled/untrained nonprofessional would put this patients foot and overall health at risk. Therefore, debridement to affected nail(s), as described in exam ( ___ ), was performed exclusively by the physician of record to reduce/remove overall nail length, girth, thickness, subungual debris, and necrotic tissue, by manual and/or electrical means through the use of a nail nipper and/or dremel-type surface grinder tender, to a more viable healthy nail plate [...] to maintain effectiveness in symptomatic relief - 18675. * Procedure Codes: 1 1721 DEBRIDE NAIL, 6 OR MORE * Preventive Medicine: Screening/Special Tests: F all Risk Screening: N o falls in the past year F ALLS: Screening for Future Fall Risk Have you had any falls with injury in the past year? N o * Follow Up: 2 Months * Images: * Sign off status: Completed true * Provider: Simeon Rosas DPM Date: 0 04/20/2025 Generated for Heidi haley/Avery/Ken on: 0 04/21/2025 07:40 AM EDT History and Physical Notes * HPI (History of Present Illness) Category Sub-Category Detail Notes Category Not es Painful Nails Pt States Last PCP Visit: Date:: 04/16/2025 Examination Category Sub-Category Detail Notes Category Not [...]
--- OUTSIDE RECORDS SUMMARY | 2025-04-21 07:40 | XMS_ITS | Clinical Summary ---
Author Organization [address] [facility] Address [address] [place] [address] Phone Care Team Providers Care Latcher Name Role Phone Antoine Kendrick MD Primary Care Provider [phone] Allergies No known active allergies Medications losartan [...] complete this topic Insurance MEDICARE Care Teams Latcher Relationship Specialty Start Date End Date Antoine Kendrick MD [address] [place] [address] Dr Rebecca MA PCP - General Internal Medicine 07/09/24
--- OUTSIDE RECORDS SUMMARY | 2025-04-21 07:40 | XMS_ITS | Patient Health Record ---
Author Organization [facility] Address [address] [place] [address] Care Team Providers Care Nickel Operator Name Role Phone Aroldo (RETIRED) Antoine SOARES Primary Care Provide r Unavailable Lan Melvin Unavailable [phone] Allergies No Known Allergies Reason For Referral [...] Problem Status W/U Status Risk Notes Problem 757331755 Encounter for screening for malignant neoplasm of colon (Z12.11) Active confirmed Problem 421595260 History of adenomatous polyp of colon (Z86.010) Active confirmed Problem Diverticular disease of colon (467102298) Diverticulosis of large intestine without perforation or abscess without bleeding (K57.30) Active confirmed Problem 799638756 Gastroesophageal reflux disease without esophagitis (K21.9) Active confirmed Problem 694831740 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) Active confirmed Problem Clay esophagus (962951873) 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 Problem 76630162 Hypertension, unspecified type (I10) Active confirmed Plan [...] Date MEDICARE OF [place] [address] [place] [address] [id number] DEMI CORRALES Self - patient is the insured MEDEX ATTN CLAIMS [address] [place] [address] [id number] DEMI CORRALES Self - patient is the insured Medical (General) History Medical History History ICD Code HTN Screening colonoscopy 08/2004 neg except for hyperplastic polyps GERD--small to moderate-sized HH Clay's esophagus--EGD's i n 2004, 2007, 2010, 02/2014--no dysplasia, small area of Clay's, small hiatal hernia Denies [place],DM,CVA,Lung disease,renal dise ase Sleep apnea--uses CPAP Hx of pneumonia due to complications aft er an appy Colonoscopy in February of 2014- -hyperplastic polyps and one tubular adenoma, diverticulosis and internal hemorrhoids Negative screening colonoscopy in [facility] er 2019 Upper endoscopy in July [...]
--- OUTSIDE RECORDS SUMMARY | 2025-04-21 07:40 | XMS_ITS | Patient Health Record ---
Author Organization [facility] Address [address] [facility] [place] [address] Care Team Providers Care Sap Basis Name Role Phone Breanne Amezcua MD Primary Care Provider Shahla Chris Unavailable [phone] Allergies No Known Allergies Reason For Referral No Information Medications Medication SIG (Take, Route, Frequency, Duration) Notes Start Date End Date Status Iron bid Active Multivitamin Active Zolpidem Tartrate 5 MG Orally prn Active Ammonium Lactate 12 % APPLY TO AFFECTED AREA(S) OF FEET TWO TIMES A DAY; Duration: 70 Active Omeprazole 20 MG Orally Act christian NIFEdipine ER 60 MG 1 tablet on an empty stomach Orally Once a day Active Folic Acid 1 MG Orally Acti ve Doxazosin Mesylate 2 MG Oral; Duration: 90 Days Active Ciclopirox Olamine 0.77 % 1 application to affected area Externally to feet Twice a day; Duration: 30 days Active Losartan Potassium 100 MG as directed Orally Active Ciclopirox Olamine 0.77 % 1 application to affected area Externally to feet Twice a day; Duration: 30 days Not-Taking Potassium 10 meq Active Immunizations Vaccine Route Administration Date Status [...] Never (0 point) Points 2 Interpretation Negative Problems Problem Type SNOMED Code ICD Code Onset Dates Problem Status W/U Status Risk Notes Problem Non-pressure ulcer of left lower extremity, limited to breakdown of skin (L97.921) Active confirmed Problem Acquired hammer toe of right foot (8068720062469 105) Hammer toe of right foot (M20.41) Active confirmed Problem Acquired hammer toe of left foot (3445913353706 103) Hammer toe of left foot (M20.42) Active confirmed Vital Signs Blood pressure diastolic 68 mm Hg 04/20/2025 Height 6ft in 04/20/2025 Blood pressure systolic 120 mm Hg 04/20/2025 Weight 185 lbs 04/20/2025 BMI 25.09 kg/m2 04/20/2025 Encounters Encounter Location Date Provider Diagnosis [facility] [address] [address] 05/05/2024 Shahla Perica Tinea pedis B35.3 ; Pain in right toe(s) M79.674 ; Pain in left toe(s) M79.675 and Tinea unguium B35.[address] [facility] [address] 07/21/2024 Shahla Perica Tinea pedis B35.3 ; Pain in right toe(s) M79.674 ; Pain in left toe(s) M79.675 ; Tinea unguium B35.1 and Xerosis cutis L85.[address] [address] 10/27/2024 Shahla Perica Pain in right toe(s) M79.674 ; Tinea unguium B35.1 and Pain in left toe(s) M79.[address] [address] 01/26/2025 Shahla Perica Onychomycosis B35.1 ; Tinea pedis of both feet B35.3 ; Pain in right toe(s) M79.674 and Pain in left toe(s) M79.[address] [address] 04/20/2025 Shahla Perica Onychomycosis B35.1 ; Pain in right toe(s) M79.674 and Pain in left toe(s) M79.675 Assessments Encounter Date Diagnosis (ICD Code) Assessment Notes Treatment Notes Treatment Clinical Notes Section Notes 07/21/2024 Pain in right toe(s) (ICD-10 - M79.674) 07/21/2024 Tinea pedis (ICD-10 - B35.3) 10/27/2024 Tinea unguium (ICD-10 - B35.1) 10/27/2024 Pain in right toe(s) (ICD-10 - M79.674) 04/20/2025 Pain in right toe(s) (ICD-10 - M79.674) 04/20/2025 Onychomycosis (ICD-10 - B35.1) 01/26/2025 Onychomycosis (ICD-10 - B35.1) 01/26/2025 Tinea pedis of both feet (ICD-10 - B35.3) 05/05/2024 Tinea pedis (ICD-10 - B35.3) 05/05/2024 Pain in right toe(s) (ICD-10 - M79.674) 01/26/2025 Pain in right toe(s) (ICD-10 - M79.674) 04/20/2025 Pain in left toe(s) (ICD-10 - M79.675) 10/27/2024 Pain in left toe(s) (ICD-10 - M79.675) 07/21/2024 Pain in left toe(s) (ICD-10 - M79.675) 07/21/2024 Tinea unguium (ICD-10 - B35.1) 01/26/2025 Pain in left toe(s) (ICD-10 - M79.675) 05/05/2024 Pain in left toe(s) (ICD-10 - M79.675) 05/05/2024 Tinea unguium (ICD-10 - B35.1) 07/21/2024 Xerosis cutis (ICD-10 - L85.3) Plan Of Treatment Pending Test Test Name Order Date X ray : Foot, left 3V 12/06/2020 Next Appt Details Provider Name:Shahla persaud, 07/13/2025 03:30:00 PM, [address] [place] [address], [phone], Insurance Providers Payer Name Payer Address Payer Phone Subscriber Number Group Number Insured Name Patient Relationship to Insured Coverage Start Date Coverage End Date Medicare National Govt S[employer] [address] [place] [address] [id number] Mason Blum Self - patient is the insured Med Blue [facility] [address] [place] [address] [id number] Mason Blum Self - patient is the insured Medical (General) History Medical History History ICD Code Knee Pain Hypertension Surgical History Surgery Date(Month/Year) knee replacement 10/2013, 2016 hernia 01/2018 appendix 10/2014 colonoscopy/endoscopy 07/2020 colonoscopy 02/2024 pacemaker 11/11/24
== END ==
LOC: HO.SL 07:38
PROVIDERS: PCP Internal Medicine; Visit Provider Internal Medicine
DX: G47.33 Obstructive sleep apnea (adult) (pediatric) (principal); Z99.89 Dependence on other enabling machines and devices; I27.20 Pulmonary hypertension, unspecified; R06.83 Snoring
CPT/HCPCS: 95806

== ENCOUNTER → 2025-04-21 07:51 | Outpatient (BNV) | payer MEDICARE, SELFPAY | PROVIDERS: PCP Internal Medicine; Visit Provider Internal Medicine | DX: R06.83 Snoring (principal) | CPT/HCPCS: 95806 ==

== ENCOUNTER 2025-05-06 09:55 | Outpatient (AMB) | payer MEDICARE, SELFPAY ==
--- OUTSIDE RECORDS SUMMARY | 2024-01-17 07:30 | XMS_ITS ---
Author Organization [facility] Address [address] [place] [address] Care Team Providers Care Electric Spot Welder Name Role Phone Aroldo (RETIRED) Antoine SOARES Primary Care Provide Lan Mays [phone] REASON FOR VISIT screening,hx polyps,gerd,oakes's Encounters Encounter Location Date Provider [place] [facility] [place] [address] [place] [address] [place] [phone] 01/17/2024 Lan Melvin Plan Of Treatment No Information Progress Notes * DEMI GOEL RDOB: (74 yo M)Acc No.[id number]:01/17/2024 EGD and COL/MAC Patient: Galen DEMI TELLEZ Provider: Xavi Melvin MD :1950 A ge:73 Y S ex:Male Date:01/17/2024 Address: [address] [id number] Pcp:Antoine Kendrick (RETIRED )MD Subjective: * Chief [...] 0 01/17/2024 Generated for Heidi haley/Avery/eTransmitting on: 1 11:07 AM EDT
--- OUTSIDE RECORDS SUMMARY | 2024-02-28 07:20 | XMS_ITS ---
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 Encounters Encounter Location Date Provider [place] [facility] [place] [address] [place] [phone] 02/28/2024 Lan Melvin Colon cancer screeni ng [...] * DEMI GOEL RDOB: (74 yo M)Acc No.[id number]:02/28/2024 EGD and COL/MAC Patient: DEMI DICKINSON Provider: Xavi Melvin MD :1950 A ge:73 Y S ex:Male Date:02/28/2024 Address:[address] [place], [place] [phone] Pcp:Antoine Kendrick (RETIRED )MD Subjective: * Chief [...] FLW-UP 10 YRS DOCD, Modifiers: 1P , 61721 UPPER GI ENDOSCOPY, BIOPSY * * The named appointment provid er may or may not be the originator of this progress note, and it is not deemed complete until electronically signed by the appointment provider. Sign off status: Pending * Provider: Xavi Melvin MD Date: 0 02/28/2024 Generated for Heidi haley/Avery/eTransmitting on: 1 11:07 AM EDT
--- NOTE | 2025-05-06 10:02 | A.OFFVIS_ITS ---
Vital Signs 05/06/25 10:03 Height 5 ft 11 in Weight 186 lb 4.65 oz BMI 26.0 BP 140/72 H Blood Pressure Location Lt brachial Position Sitting Pulse 68 Pulse Source Pulse Oximeter Pulse Oximetry (%) 97 Oxygen Delivery Method Room Air Intake Visit Reasons: Obstructive sleep apnea Intake Note: pt is here for follow up and states he is feeling good, cpap is going well Design Painter Required: No Ladle Car Operator: Ladle Car Operator offered & declined Allergies No Known Allergies (No Known Allergies*) Allergy (Verified 05/06/25 10:26) Medication List - Last Reconciled 05/06/25 by Grupo Rosado MD doxazosin (Cardura) 1 mg PO BEDTIME doxazosin 2 mg PO BEDTIME ferrous sulfate (Feosol) 325 mg PO BID folic acid 1 mg PO DAILY losartan 100 mg PO DAILY multivitamin 1 tab PO DAILY nifedipine ER 60 mg PO DAILY omeprazole 20 mg PO DAILY potassium chloride ER 10 mEq PO DAILY zolpidem 5 mg PO BEDTIME PRN Do you need a note to return to daycare/school/sports/work: No HPI HPI Obstructive sleep apnea: Details: THIS 74 YEARS OLD 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 HE CONTINUES TO USE CPAP EVERY NIGHT AND SLEEPS GOOD. PER SLEEP STUDY HE HAS ONLY BORDERLINE SLEEP APNEA BUT HAS EXCESSIVE AMOUNT OF SNORING. WITH THE USE OF CPAP OVER THE PAST MANY YEARS HIS SLEEP QUALITY HAS MUCH IMPROVED., .WITH ELIMINATION OF SNORING BECAUSE HE HAS UNDERLYING CORONARY ARTERY DISEASE WITH PULMONARY HYPERTENSION, IT IS VERY BENEFICIAL FOR HIM TO KEEP USING THE CPAP. [facility] Medical History Pulmonary hypertension History of Clay's esophagus Hiatal hernia GERD (gastroesophageal reflux disease) ILYA on CPAP PVCs (premature ventricular contractions) Essential hypertension Heart block AV second degree Surgical History H/O thumb surgery History of total right knee replacement (TKR) Hx of blepharoplasty Hx of cataract extraction History of surgery on arm History of esophagogastroduodenoscopy (EGD) Hx of colonoscopy (~02/28/24) History of inguinal hernia repair History of appendectomy Family History Father No problems noted. Mother No problems noted. 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 Cognitive needs: No Hearing needs: No Vision needs: Yes (reading glasses) Review of Systems Const All systems reviewed & are unremarkable except as noted in HPI and below Eyes Reports no additional complaints ENT Reports no additional complaints Card Denies chest pain, Denies syncope, Denies irregular heart rhythm, Denies leg edema and Reports other (HAS A DEMAND PACEMAKER IN PLACE) Resp Reports as per HPI GI Reports no additional complaints Reports no additional complaints Musc Reports no additional complaints Skin/Breast Reports breast skin changes Neuro Reports no additional complaints and Denies syncope Physical Exam Vital Signs: Last Vital Signs Pulse 68 05/06/25 10:03 BP 140/72 H 05/06/25 10:03 Pulse Ox 97 05/06/25 10:03 Oxygen Delivery Method Room Air 05/06/25 10:03 BMI result Body Mass Index 26.0 Const General: healthy appearing, comfortable, no acute distress, alert and awake Orientation/consciousness: patient oriented x3 HEENT Head: Yes normal to inspection General nose exam: No nasal polyps present and No nasal discharge present Face and sinus: Yes sinuses nontender Mouth: oropharynx normal Throat: Yes posterior oropharynx normal Eyes General: appearance normal, both eyes and all related structures Neck Neck: Yes normal visual inspection, Yes no lymphadenopathy, Yes trachea midline and Yes no JVD Thyroid: Thyroid normal Chest Chest palpation & inspection: normal inspection of the chest, normal palpation of entire chest wall and no tenderness Resp Effort & Inspection: normal respiratory effort Auscultation: clear to auscultation bilaterally, no crackles, no rhonchi and no wheezes Cardio Palpation: normal PMI Rate: regular rate Rhythm: regular rhythm Heart sounds: no gallops and no murmurs Peripheral pulses: Peripheral pulses 2+ throughout GI Palpation (GI): Soft to palpation, nontender, No hepatosplenomegaly present and no masses Auscultation: normal bowel sounds Back/Spine/Pelvis Thoracic/Lumbar Spine: thoracic and lumbar spine normal to inspection Skin General skin exam: no rashes or lesions noted Neuro General: patient oriented x3 and no focal motor deficits Cranial nerves: Yes CN's II-XII intact bilaterally Extrem General: Yes normal to inspection, Yes no clubbing, cyanosis or edema and Yes no calf tenderness Psych Appearance: grossly normal and well kempt Speech and movement: Normal speech and movement present Results Reviewed Results Reviewed: HIS RECENT HOME-BASED SLEEP STUDY ON 04/21/2025. IS REVIEWED. TOTAL SLEEP TIME AHI 3.9 AND SUPINE POSITION AHI =5 SNORING FOR 46 % OF THE SLEEP TIME. Assessment & Plan Assessment & Plan (1) ILYA on CPAP: Comment: HISTORY OF ILYA IS SINCE AT LEAST 2014. HAS BEEN USING CPAP VERY REGULARLY. HAD A NEW REPLACEMENT MACHINE IN 2021. HOME-BASED SLEEP STUDY IN 2021 WAS ACTUALLY NEGATIVE FOR SLEEP APNEA EXCEPT IN SUPINE POSITION. MOST RECENT STUDY ON 04/21/2025, REVIEWED WITH THE PATIENT. HIS SLEEP APNEA IS BORDERLINE, TOTAL SLEEP TIME AHI 3.9 BUT IN SUPINE POSITION IT IS 5. SNORING IS FOR 46% OF THE SLEEP TIME Code(s): G47.33 - Obstructive sleep apnea (adult) (pediatric); Z99.89 - Dependence on other enabling machines and devices Category: Medical Plan: PROS AND CONS OF CONTINUING THE CPAP THERAPY DISCUSSED WITH HIM. HE FEELS MUCH MORE COMFORTABLE BY SLEEPING WITH CPAP, AND IT ELIMINATES THE SNORING. HE IS DEFINITELY BENEFITING SO ADVISED TO CONTINUE . IT IS ALSO BENEFICIAL BECAUSE HE HAS ASSOCIATED CORONARY ARTERY DISEASE WELL CHRONIC PULMONARY HYPERTENSION. (2) Pulmonary hypertension: Comment: PULMONARY HYPERTENSION WITH RVSP 63 MMHG WAS NOTED IN HIS RECENT ECHOCARDIOGRAM. HE DOES NOT HAVE ANY RESPIRATORY SYMPTOMS, CHEST X-RAY DOES SUGGEST CARDIOMEGALY AND MINIMAL INTERSTITIAL DISEASE IN THE LOWER LOBE . Code(s): I27.20 - Pulmonary hypertension, unspecified Category: Medical Plan: I THINK CONTINUED USE OF CPAP IS, BENEFICIAL FOR KEEPING THE PULMONARY HYPERTENSION IN CONTROL. Coding Level of Care Code Est Pt Level 3 (85663) Diagnoses ILYA on CPAP G47.33; Z99.89 Pulmonary hypertension I27.20
[2025-05-06 10:03] VITALS: BP 140/72; PULSE 68; O2SAT 97; BMI 26.0
--- OUTSIDE RECORDS SUMMARY | 2025-05-06 11:07 | XMS_ITS | Patient Health Record ---
Author Organization [facility] Address [address] [place] [address] Care Team Providers Care Micromatic Hone Operator Name Role Phone Aroldo (RETIRED) Antoine SOARES Primary Care Provide r Unavailable Lan Melvin Unavailable [phone] Allergies No Known Allergies Reason For Referral [...] Problem Status W/U Status Risk Notes Problem 241702045 Encounter for screening for malignant neoplasm of colon (Z12.11) Active confirmed Problem 649032256 History of adenomatous polyp of colon (Z86.010) Active confirmed Problem Diverticular disease of colon (520798472) Diverticulosis of large intestine without perforation or abscess without bleeding (K57.30) Active confirmed Problem 667577307 Gastroesophageal reflux disease without esophagitis (K21.9) Active confirmed Problem 470418619 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) Active confirmed Problem Clay esophagus (334449507) 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 Problem 47023822 Hypertension, unspecified type (I10) Active confirmed Plan [...] Date MEDICARE OF [place] [address] [place] [address] [id number] DEMI CORRALES Self - patient is the insured MEDEX ATTN CLAIMS [address] [place] [address] [id number] DEMI CORRALES Self - patient is the insured Medical (General) History Medical History History ICD Code HTN Screening colonoscopy 08/2004 neg except for hyperplastic polyps GERD--small to moderate-sized HH Clay's esophagus--EGD's i n 2004, 2007, 2010, 02/2014--no dysplasia, small area of Clay's, small hiatal hernia Denies [place],DM,CVA,Lung disease,renal dise ase Sleep apnea--uses CPAP Hx of pneumonia due to complications aft er an appy Colonoscopy in February of 2014- -hyperplastic polyps and one tubular adenoma, diverticulosis and internal hemorrhoids Negative screening colonoscopy in [facility] er 2019 Upper endoscopy in July [...]
--- OUTSIDE RECORDS SUMMARY | 2025-05-06 11:08 | XMS_ITS | Patient Health Record ---
Author Organization [facility] Address [address] [place] [address] Care Team Providers Care Manager Supply Chain Planning Name Role Phone Breanne Amezcua MD Primary Care Provider Shahla Chris Unavailable [phone] Allergies No Known Allergies Reason For Referral [...] Problem Acquired hammer toe of right foot (1660721057877 105) Hammer toe of right foot (M20.41) Active confirmed Problem Acquired hammer toe of left foot (5878575337052 103) Hammer toe of left foot (M20.42) Active confirmed Vital Signs Blood pressure diastolic 68 mm Hg 04/20/2025 Height 6ft in 04/20/2025 Blood pressure systolic 120 mm Hg 04/20/2025 Weight 185 lbs 04/20/2025 BMI 25.09 kg/m2 04/20/2025 Encounters Encounter Location Date Provider Diagnosis [facility] [address] [address] 07/21/2024 Shahla Perica Tinea pedis B35.3 ; Pain in right toe(s) M79.674 ; Pain in left toe(s) M79.675 ; Tinea unguium B35.1 and Xerosis cutis L85.3 [facility] [address] 10/27/2024 Shahla Perica Pain in right toe(s) M79.674 ; Tinea unguium B35.1 and Pain in left toe(s) M79.[address] [address] 01/26/2025 Shahla Perica Onychomycosis B35.1 ; Tinea pedis of both feet B35.3 ; Pain in right toe(s) M79.674 and Pain in left toe(s) M79.[address] [address] 04/20/2025 Shahla Perica Onychomycosis B35.1 ; Pain in right toe(s) M79.674 and Pain in left toe(s) M79.675 Assessments Encounter Date Diagnosis (ICD Code) Assessment Notes Treatment Notes Treatment Clinical Notes Section Notes 07/21/2024 Tinea pedis (ICD-10 - B35.3) 10/27/2024 Tinea unguium (ICD-10 - B35.1) 10/27/2024 Pain in right toe(s) (ICD-10 - M79.674) 07/21/2024 Pain in right toe(s) (ICD-10 - M79.674) 01/26/2025 Onychomycosis (ICD-10 - B35.1) 01/26/2025 Tinea pedis of both feet (ICD-10 - B35.3) 04/20/2025 Pain in right toe(s) (ICD-10 - M79.674) 04/20/2025 Onychomycosis (ICD-10 - B35.1) 01/26/2025 Pain in right toe(s) (ICD-10 - M79.674) 04/20/2025 Pain in left toe(s) (ICD-10 - M79.675) 07/21/2024 Pain in left toe(s) (ICD-10 - M79.675) 10/27/2024 Pain in left toe(s) (ICD-10 - M79.675) 07/21/2024 Tinea unguium (ICD-10 - B35.1) 01/26/2025 Pain in left toe(s) (ICD-10 - M79.675) 07/21/2024 Xerosis cutis (ICD-10 - L85.3) Plan Of Treatment Pending Test Test Name Order Date X ray : Foot, left 3V 12/06/2020 Next Appt Details Provider Name:Shahla Persaud Tonya persaud, 07/13/2025 03:30:00 PM, [address] [place], [address], Insurance Providers Payer Name Payer Address Payer Phone Subscriber Number Group Number Insured Name Patient Relationship to Insured Coverage Start Date Coverage End Date Medicare National Govt [facility] [address] [place] [address] [id number] Mason Blum Self - patient is the insured Medex Blue Shield [address] [place] [address] [phone] [id number] Mason Bulm Self - patient is the insured Medical (General) History Medical History History ICD Code Knee Pain Hypertension Surgical History Surgery Date(Month/Year) knee replacement 10/2013, 2016 hernia 01/2018 appendix 10/2014 colonoscopy/endoscopy 07/2020 colonoscopy 02/2024 pacemaker 11/11/24
--- OUTSIDE RECORDS SUMMARY | 2025-05-06 11:08 | XMS_ITS | Clinical Summary ---
Author Organization [facility] Address [address] [place] [address] Phone Care Team Providers Care Bus Driver Supervisor Name Role Phone Antoine Kendrick MD Primary Care Provider [phone] Allergies No known active allergies Medications losartan [...] Health Maintenance Due Date Last Done Comments Colorectal Cancer Screening: Colonoscopy 1950 DTaP,Tdap,and Td Vaccines (1 - Tdap) 1971 Pneumococcal Vaccine: 50+ Years (2 of 2 - PCV20 or PCV21) 05/29/2017 05/29/2016 Cholesterol Screening (Lipid Panel) 06/19/2024 Falls Risk Assessment 06/19/2024 Hepatitis C [...] complete this topic Insurance MEDICARE Care Teams Bus Driver Supervisor Relationship Specialty Start Date End Date Antoine Kendrick MD [address] [place] [address] Dr Rebecca MA PCP - General Internal Medicine 07/09/24
== END 2025-05-06 10:22 | disposition home or self-care (01) ==
LOC: HO.HPS 09:56
PROVIDERS: PCP Internal Medicine; Visit Provider Internal Medicine
DX: G47.33 Obstructive sleep apnea (adult) (pediatric) (principal); Z99.89 Dependence on other enabling machines and devices; I27.20 Pulmonary hypertension, unspecified
CPT/HCPCS: 99213

== ENCOUNTER → 2025-05-06 09:55 | Outpatient (BNVA) | payer MEDICARE, SELFPAY | PROVIDERS: PCP Internal Medicine; Visit Provider Internal Medicine | DX: G47.33 Obstructive sleep apnea (adult) (pediatric) (principal); I27.20 Pulmonary hypertension, unspecified; Z99.89 Dependence on other enabling machines and devices | CPT/HCPCS: 99212 ==

== ENCOUNTER → 2025-05-28 23:59 | Outpatient (BNV) | payer MEDICARE, SELFPAY ==
--- NOTE | 2025-05-31 19:16 | A.OFFVIS_ITS ---
Intake Visit Reasons: remote device check- [employer] Allergies No Known Allergies (No Known Allergies*) Allergy (Verified 05/06/25 10:26) [facility] Medical History Pulmonary hypertension History of Clay's esophagus Hiatal hernia GERD (gastroesophageal reflux disease) ILYA on CPAP PVCs (premature ventricular contractions) Essential hypertension Heart block AV second degree Surgical History H/O thumb surgery History of total right knee replacement (TKR) Hx of blepharoplasty Hx of cataract extraction History of surgery on arm History of esophagogastroduodenoscopy (EGD) Hx of colonoscopy (~02/28/24) History of inguinal hernia repair History of appendectomy Family History Father No problems noted. Mother No problems noted. 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 Overall normal device function. [id number] Cardiac Device Interrogation, pacemaker Procedure code (CPT) selection complete Assessment & Plan Assessment & Plan (1) Pacemaker: Code(s): Z95.0 - Presence of cardiac pacemaker Category: Medical (2) Heart block AV second degree: Code(s): I44.1 - Atrioventricular block, second degree Category: Medical Plan x Coding Level of Care Code Procedure Only Diagnoses Pacemaker Z95.0 Heart block AV second degree I44.1 CPT Codes Cardiac Device Check - Cardiac Device 12: [id number] Cardiac Device Interrogation, pacemaker ([id number])
== END ==
PROVIDERS: PCP Internal Medicine; Visit Provider Internal Medicine
DX: I44.1 Atrioventricular block, second degree (principal); Z95.0 Presence of cardiac pacemaker
CPT/HCPCS: 93294

== ENCOUNTER → 2025-06-07 07:59 | Outpatient (REF) | payer MEDICARE, SELFPAY ==
--- OUTSIDE RECORDS SUMMARY | 2024-01-17 06:30 | XMS_ITS ---
Author Organization [facility] Address [address] [place] [address] Care Team Providers Care Reverse Logistics Analyst Name Role Phone Aroldo (RETIRED) Antoine SOARES Primary Care Provide Lan Mays [phone] REASON FOR VISIT screening,hx polyps,gerd,oakes's Encounters Encounter Location Date Provider Diagnosis [facility] [place] [address] [place] [address] [place] [phone] 01/17/2024 Lan Melvin Plan Of Treatment No Information Progress Notes * DEMI GOEL RDOB: (74 yo M)Acc No.[id number]:01/17/2024 EGD and COL/MAC Patient: Galen DEMI TELLEZ Provider: Xavi Melvin MD :1950 A ge:73 Y S ex:Male Date:01/17/2024 Address: [address] [id number] Pcp:Antoine Kendrick (RETIRED )MD Subjective: * Chief Complaints: * 1 . Screening,hx polyps,gerd,oakes's. * Medical History: Objective: * Vitals: Assessment: Plan: * Treatment: * * The named appointment provid er may or may not be the originator of this progress note, and it is not deemed complete until electronically signed by the appointment provider. Sign off status: Pending * Provider: Xavi Melvin MD Date: 0 01/17/2024 Generated for Heidi haley/Avery/eTransmitting on: 08/07/2024 08:02 AM EST
--- OUTSIDE RECORDS SUMMARY | 2024-02-28 06:20 | XMS_ITS ---
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 Screening,hx polyps,gerd,oakes's. * Medical History: Objective: * Vitals: Assessment: * Assessment: 1. C olon cancer [...] H iatal hernia - K44.9 Plan: * Treatment: * Procedure Codes: 4 5385 LESION REMOVAL COLONOSCOPY, Modifiers: PT , 0529F INTRVL 3+YRS PTS CLNSCP DOCD, 0528F RCMND FLW-UP 10 YRS DOCD, Modifiers: 1P , 59527 UPPER GI ENDOSCOPY, BIOPSY * * The named appointment provid er may or may not be the originator of this progress note, and it is not deemed complete until electronically signed by the appointment provider. Sign off status: Pending * Provider: Xavi Melvin MD Date: 0 02/28/2024 Generated for Heidi haley/Avery/eTransmitting on: 1 08/07/2024 08:02 AM EST
--- NOTE | 2025-06-07 08:02 | CA_ITS ---
Transthoracic Echocardiogram Patient (Last, First, Middle): Mason Sethi R Gender: Male Date of : 1950 Age: 74 Procedure Date: 06/07/2025 Procedure Type: Transthoracic Echocardiogram Location: OP Height: 180.34 cm Weight: 84.37 kg BSA: 2.04 m2 Heart Rate: bpm BP: 140 / 72 mmHg Nursing Instructor: MARLON Referring MD: Ganga Womack MD Symptoms: I27.20 - Pulmonary hypertension, unspecified Study Quality: Fair but adequate Conclusions: - The left ventricular systolic function is mildly decreased. The calculated ejection fraction is 44% by biplane method. - The left atrium is moderately dilated. - No obvious valvular pathology seen on this study. Findings Left Ventricle Mildly increased left ventricular cavity size. The left ventricular systolic function is mildly decreased. The calculated ejection fraction is 44% by biplane method. There is mild global hypokinesis. Diastolic function is normal for age. Right Ventricle Normal right ventricular cavity size and systolic function. There is a pacemaker wire seen in the right ventricle. Atria The left atrium is moderately dilated. The right atrium is mildly dilated. Aortic Valve The aortic valve was not well visualized. There is no aortic valve stenosis. There is no aortic valve regurgitation. Mitral Valve The mitral valve appears normal. There is no mitral valve regurgitation. There is no mitral valve stenosis. Pulmonic Valve The pulmonic valve is likely normal. Tricuspid Valve There is trace tricuspid valve regurgitation. There is no evidence of pulmonary hypertension. Great Vessels The aorta was not well visualized. The sinuses of valsalva is normal in size. Small plaque is seen in the sino tubular ridge. Venous The inferior vena cava is normal in size and collapses greater than 50% with inspiration. Pericardium/Pleural There is no evidence of pericardial effusion. Prior Study Comparison Changes noted compared to prior study dated: 11/10/2024. Decrease in LVEF. Recommendations, Care & Conclusions No obvious valvular pathology seen on this study. Measurements 2D Linear Measurements IVSd: 0.69 0.6-0.9/0.6-1.0 cm LVIDd: 5.97 3.9-5.3/4.2-5.9 cm LVIDd Index: 2.93 2.4-3.2/2.2-3.1 cm/m2 LVIDs: 4.67 2.0-3.6 cm LVPWd: 0.99 0.7-1.1 cm LA Diam: 4.70 2.7-3.8/3.0-4.0 cm LAIDs Index: 2.30 1.5-2.3 cm/m2 LV Mass: 244.32 67-162/88-224 g LV Mass Index: 119.76 43-95/49-115 g/m2 LVOT Diam: 2.00 3.0+(-)1.3 cm 2D Systolic Function EF 4C: 43.30 >55% EF 2C: 41.20 >55% EF BiP: 43.80 >55% Mitral Valve MV Pk E: 0.75 MV PK A: 0.34 MV Decel Time: 243.00 E/A: 2.20 E'Lateral: 9.14 E'Medial: 7.51 E/E' Med: 10.00 E/E' Lat: 8.20 PHT: 71.00 MVA PHT: 3.10 Decel Brown: 3.10 Aortic Valve AoV Pk Syed: 1.18 AoV Mn Syed: 0.91 AoV VTI: 0.30 AoV Pk Grad: 6.00 Aov Mn Grad: 4.00 JADIEL Cont.VTI: 2.27 LVOT LVOT Pk Syed: 0.96 LVOT Mn Syed: 0.67 LVOT VTI: 0.22 LVOT Pk Grad: 4.00 LVOT Mn Grad: 2.00 LVOT Diam: 2.00 LVOT Area: 3.14 Diastolic Function MV Pk E: 0.75 MV Pk A: 0.34 E/A: 2.20 E'Medial: 7.51 E/E' Med: 10.00 E' Laterial: 9.14 E/E' Lat: 8.20 Right Ventricle TAPSE (mm): 23.30 TVS' Syed: 13.10 Tricuspid Valve TR Pk Syed: 2.35 TR Pk Grad: 22.00 RA Press: 8.00 RVSP: 30.00 Great Vessels Aorta Sinus of Valsalva: 3.27 2.0-3.[address] Ridge: 2.28 1.7-3.4 cm Pulmonary Veins Pulm Vein S/D 0.70 Updated in Other Vendor System with Status of Final Ganga Womack MD electronically signed on 06/08/2025 9:56:22 AM with status of Final
--- OUTSIDE RECORDS SUMMARY | 2025-06-07 08:02 | XMS_ITS | Patient Health Record ---
Author Organization [facility] Address [address] [place] [address] Care Team Providers Care Nutrition Teacher Name Role Phone Aroldo (RETIRED) Antoine SOARES Primary Care Provide r Unavailable Lan Melvin Unavailable [phone] Allergies No Known Allergies Reason For Referral [...] UNIT 1 capsule Orally Onc e a day; Duration: 30 day(s) Active Multi Vitamin/Minerals - as [...] Problem Status W/U Status Risk Notes Problem Screening for malignant neoplasm of colon (620127519) Encounter for screening for malignant neoplasm of colon (Z12.11) Active confirmed Problem History of adenomatous polyp of colon (974240037) History of adenomatous polyp of colon (Z86.010) Active confirmed Problem Diverticular disease of colon (229646589) Diverticulosis of large intestine without perforation or abscess without bleeding (K57.30) Active confirmed Problem Gastroesophageal reflux disease without esophagitis (794644816) Gastroesophageal reflux disease without esophagitis (K21.9) Active confirmed Problem Clay's esophagus (736893583) Barretts esophagus without dysplasia (K22.70) Active confirmed Problem Clay esophagus (498166901) 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 Problem Essential hypertension (44365990) Hypertension, unspecified type (I10) Active confirmed Plan [...] Date MEDICARE OF [place] [address] [place] [address] [phone] [id number] DEMI CORRALES Self - patient is the insured MED[employer] ATTN CLAIMS [address] [place] [address] [id number] DEMI CORRALES Self - patient is the insured Medical (General) History Medical History History ICD Code HTN Screening colonoscopy 08/2004 neg except for hyperplastic polyps GERD--small to moderate-sized HH Clay's esophagus--EGD's i n 2005, 2007, 2010, 02/2014--no dysplasia, small area of Clay's, small hiatal hernia Denies [place],DM,CVA,Lung disease,renal dise ase Sleep apnea--uses CPAP Hx of pneumonia due to complications aft er an appy Colonoscopy in February of 2014- -hyperplastic polyps and one tubular adenoma, diverticulosis and internal hemorrhoids Negative screening colonoscopy in [facility] er 2019 Upper endoscopy in [...]
--- OUTSIDE RECORDS SUMMARY | 2025-06-07 08:03 | XMS_ITS | Patient Health Record ---
Author Organization [facility] Address [address] [place] [address] Care Team Providers Care Cloth Opener Hand Name Role Phone Breanne Amezcua MD Primary Care Provider Shahla Chris Unavailable [phone] Allergies No Known Allergies Reason For Referral [...] Problem Acquired hammer toe of right foot (1502189489029 105) Hammer toe of right foot (M20.41) Active confirmed Problem Acquired hammer toe of left foot (8851769798937 103) Hammer toe of left foot (M20.42) Active confirmed Vital Signs Blood pressure diastolic 68 mm Hg 04/20/2025 Height 6ft in 04/20/2025 Blood pressure systolic 120 mm Hg 04/20/2025 Weight 185 lbs 04/20/2025 BMI 25.09 kg/m2 04/20/2025 Encounters Encounter Location Date Provider Diagnosis [facility] [address] [address] 07/21/2024 Shahla Perica Tinea pedis B35.3 ; Pain in right toe(s) M79.674 ; Pain in left toe(s) M79.675 ; Tinea unguium B35.1 and Xerosis cutis L85.[address] [facility] [address] 10/27/2024 Shahla Perica Pain in right toe(s) M79.674 ; Tinea unguium B35.1 and Pain in left toe(s) M79.[address] [address] 01/26/2025 Shahla Perica Onychomycosis B35.1 ; Tinea pedis of both feet B35.3 ; Pain in right toe(s) M79.674 and Pain in left toe(s) M79.[address] [address] 04/20/2025 Shahla Perica Onychomycosis B35.1 ; Pain [...] Persaud Tonya persaud, 07/13/2025 03:30:00 PM, [address] [place], [address], Insurance Providers Payer Name Payer Address Payer Phone Subscriber Number Group Number Insured Name Patient Relationship to Insured Coverage Start Date Coverage End Date Medicare National Govt [facility] [address] [place] [address] [id number] Mason Blum Self - patient is the insured [employer] Blue [employer] [address] [place] [address] [id number] Mason Blum Self - patient is the insured Medical (General) History Medical History History ICD Code Knee Pain Hypertension Surgical History Surgery Date(Month/Year) knee replacement 10/2013, 2016 hernia 01/2018 appendix 10/2014 colonoscopy/endoscopy 07/2020 colonoscopy 02/2024 pacemaker 11/11/24
--- OUTSIDE RECORDS SUMMARY | 2025-06-07 08:03 | XMS_ITS | Clinical Summary ---
Author Organization [address] [facility] Address [address] [place] [address] Phone Care Team Providers Care Dairy Nutritionist Name Role Phone Antoine Kendrick MD Primary Care Provider [phone] Allergies No known active allergies Medications losartan [...] 06/19/2024 Social Influencers of Health Screening 06/19/2024 Depression Screening 08/05/2024 COVID-19 Vaccine ( season) [...] complete this topic Insurance MEDICARE Care Teams Dairy Nutritionist Relationship Specialty Start Date End Date Antoine Kendrick MD [address] [place] [address] Dr Rebecca [place] PCP - General Internal Medicine 07/09/24
== END ==
LOC: HO.CARD 07:59
PROVIDERS: PCP Internal Medicine; Visit Provider Internal Medicine
DX: I27.20 Pulmonary hypertension, unspecified (principal); I44.1 Atrioventricular block, second degree; Z95.0 Presence of cardiac pacemaker
CPT/HCPCS: 93306

== ENCOUNTER → 2025-06-07 08:02 | Outpatient (BNV) | payer MEDICARE, SELFPAY | PROVIDERS: PCP Internal Medicine; Visit Provider Internal Medicine | DX: I51.7 Cardiomegaly (principal) | CPT/HCPCS: 93306 ==

== ENCOUNTER 2025-06-14 12:32 | Outpatient (AMB) | payer MEDICARE, SELFPAY ==
[2025-06-14 12:53] VITALS: BP 130/78; PULSE 77; BMI 26.1
--- NOTE | 2025-06-14 12:53 | MHC.OFFVIS ---
Vital Signs 06/14/25 12:53 Height 5 ft 11 in Weight 187 lb 6.287 oz BMI 26.1 BP 130/78 Blood Pressure Location Lt brachial Position Sitting Pulse 77 Pulse Source Pulse Oximeter Intake Visit Reasons: 6 mth w/ medtronic ck s/p echo Allergies No Known Allergies (No Known Allergies*) Allergy (Verified 05/06/25 10:26) Medication List - Last Reconciled 06/14/25 by Ganga Womack MD doxazosin 2 mg PO BEDTIME ferrous sulfate (Feosol) 325 mg PO BID folic acid 1 mg PO DAILY losartan 100 mg PO DAILY multivitamin 1 tab PO DAILY nifedipine ER 60 mg PO DAILY omeprazole 20 mg PO DAILY potassium chloride ER 10 mEq PO DAILY zolpidem 5 mg PO BEDTIME PRN HPI Comments Details: Mason returns for follow-up regarding bradycardia. Long history of Mobitz type one second-degree AV block but asymptomatic. During a recent clinic visit he was complaining of tiredness and also having more advanced heart block and that led to pacemaker placement. He is more or less the same as before. No new complaints. No specific cardiac symptoms. [facility] Medical History Pulmonary hypertension History of Clay's esophagus Hiatal hernia GERD (gastroesophageal reflux disease) ILYA on CPAP PVCs (premature ventricular contractions) Essential hypertension Heart block AV second degree Surgical History H/O thumb surgery History of total right knee replacement (TKR) Hx of blepharoplasty Hx of cataract extraction History of surgery on arm History of esophagogastroduodenoscopy (EGD) Hx of colonoscopy (~02/28/24) History of inguinal hernia repair History of appendectomy Family History Father No problems noted. Mother No problems noted. 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 Cognitive needs: No Hearing needs: No Vision needs: Yes (reading glasses) Review of Systems Const All systems reviewed & are unremarkable except as noted in HPI and below Reports as per HPI and Reports no additional complaints Eyes Reports as per HPI and Denies no additional complaints ENT Denies no additional complaints and Reports as per HPI Card Reports as per HPI, Reports no additional complaints, Denies acrocyanosis, Denies chest pain, Denies leg edema, Denies lightheadedness, Denies palpitations and Denies dyspnea Resp Reports as per HPI, Denies no additional complaints and Denies dyspnea GI Reports as per HPI and Denies no additional complaints Reports no additional complaints and Reports as per HPI Musc Reports no additional complaints and Reports as per HPI Skin/Breast Reports system reviewed and no additional complaints, except as documented Neuro Reports no additional complaints and Reports as per HPI Psych Reports no additional complaints and Reports as per HPI Endo Reports no additional complaints, Reports as per HPI and Denies palpitations Sunil/Lymph Reports no additional complaints and Reports as per HPI Aller/Immun Reports no additional complaints and Reports as per HPI Physical Exam Vital Signs: Last Vital Signs Pulse 77 06/14/25 12:53 BP 130/78 06/14/25 12:53 BMI result Body Mass Index 26.1 Const General: comfortable and no acute distress Orientation/consciousness: patient oriented x3 HEENT Other: Unremarkable Head: Yes normal to inspection Neck Neck: Yes normal visual inspection Chest Chest palpation & inspection: normal inspection of the chest Resp Auscultation: clear to auscultation bilaterally Cardio Palpation: normal PMI Heart sounds: S1 normal heart sound present, S2 normal heart sound present, no gallops, no murmurs and no rubs GI Palpation (GI): Soft to palpation Back/Spine/Pelvis Other: unremarkable Skin General skin exam: no rashes or lesions noted Neuro General: patient oriented x3 Extrem General: Yes normal to inspection Psych Mental Status: mental status grossly normal Office Procedures Cardiac Device Check Cardiac Device Check Details: Pacemaker interrogated today. Dual-chamber device, programmed DDDR. Battery status more than 11 years. Normal lead parameters. Atrial pacing 79%. Ventricular pacing 98%. Transient NSVT episodes. Overall, normal device function. [id number] Cardiac Device Check, pacemaker dual lead Procedure code (CPT) selection complete Assessment & Plan Assessment & Plan (1) Cardiomyopathy: Code(s): I42.9 - Cardiomyopathy, unspecified Category: Medical Plan: In the recent echocardiogram, LVEF is 44%. Mildly increased size. In the previous study from November, LVEF was 59%. Unclear if they drop in LVEF is related to right ventricular pacing. May need a left ventricular lead. To be decided. We will refer back to EP for consultation. (2) Heart block AV second degree: Code(s): I44.1 - Atrioventricular block, second degree Category: Medical Plan: Status post pacemaker implantation. As above, refer back to EP for consideration of LV lead. (3) Essential hypertension: Code(s): I10 - Essential (primary) hypertension Category: Medical Plan: On losartan, nifedipine. Stable. (4) ILYA on CPAP: Code(s): G47.33 - Obstructive sleep apnea (adult) (pediatric); Z99.89 - Dependence on other enabling machines and devices Category: Medical Plan: Continue CPAP. Plan Discussion Notes I discussed with the patient the current status of his pacemaker, which is functioning well, and the slight decrease in heart function observed on ultrasound. We talked about the possibility of adding an additional wire to the pacemaker to balance electrical conduction, and I will consult with the nailer hand regarding this. The patient was informed that the skin mole near the pacemaker site is not a concern for the device's function. Patient was informed and verbally consented to the use of an ambient scribe for clinic note documentation during this visit. Patient Instructions: - Follow up with the nailer hand as advised for further evaluation of the pacemaker. Coding Level of Care Code Est Pt Level 4 (56985) Complex EM visit Add On G2211 Diagnoses Cardiomyopathy I42.9 Heart block AV second degree I44.1 Essential hypertension I10 ILYA on CPAP G47.33; Z99.89 CPT Codes Cardiac Device Check - Cardiac Device 2: [id number] Cardiac Device Check, pacemaker dual lead ([id number])
--- OUTSIDE RECORDS SUMMARY | 2025-06-14 14:42 | XMS_ITS | Clinical Summary ---
Author Organization 175 [facility] Address [address] [place] [address] Phone Care Team Providers Care Fisher Lampara Net Name Role Phone Antoine Kendrick MD Primary [...] complete this topic Insurance MEDICARE Care Teams Fisher Lampara Net Relationship Specialty Start Date End Date Antoine Kendrick MD [address] [place] [address] Dr Rebecca [place] PCP - General Internal Medicine 07/09/24
== END 2025-06-14 13:29 | disposition home or self-care (01) ==
LOC: HO.HCS 12:33
PROVIDERS: PCP Internal Medicine; Visit Provider Internal Medicine
DX: I42.9 Cardiomyopathy, unspecified (principal); I44.1 Atrioventricular block, second degree; I10 Essential (primary) hypertension; G47.33 Obstructive sleep apnea (adult) (pediatric); Z99.89 Dependence on other enabling machines and devices
CPT/HCPCS: 93280; 99214; G2211

== ENCOUNTER → 2025-06-14 12:32 | Outpatient (BNVA) | payer MEDICARE, SELFPAY | PROVIDERS: PCP Internal Medicine; Visit Provider Internal Medicine | DX: I42.9 Cardiomyopathy, unspecified (principal); I44.1 Atrioventricular block, second degree; I10 Essential (primary) hypertension; G47.33 Obstructive sleep apnea (adult) (pediatric); Z99.89 Dependence on other enabling machines and devices; Z95.0 Presence of cardiac pacemaker | CPT/HCPCS: 93280; 99212 ==

== ENCOUNTER 2025-07-27 07:38 | Outpatient (REF) | payer MEDICARE, OTHER, SELFPAY ==
--- OUTSIDE RECORDS SUMMARY | 2024-02-28 06:20 | XMS_ITS ---
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 Encounters Encounter Location Date Provider Diagnosis [facility] [place] [address] [place] [id number] 02/28/2024 Lan Melvin Colon cancer screeni ng Z12.11 ; Colon polyps K63.5 ; Diverticulosis of large intestine without perforation or abscess without bleeding K57.30 ; Other hemorrhoids K64.8 ; Gastroesophageal reflux disease without esophagitis K21.9 ; Oakes esophagus K22.70 and Hiatal hernia K44.9 Assessments Encounter Date Diagnosis (ICD Code) Assessment Notes Treatment Notes Treatment Clinical Notes Section Notes 02/28/2024 Colon cancer screening (ICD-10 - Z12.11) 02/28/2024 Colon polyps (ICD-10 - K63.5) 02/28/2024 Diverticulosis of large intestine without perforation or abscess without bleeding (ICD-10 - K57.30) 02/28/2024 Other hemorrhoids (ICD-10 - K64.8) 02/28/2024 Gastroesophageal reflux disease without esophagitis (ICD-10 - K21.9) 02/28/2024 Oakes esophagus (ICD-10 - K22.70) 02/28/2024 Hiatal hernia (ICD-10 - K44.9) Plan Of Treatment No Information Progress Notes * DEMI GOEL RDOB: (75 yo M)Acc No.[id number]:02/28/2024 EGD and COL/MAC Patient: DEMI DICKINSON Provider: Xavi Melvin MD :1950 A ge:73 Y S ex:Male Date:02/28/2024 Address:[address] [place], [place] [phone] Pcp:Antoine Kendrick (RETIRED )MD Subjective: * Chief Complaints: * S creening,hx polyps,gerd,oakes's Assessment: * Assessment: 1. C olon cancer screening - Z12.11 (Primary) 2 . C olon polyps - K63.5? 3. D iverticulosis of large intestine without perforation or abscess without bleeding - K57.30 4 . O ther hemorrhoids - K64.8 5 . G astroesophageal reflux disease without esophagitis - K21.9 6 . B arrett esophagus - K22.70? 7. H iatal hernia - K44.9 Plan: * Procedure Codes: 4 5385 LESION REMOVAL COLONOSCOPY, Modifiers: PT 0529F INTRVL 3+YRS PTS CLNSCP [id number] RCMND FLW-UP 10 YRS DOCD, Modifiers: 1P 04464 UPPER GI ENDOSCOPY, BIOPSY Billing Information: * Procedure Codes: 84606 LESION REMOVAL COLONOSCOPY. Modifiers: PT 0529F INTRVL 3+YRS PTS CLNSCP DOCD. 0528F RCMND FLW-UP 10 YRS DOCD. Modifiers: 1P 25912 UPPER GI ENDOSCOPY, BIOPSY. * The named appointment provid er may or may not be the originator of this progress note, and it is not deemed complete until electronically signed by the appointment provider. Sign off status: Pending * Provider: Xavi Melvin MD Date: 0 02/28/2024 Generated for Colleeni sudha/Faxing/eTransmitting on: 1 09/27/2024 07:42 AM EST
--- OUTSIDE RECORDS SUMMARY | 2025-07-27 07:42 | XMS_ITS | Patient Health Record ---
Author Organization [facility] Address [address] [place] [address] Care Team Providers Care Record Clerk Name Role Phone Aroldo (RETIRED) Antoine SOARES Primary Care Provide r Unavailable Lan Melvin Unavailable [phone] Allergies No Known Allergies Reason For Referral No Information Medications Medication SIG (Take, Route, Frequency, Duration) Notes Start Date End Date Status Losartan Potassium 25 MG Tablet 1 tablet Orally Once a day A ctive Zolpidem Tartrate 5 MG Tablet 1 tablet at bedtime as needed Orally at HS NEEDED Active Folic Acid 1 MG Tablet 1 tablet Orally Once a day Active Iron 325 (65 Fe) MG Tablet 1 tablet Oral ly twice a day Active potassium 10 mg tablet 1 tablet Oral once a day Active Vitamin D 2000 UNIT Capsule 1 capsule Orally Once a day; Duration: 30 day(s) Active Multi Vitamin/Minerals - Tablet as directed Orally once a day Active NIFEdipine ER 30 MG Tablet Extended Release 24 Hour 1 tablet Orally Once a day Active Omeprazole 20 MG Capsule Delayed Release 1 capsule Orally Once a day Active Immunizations Vaccine Route Administration Date Status Comme nts Influenza Unknown 05/05/2017 Administered Influenza Unknown 05/13/2018 Administered Influenza Unknown 05/28/2023 Administered Social History Tobacco Use: Social History Observation Description Date Details (start date - stop date) Former Smoker NA - NA Social History Drugs/Alcohol: Social Info Question Answer Notes Alcohol Screen Did you have a drink containing alcohol in the past year? Yes How often did you have a drink containing [...] Never (0 point) Points 3 Interpretation Negative Tobacco Use: Social Info Question Answer Notes Tobacco Use/Smoking Patient is a former smoker How long has it been since you last smoked? 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 Section Notes: Nonsmoker > 10 yrs ago; no s ig alcohol Nonsmoker > 25yrs ago; no si g alcohol Nonsmoker > 25yrs ago; no si g alcohol Nonsmoker > 25yrs ago; no si g alcohol Problems Problem Type SNOMED Code ICD Code Onset Dates Problem Status W/U Status Risk Notes Problem Screening for malignant neoplasm of colon (152095262) Encounter for screening for malignant neoplasm of colon (Z12.11) Active confirmed Problem History of adenomatous polyp of colon (134905234) History of adenomatous polyp of colon (Z86.010) Active confirmed Problem Diverticular disease of colon (074043205) Diverticulosis of large intestine without perforation or abscess without bleeding (K57.30) Active confirmed Problem Gastroesophageal reflux disease without esophagitis (049756107) Gastroesophageal reflux disease without esophagitis (K21.9) Active confirmed Problem Clay's esophagus (562170521) Barretts esophagus without dysplasia (K22.70) Active confirmed Problem Clay esophagus (335743064) 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 Problem Essential hypertension (80357707) Hypertension, unspecified type (I10) Active confirmed Plan [...] OF [place] [address] [place] [address] [id number] DEMI CORRALES Self - patient is the insured [employer] ATTN CLAIMS [address] [place] [address] [id number] SIMONA PANDEYDEMI Self - patient is the insured Medical (General) History Medical History History ICD Code HTN Screening colonoscopy 08/2004 neg except for hyperplastic polyps GERD--small to moderate-sized HH Clay's esophagus--EGD's i n 2004, 2007, 2010, 02/2014--no dysplasia, small area of Clay's, small hiatal hernia Denies [place],DM,CVA,Lung disease,renal dise ase Sleep apnea--uses CPAP Hx of pneumonia due to complications aft er an appy Colonoscopy in February of 2014- -hyperplastic polyps and one tubular adenoma, diverticulosis and internal hemorrhoids Negative screening colonoscopy in [facility] er 2019 Upper endoscopy in July 2019 [...]
--- OUTSIDE RECORDS SUMMARY | 2025-07-27 07:42 | XMS_ITS | Clinical Summary ---
Author Organization 175 [facility] Address [address] [place] [address] Phone Care Team Providers Care Exhibitions And Collections Manager Name Role Phone Antoine Kendrick MD [...] on file Sexual Orientation Not on file Last Filed Vital Signs Vital Sign Reading [...] Done Comments Colorectal Cancer Screening: Colonoscopy 1950 Drug Screen 1950 Non-Opioid Controlled Substance Agreement 1950 DTaP,Tdap,and Td Vaccines (1 - Tdap) 1971 Pneumococcal Vaccine: 50+ Years (2 of 2 - PCV20 or PCV21) 05/29/2017 05/29/2016 Abdominal Aortic Aneurysm (AAA) Screen 06/19/2024 Cholesterol Screening (Lipid Panel) 06/19/2024 Falls Risk [...] complete this topic Insurance MEDICARE Care Teams Exhibitions And Collections Manager Relationship Specialty Start Date End Date Antoine Kendrick MD [address] [place] [address] Dr Rebecca [place] PCP - General Internal Medicine 07/09/24
--- OUTSIDE RECORDS SUMMARY | 2025-07-27 07:42 | XMS_ITS | Patient Health Record ---
Author Organization [facility] Address [address] [place] [address] Care Team Providers Care Noodle Press Operator Name Role Phone Breanne Amezcua MD Primary Care Provider Shahla Chris Unavailable [phone] Allergies No Known Allergies Reason For Referral No Information Medications Medication SIG (Take, Route, Frequency, Duration) Notes Start Date End Date Status Doxazosin Mesylate 2 MG Oral; Duration: 90 Days Active Ciclopirox Olamine 0.77 % 1 application to affected area Externally to feet Twice a day; Duration: 30 days Active Ammonium Lactate 12 % APPLY TO AFFECTED AREA(S) OF FEET TWO TIMES A DAY; Duration: 70 Active Multivitamin Active Zolpidem Tartrate 5 MG Orally prn Active NIFEdipine ER 60 MG 1 tablet on an empty stomach Orally Once a day Active Iron bid Active Folic Acid 1 MG Orally Acti ve Omeprazole 20 MG Orally Act christian Losartan Potassium 100 MG as directed Orally Active Ciclopirox Olamine 0.77 % 1 application to affected area Externally to feet Twice a day; Duration: 30 days Not-Taking Potassium 10 meq Active Immunizations Vaccine Route Administration Date Status Comme nts Influenza Unknown 04/05/2024 Administered Influenza Unknown 05/07/2025 Administered COVID-19 Pfizer BioNTech Vaccine Unknown 07/26/2020 [...] Problem Acquired hammer toe of right foot (2348300625320 105) Hammer toe of right foot (M20.41) Active confirmed Problem Acquired hammer toe of left foot (8432894124386 103) Hammer toe of left foot (M20.42) Active confirmed Vital Signs Blood pressure diastolic 67 mm Hg 07/13/2025 Height 6ft in 07/13/2025 Blood pressure systolic 126 mm Hg 07/13/2025 Weight 185 lbs 07/13/2025 BMI 25.09 kg/m2 07/13/2025 Encounters Encounter Location Date Provider Diagnosis [address] [address] 10/27/2024 Shahla Perica Pain in right toe(s) M79.674 ; Tinea unguium B35.1 and Pain in left toe(s) M79.[address] [address] 01/26/2025 Shahla Perica Onychomycosis B35.1 ; Tinea pedis of both feet B35.3 ; Pain in right toe(s) M79.674 and Pain in left toe(s) M79.[address] [address] 04/20/2025 Shahla Perica Onychomycosis B35.1 ; Pain in right toe(s) M79.674 and Pain in left toe(s) M79.675 [facility] [place] [address] [place] [address] 07/13/2025 Shahla Rosas Onychomycosis B35.1 ; Pain in right toe(s) M79.674 and Pain in left toe(s) M79.675 Assessments Encounter Date Diagnosis (ICD Code) Assessment Notes Treatment Notes Treatment Clinical Notes Section Notes 10/27/2024 Tinea unguium (ICD-10 - B35.1) 10/27/2024 Pain in right toe(s) (ICD-10 - M79.674) 01/26/2025 Onychomycosis (ICD-10 - B35.1) 01/26/2025 Tinea pedis of both feet (ICD-10 - B35.3) 04/20/2025 Pain in right toe(s) (ICD-10 - M79.674) 04/20/2025 Onychomycosis (ICD-10 - B35.1) 07/13/2025 Onychomycosis (ICD-10 - B35.1) 01/26/2025 Pain in right toe(s) (ICD-10 - M79.674) 07/13/2025 Pain in right toe(s) (ICD-10 - M79.674) 04/20/2025 Pain in left toe(s) (ICD-10 - M79.675) 10/27/2024 Pain in left toe(s) (ICD-10 - M79.675) 01/26/2025 Pain in left toe(s) (ICD-10 - M79.675) 07/13/2025 Pain in left toe(s) (ICD-10 - M79.675) Plan Of Treatment Pending Test Test Name Order Date X ray : Foot, left 3V 12/06/2020 Next Appt Details Provider Name:Shahla Dionna persaud, 09/22/2025 10:00:00 AM, [address] [place], [address], Insurance Providers Payer Name Payer Address Payer Phone Subscriber Number Group Number Insured Name Patient Relationship to Insured Coverage Start Date Coverage End Date [employer] [address] [place] [address] [id number] Mason Blum Self - patient is the insured [facility] [address] [place] [address] [id number] Mason Blum Self - patient is the insured Medical (General) History Medical History History ICD Code Knee Pain Hypertension Surgical History Surgery Date(Month/Year) knee replacement 10/2013, 2015 hernia 01/2018 appendix 10/2014 colonoscopy/endoscopy 07/2020 colonoscopy 02/2024 pacemaker 11/11/24
[2025-07-27 10:43] LABS: MANUAL DIFF FLAG NO
[2025-07-27 10:48] LABS: Hematocrit 39.4 % (42.0-52.0); Hemoglobin 14.2 g/dl (14.0-18.0); Imm Gran Abs Auto 0.01 X10*3/uL (0.00-0.03); Imm Gran Pct Auto 0.2 % (0.0-0.4); Lymphocytes Absolute Auto 1.5 X10*3/uL (1.2-4.9); Mean Corpuscular HGB Conc 36.0 g/dl (31.0-36.0); Mean Corpuscular Hemoglobin 32.8 pg (27.0-33.0); Mean Corpuscular Volume 91.0 fL (80.0-98.0); NRBC Abs Auto 0.000 X10*3/uL (0.0-0.012); NRBC Pct Auto 0.0 /100WBC (0.0-0.2); Platelet Count 230 X10*3/uL (160-400); Red Blood Count 4.33 X10*6/uL (4.60-5.80); White Blood Count 5.9 X10*3/uL (4.8-10.8)
[2025-07-27 11:03] LABS: Alanine Aminotransferase 19 U/L (0-40); Albumin Level 4.8 g/dL (3.5-5.0); Alkaline Phosphatase 124 U/L (39-117); Anion Gap 14 (12-20); Aspartate Amino Transferase 29 U/L (5-37); Blood Urea Nitrogen 19 mg/dL (9-16); Calcium 9.9 mg/dL (8.4-10.2); Carbon Dioxide 27 mmol/L (22-29); Chloride 104 mmol/L (96-108); Estimated Glomerular Filt Rate 54; Potassium 3.8 mmol/L (3.3-5.1); Sodium 141 mmol/L (135-145); Total Protein 7.6 g/dL (6.5-8.0)
[2025-07-27 11:26] LABS: Prostate Specific Antigen 0.43 ng/mL (<0.05-4.0)
== END 2025-07-27 07:39 | disposition home or self-care (01) ==
LOC: HO.10HDL 07:38
PROVIDERS: Visit Provider Internal Medicine
DX: Z12.5 Encounter for screening for malignant neoplasm of prostate (principal); I10 Essential (primary) hypertension; G47.33 Obstructive sleep apnea (adult) (pediatric); Z99.89 Dependence on other enabling machines and devices
CPT/HCPCS: 36415; 80053; 84153; 85025